=== PATIENT | male | born 1975 | race Two or more races ===

== ENCOUNTER 2019-07-09 22:32 | Inpatient (IN) | payer OTHER ==
[~2019-07-09] VITALS: Ht 167.6 cm; Wt 132.9 kg
[~2019-07-09 22:32] MED LIST: CIPROFLOXACIN500 M2 ORAL; FERROUS GLUCON324 M1 PO; FOLIC ACID1 MG ORAL; LANTUS SOL100 UNIT/1 SUBQ; LEVEMIR FL100 UNIT/1 SUBQ; MIDODRINE HCL10 MG ORAL; NOVOLOG100 UNITS1 SUBQ; PROTONIX40 MG ORAL; VANCOMYCIN250 MG/5 M ORAL
--- NOTE | 2019-07-09 22:40 | NUR ---
ED Nurse Note: Pt brought in by ambulance from [facility] c/o burning urination. Per facility, urine sample taken and was reported + MRSA. Pt stated he has a stoner cath and IV access on RT arm. patient ao4. nad. vss. changed into gown; attached to monitor; safety measures met. stoner noted; draining well to gravity. iv access established fire captain; flushed and patent.
--- NOTE | 2019-07-09 22:45 | NUR ---
ED Nurse Note: iv access established. blood and urine collected; sent down to lab.
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
[2019-07-09 22:50] VITALS: BP 125/78
[2019-07-09] MEDS ORDERED: Piperacillin/Tazobactam 3.375 GM in NS 110 ML IVPB ONE (23:00)
[2019-07-09] MEDS ORDERED: Vancomycin 500 MG in NS 110 ML IVPB ONE (23:00)
[2019-07-09 23:23] LABS: BASOPHILS % (AUTO) 0.8 % (0.0-2.0); EOSINOPHILS % (AUTO) 1.6 % (0.0-3.0); HEMATOCRIT 39.7 % (42.0-52.0); HEMOGLOBIN 13.4 G/DL (14.2-18.0); LYMPHOCYTES % (AUTO) 29.6 % (20.0-45.0); MEAN CORPUSCULAR VOLUME 79 FL (80-99); MONOCYTES % (AUTO) 5.9 % (1.0-10.0); NEUTROPHILS % (AUTO) 62.1 % (45.0-75.0); PLATELET COUNT 244 K/UL (150-450); RED BLOOD COUNT 5.04 M/UL (4.70-6.10); RED CELL DISTRIBUTION WIDTH 15.5 % (11.6-14.8); WHITE BLOOD COUNT 8.4 K/UL (4.8-10.8)
[2019-07-09 23:27] LABS: BILIRUBIN, URINE NEGATIVE (NEGATIVE); COLOR,URINE PALE YELLOW; GLUCOSE, URINE (UA) 1+ (NEGATIVE); KETONES,URINE NEGATIVE (NEGATIVE); LEUKOCYTE ESTERASE ,URINE 3+ (NEGATIVE); NITRITE,URINE NEGATIVE (NEGATIVE); PH,URINE 6.5 (4.5-8.0); PROTEIN,URINE 2+ (NEGATIVE); UROBILINOGEN,URINE NORMAL MG/DL (0.0-1.0)
[2019-07-09 23:36] LABS: ANION GAP 9 mmol/L (5-15); APPEARANCE,URINE SLIGHTLY CLOUDY; BLOOD UREA NITROGEN 28 mg/dL (7-18); CALCIUM 9.5 MG/DL (8.5-10.1); CARBON DIOXIDE 29 MMOL/L (21-32); CHLORIDE 97 MMOL/L (98-107); CREATININE 1.2 MG/DL (0.55-1.30); SODIUM 135 MMOL/L (136-145)
[2019-07-10] MEDS ORDERED: CALCIUM 500 +1 EAC6 PO (00:28)
[2019-07-10] MEDS ORDERED: ARTIFICIAL TEAR15 ML BOTH EYES (00:28)
[2019-07-10] MEDS ORDERED: VITAMIN B122500 MCG PO (00:28)
[2019-07-10] MEDS ORDERED: CRANBERRY500 M3 PO (00:30)
[2019-07-10] MEDS ORDERED: DOCUSATE SODIU100 MG ORAL (00:30)
--- NOTE | 2019-07-10 00:30 | NUR ---
ED Nurse Note: sacral and left foot wound noted; wound photo taken and uploaded. cre vre mrsa swab collected; sent down to lab.
[2019-07-10] MEDS ORDERED: FLORAJEN3 CAPS460 MG PO (00:32)
[2019-07-10] MEDS ORDERED: FOLIC ACID1 MG ORAL (00:32)
[2019-07-10] MEDS ORDERED: NEURONTIN100 MG ORAL (00:32)
[2019-07-10] MEDS ORDERED: Morphine Sulfate 4mg/ml Inj (IV USE ONLY) IVP ONE (00:45)
[2019-07-10] MEDS ORDERED: Morphine Sulfate 4mg/ml Inj (IV USE ONLY) IVP PRN (00:45)
[2019-07-10 01:00] VITALS: BP 122/71
--- NOTE | 2019-07-10 01:37 | NUR ---
TRANSFER TO FLOOR: Patient transferred to [facility] [id number] as ordered, per lana cabral. Report given to luis alberto taylor. patient stable for transfer. patient transferred via gurney to unit with [facility]. belongings and admission packet sent with patient.
[2019-07-10] MEDS ORDERED: LEVEMIR100 UNIT/1 SUBQ (01:45)
[2019-07-10] MEDS ORDERED: JUVEN PACKET1 EAC1 PO (01:45)
[2019-07-10] MEDS ORDERED: FUROSEMIDE40 MG ORAL (01:45)
[2019-07-10] MEDS ORDERED: MORPHINE SULFAT15 MG PO (02:05)
[2019-07-10] MEDS ORDERED: MULTIVITAMINS1 EA14 PO (02:05)
[2019-07-10] MEDS ORDERED: POTASSIUM CHLO20 ME3 PO (02:07)
[2019-07-10] MEDS ORDERED: NEXIUM40 MG ORAL (02:08)
[2019-07-10] MEDS ORDERED: RELISTOR12 MG/0.1 SUBQ (02:11)
[2019-07-10] MEDS ORDERED: ZINC SULFATE220 M1 ORAL (02:11)
[2019-07-10] MEDS ORDERED: VITAMIN C 250250 MG PO (02:11)
[2019-07-10] MEDS ORDERED: ZOFRAN4 M3 ORAL (02:12)
[2019-07-10] MEDS ORDERED: Miralax 17gm pkt ORAL PRN (03:00)
[2019-07-10 03:30] VITALS: BP 115/56
[2019-07-10] MEDS ORDERED: DiphenhydrAMINE 25mg Tab ORAL SCH (04:30)
--- NOTE | 2019-07-10 06:00 | NUR ---
NURSE NOTES: Called Dr. Deutsch at 02:30 for patient's request of Dilaudid IV. Followed up at 03:06. Spoke with him and he said that he didn't want to order IV pain med. He was also made aware of pharmacist comment about Morphine table of IR or ER, resolved. He was also called about wound care consult, waiting for call back.
[2019-07-10] MEDS ORDERED: Morphine IR 15mg tab ORAL PRN (06:02)
[2019-07-10] MEDS: Piperacillin/Tazobactam 3.375 GM in NS 110 ML IVPB SCH ×3 (06:21→21:23)
[2019-07-10] MEDS: Heparin 5000 units/ml inj SUBQ SCH ×3 (06:26→21:31)
--- NOTE | 2019-07-10 06:30 | NUR ---
NURSE NOTES: Went to the sewing supervisor for the Novolog but she wasn't able to release one without label. Sent message to pipe line but we didn't find any at the night locker. Vocational Technical Education Director said to endorse to AM shift.
[2019-07-10 06:40] LABS: BASOPHILS % (AUTO) 0.8 % (0.0-2.0); EOSINOPHILS % (AUTO) 2.2 % (0.0-3.0); HEMATOCRIT 41.3 % (42.0-52.0); HEMOGLOBIN 13.6 G/DL (14.2-18.0); LYMPHOCYTES % (AUTO) 34.6 % (20.0-45.0); MEAN CORPUSCULAR VOLUME 81 FL (80-99); NEUTROPHILS % (AUTO) 56.5 % (45.0-75.0); PLATELET COUNT 237 K/UL (150-450); RED BLOOD COUNT 5.12 M/UL (4.70-6.10); RED CELL DISTRIBUTION WIDTH 15.8 % (11.6-14.8); WHITE BLOOD COUNT 7.8 K/UL (4.8-10.8)
--- NOTE | 2019-07-10 07:36 | NUR ---
HAND-OFF: Report given to TOMAS King. Patient is a fall risk.
--- NOTE | 2019-07-10 07:37 | NUR ---
NURSE NOTES: Received patient in bed, awake, alert and oriented x4. Not in respiratory/cardiac distress. Alexandre is intact, no blood or sediment @ this time. RN followed up with insulin pen. Pharmacy will bring the insulin pen. Call light and personnel items within reach. Will continue to monitor.
[2019-07-10 07:55] LABS: ANION GAP 10 mmol/L (5-15); BLOOD UREA NITROGEN 26 mg/dL (7-18); CALCIUM 9.5 MG/DL (8.5-10.1); CARBON DIOXIDE 29 MMOL/L (21-32); CHLORIDE 97 MMOL/L (98-107); SODIUM 136 MMOL/L (136-145)
[2019-07-10 08:00] VITALS: BP 105/63
[2019-07-10] MEDS: Furosemide 40mg tab ORAL SCH ×2 (08:12→17:20)
[2019-07-10] MEDS: Zinc Sulfate 220mg cap ORAL SCH (08:12)
[2019-07-10] MEDS: NovoLOG Insulin Flexpen SUBQ SCH ×4 (08:13→20:06)
[2019-07-10] MEDS: Docusate 100mg cap ORAL SCH (08:15)
[2019-07-10] MEDS: Midodrine 10mg tab ORAL SCH ×3 (08:16→17:20)
[2019-07-10] MEDS ORDERED: Levemir Flexpen SUBQ SCH (09:00)
--- NOTE | 2019-07-10 09:30 | NUR ---
NURSE NOTES: Patient had concerns about his elevated blood sugar and requested for stronger pain medication stating " the pain medication that I took earlier does not work." Dr. Singh came in and explained about blood sugar and he will order stronger pain meds.
--- NOTE | 2019-07-10 10:47 | NUR ---
CASE MANAGEMENT:INITIAL REVIEW 44 YR OLD MALE BIBA FROM [facility] CC;MALE UROGENITAL PROBLEMS SI;COMPLICATED UTI 97.0 97 15 105/63 95% ON RA NA 135 CL 97 BUN 28 BG 345 UA+ PROTEIN, GLUCOSE, BLOOD, LEUKOCYTE, RBC, WBC, BACTERIA IS;VANCOMYCIN IV ZOSYN IV ADMITTED TO MED SURG MED SURG STATUS DCP;FROM [facility]
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
[2019-07-10] MEDS: Vancomycin 1 GM in NS 275 ML IVPB SCH ×2 (11:05→21:22)
[2019-07-10 12:00] VITALS: BP 109/89
[2019-07-10] MEDS: HYDROmorphone 2mg tab ORAL PRN ×2 (12:08→18:52)
--- NOTE | 2019-07-10 13:03 | NUR ---
*-* NO INSURANCE INFORMATION ON THE BAR UNABLE TO SEND CLINICALS OR REVIEWS *-*
--- NOTE | 2019-07-10 13:13 | Infectious Diseases Prog Note ---
Assessment/Plan Assessment/Plan Full consult dictated: A) 1) uti, + ua 2) pmh noted 3) wounds 4) allergies - nkda P) 1) vancomycin and zosyn 2) f/u on urine culture 3) check labs 4) wound care per surgery 5) thank you Subjective Allergies: Coded Allergies: No Known Allergies (Unverified , 02/09/19) Objective Vital Signs Last 24 Hour Vital Signs Date Time Temp Pulse Resp B/P (MAP) Pulse Ox O2 Delivery O2 Flow Rate FiO2 07/10/19 12:00 98.4 89 18 109/89 (96) 95 07/10/19 09:00 Room Air 07/10/19 08:00 97.0 90 18 105/63 (77) 95 07/10/19 03:30 97.8 97 18 115/56 (75) 95 07/10/19 02:44 Room Air 07/10/19 01:36 98.1 95 16 125/78 95 Room Air 07/10/19 01:29 98.1 07/10/19 01:00 98.1 95 16 122/71 96 Room Air 07/09/19 22:50 98.1 100 16 125/78 95 Room Air 07/09/19 22:38 98.1 92 16 125/78 (94) 95 Room Air Height (Feet): 5 Height (Inches): 6.00 Weight (Pounds): 271 Laboratory Tests Test 07/09/19 22:45 07/10/19 05:45 White Blood Count 8.4 K/UL (4.8-10.8) 7.8 K/UL (4.8-10.8) Red Blood Count 5.04 M/UL (4.70-6.10) 5.12 M/UL (4.70-6.10) Hemoglobin 13.4 G/DL (14.2-18.0) L 13.6 G/DL (14.2-18.0) L Hematocrit 39.7 % (42.0-52.0) L 41.3 % (42.0-52.0) L Mean Corpuscular Volume 79 FL (80-99) L 81 FL (80-99) Mean Corpuscular Hemoglobin 26.6 PG (27.0-31.0) L 26.5 PG (27.0-31.0) L Mean Corpuscular Hemoglobin Concent 33.8 G/DL (32.0-36.0) 32.8 G/DL (32.0-36.0) Red Cell Distribution Width 15.5 % (11.6-14.8) H 15.8 % (11.6-14.8) H Platelet Count 244 K/UL (150-450) 237 K/UL (150-450) Mean Platelet Volume 6.5 FL (6.5-10.1) 6.5 FL (6.5-10.1) Neutrophils (%) (Auto) 62.1 % (45.0-75.0) 56.5 % (45.0-75.0) Lymphocytes (%) (Auto) 29.6 % (20.0-45.0) 34.6 % (20.0-45.0) Monocytes (%) (Auto) 5.9 % (1.0-10.0) 6.0 % (1.0-10.0) Eosinophils (%) (Auto) 1.6 % (0.0-3.0) 2.2 % (0.0-3.0) Basophils (%) (Auto) 0.8 % (0.0-2.0) 0.8 % (0.0-2.0) Urine Color Pale yellow Urine Appearance Slightly cloudy Urine pH 6.5 (4.5-8.0) Urine Specific [place] 1.010 (1.005-1.035) Urine Protein 2+ (NEGATIVE) H Urine Glucose (UA) 1+ (NEGATIVE) H Urine Ketones Negative (NEGATIVE) Urine Blood 4+ (NEGATIVE) H Urine Nitrite Negative (NEGATIVE) Urine Bilirubin Negative (NEGATIVE) Urine Urobilinogen Normal MG/DL (0.0-1.0) Urine Leukocyte Esterase 3+ (NEGATIVE) H Urine RBC 10-15 /HPF (0 - 0) H Urine WBC Tntc /HPF (0 - 0) H Urine Squamous Epithelial Cells None /LPF (NONE/OCC) Urine Bacteria Many /HPF (NONE) H Sodium Level 135 MMOL/L (136-145) L 136 MMOL/L (136-145) Potassium Level 4.0 MMOL/L (3.5-5.1) 4.0 MMOL/L (3.5-5.1) Chloride Level 97 MMOL/L (98-107) L 97 MMOL/L (98-107) L Carbon Dioxide Level 29 MMOL/L (21-32) 29 MMOL/L (21-32) Anion Gap 9 mmol/L (5-15) 10 mmol/L (5-15) Blood Urea Nitrogen 28 mg/dL (7-18) H 26 mg/dL (7-18) H Creatinine 1.2 MG/DL (0.55-1.30) 1.0 MG/DL (0.55-1.30) Estimat Glomerular Filtration Rate > 60 mL/min (>60) > 60 mL/min (>60) Glucose Level 345 MG/DL (74-106) H 353 MG/DL (74-106) H Calcium Level 9.5 MG/DL (8.5-10.1) 9.5 MG/DL (8.5-10.1) Magnesium Level 1.9 MG/DL (1.8-2.4) Current Medications Medications (Trade) Dose Ordered Sig/Miguel Route PRN Reason Start Time Stop Time Status Last Admin Dose Admin Bisacodyl (Dulcolax) 10 mg HSPRN PRN RECTAL Constipation 07/10/19 03:00 08/09/19 02:59 Dextrose (Dextrose 50%) 25 ml Q30M PRN IV Hypoglycemia 07/10/19 03:00 08/09/19 02:59 Dextrose (Dextrose 50%) 50 ml Q30M PRN IV Hypoglycemia 07/10/19 03:00 08/09/19 02:59 Docusate Sodium (Colace) 100 mg DAILY ORAL 07/10/19 09:00 08/09/19 08:59 07/10/19 08:15 Folic Acid (Folate) 1 mg DAILY ORAL 07/10/19 09:00 08/09/19 08:59 07/10/19 08:12 Furosemide (Lasix) 40 mg TWICE A DAY ORAL 07/10/19 09:00 08/09/19 08:59 07/10/19 08:12 Gabapentin (Neurontin) 200 mg TWICE A DAY ORAL 07/10/19 09:00 08/09/19 08:59 07/10/19 08:12 Heparin Sodium (Porcine) (Heparin 5000 units/ml) 5,000 units EVERY 8 HOURS SUBQ 07/10/19 06:00 08/24/19 05:59 07/10/19 06:26 Hydromorphone HCl (Dilaudid) 2 mg Q4H PRN ORAL For Pain 07/10/19 11:04 07/17/19 11:03 07/10/19 12:08 Insulin Aspart (NovoLOG) BEFORE MEALS AND HS SUBQ 07/10/19 06:30 08/09/19 06:29 07/10/19 12:09 Insulin Detemir (Levemir) 7 units DAILY SUBQ 07/11/19 09:00 08/09/19 08:59 Midodrine (Pro-Amatine) 10 mg THREE TIMES A DAY ORAL 07/10/19 09:00 08/09/19 08:59 07/10/19 12:08 Ondansetron HCl (Zofran) 4 mg Q6H PRN IVP Nausea & Vomiting 07/10/19 03:00 08/09/19 02:59 Pantoprazole (Protonix) 40 mg EVERY 12 HOURS ORAL 07/10/19 09:00 08/09/19 08:59 07/10/19 08:12 Piperacillin Sod/ Tazobactam Sod 3.375 gm/Sodium Chloride 110 ml @ 27.5 mls/hr EVERY 8 HOURS IVPB 07/10/19 06:00 07/15/19 05:59 07/10/19 06:21 Polyethylene Glycol (Miralax) 17 gm HSPRN PRN ORAL Constipation 07/10/19 03:00 08/09/19 02:59 Potassium Chloride (K-Dur) 20 meq DAILY ORAL 07/10/19 09:00 08/09/19 08:59 07/10/19 08:12 Vancomycin HCl (Vanco rx to dose) 1 ea DAILY PRN MISC Per rx protocol 07/10/19 03:00 08/09/19 02:59 Vancomycin HCl 1 gm/Sodium Chloride 275 ml @ 183.708 mls/hr Q12H IVPB 07/10/19 09:00 07/15/19 08:59 07/10/19 11:05 Zinc Sulfate (Zinc Sulfate) 220 mg DAILY ORAL 07/10/19 09:00 08/09/19 08:59 07/10/19 08:12 Edinson Serna MD Jul 10, 2019 13:13
--- NOTE | 2019-07-10 14:25 | NUR ---
NURSE NOTES: Received order from Dr. Singh to change georgiana cath.
--- NOTE | 2019-07-10 14:42 | NUR ---
*-* INSURANCE *-* ALL CLINICALS AND REVIEWS HAVE LJ FAXED TO: DILCIA Pimentel # [phone]
[2019-07-10 16:00] VITALS: BP 110/69
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
--- NOTE | 2019-07-10 17:11 | NUR ---
NURSE NOTES:WOUND CARE NOTES:Pt presented on admission with multiple pressure injuries. Contractures bilat lower ext. DTPI noted sacrococcygeal area(L)2.5cm x (W)0.5cm. Base of wound is purple with maroon borders. Non-blanching erythema periwound. Scrotum is erythematous. Full thickness pressure injury upper L buttocks. (L)1.3cm x (W)1 cm x (D)1.1cm. Base of wound is obscured secondary wound within crevice of skin fold. DTPI outer lower L buttocks(L)10.5cm x (W)8.5cm. Base of wound is fluctuant, maroon with scattered areas that are purple. Pt complained site has been painful last few days. No elevation in skin temp noted. Full thickness pressure injury R ischium.(L)3.5cm x (W)2.5cmcm x (D)3.6cm. Surrounding perimeter of wound is maroon.Base of wound is not appreciated due wound is within crevice of skin. Small amt serosanguineous exudate noted. No odor noted. Unstageable pressure injury posterior lower R thigh(L)0.8cm x (W)0.9cm. Base of wound has 100% slough. Borders are erythematous . No odor or exudate noted. DTPI upper/lateral R thigh Base of wound is indurated and maroon in colour. Small partial thickness ulcer distal/lateral L lower extremity. Base of wound is moist and viable. borders are macerated. Small amt sanguineous exudate noted. Full thickness ulcer Dorsal R foot.(L)2.5cm x (W)3cm Base of wound scattered fibrinous slough ,otherwise moist and pink. Borders are macerated. No odor or exudate noted. No erythema,induration or fluctuance periwound. Historical scars noted to both heels. Scattered white plaques with hyperkeratosis noted to both lower ext. Tx Plan: Cleanse Wounds R and L buttocks with Saline. Loosely pack with Therahoney infused packing strip. Apply Moisture Barrier periwound. Cover each wound with Optifoam drsg Daily and prn. Cleanse wound R Thigh with Saline. Cover with Optifoam drsg Daily and prn. Apply Moisture Barrier Paste to Sacrum and lower L buttocks. Cover each site with Optifoam drsg. Daily and prn. Apply Cavilon to upper R thigh DTPI. Cover with Optifoam drsg. Change every 3 days and prn. Apply Betadine to wound distal/lateral L lower ext and dorsal R foot. Cover each wound with Optifoam drsg. Change every 3 days and prn. Reposition at least every 2hours or as tolerated. Off load heels with pillow. APM/DEVONTE Mattress.
--- NOTE | 2019-07-10 19:00 | NUR ---
NURSE NOTES: Rn changed stoner cath with 16fr without any difficulties, no bleeding or irritation.
--- NOTE | 2019-07-10 19:30 | NUR ---
HAND-OFF: Report given to Sumeet and endorsed plan of care.
--- NOTE | 2019-07-10 19:30 | NUR ---
NURSE NOTES: Patient awake in bed, no complaints at this time, not in acute respiratory distress. With IV access on both hands. Informed patient that we need to take wound pictures. Pt wanted to get some rest at this time and will let RN know when he is ready. Bed in lowest, locked and alarm on. Will continue to monitor. Call light in reach.
[2019-07-10 20:00] VITALS: BP 102/63
[2019-07-11] VITALS: BP 121/63
[2019-07-11 04:00] VITALS: BP 98/60
[2019-07-11] MEDS: Piperacillin/Tazobactam 3.375 GM in NS 110 ML IVPB SCH ×3 (05:06→21:07)
[2019-07-11] MEDS: Heparin 5000 units/ml inj SUBQ SCH ×3 (05:07→21:13)
[2019-07-11] MEDS: NovoLOG Insulin Flexpen SUBQ SCH ×4 (05:08→20:33)
[2019-07-11] MEDS: HYDROmorphone 2mg tab ORAL PRN ×3 (05:17→21:56)
--- NOTE | 2019-07-11 05:36 | NUR ---
NURSE NOTES: Patient refused taking of wound photos. He said he wanted to get some more rest because he didn't have enough yesterday.
--- NOTE | 2019-07-11 07:01 | NUR ---
HAND-OFF: Report given to TOMAS King and TOMAS Espinal.
[2019-07-11 07:05] LABS: BASOPHILS % (AUTO) 0.4 % (0.0-2.0); EOSINOPHILS % (AUTO) 1.6 % (0.0-3.0); HEMOGLOBIN 12.9 G/DL (14.2-18.0); MEAN CORPUSCULAR VOLUME 80 FL (80-99); MONOCYTES % (AUTO) 5.2 % (1.0-10.0); NEUTROPHILS % (AUTO) 61.8 % (45.0-75.0); PLATELET COUNT 221 K/UL (150-450); RED BLOOD COUNT 4.87 M/UL (4.70-6.10); RED CELL DISTRIBUTION WIDTH 15.7 % (11.6-14.8); WHITE BLOOD COUNT 6.8 K/UL (4.8-10.8)
--- NOTE | 2019-07-11 07:05 | NUR ---
NURSE NOTES: Received patient in bed, awake, not in respiratory/cardiac distress. Patient is in mild pain @ this time and bearable without pain medication per patient. Alexandre is intact draining well to gravity with yellowish urine, no blood or sediment. 2 IV's intact, no s/s of infiltration. Patient is on pressure releasing mattress. Call light and personnel items within reach. Will continue plan of care.
[2019-07-11 07:27] LABS: ANION GAP 12 mmol/L (5-15); BLOOD UREA NITROGEN 24 mg/dL (7-18); CALCIUM 9.4 MG/DL (8.5-10.1); CARBON DIOXIDE 27 MMOL/L (21-32); CHLORIDE 99 MMOL/L (98-107); CREATININE 1.1 MG/DL (0.55-1.30); POTASSIUM 3.9 MMOL/L (3.5-5.1); SODIUM 138 MMOL/L (136-145)
[2019-07-11 08:00] VITALS: BP 118/62
[2019-07-11] MEDS ORDERED: Levemir Flexpen SUBQ SCH ×2 (09:00→11:00)
[2019-07-11] MEDS: Docusate 100mg cap ORAL SCH (09:27)
[2019-07-11] MEDS: Midodrine 10mg tab ORAL SCH ×3 (09:27→18:52)
[2019-07-11] MEDS: Furosemide 40mg tab ORAL SCH ×2 (09:27→18:52)
[2019-07-11] MEDS: Zinc Sulfate 220mg cap ORAL SCH (09:27)
[2019-07-11] MEDS: Vancomycin 1 GM in NS 275 ML IVPB SCH ×2 (09:28→20:23)
--- NOTE | 2019-07-11 09:40 | NUR ---
NURSE NOTES: Patient was seen by Dr. Singh, Rn relayed doctor about elevated blood sugar. He will put some order and Md agreed to change his diet to CCHO medium. Will continue to monitor.
--- NOTE | 2019-07-11 10:51 | NUR ---
CASE MANAGEMENT:REVIEW SI;MALE UROGENITAL PROBLEMS. UTI W/MRSA. DM. 98.4 98 18 98/60 96% ON RA BUN 24 BG 381 IS;ZOSYN IV Q8 HRS VANCOMYCIN IV Q12 HRS HEPARIN SUBQ Q8 HRS K-DUR PO QD PROTONIX PO Q12 HRS MIDODRINE PO TID LASIX PO BID NOVOLOG QID LEVEMIR SUBQ QD MED SURG STATUS DCP;FROM [facility]
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
--- NOTE | 2019-07-11 11:33 | NUR ---
RD ASSESSMENT & RECOMMENDATIONS SEE CARE ACTIVITY FOR COMPLETE ASSESSMENT DAILY ESTIMATED NEEDS: Needs based on Wound, paraplegia, obesity 78.9kg abw 20-25 kcals/kg 2298-7430 total kcals 1.25-2 g protein/kg 99-158 g total protein 25-30 mL/kg 3205-4416 total fluid mLs NUTRITION DIAGNOSIS: Increased Protein and micronutrient needs r/t Wound healing as evidenced by pt w/ multiple wounds, including full thickness and unstageable, refer to wound care eval. CURRENT DIET: Now CCHO MED PO DIET RECOMMENDATIONS--->>> CCHO LOW (3 Carbs/ meal) w/ DOUBLE PROTEIN PORTIONS ADDITIONAL RECOMMENDATIONS: 1) RE-calibrate bed scale w/ added P200 mattress 2) Obtain HgA1C for eval 3) Wound care: JULY BID + MVI w/ Min qd + Vit C 500mg daily Continue w/ ZnSO4 4) Diet edu as able 5) Monitor lytes daily on lasix
[2019-07-11 12:00] VITALS: BP 101/69
--- NOTE | 2019-07-11 14:38 | NUR ---
*-* INSURANCE *-* ALL CLINICALS AND REVIEWS HAVE LJ FAXED TO: DILCIA Pimentel # [phone]
--- NOTE | 2019-07-11 15:21 | Surgery Progress Note ---
Surgery Progress Note Subjective Additional Comments incontinence and changed today during exam no n/v/f/c in good spirts labs noted orders placed Objective Last 24 Hour Vital Signs Date Time Temp Pulse Resp B/P (MAP) Pulse Ox O2 Delivery O2 Flow Rate FiO2 07/11/19 12:00 98.6 98 18 101/69 (80) 95 07/11/19 09:00 Room Air 07/11/19 08:00 98.4 98 18 118/62 (80) 98 07/11/19 04:00 98.0 93 18 98/60 (73) 98 07/11/19 00:00 97.3 83 18 121/63 (82) 97 07/10/19 21:00 Room Air 07/10/19 20:00 97.9 83 18 102/63 (76) 96 07/10/19 16:00 98.3 80 18 110/69 (83) 95 I&O Intake and Output 07/10/19 07/11/19 19:00 07:00 Intake Total 495.000 ml 500 ml Output Total 1800 ml 2650 ml Balance -1305.000 ml -2150 ml Intake Oral 500 ml IV Total 495.000 ml Output Urine Total 1800 ml 2650 ml # Voids 2 Dressing: saturated Wound: other Drains: other Cardiovascular: RSR Respiratory: decreased breath sounds Abdomen: soft, present bowel sounds Extremities: no cyanosis Laboratory Tests Test 07/11/19 05:08 White Blood Count 6.8 K/UL (4.8-10.8) Red Blood Count 4.87 M/UL (4.70-6.10) Hemoglobin 12.9 G/DL (14.2-18.0) L Hematocrit 39.0 % (42.0-52.0) L Mean Corpuscular Volume 80 FL (80-99) Mean Corpuscular Hemoglobin 26.5 PG (27.0-31.0) L Mean Corpuscular Hemoglobin Concent 33.0 G/DL (32.0-36.0) Red Cell Distribution Width 15.7 % (11.6-14.8) H Platelet Count 221 K/UL (150-450) Mean Platelet Volume 6.4 FL (6.5-10.1) L Neutrophils (%) (Auto) 61.8 % (45.0-75.0) Lymphocytes (%) (Auto) 31.0 % (20.0-45.0) Monocytes (%) (Auto) 5.2 % (1.0-10.0) Eosinophils (%) (Auto) 1.6 % (0.0-3.0) Basophils (%) (Auto) 0.4 % (0.0-2.0) Sodium Level 138 MMOL/L (136-145) Potassium Level 3.9 MMOL/L (3.5-5.1) Chloride Level 99 MMOL/L (98-107) Carbon Dioxide Level 27 MMOL/L (21-32) Anion Gap 12 mmol/L (5-15) Blood Urea Nitrogen 24 mg/dL (7-18) H Creatinine 1.1 MG/DL (0.55-1.30) Estimat Glomerular Filtration Rate > 60 mL/min (>60) Glucose Level 381 MG/DL (74-106) H Calcium Level 9.4 MG/DL (8.5-10.1) Plan Problems: (1) Sacral decubitus ulcer Assessment & Plan: Pt presented on admission with multiple pressure injuries. Contractures bilat lower ext. DTPI noted sacrococcygeal area(L)2.5cm x (W)0.5cm. Base of wound is purple with maroon borders. Non-blanching erythema periwound. Scrotum is erythematous. Full thickness stage 3/4 pressure injury upper L buttocks. (L)1.3cm x (W)1 cm x (D)1.1cm. Base of wound is obscured secondary wound within crevice of skin fold. DTPI outer lower L buttocks(L)10.5cm x (W)8.5cm. Base of wound is fluctuant, maroon with scattered areas that are purple. Pt complained site has been painful last few days. No elevation in skin temp noted. Full thickness stage 4 pressure injury R ischium.(L)3.5cm x (W)2.5cmcm x (D) 3.6cm. Surrounding perimeter of wound is maroon.Base of wound is not appreciated due wound is within crevice of skin. Small amt serosanguineous exudate noted. No odor noted. Unstageable pressure injury posterior lower R thigh(L)0.8cm x (W)0.9cm. Base of wound has 100% slough. Borders are erythematous . No odor or exudate noted. DTPI upper/lateral R thigh Base of wound is indurated and maroon in colour. Small partial thickness stage 2 ulcer distal/lateral L lower extremity. Base of wound is moist and viable. borders are macerated. Small amt sanguineous exudate noted. Full thickness stage 4 ulcer Dorsal R foot.(L)2.5cm x (W)3cm Base of wound scattered fibrinous slough ,otherwise moist and pink. Borders are macerated. No odor or exudate noted. No erythema,induration or fluctuance periwound. Historical scars noted to both heels. Scattered white plaques with hyperkeratosis noted to both lower ext. Tx Plan: Cleanse Wounds R and L buttocks with Saline. Loosely pack with Therahoney infused packing strip. Apply Moisture Barrier periwound. Cover each wound with Optifoam drsg Daily and prn. Cleanse wound R Thigh with Saline. Cover with Optifoam drsg Daily and prn. Apply Moisture Barrier Paste to Sacrum and lower L buttocks. Cover each site with Optifoam drsg. Daily and prn. Apply Cavilon to upper R thigh DTPI. Cover with Optifoam drsg. Change every 3 days and prn. Apply Betadine to wound distal/lateral L lower ext and dorsal R foot. Cover each wound with Optifoam drsg. Change every 3 days and prn. Reposition at least every 2hours or as tolerated. Off load heels with pillow. APM/DEVONTE Mattress. (2) Chronic indwelling Alexandre catheter Assessment & Plan: abx as per ID UTI noted micro pending (3) History of osteomyelitis Assessment & Plan: DAILY ESTIMATED NEEDS: Needs based on Wound, paraplegia, obesity 78.9kg abw 20-25 kcals/kg 2919-6979 total kcals 1.25-2 g protein/kg 99-158 g total protein 25-30 mL/kg 2983-1699 total fluid mLs NUTRITION DIAGNOSIS: Increased Protein and micronutrient needs r/t Wound healing as evidenced by pt w/ multiple wounds, including full thickness and unstageable, refer to wound care eval. CURRENT DIET: Now CCHO MED PO DIET RECOMMENDATIONS--->>> CCHO LOW (3 Carbs/ meal) w/ DOUBLE PROTEIN PORTIONS ADDITIONAL RECOMMENDATIONS: 1) RE-calibrate bed scale w/ added P200 mattress 2) Obtain HgA1C for eval 3) Wound care: JULY BID + MVI w/ Min qd + Vit C 500mg daily Continue w/ ZnSO4 4) Diet edu as able 5) Monitor lytes daily on Richard Chaidez Jul 11, 2019 15:21
[2019-07-11 16:00] VITALS: BP 124/67
--- NOTE | 2019-07-11 17:27 | NUR ---
NURSE NOTES: Patient's blood sugar was 456mg/dl before dinner. patient is asymptomatic.Given 10 units of Novolog as ordered. Rn checked patient's correction meds list, patient took levemir 35 units BID. RN spoke to Dr. Singh and relayed blood sugar with new order to increase levemir to 35 units starting tomorrow morning and Agreed to change slide scale to resistant. MD declined to HgA1c. Will continue to monitor.
--- NOTE | 2019-07-11 18:45 | NUR ---
NURSE NOTES: RN took the pictures of the wound and uploaded.
--- NOTE | 2019-07-11 19:17 | NUR ---
HAND-OFF: Report given to Sumeet and qiana about blood sugar.
--- NOTE | 2019-07-11 19:23 | NUR ---
NURSE NOTES: Patient awake in bed, no complaints of pain at this time, talkative. Will continue plan of care.
[2019-07-11 20:00] VITALS: BP 114/71
[2019-07-11] MEDS ORDERED: NovoLOG Insulin Flexpen SUBQ SCH (21:00)
--- NOTE | 2019-07-11 21:05 | Infectious Diseases Prog Note ---
Assessment/Plan Assessment/Plan A) 1) uti, + ua - urine culture with mixed organisms 2) pmh noted 3) wounds 4) allergies - nkda P) 1) zosyn, discontinue vancomycin 2) f/u urinalysis and culture 3) monitor labs 4) wound care per surgery - doubt wounds acutely infected 5) will f/u Subjective Constitutional: Denies: fever Respiratory: Denies: shortness of breath Cardiovascular: Denies: chest pain Gastrointestinal/Abdominal: Denies: nausea, vomiting, diarrhea Allergies: Coded Allergies: No Known Allergies (Unverified , 02/09/19) Objective Vital Signs Last 24 Hour Vital Signs Date Time Temp Pulse Resp B/P (MAP) Pulse Ox O2 Delivery O2 Flow Rate FiO2 07/11/19 16:00 98.1 94 18 124/67 (86) 95 07/11/19 12:00 98.6 98 18 101/69 (80) 95 07/11/19 09:00 Room Air 07/11/19 08:00 98.4 98 18 118/62 (80) 98 07/11/19 04:00 98.0 93 18 98/60 (73) 98 07/11/19 00:00 97.3 83 18 121/63 (82) 97 Height (Feet): 5 Height (Inches): 6.00 Weight (Pounds): 294 General Appearance: no acute distress HEENT: normocephalic, atraumatic, anicteric Respiratory/Chest: lungs clear, normal breath sounds, no respiratory distress Cardiovascular: normal rate, regular rhythm, regularly irregular Abdomen: normal bowel sounds, soft, non tender, no organomegaly Microbiology Date/Time Source Procedure Growth Status 07/09/19 22:45 Urine,Clean Catch Urine Culture - Preliminary Mixed Gram Positive Organism Resulted Laboratory Tests Test 07/11/19 05:08 White Blood Count 6.8 K/UL (4.8-10.8) Red Blood Count 4.87 M/UL (4.70-6.10) Hemoglobin 12.9 G/DL (14.2-18.0) L Hematocrit 39.0 % (42.0-52.0) L Mean Corpuscular Volume 80 FL (80-99) Mean Corpuscular Hemoglobin 26.5 PG (27.0-31.0) L Mean Corpuscular Hemoglobin Concent 33.0 G/DL (32.0-36.0) Red Cell Distribution Width 15.7 % (11.6-14.8) H Platelet Count 221 K/UL (150-450) Mean Platelet Volume 6.4 FL (6.5-10.1) L Neutrophils (%) (Auto) 61.8 % (45.0-75.0) Lymphocytes (%) (Auto) 31.0 % (20.0-45.0) Monocytes (%) (Auto) 5.2 % (1.0-10.0) Eosinophils (%) (Auto) 1.6 % (0.0-3.0) Basophils (%) (Auto) 0.4 % (0.0-2.0) Sodium Level 138 MMOL/L (136-145) Potassium Level 3.9 MMOL/L (3.5-5.1) Chloride Level 99 MMOL/L (98-107) Carbon Dioxide Level 27 MMOL/L (21-32) Anion Gap 12 mmol/L (5-15) Blood Urea Nitrogen 24 mg/dL (7-18) H Creatinine 1.1 MG/DL (0.55-1.30) Estimat Glomerular Filtration Rate > 60 mL/min (>60) Glucose Level 381 MG/DL (74-106) H Calcium Level 9.4 MG/DL (8.5-10.1) Current Medications Medications (Trade) Dose Ordered Sig/Miguel Route PRN Reason Start Time Stop Time Status Last Admin Dose Admin Ascorbic Acid (Vitamin C) 500 mg DAILY ORAL 07/12/19 09:00 08/11/19 08:59 Bisacodyl (Dulcolax) 10 mg HSPRN PRN RECTAL Constipation 07/10/19 03:00 08/09/19 02:59 Dextrose (Dextrose 50%) 25 ml Q30M PRN IV Hypoglycemia 07/10/19 03:00 08/09/19 02:59 Dextrose (Dextrose 50%) 50 ml Q30M PRN IV Hypoglycemia 07/10/19 03:00 08/09/19 02:59 Docusate Sodium (Colace) 100 mg DAILY ORAL 07/10/19 09:00 08/09/19 08:59 07/11/19 09:27 Folic Acid (Folate) 1 mg DAILY ORAL 07/10/19 09:00 4/9/20 08:59 07/11/19 09:27 Furosemide (Lasix) 40 mg TWICE A DAY ORAL 07/10/19 09:00 08/09/19 08:59 07/11/19 18:52 Gabapentin (Neurontin) 200 mg TWICE A DAY ORAL 07/10/19 09:00 08/09/19 08:59 07/11/19 18:52 Heparin Sodium (Porcine) (Heparin 5000 units/ml) 5,000 units EVERY 8 HOURS SUBQ 07/10/19 06:00 08/24/19 05:59 07/11/19 13:51 Hydromorphone HCl (Dilaudid) 2 mg Q4H PRN ORAL For Pain 07/10/19 11:04 07/17/19 11:03 07/11/19 16:29 Insulin Aspart (NovoLOG) BEFORE MEALS AND HS SUBQ 07/11/19 21:00 08/10/19 20:59 07/11/19 20:33 Insulin Detemir (Levemir) 35 units DAILY SUBQ 07/12/19 09:00 08/09/19 10:59 Midodrine (Pro-Amatine) 10 mg THREE TIMES A DAY ORAL 07/10/19 09:00 08/09/19 08:59 07/11/19 18:52 Multivitamins (Multivitamins) 1 tab DAILY ORAL 07/12/19 09:00 08/11/19 08:59 Ondansetron HCl (Zofran) 4 mg Q6H PRN IVP Nausea & Vomiting 07/10/19 03:00 08/09/19 02:59 Pantoprazole (Protonix) 40 mg EVERY 12 HOURS ORAL 07/10/19 09:00 08/09/19 08:59 07/11/19 20:18 Piperacillin Sod/ Tazobactam Sod 3.375 gm/Sodium Chloride 110 ml @ 27.5 mls/hr EVERY 8 HOURS IVPB 07/10/19 06:00 07/15/19 05:59 07/11/19 13:51 Polyethylene Glycol (Miralax) 17 gm HSPRN PRN ORAL Constipation 07/10/19 03:00 08/09/19 02:59 Potassium Chloride (K-Dur) 20 meq DAILY ORAL 07/10/19 09:00 08/09/19 08:59 07/11/19 09:27 Zinc Sulfate (Zinc Sulfate) 220 mg DAILY ORAL 07/10/19 09:00 08/09/19 08:59 07/11/19 09:27 Edinson Serna MD Jul 11, 2019 21:05
[2019-07-12] VITALS: BP 115/71
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
[2019-07-12 01:01] LABS: APPEARANCE,URINE CLEAR; BILIRUBIN, URINE NEGATIVE (NEGATIVE); COLOR,URINE PALE YELLOW; GLUCOSE, URINE (UA) NEGATIVE (NEGATIVE); KETONES,URINE NEGATIVE (NEGATIVE); LEUKOCYTE ESTERASE ,URINE 3+ (NEGATIVE); NITRITE,URINE NEGATIVE (NEGATIVE); PH,URINE 7 (4.5-8.0); PROTEIN,URINE 2+ (NEGATIVE); UROBILINOGEN,URINE NORMAL MG/DL (0.0-1.0)
--- NOTE | 2019-07-12 01:05 | NUR ---
NURSE NOTES: Urine sample collected and sent to the lab.
[2019-07-12 04:00] VITALS: BP 112/72
[2019-07-12] MEDS: NovoLOG Insulin Flexpen SUBQ SCH ×4 (05:08→21:00)
[2019-07-12] MEDS: Heparin 5000 units/ml inj SUBQ SCH ×3 (05:12→21:01)
[2019-07-12] MEDS: Piperacillin/Tazobactam 3.375 GM in NS 110 ML IVPB SCH (05:24)
--- NOTE | 2019-07-12 05:49 | NUR ---
HAND-OFF: Report given to TOMAS Pugh.
--- NOTE | 2019-07-12 05:50 | NUR ---
NURSE NOTES: received patient on bed, asleep but easily arousable. with stoner catheter draining a light yellow urine. no pain at the moment. no sob. with iv lines on the left hand 18 gauge, right hand 24 gauge. bed locked and in lowest position. call light and light button within easy reach. bed alarm on. will continue plan of care.
[2019-07-12 06:15] LABS: BASOPHILS % (AUTO) 0.5 % (0.0-2.0); EOSINOPHILS % (AUTO) 1.6 % (0.0-3.0); HEMOGLOBIN 13.6 G/DL (14.2-18.0); MEAN CORPUSCULAR VOLUME 80 FL (80-99); MONOCYTES % (AUTO) 6.1 % (1.0-10.0); NEUTROPHILS % (AUTO) 54.8 % (45.0-75.0); PLATELET COUNT 235 K/UL (150-450); RED BLOOD COUNT 5.22 M/UL (4.70-6.10); RED CELL DISTRIBUTION WIDTH 15.4 % (11.6-14.8); WHITE BLOOD COUNT 6.8 K/UL (4.8-10.8)
[2019-07-12 06:28] LABS: ANION GAP 13 mmol/L (5-15); BLOOD UREA NITROGEN 22 mg/dL (7-18); CALCIUM 9.7 MG/DL (8.5-10.1); CARBON DIOXIDE 27 MMOL/L (21-32); CHLORIDE 100 MMOL/L (98-107); CREATININE 1.2 MG/DL (0.55-1.30); POTASSIUM 3.3 MMOL/L (3.5-5.1); SODIUM 139 MMOL/L (136-145)
--- NOTE | 2019-07-12 07:15 | NUR ---
HAND-OFF: Report given to claudia colorado.
[2019-07-12 08:00] VITALS: BP 108/65
--- NOTE | 2019-07-12 08:04 | NUR ---
NURSE NOTES: received report from TOMAS Pugh. lilianane in bed. A&Ox4, verbally responsive. no respiratory distress noted on room air. no pain at this time. IV on LH18, RH 24. saline lock. intact. skin intact. contact isolation. PPE at all times. F/C draining. neurogenic bladder. bed in the lowest position and locked. call light within reach. will continue to provide plan of care.
[2019-07-12] MEDS: Zinc Sulfate 220mg cap ORAL SCH (08:33)
[2019-07-12] MEDS: Ascorbic Acid 500mg tab ORAL SCH (08:33)
[2019-07-12] MEDS: Docusate 100mg cap ORAL SCH (08:33)
[2019-07-12] MEDS: Midodrine 10mg tab ORAL SCH ×3 (08:34→17:30)
[2019-07-12] MEDS: Furosemide 40mg tab ORAL SCH ×2 (08:34→17:31)
[2019-07-12] MEDS: Levemir Flexpen SUBQ SCH (08:47)
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
--- NOTE | 2019-07-12 11:46 | NUR ---
CASE MANAGEMENT:REVIEW SI;CATHETER ASSOCIATED UTI W/MRS. DM. BLE WOUNDS. 98.2 91 20 108/65 93% ON RA K+ 3.3 BUN 22 BG 321 IS;K-DUR PO WD LASIX PO BID MIDODRINE PO TID PROTONIX PO Q12 HRS ZOSYN IV Q8 HRS HEPARIN SUBQ Q8 HRS ZINC SULFATE PO QD GABAPENTIN PO BID MED SURG STATUS PLAN OF CARE; CONTACT ISOLATION IV ABX WOUND CARE REPEAT UA DCP;FROM [facility]
[2019-07-12 12:00] VITALS: BP 115/70
[2019-07-12] MEDS: HYDROmorphone 2mg tab ORAL PRN ×2 (13:02→20:59)
--- NOTE | 2019-07-12 14:44 | NUR ---
*-* INSURANCE *-* ALL CLINICALS AND REVIEWS HAVE LJ FAXED TO: DILCIA Pimentel # [phone]
--- NOTE | 2019-07-12 15:46 | Surgery Progress Note ---
Surgery Progress Note Subjective Symptoms: improved, pain same, tolerating diet, voiding well, passing flatus, BM Objective Last 24 Hour Vital Signs Date Time Temp Pulse Resp B/P (MAP) Pulse Ox O2 Delivery O2 Flow Rate FiO2 07/12/19 12:00 97.3 87 19 115/70 (85) 97 07/12/19 09:00 Room Air 07/12/19 08:00 98.2 91 18 108/65 (79) 97 07/12/19 04:00 97.7 91 20 112/72 (85) 93 07/12/19 00:00 98.2 71 20 115/71 (86) 98 07/11/19 21:00 Room Air 07/11/19 20:00 97.0 88 18 114/71 (85) 93 07/11/19 16:00 98.1 94 18 124/67 (86) 95 I&O Intake and Output 07/11/19 07/12/19 19:00 07:00 Intake Total 1787.500 ml 470 ml Output Total 1600 ml 1600 ml Balance 187.500 ml -1130 ml Intake Oral 1320 ml IV Total 467.500 ml 110 ml Other 360 ml Output Urine Total 1600 ml 1600 ml # Bowel Movements 1 Dressing: saturated Wound: other Cardiovascular: RSR Respiratory: clear Abdomen: soft, non-tender, present bowel sounds Extremities: no tenderness, no cyanosis Laboratory Tests Test 07/11/19 23:10 07/12/19 05:20 Urine Color Pale yellow Urine Appearance Clear Urine pH 7 (4.5-8.0) Urine Specific [place] 1.005 (1.005-1.035) Urine Protein 2+ (NEGATIVE) H Urine Glucose (UA) Negative (NEGATIVE) Urine Ketones Negative (NEGATIVE) Urine Blood 4+ (NEGATIVE) H Urine Nitrite Negative (NEGATIVE) Urine Bilirubin Negative (NEGATIVE) Urine Urobilinogen Normal MG/DL (0.0-1.0) Urine Leukocyte Esterase 3+ (NEGATIVE) H Urine RBC 30-40 /HPF (0 - 0) H Urine WBC Tntc /HPF (0 - 0) H Urine Squamous Epithelial Cells None /LPF (NONE/OCC) Urine Bacteria Few /HPF (NONE) White Blood Count 6.8 K/UL (4.8-10.8) Red Blood Count 5.22 M/UL (4.70-6.10) Hemoglobin 13.6 G/DL (14.2-18.0) L Hematocrit 42.0 % (42.0-52.0) Mean Corpuscular Volume 80 FL (80-99) Mean Corpuscular Hemoglobin 26.1 PG (27.0-31.0) L Mean Corpuscular Hemoglobin Concent 32.4 G/DL (32.0-36.0) Red Cell Distribution Width 15.4 % (11.6-14.8) H Platelet Count 235 K/UL (150-450) Mean Platelet Volume 6.0 FL (6.5-10.1) L Neutrophils (%) (Auto) 54.8 % (45.0-75.0) Lymphocytes (%) (Auto) 37.0 % (20.0-45.0) Monocytes (%) (Auto) 6.1 % (1.0-10.0) Eosinophils (%) (Auto) 1.6 % (0.0-3.0) Basophils (%) (Auto) 0.5 % (0.0-2.0) Sodium Level 139 MMOL/L (136-145) Potassium Level 3.3 MMOL/L (3.5-5.1) L Chloride Level 100 MMOL/L (98-107) Carbon Dioxide Level 27 MMOL/L (21-32) Anion Gap 13 mmol/L (5-15) Blood Urea Nitrogen 22 mg/dL (7-18) H Creatinine 1.2 MG/DL (0.55-1.30) Estimat Glomerular Filtration Rate > 60 mL/min (>60) Glucose Level 321 MG/DL (74-106) H Calcium Level 9.7 MG/DL (8.5-10.1) Plan Problems: (1) Sacral decubitus ulcer Assessment & Plan: Pt presented on admission with multiple pressure injuries. Contractures bilat lower ext. DTPI noted sacrococcygeal area(L)2.5cm x (W)0.5cm. Base of wound is purple with maroon borders. Non-blanching erythema periwound. Scrotum is erythematous. Full thickness stage 3/4 pressure injury upper L buttocks. (L)1.3cm x (W)1 cm x (D)1.1cm. Base of wound is obscured secondary wound within crevice of skin fold. DTPI outer lower L buttocks(L)10.5cm x (W)8.5cm. Base of wound is fluctuant, maroon with scattered areas that are purple. Pt complained site has been painful last few days. No elevation in skin temp noted. Full thickness stage 4 pressure injury R ischium.(L)3.5cm x (W)2.5cmcm x (D) 3.6cm. Surrounding perimeter of wound is maroon.Base of wound is not appreciated due wound is within crevice of skin. Small amt serosanguineous exudate noted. No odor noted. Unstageable pressure injury posterior lower R thigh(L)0.8cm x (W)0.9cm. Base of wound has 100% slough. Borders are erythematous . No odor or exudate noted. DTPI upper/lateral R thigh Base of wound is indurated and maroon in colour. Small partial thickness stage 2 ulcer distal/lateral L lower extremity. Base of wound is moist and viable. borders are macerated. Small amt sanguineous exudate noted. Full thickness stage 4 ulcer Dorsal R foot.(L)2.5cm x (W)3cm Base of wound scattered fibrinous slough ,otherwise moist and pink. Borders are macerated. No odor or exudate noted. No erythema,induration or fluctuance periwound. Historical scars noted to both heels. Scattered white plaques with hyperkeratosis noted to both lower ext. Tx Plan: Cleanse Wounds R and L buttocks with Saline. Loosely pack with Therahoney infused packing strip. Apply Moisture Barrier periwound. Cover each wound with Optifoam drsg Daily and prn. Cleanse wound R Thigh with Saline. Cover with Optifoam drsg Daily and prn. Apply Moisture Barrier Paste to Sacrum and lower L buttocks. Cover each site with Optifoam drsg. Daily and prn. Apply Cavilon to upper R thigh DTPI. Cover with Optifoam drsg. Change every 3 days and prn. Apply Betadine to wound distal/lateral L lower ext and dorsal R foot. Cover each wound with Optifoam drsg. Change every 3 days and prn. Reposition at least every 2hours or as tolerated. Off load heels with pillow. APM/DEVONTE Mattress. (2) Chronic indwelling Alexandre catheter Assessment & Plan: abx as per ID UTI noted micro pending (3) History of osteomyelitis Assessment & Plan: DAILY ESTIMATED NEEDS: Needs based on Wound, paraplegia, obesity 78.9kg abw 20-25 kcals/kg 1898-5224 total kcals 1.25-2 g protein/kg 99-158 g total protein 25-30 mL/kg 4048-3825 total fluid mLs NUTRITION DIAGNOSIS: Increased Protein and micronutrient needs r/t Wound healing as evidenced by pt w/ multiple wounds, including full thickness and unstageable, refer to wound care eval. CURRENT DIET: Now CCHO MED PO DIET RECOMMENDATIONS--->>> CCHO LOW (3 Carbs/ meal) w/ DOUBLE PROTEIN PORTIONS ADDITIONAL RECOMMENDATIONS: 1) RE-calibrate bed scale w/ added P200 mattress 2) Obtain HgA1C for eval 3) Wound care: JULY BID + MVI w/ Min qd + Vit C 500mg daily Continue w/ ZnSO4 4) Diet edu as able 5) Monitor lytes daily on Richard Chaidez Jul 12, 2019 15:46
[2019-07-12 16:00] VITALS: BP 128/76
[2019-07-12] MEDS: Vancomycin 1 GM in NS 275 ML IVPB SCH (16:23)
--- NOTE | 2019-07-12 19:20 | NUR ---
HAND-OFF: Report given to TOMAS Fishman.
--- NOTE | 2019-07-12 19:25 | NUR ---
NURSE NOTES: Pt. received from TOMAS Scales. Pt. AAOx4, on room air, no complaints of pain and no indications of SOB. IV right hand 24g asymptomatic, intact, and patent; saline locked. Alexandre intact, draining yellow urine well. Bed is low and locked, side rails x2 up, bed alarm active, and call light is in reach. Will continue to monitor.
[2019-07-12 20:00] VITALS: BP 110/63
[2019-07-13] VITALS: BP 124/75
[2019-07-13 04:00] VITALS: BP 105/63
[2019-07-13] MEDS: Vancomycin 1 GM in NS 275 ML IVPB SCH ×2 (04:30→16:30)
[2019-07-13] MEDS: NovoLOG Insulin Flexpen SUBQ SCH ×4 (06:37→21:04)
[2019-07-13] MEDS: Heparin 5000 units/ml inj SUBQ SCH ×3 (06:38→21:05)
[2019-07-13 07:01] LABS: BASOPHILS % (AUTO) 0.5 % (0.0-2.0); EOSINOPHILS % (AUTO) 1.5 % (0.0-3.0); HEMATOCRIT 40.6 % (42.0-52.0); HEMOGLOBIN 13.3 G/DL (14.2-18.0); LYMPHOCYTES % (AUTO) 34.5 % (20.0-45.0); MEAN CORPUSCULAR VOLUME 80 FL (80-99); MONOCYTES % (AUTO) 6.3 % (1.0-10.0); NEUTROPHILS % (AUTO) 57.3 % (45.0-75.0); PLATELET COUNT 224 K/UL (150-450); RED BLOOD COUNT 5.07 M/UL (4.70-6.10); RED CELL DISTRIBUTION WIDTH 15.4 % (11.6-14.8); WHITE BLOOD COUNT 6.7 K/UL (4.8-10.8)
[2019-07-13 07:10] LABS: ANION GAP 9 mmol/L (5-15); BLOOD UREA NITROGEN 28 mg/dL (7-18); CALCIUM 9.3 MG/DL (8.5-10.1); CARBON DIOXIDE 29 MMOL/L (21-32); CHLORIDE 100 MMOL/L (98-107); CREATININE 1.1 MG/DL (0.55-1.30); POTASSIUM 3.5 MMOL/L (3.5-5.1); SODIUM 138 MMOL/L (136-145)
--- NOTE | 2019-07-13 07:40 | NUR ---
HAND-OFF: Report given to TOMAS Scales.
--- NOTE | 2019-07-13 07:47 | NUR ---
NURSE NOTES: received report from TOMAS Fishman. patient in bed. A&Ox4, verbally responsive. no respiratory distress noted. no pain at this time. IV on LFA intact. saline lock. F/C draining. yellow. P200 mattress fo wound management. 2d echo today.contact isolation. PPE at all times. bed in the lowest postion and locked. call light within reach. will continue to provide plan of care.
[2019-07-13 08:00] VITALS: BP 110/69
[2019-07-13] MEDS: Furosemide 40mg tab ORAL SCH ×2 (09:24→17:37)
[2019-07-13] MEDS: Docusate 100mg cap ORAL SCH (09:24)
[2019-07-13] MEDS: Ascorbic Acid 500mg tab ORAL SCH (09:24)
[2019-07-13] MEDS: Zinc Sulfate 220mg cap ORAL SCH (09:24)
[2019-07-13] MEDS: Midodrine 10mg tab ORAL SCH ×3 (09:24→17:37)
[2019-07-13] MEDS: Levemir Flexpen SUBQ SCH (09:26)
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
[2019-07-13 12:00] VITALS: BP 117/72
--- NOTE | 2019-07-13 12:36 | Surgery Progress Note ---
Surgery Progress Note Subjective Symptoms: improved, tolerating diet, voiding well, passing flatus, BM Objective Last 24 Hour Vital Signs Date Time Temp Pulse Resp B/P (MAP) Pulse Ox O2 Delivery O2 Flow Rate FiO2 07/13/19 12:00 97.4 89 18 117/72 (87) 100 07/13/19 09:00 Room Air 07/13/19 08:00 99.1 85 18 110/69 (83) 100 07/13/19 04:00 98.3 85 20 105/63 (77) 94 07/13/19 00:00 97.7 95 24 124/75 (91) 94 07/12/19 21:00 Room Air 07/12/19 20:00 97.3 92 20 110/63 (79) 92 07/12/19 16:00 98.3 91 20 128/76 (93) 98 I&O Intake and Output 07/12/19 07/13/19 19:00 07:00 Intake Total 2183.708 ml 275.000 ml Output Total 2500 ml 2000 ml Balance -316.292 ml -1725.000 ml Intake Oral 2000 ml IV Total 183.708 ml 275.000 ml Output Urine Total 2500 ml 2000 ml Dressing: saturated Cardiovascular: RSR Respiratory: clear Abdomen: soft, non-tender, present bowel sounds Extremities: no cyanosis, other Laboratory Tests Test 07/13/19 05:40 White Blood Count 6.7 K/UL (4.8-10.8) Red Blood Count 5.07 M/UL (4.70-6.10) Hemoglobin 13.3 G/DL (14.2-18.0) L Hematocrit 40.6 % (42.0-52.0) L Mean Corpuscular Volume 80 FL (80-99) Mean Corpuscular Hemoglobin 26.2 PG (27.0-31.0) L Mean Corpuscular Hemoglobin Concent 32.6 G/DL (32.0-36.0) Red Cell Distribution Width 15.4 % (11.6-14.8) H Platelet Count 224 K/UL (150-450) Mean Platelet Volume 6.4 FL (6.5-10.1) L Neutrophils (%) (Auto) 57.3 % (45.0-75.0) Lymphocytes (%) (Auto) 34.5 % (20.0-45.0) Monocytes (%) (Auto) 6.3 % (1.0-10.0) Eosinophils (%) (Auto) 1.5 % (0.0-3.0) Basophils (%) (Auto) 0.5 % (0.0-2.0) Sodium Level 138 MMOL/L (136-145) Potassium Level 3.5 MMOL/L (3.5-5.1) Chloride Level 100 MMOL/L (98-107) Carbon Dioxide Level 29 MMOL/L (21-32) Anion Gap 9 mmol/L (5-15) Blood Urea Nitrogen 28 mg/dL (7-18) H Creatinine 1.1 MG/DL (0.55-1.30) Estimat Glomerular Filtration Rate > 60 mL/min (>60) Glucose Level 360 MG/DL (74-106) H Calcium Level 9.3 MG/DL (8.5-10.1) Plan Problems: (1) Sacral decubitus ulcer Assessment & Plan: Pt presented on admission with multiple pressure injuries. Contractures bilat lower ext. DTPI noted sacrococcygeal area(L)2.5cm x (W)0.5cm. Base of wound is purple with maroon borders. Non-blanching erythema periwound. Scrotum is erythematous. Full thickness stage 3/4 pressure injury upper L buttocks. (L)1.3cm x (W)1 cm x (D)1.1cm. Base of wound is obscured secondary wound within crevice of skin fold. DTPI outer lower L buttocks(L)10.5cm x (W)8.5cm. Base of wound is fluctuant, maroon with scattered areas that are purple. Pt complained site has been painful last few days. No elevation in skin temp noted. Full thickness stage 4 pressure injury R ischium.(L)3.5cm x (W)2.5cmcm x (D) 3.6cm. Surrounding perimeter of wound is maroon.Base of wound is not appreciated due wound is within crevice of skin. Small amt serosanguineous exudate noted. No odor noted. Unstageable pressure injury posterior lower R thigh(L)0.8cm x (W)0.9cm. Base of wound has 100% slough. Borders are erythematous . No odor or exudate noted. DTPI upper/lateral R thigh Base of wound is indurated and maroon in colour. Small partial thickness stage 2 ulcer distal/lateral L lower extremity. Base of wound is moist and viable. borders are macerated. Small amt sanguineous exudate noted. Full thickness stage 4 ulcer Dorsal R foot.(L)2.5cm x (W)3cm Base of wound scattered fibrinous slough ,otherwise moist and pink. Borders are macerated. No odor or exudate noted. No erythema,induration or fluctuance periwound. Historical scars noted to both heels. Scattered white plaques with hyperkeratosis noted to both lower ext. Tx Plan: Cleanse Wounds R and L buttocks with Saline. Loosely pack with Therahoney infused packing strip. Apply Moisture Barrier periwound. Cover each wound with Optifoam drsg Daily and prn. Cleanse wound R Thigh with Saline. Cover with Optifoam drsg Daily and prn. Apply Moisture Barrier Paste to Sacrum and lower L buttocks. Cover each site with Optifoam drsg. Daily and prn. Apply Cavilon to upper R thigh DTPI. Cover with Optifoam drsg. Change every 3 days and prn. Apply Betadine to wound distal/lateral L lower ext and dorsal R foot. Cover each wound with Optifoam drsg. Change every 3 days and prn. Reposition at least every 2hours or as tolerated. Off load heels with pillow. APM/DEVONTE Mattress. (2) Chronic indwelling Alexandre catheter Assessment & Plan: abx as per ID UTI noted micro pending (3) History of osteomyelitis Assessment & Plan: DAILY ESTIMATED NEEDS: Needs based on Wound, paraplegia, obesity 78.9kg abw 20-25 kcals/kg 1762-0620 total kcals 1.25-2 g protein/kg 99-158 g total protein 25-30 mL/kg 9095-7075 total fluid mLs NUTRITION DIAGNOSIS: Increased Protein and micronutrient needs r/t Wound healing as evidenced by pt w/ multiple wounds, including full thickness and unstageable, refer to wound care eval. CURRENT DIET: Now CCHO MED PO DIET RECOMMENDATIONS--->>> CCHO LOW (3 Carbs/ meal) w/ DOUBLE PROTEIN PORTIONS ADDITIONAL RECOMMENDATIONS: 1) RE-calibrate bed scale w/ added P200 mattress 2) Obtain HgA1C for eval 3) Wound care: JULY BID + MVI w/ Min qd + Vit C 500mg daily Continue w/ ZnSO4 4) Diet edu as able 5) Monitor lytes daily on abdi [email or web address] Jul 13, 2019 12:36
[2019-07-13] MEDS: HYDROmorphone 2mg tab ORAL PRN ×2 (12:53→22:19)
--- NOTE | 2019-07-13 15:33 | NUR ---
RD ASSESSMENT & RECOMMENDATIONS SEE CARE ACTIVITY FOR COMPLETE ASSESSMENT DAILY ESTIMATED NEEDS: Needs based on Wound, paraplegia, obesity 78.9kg abw 20-25 kcals/kg 8077-5909 total kcals 1.25-2 g protein/kg 99-158 g total protein 25-30 mL/kg 6261-8895 total fluid mLs NUTRITION DIAGNOSIS: * Increased Protein and micronutrient needs r/t Wound healing as evidenced by pt w/ multiple wounds, including full thickness and unstageable, refer to wound care eval. * Altered nutrition related lab values R/T diabetes as evidenced by BGs in the 300's and 400's. CURRENT DIET:[facility] MED [facility] (3 Carbs/ meal) w/ DOUBLE PROTEIN PORTIONS ADDITIONAL RECOMMENDATIONS: 1) RE-calibrate bed scale w/ added P200 mattress 2) Obtain HgA1C for eval 3) Wound care: Continue MVI, Vit C, and ZnSO4 Skip BID 4) Diet edu as able 5) Monitor lytes daily on lasix
[2019-07-13 16:00] VITALS: BP 120/71
--- NOTE | 2019-07-13 19:12 | NUR ---
HAND-OFF: Report given to TOMAS Fishman.
--- NOTE | 2019-07-13 19:16 | NUR ---
NURSE NOTES: Pt. received from TOMAS Scales. Pt. sleeping at this time, on room air, no indications of pain and no indications of SOB. IV left hand 24g asymptomatic, intact, and patent; TKO running. Alexandre intact, draining yellow urine well. Bed is low and locked, side rails x2 up, bed alarm active, and call light is in reach. Will continue to monitor.
[2019-07-13 19:56] VITALS: BP 118/81
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
[2019-07-14] VITALS: BP 106/64
[2019-07-14 04:00] VITALS: BP 115/60
[2019-07-14] MEDS: NovoLOG Insulin Flexpen SUBQ SCH ×4 (06:06→21:22)
[2019-07-14] MEDS: Heparin 5000 units/ml inj SUBQ SCH ×3 (06:07→21:23)
[2019-07-14] MEDS: HYDROmorphone 2mg tab ORAL PRN ×3 (06:12→17:23)
--- NOTE | 2019-07-14 07:21 | NUR ---
HAND-OFF: Report given to TOMAS Bowling.
[2019-07-14 08:00] VITALS: BP 96/72
[2019-07-14 08:06] LABS: BASOPHILS % (AUTO) 0.6 % (0.0-2.0); EOSINOPHILS % (AUTO) 1.5 % (0.0-3.0); HEMATOCRIT 39.9 % (42.0-52.0); HEMOGLOBIN 13.1 G/DL (14.2-18.0); LYMPHOCYTES % (AUTO) 33.7 % (20.0-45.0); MEAN CORPUSCULAR VOLUME 81 FL (80-99); MONOCYTES % (AUTO) 5.5 % (1.0-10.0); NEUTROPHILS % (AUTO) 58.6 % (45.0-75.0); PLATELET COUNT 210 K/UL (150-450); RED BLOOD COUNT 4.95 M/UL (4.70-6.10); RED CELL DISTRIBUTION WIDTH 15.1 % (11.6-14.8)
[2019-07-14 08:48] LABS: ALANINE AMINOTRANSFERASE 37 U/L (12-78); ALBUMIN 3.7 G/DL (3.4-5.0); ALBUMIN/GLOBULIN RATIO 0.8 (1.0-2.7); ALKALINE PHOSPHATASE 143 U/L (46-116); ANION GAP 8 mmol/L (5-15); ASPARTATE AMINO TRANSFERASE 18 U/L (15-37); BILIRUBIN,TOTAL 0.3 MG/DL (0.2-1.0); BLOOD UREA NITROGEN 27 mg/dL (7-18); CALCIUM 9.4 MG/DL (8.5-10.1); CARBON DIOXIDE 30 MMOL/L (21-32); CHLORIDE 98 MMOL/L (98-107); POTASSIUM 3.9 MMOL/L (3.5-5.1); SODIUM 136 MMOL/L (136-145)
[2019-07-14] MEDS: Zinc Sulfate 220mg cap ORAL SCH (09:26)
[2019-07-14] MEDS: Docusate 100mg cap ORAL SCH (09:26)
[2019-07-14] MEDS: Ascorbic Acid 500mg tab ORAL SCH (09:26)
[2019-07-14] MEDS: Midodrine 10mg tab ORAL SCH ×3 (09:26→17:12)
[2019-07-14] MEDS: Furosemide 40mg tab ORAL SCH ×2 (09:29→17:12)
[2019-07-14] MEDS: Levemir Flexpen SUBQ SCH (09:30)
[2019-07-14 12:00] VITALS: BP 110/76
--- NOTE | 2019-07-14 14:07 | Surgery Progress Note ---
Surgery Progress Note Subjective Symptoms: improved, tolerating diet, voiding well, passing flatus, BM, pain decreased Objective Last 24 Hour Vital Signs Date Time Temp Pulse Resp B/P (MAP) Pulse Ox O2 Delivery O2 Flow Rate FiO2 07/14/19 08:00 97.2 74 16 96/72 (80) 98 07/14/19 04:00 97.4 90 18 115/60 (78) 98 07/14/19 00:00 98.0 96 19 106/64 (78) 96 07/13/19 21:00 Room Air 07/13/19 19:56 98.2 93 19 118/81 (93) 94 07/13/19 16:00 98.2 100 20 120/71 (87) 99 I&O Intake and Output 07/13/19 07/14/19 19:00 07:00 Intake Total 1687.416 ml 300 ml Output Total 1500 ml 3000 ml Balance 187.416 ml -2700 ml Intake Oral 1320 ml 300 ml IV Total 367.416 ml Output Urine Total 1500 ml 3000 ml # Voids 2 Dressing: saturated Wound: other Drains: other Cardiovascular: RSR Respiratory: decreased breath sounds Abdomen: soft, non-tender, present bowel sounds, non-distended Extremities: no tenderness, no cyanosis, other Laboratory Tests Test 07/14/19 05:45 White Blood Count 6.0 K/UL (4.8-10.8) Red Blood Count 4.95 M/UL (4.70-6.10) Hemoglobin 13.1 G/DL (14.2-18.0) L Hematocrit 39.9 % (42.0-52.0) L Mean Corpuscular Volume 81 FL (80-99) Mean Corpuscular Hemoglobin 26.5 PG (27.0-31.0) L Mean Corpuscular Hemoglobin Concent 32.9 G/DL (32.0-36.0) Red Cell Distribution Width 15.1 % (11.6-14.8) H Platelet Count 210 K/UL (150-450) Mean Platelet Volume 6.5 FL (6.5-10.1) Neutrophils (%) (Auto) 58.6 % (45.0-75.0) Lymphocytes (%) (Auto) 33.7 % (20.0-45.0) Monocytes (%) (Auto) 5.5 % (1.0-10.0) Eosinophils (%) (Auto) 1.5 % (0.0-3.0) Basophils (%) (Auto) 0.6 % (0.0-2.0) Sodium Level 136 MMOL/L (136-145) Potassium Level 3.9 MMOL/L (3.5-5.1) Chloride Level 98 MMOL/L (98-107) Carbon Dioxide Level 30 MMOL/L (21-32) Anion Gap 8 mmol/L (5-15) Blood Urea Nitrogen 27 mg/dL (7-18) H Creatinine 1.0 MG/DL (0.55-1.30) Estimat Glomerular Filtration Rate > 60 mL/min (>60) Glucose Level 482 MG/DL (74-106) #H Calcium Level 9.4 MG/DL (8.5-10.1) Total Bilirubin 0.3 MG/DL (0.2-1.0) Aspartate Amino Transf (AST/SGOT) 18 U/L (15-37) Alanine Aminotransferase (ALT/SGPT) 37 U/L (12-78) Alkaline Phosphatase 143 U/L (46-116) H Total Protein 8.5 G/DL (6.4-8.2) H Albumin 3.7 G/DL (3.4-5.0) Globulin 4.8 g/dL Albumin/Globulin Ratio 0.8 (1.0-2.7) L Plan Problems: (1) Sacral decubitus ulcer Assessment & Plan: Pt presented on admission with multiple pressure injuries. Contractures bilat lower ext. DTPI noted sacrococcygeal area(L)2.5cm x (W)0.5cm. Base of wound is purple with maroon borders. Non-blanching erythema periwound. Scrotum is erythematous. Full thickness stage 3/4 pressure injury upper L buttocks. (L)1.3cm x (W)1 cm x (D)1.1cm. Base of wound is obscured secondary wound within crevice of skin fold. DTPI outer lower L buttocks(L)10.5cm x (W)8.5cm. Base of wound is fluctuant, maroon with scattered areas that are purple. Pt complained site has been painful last few days. No elevation in skin temp noted. Full thickness stage 4 pressure injury R ischium.(L)3.5cm x (W)2.5cmcm x (D) 3.6cm. Surrounding perimeter of wound is maroon.Base of wound is not appreciated due wound is within crevice of skin. Small amt serosanguineous exudate noted. No odor noted. Unstageable pressure injury posterior lower R thigh(L)0.8cm x (W)0.9cm. Base of wound has 100% slough. Borders are erythematous . No odor or exudate noted. DTPI upper/lateral R thigh Base of wound is indurated and maroon in colour. Small partial thickness stage 2 ulcer distal/lateral L lower extremity. Base of wound is moist and viable. borders are macerated. Small amt sanguineous exudate noted. Full thickness stage 4 ulcer Dorsal R foot.(L)2.5cm x (W)3cm Base of wound scattered fibrinous slough ,otherwise moist and pink. Borders are macerated. No odor or exudate noted. No erythema,induration or fluctuance periwound. Historical scars noted to both heels. Scattered white plaques with hyperkeratosis noted to both lower ext. Tx Plan: Cleanse Wounds R and L buttocks with Saline. Loosely pack with Therahoney infused packing strip. Apply Moisture Barrier periwound. Cover each wound with Optifoam drsg Daily and prn. Cleanse wound R Thigh with Saline. Cover with Optifoam drsg Daily and prn. Apply Moisture Barrier Paste to Sacrum and lower L buttocks. Cover each site with Optifoam drsg. Daily and prn. Apply Cavilon to upper R thigh DTPI. Cover with Optifoam drsg. Change every 3 days and prn. Apply Betadine to wound distal/lateral L lower ext and dorsal R foot. Cover each wound with Optifoam drsg. Change every 3 days and prn. Reposition at least every 2hours or as tolerated. Off load heels with pillow. APM/DEVONTE Mattress. (2) Chronic indwelling Alexandre catheter Assessment & Plan: abx as per ID UTI noted micro pending (3) History of osteomyelitis Assessment & Plan: DAILY ESTIMATED NEEDS: Needs based on Wound, paraplegia, obesity 78.9kg abw 20-25 kcals/kg 0206-7021 total kcals 1.25-2 g protein/kg 99-158 g total protein 25-30 mL/kg 4839-2873 total fluid mLs NUTRITION DIAGNOSIS: Increased Protein and micronutrient needs r/t Wound healing as evidenced by pt w/ multiple wounds, including full thickness and unstageable, refer to wound care eval. CURRENT DIET: Now CCHO MED PO DIET RECOMMENDATIONS--->>> CCHO LOW (3 Carbs/ meal) w/ DOUBLE PROTEIN PORTIONS ADDITIONAL RECOMMENDATIONS: 1) RE-calibrate bed scale w/ added P200 mattress 2) Obtain HgA1C for eval 3) Wound care: JULY BID + MVI w/ Min qd + Vit C 500mg daily Continue w/ ZnSO4 4) Diet edu as able 5) Monitor lytes daily on Richard Chaidez Jul 14, 2019 14:07
[2019-07-14 16:00] VITALS: BP 105/66
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
--- NOTE | 2019-07-14 19:38 | NUR ---
NURSE NOTES: Pt. received from Tawnya MARIN. Pt. AAOx4, on room air, no complaints of pain at this time. Alexandre intact and patent, draining yellow urine well. IV right forearm 22g, asymptomatic, intact, and patent; saline locked. Bed is low and locked, side rails x2 up, bed alarm active, and call light is in reach. Will continue to monitor.
--- NOTE | 2019-07-14 19:40 | NUR ---
HAND-OFF: Report given to TOMAS Fishman.
[2019-07-14 20:00] VITALS: BP 118/71
[2019-07-15] VITALS: BP 110/68
[2019-07-15 04:00] VITALS: BP 115/71
--- NOTE | 2019-07-15 05:57 | NUR ---
NURSE NOTES: Pt. blood sugar 500. Message left for Dr. Baxter, awaiting orders. Charge nurse aware. Will continue to monitor.
--- NOTE | 2019-07-15 06:12 | NUR ---
NURSE NOTES: Orders received from Dr. Norton for CBP, CMP, and urinalysis, okay to continue to insulin sliding scale. Will continue plan of care and to monitor pt.
[2019-07-15] MEDS: Heparin 5000 units/ml inj SUBQ SCH ×3 (06:18→21:34)
[2019-07-15] MEDS: NovoLOG Insulin Flexpen SUBQ SCH ×4 (06:18→21:33)
--- NOTE | 2019-07-15 06:52 | NUR ---
NURSE NOTES: Insulin given as ordered, blood sugar upon reassessment now 467. Dr. Norton orders received for 7 units regular insulin and to reassess poc blood sugar 15-20 minutes after administration. Will continue to monitor.
[2019-07-15] MEDS ORDERED: Insulin Human Regular 100units/ml 3ml SUBQ SCH (07:00)
--- NOTE | 2019-07-15 07:18 | NUR ---
NURSE NOTES: Received report from TOMAS Fishman. Patient A&Ox4. On room air, no signs or labored breathing. IV intact, patent, and saline locked. Alexandre intact, patent, and saline locked. Bed in lowest position with call light in reach. Side rails up x3. Will continue with plan of care.
[2019-07-15 07:20] LABS: APPEARANCE,URINE SLIGHTLY CLOUDY; BILIRUBIN, URINE NEGATIVE (NEGATIVE); COLOR,URINE PALE YELLOW; GLUCOSE, URINE (UA) 4+ (NEGATIVE); KETONES,URINE NEGATIVE (NEGATIVE); LEUKOCYTE ESTERASE ,URINE 3+ (NEGATIVE); NITRITE,URINE NEGATIVE (NEGATIVE); PH,URINE 6.5 (4.5-8.0); PROTEIN,URINE 2+ (NEGATIVE); UROBILINOGEN,URINE NORMAL MG/DL (0.0-1.0)
--- NOTE | 2019-07-15 07:22 | NUR ---
HAND-OFF: Report given to TOMAS Bowling. Endorsed plan of care regarding blood sugar and insulin administration.
[2019-07-15 08:00] VITALS: BP 104/64
[2019-07-15] MEDS ORDERED: Insulin Human Regular 100units/ml 3ml SUBQ ONE ×2 (08:15→09:00)
[2019-07-15 08:27] LABS: ANION GAP 11 mmol/L (5-15); BLOOD UREA NITROGEN 31 mg/dL (7-18); CALCIUM 9.5 MG/DL (8.5-10.1); CARBON DIOXIDE 28 MMOL/L (21-32); CHLORIDE 96 MMOL/L (98-107); CREATININE 1.1 MG/DL (0.55-1.30); POTASSIUM 3.9 MMOL/L (3.5-5.1); SODIUM 135 MMOL/L (136-145)
[2019-07-15 08:29] LABS: BASOPHILS % (AUTO) 0.7 % (0.0-2.0); EOSINOPHILS % (AUTO) 1.7 % (0.0-3.0); HEMATOCRIT 43.6 % (42.0-52.0); LYMPHOCYTES % (AUTO) 31.5 % (20.0-45.0); MEAN CORPUSCULAR VOLUME 80 FL (80-99); MONOCYTES % (AUTO) 5.9 % (1.0-10.0); NEUTROPHILS % (AUTO) 60.2 % (45.0-75.0); PLATELET COUNT 220 K/UL (150-450); RED BLOOD COUNT 5.48 M/UL (4.70-6.10); RED CELL DISTRIBUTION WIDTH 15.1 % (11.6-14.8); WHITE BLOOD COUNT 6.3 K/UL (4.8-10.8)
[2019-07-15 08:31] LABS: ALANINE AMINOTRANSFERASE 42 U/L (12-78); ALBUMIN 3.9 G/DL (3.4-5.0); ALBUMIN/GLOBULIN RATIO 0.8 (1.0-2.7); ALKALINE PHOSPHATASE 153 U/L (46-116); ASPARTATE AMINO TRANSFERASE 22 U/L (15-37); BILIRUBIN,TOTAL 0.4 MG/DL (0.2-1.0)
[2019-07-15] MEDS: Docusate 100mg cap ORAL SCH (09:55)
[2019-07-15] MEDS: Furosemide 40mg tab ORAL SCH ×2 (09:55→17:41)
[2019-07-15] MEDS: Midodrine 10mg tab ORAL SCH ×3 (09:56→17:41)
[2019-07-15] MEDS: Ascorbic Acid 500mg tab ORAL SCH (09:56)
[2019-07-15] MEDS: Zinc Sulfate 220mg cap ORAL SCH (09:56)
[2019-07-15] MEDS: Levemir Flexpen SUBQ SCH (09:59)
--- NOTE | 2019-07-15 10:00 | NUR ---
NURSE NOTES: Blood sugar at 0950 was 347. Gave scheduled Levemir of 38 units in addition to 7 units Human Regular (HumuLIN R). Will continue to monitor.
[2019-07-15 12:00] VITALS: BP 96/65
[2019-07-15] MEDS: HYDROmorphone 2mg tab ORAL PRN (12:37)
--- NOTE | 2019-07-15 12:56 | Surgery Progress Note ---
Surgery Progress Note Subjective Additional Comments no acute events comfortable stable Objective Last 24 Hour Vital Signs Date Time Temp Pulse Resp B/P (MAP) Pulse Ox O2 Delivery O2 Flow Rate FiO2 07/15/19 09:00 Room Air 07/15/19 08:00 97.9 69 19 104/64 (77) 100 07/15/19 04:00 98.0 82 18 115/71 (86) 96 07/15/19 00:00 98.0 78 19 110/68 (82) 98 07/14/19 21:00 Room Air 07/14/19 20:00 98.5 88 20 118/71 (87) 95 07/14/19 16:00 99.0 76 17 105/66 (79) 95 I&O Intake and Output 07/14/19 07/15/19 18:59 06:59 Output Total 2986 ml Balance -2986 ml Output Urine Total 2986 ml # Voids 1 Dressing: saturated Wound: other Drains: other Cardiovascular: RSR Respiratory: decreased breath sounds Abdomen: soft, non-tender, present bowel sounds Extremities: no cyanosis, other Laboratory Tests Test 07/15/19 06:40 07/15/19 07:30 Urine Color Pale yellow Urine Appearance Slightly cloudy Urine pH 6.5 (4.5-8.0) Urine Specific [place] 1.010 (1.005-1.035) Urine Protein 2+ (NEGATIVE) H Urine Glucose (UA) 4+ (NEGATIVE) H Urine Ketones Negative (NEGATIVE) Urine Blood 3+ (NEGATIVE) H Urine Nitrite Negative (NEGATIVE) Urine Bilirubin Negative (NEGATIVE) Urine Urobilinogen Normal MG/DL (0.0-1.0) Urine Leukocyte Esterase 3+ (NEGATIVE) H Urine RBC 2-4 /HPF (0 - 0) H Urine WBC 30-40 /HPF (0 - 0) H Urine Squamous Epithelial Cells Occasional /LPF Urine Bacteria Few /HPF (NONE) Urine Yeast Few /HPF (NONE) H White Blood Count 6.3 K/UL (4.8-10.8) Red Blood Count 5.48 M/UL (4.70-6.10) Hemoglobin 14.0 G/DL (14.2-18.0) L Hematocrit 43.6 % (42.0-52.0) Mean Corpuscular Volume 80 FL (80-99) Mean Corpuscular Hemoglobin 25.6 PG (27.0-31.0) L Mean Corpuscular Hemoglobin Concent 32.2 G/DL (32.0-36.0) Red Cell Distribution Width 15.1 % (11.6-14.8) H Platelet Count 220 K/UL (150-450) Mean Platelet Volume 6.7 FL (6.5-10.1) Neutrophils (%) (Auto) 60.2 % (45.0-75.0) Lymphocytes (%) (Auto) 31.5 % (20.0-45.0) Monocytes (%) (Auto) 5.9 % (1.0-10.0) Eosinophils (%) (Auto) 1.7 % (0.0-3.0) Basophils (%) (Auto) 0.7 % (0.0-2.0) Sodium Level 135 MMOL/L (136-145) L Potassium Level 3.9 MMOL/L (3.5-5.1) Chloride Level 96 MMOL/L (98-107) L Carbon Dioxide Level 28 MMOL/L (21-32) Anion Gap 11 mmol/L (5-15) Blood Urea Nitrogen 31 mg/dL (7-18) H Creatinine 1.1 MG/DL (0.55-1.30) Estimat Glomerular Filtration Rate > 60 mL/min (>60) Glucose Level 448 MG/DL (74-106) H Calcium Level 9.5 MG/DL (8.5-10.1) Total Bilirubin 0.4 MG/DL (0.2-1.0) Aspartate Amino Transf (AST/SGOT) 22 U/L (15-37) Alanine Aminotransferase (ALT/SGPT) 42 U/L (12-78) Alkaline Phosphatase 153 U/L (46-116) H Total Protein 8.9 G/DL (6.4-8.2) H Albumin 3.9 G/DL (3.4-5.0) Globulin 5.0 g/dL Albumin/Globulin Ratio 0.8 (1.0-2.7) L Plan Problems: (1) Sacral decubitus ulcer Assessment & Plan: Pt presented on admission with multiple pressure injuries. Contractures bilat lower ext. DTPI noted sacrococcygeal area(L)2.5cm x (W)0.5cm. Base of wound is purple with maroon borders. Non-blanching erythema periwound. Scrotum is erythematous. Full thickness stage 3/4 pressure injury upper L buttocks. (L)1.3cm x (W)1 cm x (D)1.1cm. Base of wound is obscured secondary wound within crevice of skin fold. DTPI outer lower L buttocks(L)10.5cm x (W)8.5cm. Base of wound is fluctuant, maroon with scattered areas that are purple. Pt complained site has been painful last few days. No elevation in skin temp noted. Full thickness stage 4 pressure injury R ischium.(L)3.5cm x (W)2.5cmcm x (D) 3.6cm. Surrounding perimeter of wound is maroon.Base of wound is not appreciated due wound is within crevice of skin. Small amt serosanguineous exudate noted. No odor noted. Unstageable pressure injury posterior lower R thigh(L)0.8cm x (W)0.9cm. Base of wound has 100% slough. Borders are erythematous . No odor or exudate noted. DTPI upper/lateral R thigh Base of wound is indurated and maroon in colour. Small partial thickness stage 2 ulcer distal/lateral L lower extremity. Base of wound is moist and viable. borders are macerated. Small amt sanguineous exudate noted. Full thickness stage 4 ulcer Dorsal R foot.(L)2.5cm x (W)3cm Base of wound scattered fibrinous slough ,otherwise moist and pink. Borders are macerated. No odor or exudate noted. No erythema,induration or fluctuance periwound. Historical scars noted to both heels. Scattered white plaques with hyperkeratosis noted to both lower ext. Tx Plan: Cleanse Wounds R and L buttocks with Saline. Loosely pack with Therahoney infused packing strip. Apply Moisture Barrier periwound. Cover each wound with Optifoam drsg Daily and prn. Cleanse wound R Thigh with Saline. Cover with Optifoam drsg Daily and prn. Apply Moisture Barrier Paste to Sacrum and lower L buttocks. Cover each site with Optifoam drsg. Daily and prn. Apply Cavilon to upper R thigh DTPI. Cover with Optifoam drsg. Change every 3 days and prn. Apply Betadine to wound distal/lateral L lower ext and dorsal R foot. Cover each wound with Optifoam drsg. Change every 3 days and prn. Reposition at least every 2hours or as tolerated. Off load heels with pillow. APM/DEVONTE Mattress. (2) Chronic indwelling Alexandre catheter Assessment & Plan: abx as per ID UTI noted micro noted cont abx (3) History of osteomyelitis Assessment & Plan: DAILY ESTIMATED NEEDS: Needs based on Wound, paraplegia, obesity 78.9kg abw 20-25 kcals/kg 3059-8598 total kcals 1.25-2 g protein/kg 99-158 g total protein 25-30 mL/kg 9747-9660 total fluid mLs NUTRITION DIAGNOSIS: Increased Protein and micronutrient needs r/t Wound healing as evidenced by pt w/ multiple wounds, including full thickness and unstageable, refer to wound care eval. CURRENT DIET: Now CCHO MED PO DIET RECOMMENDATIONS--->>> CCHO LOW (3 Carbs/ meal) w/ DOUBLE PROTEIN PORTIONS ADDITIONAL RECOMMENDATIONS: 1) RE-calibrate bed scale w/ added P200 mattress 2) Obtain HgA1C for eval 3) Wound care: JULY BID + MVI w/ Min qd + Vit C 500mg daily Continue w/ ZnSO4 4) Diet edu as able 5) Monitor lytes daily on Richard Chaidez Jul 15, 2019 12:56
[2019-07-15 16:00] VITALS: BP 112/79
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
--- NOTE | 2019-07-15 19:38 | NUR ---
HAND-OFF: Report given to claudia Mustafa.
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
[2019-07-15 20:00] VITALS: BP 104/70
--- NOTE | 2019-07-15 20:38 | NUR ---
NURSE NOTES: Patient in bed, awake, alert x 4. Iv site noted. Skin is warm and dry touch, noted with dressing in buttock and sacral. No complaint of pain or discomfort at the moment. Respiration is even and unlabored. Kept clean and comfortable. Call light is at bedside. Will continue plan of care.
--- NOTE | 2019-07-15 22:00 | NUR ---
NURSE NOTES: Patient is awake, alert x 4. Blood sugar was 486. Called Dr. Norton regarding, give current medication and recheck. give 10 units one time if blood sugar check is above 400.
[2019-07-15] MEDS ORDERED: NovoLOG Insulin Flexpen SUBQ ONE (22:45)
[2019-07-15 23:43] LABS: BILIRUBIN, URINE NEGATIVE (NEGATIVE); COLOR,URINE PALE YELLOW; GLUCOSE, URINE (UA) 4+ (NEGATIVE); KETONES,URINE NEGATIVE (NEGATIVE); LEUKOCYTE ESTERASE ,URINE 3+ (NEGATIVE); NITRITE,URINE NEGATIVE (NEGATIVE); PH,URINE 6.5 (4.5-8.0); PROTEIN,URINE 1+ (NEGATIVE); UROBILINOGEN,URINE NORMAL MG/DL (0.0-1.0)
[2019-07-15 23:53] LABS: APPEARANCE,URINE SLIGHTLY CLOUDY
[2019-07-16] VITALS (7 sets, daily range): BP systolic 103–165; BP diastolic 54–68
[2019-07-16] MEDS: HYDROmorphone 2mg tab ORAL PRN ×3 (00:14→12:01)
[2019-07-16] MEDS: Heparin 5000 units/ml inj SUBQ SCH ×3 (06:08→21:14)
[2019-07-16] MEDS: NovoLOG Insulin Flexpen SUBQ SCH ×4 (06:11→20:39)
--- NOTE | 2019-07-16 06:20 | NUR ---
NURSE NOTES: Blood sugar checked 460, given 14 units as ordered, notified MD, awaiting call back.
--- NOTE | 2019-07-16 06:49 | NUR ---
NURSE NOTES: Blood sugar rechecked 480, called primary MD, awaiting call back.
[2019-07-16] MEDS: Docusate 100mg cap ORAL SCH (09:12)
[2019-07-16] MEDS: Zinc Sulfate 220mg cap ORAL SCH (09:12)
[2019-07-16] MEDS: Ascorbic Acid 500mg tab ORAL SCH (09:12)
[2019-07-16] MEDS: Midodrine 10mg tab ORAL SCH ×3 (09:13→16:58)
[2019-07-16] MEDS: Furosemide 40mg tab ORAL SCH ×2 (09:13→16:58)
[2019-07-16] MEDS: Levemir Flexpen SUBQ SCH (09:14)
--- NOTE | 2019-07-16 11:00 | NUR ---
NURSE NOTES: New IV started on left forearm, gauge 22, and is intact, patent and asymptomatic. Old IV removed and site covered.
--- NOTE | 2019-07-16 13:40 | NUR ---
NURSE NOTES: Received patient on bed, awake. IV site is dislodged, will attempt to start new IV. Alexandre catheter intact, patent and draining. Alexandre is anchored to left leg. Dressings are dry and intact, No signs of respiratory distress or pain. Room board updated, will continue to monitor.
--- NOTE | 2019-07-16 14:25 | NUR ---
*-* INSURANCE *-* ALL CLINICALS AND REVIEWS HAVE LJ FAXED TO: DILCIA Pimentel # [phone]
--- NOTE | 2019-07-16 15:50 | Surgery Progress Note ---
Surgery Progress Note Subjective Symptoms: improved, tolerating diet, voiding well, passing flatus Objective Last 24 Hour Vital Signs Date Time Temp Pulse Resp B/P (MAP) Pulse Ox O2 Delivery O2 Flow Rate FiO2 07/16/19 12:00 98.1 87 19 103/54 (70) 95 07/16/19 09:00 Room Air 07/16/19 08:27 98.3 96 20 105/60 (75) 94 07/16/19 08:25 98.3 96 20 165/60 (95) 94 07/16/19 04:00 98.0 89 19 109/64 (79) 98 07/16/19 00:00 97.3 90 19 118/68 (85) 95 07/15/19 21:00 Room Air 07/15/19 20:00 97.8 93 19 104/70 (81) 96 07/15/19 16:00 98.3 94 18 112/79 (90) 92 I&O Intake and Output 07/15/19 07/16/19 19:00 07:00 Intake Total 1200 ml Output Total 2150 ml Balance 1200 ml -2150 ml Other 1200 ml Output Urine Total 2150 ml # Voids 2 Dressing: other Wound: other Drains: other Cardiovascular: RSR Respiratory: clear Abdomen: soft, non-tender, present bowel sounds Extremities: no cyanosis, other Laboratory Tests Test 07/15/19 23:30 Urine Color Pale yellow Urine Appearance Slightly cloudy Urine pH 6.5 (4.5-8.0) Urine Specific [place] 1.005 (1.005-1.035) Urine Protein 1+ (NEGATIVE) H Urine Glucose (UA) 4+ (NEGATIVE) H Urine Ketones Negative (NEGATIVE) Urine Blood 3+ (NEGATIVE) H Urine Nitrite Negative (NEGATIVE) Urine Bilirubin Negative (NEGATIVE) Urine Urobilinogen Normal MG/DL (0.0-1.0) Urine Leukocyte Esterase 3+ (NEGATIVE) H Urine RBC 5-10 /HPF (0 - 0) H Urine WBC 40-60 /HPF (0 - 0) H Urine Squamous Epithelial Cells None /LPF (NONE/OCC) Urine Bacteria Few /HPF (NONE) Urine Yeast Moderate /HPF (NONE) H Plan Problems: (1) Sacral decubitus ulcer Assessment & Plan: Pt presented on admission with multiple pressure injuries. Contractures bilat lower ext. DTPI noted sacrococcygeal area(L)2.5cm x (W)0.5cm. Base of wound is purple with maroon borders. Non-blanching erythema periwound. Scrotum is erythematous. Full thickness stage 3/4 pressure injury upper L buttocks. (L)1.3cm x (W)1 cm x (D)1.1cm. Base of wound is obscured secondary wound within crevice of skin fold. DTPI outer lower L buttocks(L)10.5cm x (W)8.5cm. Base of wound is fluctuant, maroon with scattered areas that are purple. Pt complained site has been painful last few days. No elevation in skin temp noted. Full thickness stage 4 pressure injury R ischium.(L)3.5cm x (W)2.5cmcm x (D) 3.6cm. Surrounding perimeter of wound is maroon.Base of wound is not appreciated due wound is within crevice of skin. Small amt serosanguineous exudate noted. No odor noted. Unstageable pressure injury posterior lower R thigh(L)0.8cm x (W)0.9cm. Base of wound has 100% slough. Borders are erythematous . No odor or exudate noted. DTPI upper/lateral R thigh Base of wound is indurated and maroon in colour. Small partial thickness stage 2 ulcer distal/lateral L lower extremity. Base of wound is moist and viable. borders are macerated. Small amt sanguineous exudate noted. Full thickness stage 4 ulcer Dorsal R foot.(L)2.5cm x (W)3cm Base of wound scattered fibrinous slough ,otherwise moist and pink. Borders are macerated. No odor or exudate noted. No erythema,induration or fluctuance periwound. Historical scars noted to both heels. Scattered white plaques with hyperkeratosis noted to both lower ext. Tx Plan: Cleanse Wounds R and L buttocks with Saline. Loosely pack with Therahoney infused packing strip. Apply Moisture Barrier periwound. Cover each wound with Optifoam drsg Daily and prn. Cleanse wound R Thigh with Saline. Cover with Optifoam drsg Daily and prn. Apply Moisture Barrier Paste to Sacrum and lower L buttocks. Cover each site with Optifoam drsg. Daily and prn. Apply Cavilon to upper R thigh DTPI. Cover with Optifoam drsg. Change every 3 days and prn. Apply Betadine to wound distal/lateral L lower ext and dorsal R foot. Cover each wound with Optifoam drsg. Change every 3 days and prn. Reposition at least every 2hours or as tolerated. Off load heels with pillow. APM/DEVONTE Mattress. (2) Chronic indwelling Alexandre catheter Assessment & Plan: abx as per ID UTI noted micro noted cont abx (3) History of osteomyelitis Assessment & Plan: DAILY ESTIMATED NEEDS: Needs based on Wound, paraplegia, obesity 78.9kg abw 20-25 kcals/kg 2856-9194 total kcals 1.25-2 g protein/kg 99-158 g total protein 25-30 mL/kg 1372-2896 total fluid mLs NUTRITION DIAGNOSIS: Increased Protein and micronutrient needs r/t Wound healing as evidenced by pt w/ multiple wounds, including full thickness and unstageable, refer to wound care eval. CURRENT DIET: Now CCHO MED PO DIET RECOMMENDATIONS--->>> CCHO LOW (3 Carbs/ meal) w/ DOUBLE PROTEIN PORTIONS ADDITIONAL RECOMMENDATIONS: 1) RE-calibrate bed scale w/ added P200 mattress 2) Obtain HgA1C for eval 3) Wound care: JULY BID + MVI w/ Min qd + Vit C 500mg daily Continue w/ ZnSO4 4) Diet edu as able 5) Monitor lytes daily on Richard Chaidez Jul 16, 2019 15:50
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
--- NOTE | 2019-07-16 16:00 | NUR ---
NURSE NOTES: Changed dressings.
--- NOTE | 2019-07-16 19:12 | NUR ---
HAND-OFF: Report given to TOMAS Galan.
--- NOTE | 2019-07-16 19:32 | NUR ---
NURSE NOTES: Patient in bed, awake, alert and verbally responsive. Able to make needs known. Respiration is even and unlabored. Kept clean and comfortable. Iv site noted. Skin is warm and dry. Noted with multiple buttock dressing and sacral dressing, intact. Abdomen is soft, round. Noted with stoner catheter, draining. Call light is at bedside. Will continue plan of care.
--- NOTE | 2019-07-16 21:00 | NUR ---
NURSE NOTES: Patient in bed, awake, alert. Blood sugar checked, given insulin as ordered. Will call MD for high blood sugar.
[2019-07-16] MEDS ORDERED: NovoLOG Insulin Flexpen SUBQ ONE (21:30)
--- NOTE | 2019-07-16 22:00 | NUR ---
NURSE NOTES: Orders received, give extra 10 units, noted and carried out. No further orders. Monitor patient as per protocol.
[2019-07-17] VITALS: BP 129/79
[2019-07-17 04:00] VITALS: BP 133/82
[2019-07-17] MEDS: Heparin 5000 units/ml inj SUBQ SCH ×3 (05:53→21:30)
[2019-07-17] MEDS: NovoLOG Insulin Flexpen SUBQ SCH ×7 (05:54→20:58)
--- NOTE | 2019-07-17 07:08 | NUR ---
HAND-OFF: Report given to Rn. Ethan.
--- NOTE | 2019-07-17 07:22 | NUR ---
NURSE NOTES: Received pt in bed, AAO x 4. RA. No c/o of pain/distress at this moment. IV on L hand 24g noted. Side rails x 2. Bed in the lowest, locked, and alarm on. Call light within reach. Will continue to monitor
[2019-07-17 08:00] VITALS: BP 125/73
[2019-07-17 08:08] LABS: BASOPHILS % (AUTO) 0.6 % (0.0-2.0); EOSINOPHILS % (AUTO) 2.1 % (0.0-3.0); HEMATOCRIT 41.1 % (42.0-52.0); HEMOGLOBIN 13.8 G/DL (14.2-18.0); LYMPHOCYTES % (AUTO) 26.4 % (20.0-45.0); MEAN CORPUSCULAR VOLUME 80 FL (80-99); MONOCYTES % (AUTO) 5.8 % (1.0-10.0); PLATELET COUNT 192 K/UL (150-450); RED BLOOD COUNT 5.17 M/UL (4.70-6.10); RED CELL DISTRIBUTION WIDTH 15.3 % (11.6-14.8); WHITE BLOOD COUNT 7.3 K/UL (4.8-10.8)
[2019-07-17] MEDS: Midodrine 10mg tab ORAL SCH ×3 (08:26→17:17)
[2019-07-17] MEDS: Docusate 100mg cap ORAL SCH (08:27)
[2019-07-17] MEDS: Zinc Sulfate 220mg cap ORAL SCH (08:27)
[2019-07-17] MEDS: Furosemide 40mg tab ORAL SCH ×2 (08:27→17:17)
[2019-07-17] MEDS: Ascorbic Acid 500mg tab ORAL SCH (08:27)
[2019-07-17] MEDS: HYDROmorphone 2mg tab ORAL PRN (08:37)
[2019-07-17 08:47] LABS: ALANINE AMINOTRANSFERASE 48 U/L (12-78); ALBUMIN 3.8 G/DL (3.4-5.0); ALBUMIN/GLOBULIN RATIO 0.8 (1.0-2.7); ALKALINE PHOSPHATASE 142 U/L (46-116); ANION GAP 14 mmol/L (5-15); ASPARTATE AMINO TRANSFERASE 17 U/L (15-37); BILIRUBIN,TOTAL 0.4 MG/DL (0.2-1.0); BLOOD UREA NITROGEN 28 mg/dL (7-18); CALCIUM 9.9 MG/DL (8.5-10.1); CARBON DIOXIDE 24 MMOL/L (21-32); CHLORIDE 97 MMOL/L (98-107); CREATININE 1.3 MG/DL (0.55-1.30); POTASSIUM 3.9 MMOL/L (3.5-5.1); SODIUM 135 MMOL/L (136-145)
[2019-07-17] MEDS ORDERED: Levemir Flexpen SUBQ SCH ×2 (09:00)
--- NOTE | 2019-07-17 10:19 | NUR ---
CASE MANAGEMENT:REVIEW 07/13/2019 SI;UTI. NEUROGENIC BLADDER. DM. 99.31 100 20 105/63 94% ON RA BUN 28 BG 360 IS;K-DUR PO QD MIDODRINE PO TID LASIX PO QD VANCOMYCIN IV Q12 HRS ZYVOX PO QD MED SURG STATUS DCP;FROM [facility] CASE MANAGEMENT:REVIEW 07/14/2019 SI;UTI. NEUROGENIC BLADDER. DM. 99.0 88 20 104/64 96% ON RA BUN 27 BG 482 ALK PHOS 143 IS;K-DUR PO QD MIDODRINE PO TID LASIX PO QD VANCOMYCIN IV Q12 HRS ZYVOX PO QD MED SURG STATUS DCP;FROM [facility] CASE MANAGEMENT:REVIEW 07/15/2019 SI;UTI. NEUROGENIC BLADDER. DM. 98.3 94 19 96/65 92% ON RA NA 135 CL 96 BUN 31 BG 448 ALK PHOS 153 IS;K-DUR PO QD MIDODRINE PO TID LASIX PO QD VANCOMYCIN IV Q12 HRS ZYVOX PO QD INSULIN MED SURG STATUS DCP;FROM [facility] CASE MANAGEMENT:REVIEW 07/16/2019 SI;UTI. NEUROGENIC BLADDER. DM. 98.3 96 20 105/60 94% ON RA NO LABS AVAILABLE IS;K-DUR PO QD MIDODRINE PO TID LASIX PO QD VANCOMYCIN IV Q12 HRS ZYVOX PO QD INSULIN MED SURG STATUS DCP;FROM [facility] CASE MANAGEMENT:REVIEW 07/17/2019 SI;UTI. NEUROGENIC BLADDER. DM. 97.1 100 19 112/64 95% ON RA NA 135 CL 97 BUN 28 BG 631 ALK PHOS 142 IS;K-DUR PO QD MIDODRINE PO TID LASIX PO QD VANCOMYCIN IV Q12 HRS ZYVOX PO QD MED SURG STATUS DCP;FROM [facility]
[2019-07-17 12:00] VITALS: BP 113/74
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
--- NOTE | 2019-07-17 13:06 | Surgery Progress Note ---
Surgery Progress Note Subjective Symptoms: improved, tolerating diet, voiding well, passing flatus, BM Objective Last 24 Hour Vital Signs Date Time Temp Pulse Resp B/P (MAP) Pulse Ox O2 Delivery O2 Flow Rate FiO2 07/17/19 12:00 98.5 91 18 113/74 (87) 97 07/17/19 08:12 Room Air 07/17/19 08:00 98.3 90 17 125/73 (90) 96 07/17/19 04:00 97.1 99 18 133/82 (99) 98 07/17/19 00:00 97.2 98 19 129/79 (96) 96 07/16/19 21:00 Room Air 07/16/19 20:00 98.4 100 18 112/64 (80) 95 07/16/19 16:00 98.3 87 19 105/68 (80) 99 I&O Intake and Output 07/16/19 07/17/19 19:00 07:00 Intake Total 1080 ml Output Total 4200 ml 1800 ml Balance -3120 ml -1800 ml Intake Oral 1080 ml Output Urine Total 4200 ml 1800 ml # Bowel Movements 1 Dressing: saturated Wound: other Drains: other Cardiovascular: RSR Respiratory: decreased breath sounds Abdomen: soft, non-tender, present bowel sounds Extremities: no cyanosis, other Laboratory Tests Test 07/17/19 07:56 White Blood Count 7.3 K/UL (4.8-10.8) Red Blood Count 5.17 M/UL (4.70-6.10) Hemoglobin 13.8 G/DL (14.2-18.0) L Hematocrit 41.1 % (42.0-52.0) L Mean Corpuscular Volume 80 FL (80-99) Mean Corpuscular Hemoglobin 26.7 PG (27.0-31.0) L Mean Corpuscular Hemoglobin Concent 33.5 G/DL (32.0-36.0) Red Cell Distribution Width 15.3 % (11.6-14.8) H Platelet Count 192 K/UL (150-450) Mean Platelet Volume 6.2 FL (6.5-10.1) L Neutrophils (%) (Auto) 65.0 % (45.0-75.0) Lymphocytes (%) (Auto) 26.4 % (20.0-45.0) Monocytes (%) (Auto) 5.8 % (1.0-10.0) Eosinophils (%) (Auto) 2.1 % (0.0-3.0) Basophils (%) (Auto) 0.6 % (0.0-2.0) Sodium Level 135 MMOL/L (136-145) L Potassium Level 3.9 MMOL/L (3.5-5.1) Chloride Level 97 MMOL/L (98-107) L Carbon Dioxide Level 24 MMOL/L (21-32) Anion Gap 14 mmol/L (5-15) Blood Urea Nitrogen 28 mg/dL (7-18) H Creatinine 1.3 MG/DL (0.55-1.30) Estimat Glomerular Filtration Rate 59.4 mL/min (>60) Glucose Level 361 MG/DL (74-106) H Calcium Level 9.9 MG/DL (8.5-10.1) Total Bilirubin 0.4 MG/DL (0.2-1.0) Aspartate Amino Transf (AST/SGOT) 17 U/L (15-37) Alanine Aminotransferase (ALT/SGPT) 48 U/L (12-78) Alkaline Phosphatase 142 U/L (46-116) H Total Protein 8.7 G/DL (6.4-8.2) H Albumin 3.8 G/DL (3.4-5.0) Globulin 4.9 g/dL Albumin/Globulin Ratio 0.8 (1.0-2.7) L Plan Problems: (1) Sacral decubitus ulcer Assessment & Plan: Pt presented on admission with multiple pressure injuries. Contractures bilat lower ext. DTPI noted sacrococcygeal area(L)2.5cm x (W)0.5cm. Base of wound is purple with maroon borders. Non-blanching erythema periwound. Scrotum is erythematous. Full thickness stage 3/4 pressure injury upper L buttocks. (L)1.3cm x (W)1 cm x (D)1.1cm. Base of wound is obscured secondary wound within crevice of skin fold. DTPI outer lower L buttocks(L)10.5cm x (W)8.5cm. Base of wound is fluctuant, maroon with scattered areas that are purple. Pt complained site has been painful last few days. No elevation in skin temp noted. Full thickness stage 4 pressure injury R ischium.(L)3.5cm x (W)2.5cmcm x (D) 3.6cm. Surrounding perimeter of wound is maroon.Base of wound is not appreciated due wound is within crevice of skin. Small amt serosanguineous exudate noted. No odor noted. Unstageable pressure injury posterior lower R thigh(L)0.8cm x (W)0.9cm. Base of wound has 100% slough. Borders are erythematous . No odor or exudate noted. DTPI upper/lateral R thigh Base of wound is indurated and maroon in colour. Small partial thickness stage 2 ulcer distal/lateral L lower extremity. Base of wound is moist and viable. borders are macerated. Small amt sanguineous exudate noted. Full thickness stage 4 ulcer Dorsal R foot.(L)2.5cm x (W)3cm Base of wound scattered fibrinous slough ,otherwise moist and pink. Borders are macerated. No odor or exudate noted. No erythema,induration or fluctuance periwound. Historical scars noted to both heels. Scattered white plaques with hyperkeratosis noted to both lower ext. Tx Plan: Cleanse Wounds R and L buttocks with Saline. Loosely pack with Therahoney infused packing strip. Apply Moisture Barrier periwound. Cover each wound with Optifoam drsg Daily and prn. Cleanse wound R Thigh with Saline. Cover with Optifoam drsg Daily and prn. Apply Moisture Barrier Paste to Sacrum and lower L buttocks. Cover each site with Optifoam drsg. Daily and prn. Apply Cavilon to upper R thigh DTPI. Cover with Optifoam drsg. Change every 3 days and prn. Apply Betadine to wound distal/lateral L lower ext and dorsal R foot. Cover each wound with Optifoam drsg. Change every 3 days and prn. Reposition at least every 2hours or as tolerated. Off load heels with pillow. APM/DEVONTE Mattress. (2) Chronic indwelling Alexandre catheter Assessment & Plan: abx as per ID UTI noted micro noted cont abx (3) History of osteomyelitis Assessment & Plan: DAILY ESTIMATED NEEDS: Needs based on Wound, paraplegia, obesity 78.9kg abw 20-25 kcals/kg 3066-2173 total kcals 1.25-2 g protein/kg 99-158 g total protein 25-30 mL/kg 0049-3357 total fluid mLs NUTRITION DIAGNOSIS: Increased Protein and micronutrient needs r/t Wound healing as evidenced by pt w/ multiple wounds, including full thickness and unstageable, refer to wound care eval. CURRENT DIET: Now [facility] PO DIET RECOMMENDATIONS--->>> [facility] LOW (3 Carbs/ meal) w/ DOUBLE PROTEIN PORTIONS ADDITIONAL RECOMMENDATIONS: 1) RE-calibrate bed scale w/ added P200 mattress 2) Obtain HgA1C for eval 3) Wound care: JULY BID + MVI w/ Min qd + Vit C 500mg daily Continue w/ ZnSO4 4) Diet edu as able 5) Monitor lytes daily on Richard Chaidez Jul 17, 2019 13:06
--- NOTE | 2019-07-17 14:02 | NUR ---
*-* INSURANCE *-* ALL CLINICALS AND REVIEWS HAVE LJ FAXED TO: DILCIA Pimentel # [phone]
[2019-07-17 16:00] VITALS: BP 126/72
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
[2019-07-17] MEDS: Fluconazole 100mg tab ORAL SCH (17:20)
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
--- NOTE | 2019-07-17 19:24 | NUR ---
HAND-OFF: Report given to TOMAS Lee.
[2019-07-17 20:00] VITALS: BP 105/71
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
[2019-07-18] VITALS: BP 149/86
[2019-07-18 04:00] VITALS: BP 120/72
[2019-07-18] MEDS: NovoLOG Insulin Flexpen SUBQ SCH ×7 (06:17→21:39)
[2019-07-18] MEDS: Heparin 5000 units/ml inj SUBQ SCH ×3 (06:19→21:38)
--- NOTE | 2019-07-18 07:03 | NUR ---
NURSE NOTES: WOUND CARE CARRIED OUT, TOLERATED WELL. NAD.
--- NOTE | 2019-07-18 07:16 | NUR ---
NURSE NOTES: Received pt in bed, sleeping. RA. No s/s of pain/distress. IV on L hand 24g noted. Side rails x 2. Bed in the lowest, locked, and alarm on. Call light within reach. Will continue to monitor
--- NOTE | 2019-07-18 07:19 | NUR ---
NURSE NOTES: MD NOTIFIED OF ELEVATED BLOOD GLUCOSE LEVEL OF 488MG/DL, ASYMPTOMATIC, NO NEW ORDER.
--- NOTE | 2019-07-18 07:26 | General Progress Note ---
Assessment/Plan Problem List: (1) Type 2 diabetes mellitus ICD Codes: E11.9 - Type 2 diabetes mellitus without complications SNOMED: 23599578 (2) Paraplegia ICD Codes: G82.20 - Paraplegia, unspecified SNOMED: 70461825 Status: doing well, stable Assessment/Plan: increase Levemir to 55 units qam and 15 units qhs increase Novolog to 20 units ac tid + SSI Subjective Allergies: Coded Allergies: No Known Allergies (Unverified , 02/09/19) All Systems: reviewed and negative except above Subjective events noted glucose values are very high this morning very non compliant with diet - he had Big Mac and Chicken Nuggets with fries last night Item Value Date Time Bedside Blood Glucose 488 mg/dl H 07/18/19 0630 Bedside Blood Glucose 372 mg/dl H 07/17/19 2154 Bedside Blood Glucose 430 mg/dl H 07/17/19 1716 Bedside Blood Glucose 375 mg/dl H 07/17/19 1231 Bedside Blood Glucose 343 mg/dl H 07/17/19 0900 Bedside Blood Glucose 343 mg/dl H 07/17/19 0600 Objective Last 24 Hour Vital Signs Date Time Temp Pulse Resp B/P (MAP) Pulse Ox O2 Delivery O2 Flow Rate FiO2 07/18/19 04:00 97.6 95 20 120/72 (88) 96 07/18/19 00:00 98.0 110 20 149/86 (107) 100 07/17/19 20:00 97.8 95 16 105/71 (82) 98 07/17/19 16:00 98.5 97 17 126/72 (90) 100 07/17/19 12:00 98.5 91 18 113/74 (87) 97 07/17/19 08:12 Room Air 07/17/19 08:00 98.3 90 17 125/73 (90) 96 Intake and Output 07/17/19 07/18/19 19:00 07:00 Intake Total 600 ml 600 ml Output Total 1200 ml 2801 ml Balance -600 ml -2201 ml Intake Oral 600 ml 600 ml Output Urine Total 1200 ml 2800 ml Stool Total 1 ml Laboratory Tests 07/17/19 07:56: White Blood Count 7.3, Red Blood Count 5.17, Hemoglobin 13.8L, Hematocrit 41.1L , Mean Corpuscular Volume 80, Mean Corpuscular Hemoglobin 26.7L, Mean Corpuscular Hemoglobin Concent 33.5, Red Cell Distribution Width 15.3H, Platelet Count 192, Mean Platelet Volume 6.2L, Neutrophils (%) (Auto) 65.0, Lymphocytes (%) (Auto) 26.4, Monocytes (%) (Auto) 5.8, Eosinophils (%) (Auto) 2.1, Basophils (%) (Auto) 0.6, Sodium Level 135L, Potassium Level 3.9, Chloride Level 97L, Carbon Dioxide Level 24, Anion Gap 14, Blood Urea Nitrogen 28H, Creatinine 1.3, Estimat Glomerular Filtration Rate 59.4, Glucose Level 361H, Calcium Level 9.9, Total Bilirubin 0.4, Aspartate Amino Transf (AST/SGOT) 17, Alanine Aminotransferase (ALT/SGPT) 48, Alkaline Phosphatase 142H, Total Protein 8.7H, Albumin 3.8, Globulin 4.9, Albumin/Globulin Ratio 0.8L Height (Feet): 5 Height (Inches): 6.00 Weight (Pounds): 303 General Appearance: no apparent distress Neck: normal alignment Cardiovascular: normal rate Respiratory/Chest: lungs clear Abdomen: normal bowel sounds Objective Current Medications Medications (Trade) Dose Ordered Sig/Miguel Route PRN Reason Start Time Stop Time Status Last Admin Dose Admin Ascorbic Acid (Vitamin C) 500 mg DAILY ORAL 07/12/19 09:00 08/11/19 08:59 07/17/19 08:27 Bisacodyl (Dulcolax) 10 mg HSPRN PRN RECTAL Constipation 07/10/19 03:00 08/09/19 02:59 Dextrose (Dextrose 50%) 25 ml Q30M PRN IV Hypoglycemia 07/17/19 06:30 08/16/19 06:29 Dextrose (Dextrose 50%) 50 ml Q30M PRN IV Hypoglycemia 07/17/19 06:30 08/16/19 06:29 Docusate Sodium (Colace) 100 mg DAILY ORAL 07/10/19 09:00 08/09/19 08:59 07/17/19 08:27 Fluconazole (Diflucan) 100 mg DAILY ORAL 07/17/19 18:00 07/24/19 17:59 07/17/19 17:20 Folic Acid (Folate) 1 mg DAILY ORAL 07/10/19 09:00 08/09/19 08:59 07/17/19 08:27 Furosemide (Lasix) 40 mg TWICE A DAY ORAL 07/10/19 09:00 08/09/19 08:59 07/17/19 17:17 Gabapentin (Neurontin) 200 mg TWICE A DAY ORAL 07/10/19 09:00 08/09/19 08:59 07/17/19 17:20 Heparin Sodium (Porcine) (Heparin 5000 units/ml) 5,000 units EVERY 8 HOURS SUBQ 07/10/19 06:00 08/24/19 05:59 07/18/19 06:19 Insulin Aspart (NovoLOG) BEFORE MEALS AND HS SUBQ 07/11/19 21:00 08/10/19 20:59 07/18/19 06:17 Insulin Aspart (NovoLOG) 12 units NOVOTIAC SUBQ 07/17/19 06:30 08/16/19 06:29 07/18/19 06:18 Insulin Detemir (Levemir) 55 units DAILY SUBQ 07/18/19 09:00 08/16/19 08:59 Midodrine (Pro-Amatine) 10 mg THREE TIMES A DAY ORAL 07/10/19 09:00 08/09/19 08:59 07/17/19 17:17 Multivitamins (Multivitamins) 1 tab DAILY ORAL 07/12/19 09:00 08/11/19 08:59 07/17/19 08:26 Ondansetron HCl (Zofran) 4 mg Q6H PRN IVP Nausea & Vomiting 07/10/19 03:00 08/09/19 02:59 Pantoprazole (Protonix) 40 mg EVERY 12 HOURS ORAL 07/10/19 09:00 08/09/19 08:59 07/17/19 20:54 Polyethylene Glycol (Miralax) 17 gm HSPRN PRN ORAL Constipation 07/10/19 03:00 08/09/19 02:59 Potassium Chloride (K-Dur) 20 meq DAILY ORAL 07/10/19 09:00 08/09/19 08:59 07/17/19 08:26 Zinc Sulfate (Zinc Sulfate) 220 mg DAILY ORAL 07/10/19 09:00 08/09/19 08:59 07/17/19 08:27 Gilson Solorio MD Jul 18, 2019 07:26
[2019-07-18 08:00] VITALS: BP 115/77
[2019-07-18] MEDS: Midodrine 10mg tab ORAL SCH ×3 (08:51→17:06)
[2019-07-18] MEDS: Furosemide 40mg tab ORAL SCH ×2 (08:51→17:06)
[2019-07-18] MEDS: Fluconazole 100mg tab ORAL SCH (08:51)
[2019-07-18] MEDS: Zinc Sulfate 220mg cap ORAL SCH (08:51)
[2019-07-18] MEDS: Ascorbic Acid 500mg tab ORAL SCH (08:51)
[2019-07-18] MEDS: Docusate 100mg cap ORAL SCH (08:51)
[2019-07-18] MEDS: Levemir Flexpen SUBQ SCH ×2 (09:48→21:40)
--- NOTE | 2019-07-18 10:22 | NUR ---
RD ASSESSMENT & RECOMMENDATIONS SEE CARE ACTIVITY FOR COMPLETE ASSESSMENT DAILY ESTIMATED NEEDS: Needs based on Wound, paraplegia, obesity 78.9kg abw 20-25 kcals/kg 4081-3859 total kcals 1.25-2 g protein/kg 99-158 g total protein 25-30 mL/kg 3473-0472 total fluid mLs NUTRITION DIAGNOSIS: * Increased Protein and micronutrient needs r/t Wound healing as evidenced by pt w/ multiple wounds, including full thickness and unstageable, refer to wound care eval. * Altered nutrition related lab values R/T diabetes as evidenced by BGs in the 300's and 400's. [facility] DI[facility] RECOMMENDATIONS: [facility] LOW (3 Carbs/ meal) w/ DOUBLE PROTEIN PORTIONS ADDITIONAL RECOMMENDATIONS: 1) RE-calibrate bed scale w/ added P200 mattress 2) Obtain HgA1C for eval 3) Wound care: Continue MVI, Vit C, and ZnSO4 Add Skip BID 4) Monitor diet compliance and educate as able 5) Monitor lytes w/ Lasix, replete as needed 6) Monitor BGs closely, now on Levemir BID, TIAC NovoLog + SSI
[2019-07-18 12:00] VITALS: BP 119/79
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
--- NOTE | 2019-07-18 13:22 | Surgery Progress Note ---
Surgery Progress Note Subjective Additional Comments no acute events comfortable states he is well no n/v/f/c resting comfortable pain improved dressings going well Objective Last 24 Hour Vital Signs Date Time Temp Pulse Resp B/P (MAP) Pulse Ox O2 Delivery O2 Flow Rate FiO2 07/18/19 12:00 98.0 89 18 119/79 (92) 97 07/18/19 08:18 Room Air 07/18/19 08:00 97.9 94 19 115/77 (90) 96 07/18/19 04:00 97.6 95 20 120/72 (88) 96 07/18/19 00:00 98.0 110 20 149/86 (107) 100 07/17/19 21:00 Room Air 07/17/19 20:00 97.8 95 16 105/71 (82) 98 07/17/19 16:00 98.5 97 17 126/72 (90) 100 I&O Intake and Output 07/17/19 07/18/19 19:00 07:00 Intake Total 600 ml 600 ml Output Total 1200 ml 2801 ml Balance -600 ml -2201 ml Intake Oral 600 ml 600 ml Output Urine Total 1200 ml 2800 ml Stool Total 1 ml Dressing: saturated Wound: clean Cardiovascular: RSR Respiratory: clear Abdomen: soft, non-tender, present bowel sounds Extremities: no cyanosis, other Plan Problems: (1) Sacral decubitus ulcer Assessment & Plan: Pt presented on admission with multiple pressure injuries. Contractures bilat lower ext. DTPI noted sacrococcygeal area(L)2.5cm x (W)0.5cm. Base of wound is purple with maroon borders. Non-blanching erythema periwound. Scrotum is erythematous. Full thickness stage 3/4 pressure injury upper L buttocks. (L)1.3cm x (W)1 cm x (D)1.1cm. Base of wound is obscured secondary wound within crevice of skin fold. DTPI outer lower L buttocks(L)10.5cm x (W)8.5cm. Base of wound is fluctuant, maroon with scattered areas that are purple. Pt complained site has been painful last few days. No elevation in skin temp noted. Full thickness stage 4 pressure injury R ischium.(L)3.5cm x (W)2.5cmcm x (D) 3.6cm. Surrounding perimeter of wound is maroon.Base of wound is not appreciated due wound is within crevice of skin. Small amt serosanguineous exudate noted. No odor noted. Unstageable pressure injury posterior lower R thigh(L)0.8cm x (W)0.9cm. Base of wound has 100% slough. Borders are erythematous . No odor or exudate noted. DTPI upper/lateral R thigh Base of wound is indurated and maroon in colour. Small partial thickness stage 2 ulcer distal/lateral L lower extremity. Base of wound is moist and viable. borders are macerated. Small amt sanguineous exudate noted. Full thickness stage 4 ulcer Dorsal R foot.(L)2.5cm x (W)3cm Base of wound scattered fibrinous slough ,otherwise moist and pink. Borders are macerated. No odor or exudate noted. No erythema,induration or fluctuance periwound. Historical scars noted to both heels. Scattered white plaques with hyperkeratosis noted to both lower ext. Tx Plan: Cleanse Wounds R and L buttocks with Saline. Loosely pack with Therahoney infused packing strip. Apply Moisture Barrier periwound. Cover each wound with Optifoam drsg Daily and prn. Cleanse wound R Thigh with Saline. Cover with Optifoam drsg Daily and prn. Apply Moisture Barrier Paste to Sacrum and lower L buttocks. Cover each site with Optifoam drsg. Daily and prn. Apply Cavilon to upper R thigh DTPI. Cover with Optifoam drsg. Change every 3 days and prn. Apply Betadine to wound distal/lateral L lower ext and dorsal R foot. Cover each wound with Optifoam drsg. Change every 3 days and prn. Reposition at least every 2hours or as tolerated. Off load heels with pillow. APM/DEVONTE Mattress. (2) Chronic indwelling Alexandre catheter Assessment & Plan: abx as per ID UTI noted micro noted cont abx (3) History of osteomyelitis Assessment & Plan: DAILY ESTIMATED NEEDS: Needs based on Wound, paraplegia, obesity 78.9kg abw 20-25 kcals/kg 5546-9470 total kcals 1.25-2 g protein/kg 99-158 g total protein 25-30 mL/kg total fluid mLs NUTRITION DIAGNOSIS: Increased Protein and micronutrient needs r/t Wound healing as evidenced by pt w/ multiple wounds, including full thickness and unstageable, refer to wound care eval. CURRENT DIET: Now [facility] MED PO DIET RECOMMENDATIONS--->>> [facility] LOW (3 Carbs/ meal) w/ DOUBLE PROTEIN PORTIONS ADDITIONAL RECOMMENDATIONS: 1) RE-calibrate bed scale w/ added P200 mattress 2) Obtain HgA1C for eval 3) Wound care: JULY BID + MVI w/ Min qd + Vit C 500mg daily Continue w/ ZnSO4 4) Diet edu as able 5) Monitor lytes daily on lasix Additional Comments improved d/c planning cont current care upon d/c Richard Minaya Jul 18, 2019 13:22
[2019-07-18] MEDS: HYDROmorphone 2mg tab ORAL PRN ×2 (14:44→21:37)
--- NOTE | 2019-07-18 15:58 | NUR ---
CASE MANAGEMENT:REVIEW SI;UTI. NEUROGENIC BLADDER. DM. PARAPLEGIA. 98.0 110 20 149/86 96% ON RA BG 488 SI;INSULIN LEVEMIR HS INSULIN NOVOLOG DILAUDID PO A4 HRS PRN LASIX PO BID MIDODRINE PO TID PROTONIX PO BID MED SURG STATUS DCP;FROM [facility]
[2019-07-18 16:00] VITALS: BP 108/72
--- NOTE | 2019-07-18 19:19 | NUR ---
HAND-OFF: Report given to TOMAS Dorantes.
--- NOTE | 2019-07-18 19:50 | NUR ---
NURSE NOTES: Pt is in bed, awake and alert. No acute distress noted. Wound dressing dry and intact. Blood sugar will be checked. Bed locked low in position,side rails up and call light within reach.
[2019-07-18 20:00] VITALS: BP 122/75
[2019-07-19] VITALS: BP 128/72
[2019-07-19 04:00] VITALS: BP 135/90
[2019-07-19] MEDS: NovoLOG Insulin Flexpen SUBQ SCH ×8 (06:30→21:46)
--- NOTE | 2019-07-19 06:30 | NUR ---
NURSE NOTES: Pt is in bed, awake and alert. No acute events overnight, pt slept well. Pt is noncompliant with his diabetic diet, keeps asking for apple juice. Blood sugar has been high, last one was 350, insulin coverage given.
--- NOTE | 2019-07-19 06:39 | General Progress Note ---
Assessment/Plan Problem List: (1) Type 2 diabetes mellitus ICD Codes: E11.9 - Type 2 diabetes mellitus without complications SNOMED: 92927811 (2) Paraplegia ICD Codes: G82.20 - Paraplegia, unspecified SNOMED: 94441935 Status: doing well, stable Assessment/Plan: continue Levemir 55 units qam and 15 units qhs increase Novolog to 25 units ac tid + SSI Subjective Allergies: Coded Allergies: No Known Allergies (Unverified , 02/09/19) All Systems: reviewed and negative except above Subjective events noted glucose values improved but still elevated Item Value Date Time Bedside Blood Glucose 251 mg/dl H 07/18/19 2140 Bedside Blood Glucose 338 mg/dl H 07/18/19 1708 Bedside Blood Glucose 316 mg/dl H 07/18/19 1142 Bedside Blood Glucose 488 mg/dl H 07/18/19 0948 Objective Last 24 Hour Vital Signs Date Time Temp Pulse Resp B/P (MAP) Pulse Ox O2 Delivery O2 Flow Rate FiO2 07/19/19 04:00 98.2 97 18 135/90 (105) 98 07/19/19 00:00 97.8 98 20 128/72 (90) 96 07/18/19 21:00 Room Air 07/18/19 20:00 98.5 88 20 122/75 (91) 96 07/18/19 16:00 98.8 76 17 108/72 (84) 98 07/18/19 12:00 98.0 89 18 119/79 (92) 97 07/18/19 08:18 Room Air 07/18/19 08:00 97.9 94 19 115/77 (90) 96 Intake and Output 07/18/19 07/19/19 19:00 07:00 Intake Total 1600 ml 400 ml Output Total 2000 ml 1600 ml Balance -400 ml -1200 ml Other 1600 ml 400 ml Output Urine Total 2000 ml 1600 ml Height (Feet): 5 Height (Inches): 6.00 Weight (Pounds): 303 General Appearance: no apparent distress Neck: normal alignment Respiratory/Chest: lungs clear Abdomen: normal bowel sounds Objective Current Medications Medications (Trade) Dose Ordered Sig/Miguel Route PRN Reason Start Time Stop Time Status Last Admin Dose Admin Ascorbic Acid (Vitamin C) 500 mg DAILY ORAL 07/12/19 09:00 08/11/19 08:59 07/18/19 08:51 Bisacodyl (Dulcolax) 10 mg HSPRN PRN RECTAL Constipation 07/10/19 03:00 08/09/19 02:59 Dextrose (Dextrose 50%) 25 ml Q30M PRN IV Hypoglycemia 07/18/19 07:30 10/16/19 07:29 Dextrose (Dextrose 50%) 50 ml Q30M PRN IV Hypoglycemia 07/18/19 07:30 10/16/19 07:29 Docusate Sodium (Colace) 100 mg DAILY ORAL 07/10/19 09:00 08/09/19 08:59 07/18/19 08:51 Fluconazole (Diflucan) 100 mg DAILY ORAL 07/17/19 18:00 07/24/19 17:59 07/18/19 08:51 Folic Acid (Folate) 1 mg DAILY ORAL 07/10/19 09:00 08/09/19 08:59 07/18/19 08:51 Furosemide (Lasix) 40 mg TWICE A DAY ORAL 07/10/19 09:00 08/09/19 08:59 07/18/19 17:06 Gabapentin (Neurontin) 200 mg TWICE A DAY ORAL 07/10/19 09:00 08/09/19 08:59 07/18/19 17:06 Heparin Sodium (Porcine) (Heparin 5000 units/ml) 5,000 units EVERY 8 HOURS SUBQ 07/10/19 06:00 08/24/19 05:59 07/18/19 21:38 Hydromorphone HCl (Dilaudid) 2 mg Q4H PRN ORAL For Pain 07/18/19 14:41 07/25/19 14:40 07/18/19 21:37 Insulin Aspart (NovoLOG) BEFORE MEALS AND HS SUBQ 07/11/19 21:00 08/10/19 20:59 07/18/19 21:39 Insulin Aspart (NovoLOG) 20 units NOVOTIAC SUBQ 07/18/19 11:50 08/16/19 06:29 07/18/19 17:08 Insulin Detemir (Levemir) 15 units BEDTIME SUBQ 07/18/19 21:00 10/16/19 20:59 07/18/19 21:40 Insulin Detemir (Levemir) 55 units DAILY SUBQ 07/18/19 09:00 08/16/19 08:59 07/18/19 09:48 Midodrine (Pro-Amatine) 10 mg THREE TIMES A DAY ORAL 07/10/19 09:00 08/09/19 08:59 07/18/19 17:06 Multivitamins (Multivitamins) 1 tab DAILY ORAL 07/12/19 09:00 08/11/19 08:59 07/18/19 08:51 Ondansetron HCl (Zofran) 4 mg Q6H PRN IVP Nausea & Vomiting 07/10/19 03:00 08/09/19 02:59 Pantoprazole (Protonix) 40 mg EVERY 12 HOURS ORAL 07/10/19 09:00 08/09/19 08:59 07/18/19 21:37 Polyethylene Glycol (Miralax) 17 gm HSPRN PRN ORAL Constipation 07/10/19 03:00 08/09/19 02:59 Potassium Chloride (K-Dur) 20 meq DAILY ORAL 07/10/19 09:00 08/09/19 08:59 07/18/19 08:51 Zinc Sulfate (Zinc Sulfate) 220 mg DAILY ORAL 07/10/19 09:00 08/09/19 08:59 07/18/19 08:51 Gilson Solorio MD Jul 19, 2019 06:39
[2019-07-19] MEDS: Heparin 5000 units/ml inj SUBQ SCH ×3 (06:52→21:43)
--- NOTE | 2019-07-19 07:10 | NUR ---
HAND-OFF: Report given to Cristo Saunders RN.
--- NOTE | 2019-07-19 07:30 | NUR ---
NURSE NOTES: Report received from Jose E RN. Patient is awake and alert x 4. Patient is paraplegic, but is current in semi fowlers position in bed, no complaints at this time. Patient on room air and does not appear to be in respiratory distress at this time. Patient noted to have an indwelling Alexandre draining clear yellow urine. Was endorsed by previous nurse that this is a chronic Alexandre and patient arrived to [facility] with Alexandre. Was endorsed by previous shift that patient is a diabetic and does not follow recommended diabetic diet. Will re educate patient. Call light in reach. Bed lowest position and locked. Call light in reach. Will continue to follow plan of care.
[2019-07-19 08:00] VITALS: BP 115/85
[2019-07-19] MEDS: Fluconazole 100mg tab ORAL SCH (09:23)
[2019-07-19] MEDS: Midodrine 10mg tab ORAL SCH ×3 (09:23→17:14)
[2019-07-19] MEDS: Furosemide 40mg tab ORAL SCH ×2 (09:23→17:14)
[2019-07-19] MEDS: Docusate 100mg cap ORAL SCH (09:24)
[2019-07-19] MEDS: Ascorbic Acid 500mg tab ORAL SCH (09:24)
[2019-07-19] MEDS: Zinc Sulfate 220mg cap ORAL SCH (09:24)
[2019-07-19] MEDS: Levemir Flexpen SUBQ SCH ×2 (09:27→21:45)
[2019-07-19] MEDS: HYDROmorphone 2mg tab ORAL PRN ×2 (09:34→21:40)
--- NOTE | 2019-07-19 10:30 | NUR ---
NURSE NOTES: received report from TOMAS Lemons. patient in bed, a&ox4, verbally responsive. no respiratory distress noted. no pain at this time. IV on LH24g. saline lock. intact. F/C draining. yellow. contact isolation. PPE at all times. paraplegic. turn and reposition as needed. p200 mattress for skin management. low bed and locked. call light within reach. will continue to provide plan of care.
--- NOTE | 2019-07-19 10:56 | Surgery Progress Note ---
Surgery Progress Note Subjective Symptoms: improved, tolerating diet, voiding well, passing flatus, BM, pain decreased Additional Comments glucose still difficult to control otherwise feels well is working to move in bed dressings going well Objective Last 24 Hour Vital Signs Date Time Temp Pulse Resp B/P (MAP) Pulse Ox O2 Delivery O2 Flow Rate FiO2 07/19/19 09:00 Room Air 07/19/19 08:00 97.9 98 19 115/85 (95) 95 07/19/19 04:00 98.2 97 18 135/90 (105) 98 07/19/19 00:00 97.8 98 20 128/72 (90) 96 07/18/19 21:00 Room Air 07/18/19 20:00 98.5 88 20 122/75 (91) 96 07/18/19 16:00 98.8 76 17 108/72 (84) 98 07/18/19 12:00 98.0 89 18 119/79 (92) 97 I&O Intake and Output 07/18/19 07/19/19 19:00 07:00 Intake Total 1600 ml 400 ml Output Total 2000 ml 1600 ml Balance -400 ml -1200 ml Other 1600 ml 400 ml Output Urine Total 2000 ml 1600 ml Dressing: saturated Wound: other Drains: other Cardiovascular: RSR Respiratory: decreased breath sounds Abdomen: soft, non-tender, present bowel sounds, non-distended Extremities: other Plan Problems: (1) Sacral decubitus ulcer Assessment & Plan: Pt presented on admission with multiple pressure injuries. Contractures bilat lower ext. DTPI noted sacrococcygeal area(L)2.5cm x (W)0.5cm. Base of wound is purple with maroon borders. Non-blanching erythema periwound. Scrotum is erythematous. Full thickness stage 3/4 pressure injury upper L buttocks. (L)1.3cm x (W)1 cm x (D)1.1cm. Base of wound is obscured secondary wound within crevice of skin fold. DTPI outer lower L buttocks(L)10.5cm x (W)8.5cm. Base of wound is fluctuant, maroon with scattered areas that are purple. Pt complained site has been painful last few days. No elevation in skin temp noted. Full thickness stage 4 pressure injury R ischium.(L)3.5cm x (W)2.5cmcm x (D) 3.6cm. Surrounding perimeter of wound is maroon.Base of wound is not appreciated due wound is within crevice of skin. Small amt serosanguineous exudate noted. No odor noted. Unstageable pressure injury posterior lower R thigh(L)0.8cm x (W)0.9cm. Base of wound has 100% slough. Borders are erythematous . No odor or exudate noted. DTPI upper/lateral R thigh Base of wound is indurated and maroon in colour. Small partial thickness stage 2 ulcer distal/lateral L lower extremity. Base of wound is moist and viable. borders are macerated. Small amt sanguineous exudate noted. Full thickness stage 4 ulcer Dorsal R foot.(L)2.5cm x (W)3cm Base of wound scattered fibrinous slough ,otherwise moist and pink. Borders are macerated. No odor or exudate noted. No erythema,induration or fluctuance periwound. Historical scars noted to both heels. Scattered white plaques with hyperkeratosis noted to both lower ext. Tx Plan: Cleanse Wounds R and L buttocks with Saline. Loosely pack with Therahoney infused packing strip. Apply Moisture Barrier periwound. Cover each wound with Optifoam drsg Daily and prn. Cleanse wound R Thigh with Saline. Cover with Optifoam drsg Daily and prn. Apply Moisture Barrier Paste to Sacrum and lower L buttocks. Cover each site with Optifoam drsg. Daily and prn. Apply Cavilon to upper R thigh DTPI. Cover with Optifoam drsg. Change every 3 days and prn. Apply Betadine to wound distal/lateral L lower ext and dorsal R foot. Cover each wound with Optifoam drsg. Change every 3 days and prn. Reposition at least every 2hours or as tolerated. Off load heels with pillow. APM/DEVONTE Mattress. (2) Chronic indwelling Alexandre catheter Assessment & Plan: abx as per ID UTI noted micro noted cont abx (3) History of osteomyelitis Assessment & Plan: DAILY ESTIMATED NEEDS: Needs based on Wound, paraplegia, obesity 78.9kg abw 20-25 kcals/kg 8246-6237 total kcals 1.25-2 g protein/kg 99-158 g total protein 25-30 mL/kg total fluid mLs NUTRITION DIAGNOSIS: * Increased Protein and micronutrient needs r/t Wound healing as evidenced by pt w/ multiple wounds, including full thickness and unstageable, refer to wound care eval. * Altered nutrition related lab values R/T diabetes as evidenced by BGs in the 300's and 400's. [facility]ET:[facility] DI[facility] RECOMMENDATIONS: [facility] (3 Carbs/ meal) w/ DOUBLE PROTEIN PORTIONS ADDITIONAL RECOMMENDATIONS: 1) RE-calibrate bed scale w/ added P200 mattress 2) Obtain HgA1C for eval 3) Wound care: Continue MVI, Vit C, and ZnSO4 Add Skip BID 4) Monitor diet compliance and educate as able 5) Monitor lytes w/ Lasix, replete as needed 6) Monitor BGs closely, now on Levemir BID, TIAC NovoLog + SSI Richard Minaya Jul 19, 2019 10:56
[2019-07-19 12:00] VITALS: BP 125/85
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
--- NOTE | 2019-07-19 13:18 | NUR ---
*-* INSURANCE *-* ALL CLINICALS AND REVIEWS HAVE LJ FAXED TO: DILCIA Pimentel # [phone]
[2019-07-19 16:00] VITALS: BP 109/79
--- NOTE | 2019-07-19 16:01 | NUR ---
CASE MANAGEMENT:REVIEW SI;CATH ASSOCIATED UTI. UNCONTROLLED IDDM. PARAPLEGIA. NEUROGENIC BLADDER. 98.2 98 20 135/90 92% ON RA NO LABS AVAILABLE IS;INSULIN NOVOLOG INSULIN LEVEMIR DIFLUCAN PO QD LASIX PO BID MIDODRINE PO TID PROTONIX PO BID K-DUR PO QD MED SURG STATUS DCP;FROM [facility] PLAN OF CARE; INSULIN STRICT DIABETIC DIET CHANGE [facility] CATH
--- NOTE | 2019-07-19 19:32 | NUR ---
HAND-OFF: Report given to TOMAS Maxwell. Addendum: 07/19/19 at 1934 by TODD BERRIOS RN HAND-OFF: Report given to TOMAS Fay.
[2019-07-19 20:00] VITALS: BP 130/87
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
[2019-07-20] VITALS (7 sets, daily range): BP systolic 114–134; BP diastolic 67–83
[2019-07-20] MEDS: Heparin 5000 units/ml inj SUBQ SCH ×3 (06:05→22:35)
[2019-07-20] MEDS: NovoLOG Insulin Flexpen SUBQ SCH ×7 (06:06→22:35)
[2019-07-20] MEDS: HYDROmorphone 2mg tab ORAL PRN ×2 (06:11→18:51)
--- NOTE | 2019-07-20 06:25 | NUR ---
NURSE NOTES: Dr. Solorio made aware of this morning's blood sugar of 421. Coverage given. No new orders at this time.
--- NOTE | 2019-07-20 06:40 | General Progress Note ---
Assessment/Plan Problem List: (1) Type 2 diabetes mellitus ICD Codes: E11.9 - Type 2 diabetes mellitus without complications SNOMED: 98866617 (2) Paraplegia ICD Codes: G82.20 - Paraplegia, unspecified SNOMED: 71927562 Status: doing well, stable Assessment/Plan: change Levemir 55 u qam + 15 u hs to 50 u bid increase Novolog to 33 units ac tid + SSI Subjective Allergies: Coded Allergies: No Known Allergies (Unverified , 02/09/19) Subjective events noted non compliant with diet glucose still very high - fasting > mealtime Item Value Date Time Bedside Blood Glucose 421 mg/dl H 07/20/19 0626 Bedside Blood Glucose 307 mg/dl H 07/19/19 2146 Bedside Blood Glucose 234 mg/dl H 07/19/19 1645 Bedside Blood Glucose 216 mg/dl H 07/19/19 1220 Bedside Blood Glucose 350 mg/dl H 07/19/19 0651 Objective Last 24 Hour Vital Signs Date Time Temp Pulse Resp B/P (MAP) Pulse Ox O2 Delivery O2 Flow Rate FiO2 07/20/19 04:00 98.3 100 22 134/81 (98) 93 07/20/19 00:00 98.1 104 20 114/79 (91) 96 07/19/19 21:00 Room Air 07/19/19 20:00 98.1 101 22 130/87 (101) 93 07/19/19 16:00 98.0 97 20 109/79 (89) 95 07/19/19 12:00 97.5 94 19 125/85 (98) 92 07/19/19 09:00 Room Air 07/19/19 08:00 97.9 98 19 115/85 (95) 95 Intake and Output 07/19/19 07/20/19 19:00 07:00 Output Total 1600 ml Balance -1600 ml Output Urine Total 1600 ml # Bowel Movements 1 Laboratory Tests 07/20/19 05:45: Sodium Level [Pending], Potassium Level [Pending], Chloride Level [Pending], Carbon Dioxide Level [Pending], Blood Urea Nitrogen [Pending], Creatinine [ Pending], Estimat Glomerular Filtration Rate [Pending], Glucose Level [Pending] , Calcium Level [Pending] Height (Feet): 5 Height (Inches): 6.00 Weight (Pounds): 303 General Appearance: no apparent distress Neck: normal alignment Cardiovascular: normal rate Respiratory/Chest: lungs clear Abdomen: normal bowel sounds Edema: no edema noted Arm (L), no edema noted Arm (R), no edema noted Leg (L), no edema noted Leg (R), no edema noted Pedal (L), no edema noted Pedal (R), no edema noted Generalized Objective Current Medications Medications (Trade) Dose Ordered Sig/Miguel Route PRN Reason Start Time Stop Time Status Last Admin Dose Admin Ascorbic Acid (Vitamin C) 500 mg DAILY ORAL 07/12/19 09:00 08/11/19 08:59 07/19/19 09:24 Bisacodyl (Dulcolax) 10 mg HSPRN PRN RECTAL Constipation 07/10/19 03:00 08/09/19 02:59 Dextrose (Dextrose 50%) 25 ml Q30M PRN IV Hypoglycemia 07/18/19 07:30 10/16/19 07:29 Dextrose (Dextrose 50%) 50 ml Q30M PRN IV Hypoglycemia 07/18/19 07:30 10/16/19 07:29 Docusate Sodium (Colace) 100 mg DAILY ORAL 07/10/19 09:00 08/09/19 08:59 07/19/19 09:24 Fluconazole (Diflucan) 100 mg DAILY ORAL 07/17/19 18:00 07/24/19 17:59 07/19/19 09:23 Folic Acid (Folate) 1 mg DAILY ORAL 07/10/19 09:00 08/09/19 08:59 07/19/19 09:24 Furosemide (Lasix) 40 mg TWICE A DAY ORAL 07/10/19 09:00 08/09/19 08:59 07/19/19 17:14 Gabapentin (Neurontin) 200 mg TWICE A DAY ORAL 07/10/19 09:00 08/09/19 08:59 07/19/19 17:14 Heparin Sodium (Porcine) (Heparin 5000 units/ml) 5,000 units EVERY 8 HOURS SUBQ 07/10/19 06:00 08/24/19 05:59 07/20/19 06:05 Hydromorphone HCl (Dilaudid) 2 mg Q4H PRN ORAL For Pain 07/18/19 14:41 07/25/19 14:40 07/20/19 06:11 Insulin Aspart (NovoLOG) BEFORE MEALS AND HS SUBQ 07/11/19 21:00 08/10/19 20:59 07/20/19 06:06 Insulin Aspart (NovoLOG) 25 units NOVOTIAC SUBQ 07/19/19 06:45 08/16/19 06:29 07/20/19 06:07 Insulin Detemir (Levemir) 15 units BEDTIME SUBQ 07/18/19 21:00 10/16/19 20:59 07/19/19 21:45 Insulin Detemir (Levemir) 55 units DAILY SUBQ 07/18/19 09:00 08/16/19 08:59 07/19/19 09:27 Midodrine (Pro-Amatine) 10 mg THREE TIMES A DAY ORAL 07/10/19 09:00 08/09/19 08:59 07/19/19 17:14 Multivitamins (Multivitamins) 1 tab DAILY ORAL 07/12/19 09:00 08/11/19 08:59 07/19/19 09:23 Ondansetron HCl (Zofran) 4 mg Q6H PRN IVP Nausea & Vomiting 07/10/19 03:00 08/09/19 02:59 Pantoprazole (Protonix) 40 mg EVERY 12 HOURS ORAL 07/10/19 09:00 08/09/19 08:59 07/19/19 21:28 Polyethylene Glycol (Miralax) 17 gm HSPRN PRN ORAL Constipation 07/10/19 03:00 08/09/19 02:59 Potassium Chloride (K-Dur) 20 meq DAILY ORAL 07/10/19 09:00 08/09/19 08:59 07/19/19 09:24 Zinc Sulfate (Zinc Sulfate) 220 mg DAILY ORAL 07/10/19 09:00 08/09/19 08:59 07/19/19 09:24 Gilson Solorio MD Jul 20, 2019 06:40
[2019-07-20 07:11] LABS: ANION GAP 12 mmol/L (5-15); BLOOD UREA NITROGEN 35 mg/dL (7-18); CALCIUM 9.8 MG/DL (8.5-10.1); CARBON DIOXIDE 28 MMOL/L (21-32); CHLORIDE 99 MMOL/L (98-107); CREATININE 1.2 MG/DL (0.55-1.30); SODIUM 139 MMOL/L (136-145)
--- NOTE | 2019-07-20 07:20 | NUR ---
NURSE NOTES: Received report from TOMAS Fay. Patient A&Ox4. On room air, no signs of distress or labored breathing. IV intact, patent, and saline locked. Alexandre intact, patent, and draining urine. Bed in lowest position with call light in reach. Will continue with plan of care.
--- NOTE | 2019-07-20 07:29 | NUR ---
HAND-OFF: Report given to TOMAS Bowling.
[2019-07-20] MEDS: Fluconazole 100mg tab ORAL SCH (08:46)
[2019-07-20] MEDS: Ascorbic Acid 500mg tab ORAL SCH (08:46)
[2019-07-20] MEDS: Midodrine 10mg tab ORAL SCH ×3 (08:46→17:17)
[2019-07-20] MEDS: Furosemide 40mg tab ORAL SCH ×2 (08:47→17:17)
[2019-07-20] MEDS: Docusate 100mg cap ORAL SCH (08:47)
[2019-07-20] MEDS: Zinc Sulfate 220mg cap ORAL SCH (08:48)
[2019-07-20] MEDS: Levemir Flexpen SUBQ SCH ×2 (09:59→22:36)
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
--- NOTE | 2019-07-20 15:34 | Surgery Progress Note ---
Surgery Progress Note Subjective Additional Comments improved comfortable;e no complains no n/v//f/c Objective Last 24 Hour Vital Signs Date Time Temp Pulse Resp B/P (MAP) Pulse Ox O2 Delivery O2 Flow Rate FiO2 07/20/19 12:00 97.8 93 20 120/74 (89) 98 07/20/19 09:00 Room Air 07/20/19 08:06 97.8 100 20 115/83 (94) 94 07/20/19 04:00 98.3 100 22 134/81 (98) 93 07/20/19 00:00 98.1 104 20 114/79 (91) 96 07/19/19 21:00 Room Air 07/19/19 20:00 98.1 101 22 130/87 (101) 93 07/19/19 16:00 98.0 97 20 109/79 (89) 95 I&O Intake and Output 07/19/19 07/20/19 19:00 07:00 Intake Total 400 ml Output Total 1600 ml 1600 ml Balance -1600 ml -1200 ml Other 400 ml Output Urine Total 1600 ml 1600 ml # Bowel Movements 1 Dressing: dry, other Wound: clean, other Cardiovascular: RSR Respiratory: clear Abdomen: soft, non-tender, present bowel sounds Extremities: no cyanosis, other Laboratory Tests Test 07/20/19 05:45 Sodium Level 139 MMOL/L (136-145) Potassium Level 4.0 MMOL/L (3.5-5.1) Chloride Level 99 MMOL/L (98-107) Carbon Dioxide Level 28 MMOL/L (21-32) Anion Gap 12 mmol/L (5-15) Blood Urea Nitrogen 35 mg/dL (7-18) H Creatinine 1.2 MG/DL (0.55-1.30) Estimat Glomerular Filtration Rate > 60 mL/min (>60) Glucose Level 468 MG/DL (74-106) H Calcium Level 9.8 MG/DL (8.5-10.1) Plan Problems: (1) Sacral decubitus ulcer Assessment & Plan: Pt presented on admission with multiple pressure injuries. Contractures bilat lower ext. DTPI noted sacrococcygeal area(L)2.5cm x (W)0.5cm. Base of wound is purple with maroon borders. Non-blanching erythema periwound. Scrotum is erythematous. Full thickness stage 3/4 pressure injury upper L buttocks. (L)1.3cm x (W)1 cm x (D)1.1cm. Base of wound is obscured secondary wound within crevice of skin fold. DTPI outer lower L buttocks(L)10.5cm x (W)8.5cm. Base of wound is fluctuant, maroon with scattered areas that are purple. Pt complained site has been painful last few days. No elevation in skin temp noted. Full thickness stage 4 pressure injury R ischium.(L)3.5cm x (W)2.5cmcm x (D) 3.6cm. Surrounding perimeter of wound is maroon.Base of wound is not appreciated due wound is within crevice of skin. Small amt serosanguineous exudate noted. No odor noted. Unstageable pressure injury posterior lower R thigh(L)0.8cm x (W)0.9cm. Base of wound has 100% slough. Borders are erythematous . No odor or exudate noted. DTPI upper/lateral R thigh Base of wound is indurated and maroon in colour. Small partial thickness stage 2 ulcer distal/lateral L lower extremity. Base of wound is moist and viable. borders are macerated. Small amt sanguineous exudate noted. Full thickness stage 4 ulcer Dorsal R foot.(L)2.5cm x (W)3cm Base of wound scattered fibrinous slough ,otherwise moist and pink. Borders are macerated. No odor or exudate noted. No erythema,induration or fluctuance periwound. Historical scars noted to both heels. Scattered white plaques with hyperkeratosis noted to both lower ext. Tx Plan: Cleanse Wounds R and L buttocks with Saline. Loosely pack with Therahoney infused packing strip. Apply Moisture Barrier periwound. Cover each wound with Optifoam drsg Daily and prn. Cleanse wound R Thigh with Saline. Cover with Optifoam drsg Daily and prn. Apply Moisture Barrier Paste to Sacrum and lower L buttocks. Cover each site with Optifoam drsg. Daily and prn. Apply Cavilon to upper R thigh DTPI. Cover with Optifoam drsg. Change every 3 days and prn. Apply Betadine to wound distal/lateral L lower ext and dorsal R foot. Cover each wound with Optifoam drsg. Change every 3 days and prn. Reposition at least every 2hours or as tolerated. Off load heels with pillow. APM/DEVONTE Mattress. (2) Chronic indwelling Alexandre catheter Assessment & Plan: abx as per ID UTI noted micro noted cont abx (3) History of osteomyelitis Assessment & Plan: DAILY ESTIMATED NEEDS: Needs based on Wound, paraplegia, obesity 78.9kg abw 20-25 kcals/kg 5791-5357 total kcals 1.25-2 g protein/kg 99-158 g total protein 25-30 mL/kg 4790-0027 total fluid mLs NUTRITION DIAGNOSIS: * Increased Protein and micronutrient needs r/t Wound healing as evidenced by pt w/ multiple wounds, including full thickness and unstageable, refer to wound care eval. * Altered nutrition related lab values R/T diabetes as evidenced by BGs in the 300's and 400's. CURRENT DIET:[facility] PO DI[facility]3 Carbs/ meal) w/ DOUBLE PROTEIN PORTIONS ADDITIONAL RECOMMENDATIONS: 1) RE-calibrate bed scale w/ added P200 mattress 2) Obtain HgA1C for eval 3) Wound care: Continue MVI, Vit C, and ZnSO4 Add Skip BID 4) Monitor diet compliance and educate as able 5) Monitor lytes w/ Lasix, replete as needed 6) Monitor BGs closely, now on Levemir BID, TIAC NovoLog + SSI Richard Minaya Jul 20, 2019 15:34
--- NOTE | 2019-07-20 15:57 | NUR ---
CASE MANAGEMENT:REVIEW SI;CATH ASSOCIATED UTI. PYURIA. UNCONTROLLED IDDM. 98.3 104 22 134/81 93% ON RA BUN 35 FASTING BG 468 IS;INSULIN LEVEMIR INSULIN NOVOLOG DIFLUCAN PO QD NEURONTIN PO BID LASIX PO BID MIDODRINE PO TID [id number] PO QD PROTONIX PO BID MED SURG STATUS DCP;TO [facility] WHEN BLOOD GLUCOSE STABILIZES
--- NOTE | 2019-07-20 16:58 | NUR ---
*-* INSURANCE *-* ALL CLINICALS AND REVIEWS HAVE LJ FAXED TO: DILCIA FIGUEROA REF# [id number] PH: [phone] FAX: [phone]
--- NOTE | 2019-07-20 19:15 | NUR ---
HAND-OFF: Report given to Krystina Pugh RN.
--- NOTE | 2019-07-20 19:25 | NUR ---
NURSE NOTES: Received patient on bed, awake and verbally responsive. no sob. with iv line on the left hand, saline lock. denies any pain or discomfort.with stoner catheter draining well. bed alarm on. bed locked and in lowest position. call light and light button within easy reach. will continue plan of care.
[2019-07-21] VITALS: BP 105/66
--- NOTE | 2019-07-21 02:14 | NUR ---
NURSE NOTES: patient is sleeping comfortably on bed, no facial grimacing noted. no sob. bed locked and in lowest position. bed alarm on. call light and light button within easy reach. will continue plan of care.
[2019-07-21 04:00] VITALS: BP 100/70
[2019-07-21] MEDS: Heparin 5000 units/ml inj SUBQ SCH ×3 (06:04→21:51)
[2019-07-21] MEDS: NovoLOG Insulin Flexpen SUBQ SCH ×7 (06:05→21:52)
--- NOTE | 2019-07-21 07:16 | NUR ---
HAND-OFF: Report given to claudia davis.
--- NOTE | 2019-07-21 07:17 | NUR ---
NURSE NOTES: Received report from Krystina Pugh RN. Patient A&Ox4. On room air, no signs of distress or labored breathing. IV intact, patent, and saline locked. Bed in lowest position with call light in reach. Will continue with plan of care.
[2019-07-21 08:00] VITALS: BP 107/71
[2019-07-21] MEDS: Fluconazole 100mg tab ORAL SCH (09:05)
[2019-07-21] MEDS: Docusate 100mg cap ORAL SCH (09:05)
[2019-07-21] MEDS: Zinc Sulfate 220mg cap ORAL SCH (09:05)
[2019-07-21] MEDS: Midodrine 10mg tab ORAL SCH ×3 (09:05→17:03)
[2019-07-21] MEDS: Ascorbic Acid 500mg tab ORAL SCH (09:06)
[2019-07-21] MEDS: Furosemide 40mg tab ORAL SCH ×2 (09:06→17:03)
[2019-07-21] MEDS: Levemir Flexpen SUBQ SCH ×2 (09:07→21:53)
[2019-07-21 11:06] LABS: BASOPHILS % (AUTO) 0.4 % (0.0-2.0); EOSINOPHILS % (AUTO) 1.8 % (0.0-3.0); HEMATOCRIT 41.7 % (42.0-52.0); HEMOGLOBIN 13.8 G/DL (14.2-18.0); MEAN CORPUSCULAR VOLUME 81 FL (80-99); MONOCYTES % (AUTO) 5.4 % (1.0-10.0); NEUTROPHILS % (AUTO) 61.3 % (45.0-75.0); PLATELET COUNT 184 K/UL (150-450); RED BLOOD COUNT 5.17 M/UL (4.70-6.10); RED CELL DISTRIBUTION WIDTH 15.7 % (11.6-14.8); WHITE BLOOD COUNT 6.3 K/UL (4.8-10.8)
[2019-07-21 11:10] LABS: ANION GAP 13 mmol/L (5-15); BLOOD UREA NITROGEN 29 mg/dL (7-18); CALCIUM 9.9 MG/DL (8.5-10.1); CARBON DIOXIDE 27 MMOL/L (21-32); CHLORIDE 98 MMOL/L (98-107); CREATININE 1.2 MG/DL (0.55-1.30); POTASSIUM 4.3 MMOL/L (3.5-5.1); SODIUM 138 MMOL/L (136-145)
[2019-07-21 12:00] VITALS: BP_SYST 107; BP_SYST 116; BP_DIAS 70; BP_DIAS 71
[2019-07-21] MEDS: HYDROmorphone 2mg tab ORAL PRN ×3 (12:20→21:50)
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
[2019-07-21 16:00] VITALS: BP 134/80
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
[2019-07-21 20:00] VITALS: BP 98/63
--- NOTE | 2019-07-21 20:01 | Surgery Progress Note ---
Surgery Progress Note Subjective Symptoms: improved, tolerating diet, voiding well, passing flatus, BM, pain decreased Objective Last 24 Hour Vital Signs Date Time Temp Pulse Resp B/P (MAP) Pulse Ox O2 Delivery O2 Flow Rate FiO2 07/21/19 16:00 98.2 97 20 134/80 (98) 94 07/21/19 12:00 98.4 99 20 116/70 (85) 92 07/21/19 09:00 Room Air 07/21/19 08:00 97.4 101 20 107/71 (83) 94 07/21/19 04:00 98.1 80 18 100/70 (80) 98 07/21/19 00:00 98.0 99 20 105/66 (79) 98 07/20/19 21:00 Room Air I&O Intake and Output 07/20/19 07/21/19 19:00 07:00 Intake Total 960 ml 1000 ml Output Total 1300 ml 1200 ml Balance -340 ml -200 ml Intake Oral 960 ml 1000 ml Output Urine Total 1300 ml 1200 ml # Bowel Movements 1 1 Dressing: saturated Wound: other Drains: other Cardiovascular: RSR Respiratory: decreased breath sounds Abdomen: soft, non-tender, present bowel sounds, non-distended Extremities: no cyanosis, other Laboratory Tests Test 07/21/19 10:27 White Blood Count 6.3 K/UL (4.8-10.8) Red Blood Count 5.17 M/UL (4.70-6.10) Hemoglobin 13.8 G/DL (14.2-18.0) L Hematocrit 41.7 % (42.0-52.0) L Mean Corpuscular Volume 81 FL (80-99) Mean Corpuscular Hemoglobin 26.7 PG (27.0-31.0) L Mean Corpuscular Hemoglobin Concent 33.0 G/DL (32.0-36.0) Red Cell Distribution Width 15.7 % (11.6-14.8) H Platelet Count 184 K/UL (150-450) Mean Platelet Volume 6.4 FL (6.5-10.1) L Neutrophils (%) (Auto) 61.3 % (45.0-75.0) Lymphocytes (%) (Auto) 31.0 % (20.0-45.0) Monocytes (%) (Auto) 5.4 % (1.0-10.0) Eosinophils (%) (Auto) 1.8 % (0.0-3.0) Basophils (%) (Auto) 0.4 % (0.0-2.0) Sodium Level 138 MMOL/L (136-145) Potassium Level 4.3 MMOL/L (3.5-5.1) Chloride Level 98 MMOL/L (98-107) Carbon Dioxide Level 27 MMOL/L (21-32) Anion Gap 13 mmol/L (5-15) Blood Urea Nitrogen 29 mg/dL (7-18) H Creatinine 1.2 MG/DL (0.55-1.30) Estimat Glomerular Filtration Rate > 60 mL/min (>60) Glucose Level 400 MG/DL (74-106) H Calcium Level 9.9 MG/DL (8.5-10.1) Plan Problems: (1) Sacral decubitus ulcer Assessment & Plan: Pt presented on admission with multiple pressure injuries. Contractures bilat lower ext. DTPI noted sacrococcygeal area(L)2.5cm x (W)0.5cm. Base of wound is purple with maroon borders. Non-blanching erythema periwound. Scrotum is erythematous. Full thickness stage 3/4 pressure injury upper L buttocks. (L)1.3cm x (W)1 cm x (D)1.1cm. Base of wound is obscured secondary wound within crevice of skin fold. DTPI outer lower L buttocks(L)10.5cm x (W)8.5cm. Base of wound is fluctuant, maroon with scattered areas that are purple. Pt complained site has been painful last few days. No elevation in skin temp noted. Full thickness stage 4 pressure injury R ischium.(L)3.5cm x (W)2.5cmcm x (D) 3.6cm. Surrounding perimeter of wound is maroon.Base of wound is not appreciated due wound is within crevice of skin. Small amt serosanguineous exudate noted. No odor noted. Unstageable pressure injury posterior lower R thigh(L)0.8cm x (W)0.9cm. Base of wound has 100% slough. Borders are erythematous . No odor or exudate noted. DTPI upper/lateral R thigh Base of wound is indurated and maroon in colour. Small partial thickness stage 2 ulcer distal/lateral L lower extremity. Base of wound is moist and viable. borders are macerated. Small amt sanguineous exudate noted. Full thickness stage 4 ulcer Dorsal R foot.(L)2.5cm x (W)3cm Base of wound scattered fibrinous slough ,otherwise moist and pink. Borders are macerated. No odor or exudate noted. No erythema,induration or fluctuance periwound. Historical scars noted to both heels. Scattered white plaques with hyperkeratosis noted to both lower ext. Tx Plan: Cleanse Wounds R and L buttocks with Saline. Loosely pack with Therahoney infused packing strip. Apply Moisture Barrier periwound. Cover each wound with Optifoam drsg Daily and prn. Cleanse wound R Thigh with Saline. Cover with Optifoam drsg Daily and prn. Apply Moisture Barrier Paste to Sacrum and lower L buttocks. Cover each site with Optifoam drsg. Daily and prn. Apply Cavilon to upper R thigh DTPI. Cover with Optifoam drsg. Change every 3 days and prn. Apply Betadine to wound distal/lateral L lower ext and dorsal R foot. Cover each wound with Optifoam drsg. Change every 3 days and prn. Reposition at least every 2hours or as tolerated. Off load heels with pillow. APM/DEVONTE Mattress. (2) Chronic indwelling Alexandre catheter Assessment & Plan: abx as per ID UTI noted micro noted cont abx (3) History of osteomyelitis Assessment & Plan: DAILY ESTIMATED NEEDS: Needs based on Wound, paraplegia, obesity 78.9kg abw 20-25 kcals/kg 9782-8916 total kcals 1.25-2 g protein/kg 99-158 g total protein 25-30 mL/kg 7672-4655 total fluid mLs NUTRITION DIAGNOSIS: * Increased Protein and micronutrient needs r/t Wound healing as evidenced by pt w/ multiple wounds, including full thickness and unstageable, refer to wound care eval. * Altered nutrition related lab values R/T diabetes as evidenced by BGs in the 300's and 400's. CURRENT DIET:[facility] PO DIET RECOMMEND[facility]: [facility] (3 Carbs/ meal) w/ DOUBLE PROTEIN PORTIONS ADDITIONAL RECOMMENDATIONS: 1) RE-calibrate bed scale w/ added P200 mattress 2) Obtain HgA1C for eval 3) Wound care: Continue MVI, Vit C, and ZnSO4 Add Skip BID 4) Monitor diet compliance and educate as able 5) Monitor lytes w/ Lasix, replete as needed 6) Monitor BGs closely, now on Levemir BID, TIAC NovoLog + SSI Richard Minaya Jul 21, 2019 20:01
--- NOTE | 2019-07-21 20:39 | NUR ---
NURSE NOTES: Pt is in bed, awake and alert. Vitals stable. No acute distress noted. NO SOB. Pt has chronic Alexandre cath, draining yellow urine. Pt keeps asking for food and juice. Pt educated on diabetic diet, pt is non-compliant. Pt's intake will be monitored. Blood sugar will be checked. Pt was cleaned, and bed linen changed. Wound dressing dry and intact. Pt will be repositioned frequently. Fall precaution in place, bed alarm on. Bed locked low in position, side rails up and call light within reach.
--- NOTE | 2019-07-21 21:45 | NUR ---
NURSE NOTES: Dr. huitron came to see patient and adjusted the insulin dose.
[2019-07-22] VITALS: BP 121/46
[2019-07-22] MEDS: HYDROmorphone 2mg tab ORAL PRN ×2 (03:55→17:55)
[2019-07-22 04:00] VITALS: BP 106/67
--- NOTE | 2019-07-22 04:00 | NUR ---
NURSE NOTES: Pt is in bed, awake. Pt keeps requesting for food. Vitas stable. Wound dressing dry and intact. Pt repositioned frequently. Alexandre draining yellow urine.
[2019-07-22] MEDS: Heparin 5000 units/ml inj SUBQ SCH ×3 (06:00→21:03)
[2019-07-22] MEDS: NovoLOG Insulin Flexpen SUBQ SCH ×7 (06:31→20:58)
--- NOTE | 2019-07-22 07:25 | NUR ---
HAND-OFF: Report given to TOMAS Bowling.
--- NOTE | 2019-07-22 07:30 | NUR ---
NURSE NOTES: Received report from TOMAS Dorantes. Patient A&Ox4. On room air, no signs of distress or labored breathing. IV intact, patent, and saline locked. Alexandre intact, patent, and draining urine. Bed in lowest position with call light in reach. Side rails up x3. Will continue with plan of care.
[2019-07-22 08:00] VITALS: BP 116/68
[2019-07-22] MEDS: Docusate 100mg cap ORAL SCH (08:37)
[2019-07-22] MEDS: Furosemide 40mg tab ORAL SCH ×2 (08:37→17:50)
[2019-07-22] MEDS: Fluconazole 100mg tab ORAL SCH (08:37)
[2019-07-22] MEDS: Ascorbic Acid 500mg tab ORAL SCH (08:38)
[2019-07-22] MEDS: Midodrine 10mg tab ORAL SCH ×3 (08:38→17:50)
[2019-07-22] MEDS: Zinc Sulfate 220mg cap ORAL SCH (08:38)
[2019-07-22 08:39] LABS: BASOPHILS % (AUTO) 0.8 % (0.0-2.0); EOSINOPHILS % (AUTO) 2.3 % (0.0-3.0); HEMATOCRIT 41.4 % (42.0-52.0); HEMOGLOBIN 13.9 G/DL (14.2-18.0); LYMPHOCYTES % (AUTO) 35.9 % (20.0-45.0); MEAN CORPUSCULAR VOLUME 80 FL (80-99); NEUTROPHILS % (AUTO) 55.1 % (45.0-75.0); PLATELET COUNT 178 K/UL (150-450); RED BLOOD COUNT 5.18 M/UL (4.70-6.10); RED CELL DISTRIBUTION WIDTH 15.5 % (11.6-14.8); WHITE BLOOD COUNT 6.6 K/UL (4.8-10.8)
[2019-07-22 08:48] LABS: ANION GAP 13 mmol/L (5-15); BLOOD UREA NITROGEN 36 mg/dL (7-18); CALCIUM 9.7 MG/DL (8.5-10.1); CARBON DIOXIDE 28 MMOL/L (21-32); CHLORIDE 97 MMOL/L (98-107); CREATININE 1.2 MG/DL (0.55-1.30); POTASSIUM 3.7 MMOL/L (3.5-5.1); SODIUM 138 MMOL/L (136-145)
[2019-07-22] MEDS: Levemir Flexpen SUBQ SCH ×2 (09:53→17:54)
[2019-07-22 12:00] VITALS: BP 105/58
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
[2019-07-22] MEDS ORDERED: Meclizine 25mg tab ORAL PRN (14:12)
--- NOTE | 2019-07-22 15:04 | Surgery Progress Note ---
Surgery Progress Note Subjective Additional Comments No acute events. Resting comfortably. No nausea vomiting fever chills. States he feels better. Objective Last 24 Hour Vital Signs Date Time Temp Pulse Resp B/P (MAP) Pulse Ox O2 Delivery O2 Flow Rate FiO2 07/22/19 12:00 98.4 80 17 105/58 (74) 96 07/22/19 08:00 98.7 100 18 116/68 (84) 95 07/22/19 04:00 97.8 98 18 106/67 (80) 94 07/22/19 00:00 98.0 101 18 121/46 (71) 94 07/21/19 21:00 Room Air 07/21/19 20:00 98.8 100 18 98/63 (75) 94 07/21/19 16:00 98.2 97 20 134/80 (98) 94 I&O Intake and Output 07/21/19 07/22/19 19:00 07:00 Intake Total 1080 ml 600 ml Output Total 1600 ml 2600 ml Balance -520 ml -2000 ml Intake Oral 1080 ml 600 ml Output Urine Total 1600 ml 2600 ml # Voids 2 Dressing: saturated Wound: other Drains: other Cardiovascular: RSR Respiratory: decreased breath sounds Abdomen: soft, non-tender, present bowel sounds Extremities: no tenderness, no cyanosis Laboratory Tests Test 07/22/19 07:45 White Blood Count 6.6 K/UL (4.8-10.8) Red Blood Count 5.18 M/UL (4.70-6.10) Hemoglobin 13.9 G/DL (14.2-18.0) L Hematocrit 41.4 % (42.0-52.0) L Mean Corpuscular Volume 80 FL (80-99) Mean Corpuscular Hemoglobin 26.7 PG (27.0-31.0) L Mean Corpuscular Hemoglobin Concent 33.5 G/DL (32.0-36.0) Red Cell Distribution Width 15.5 % (11.6-14.8) H Platelet Count 178 K/UL (150-450) Mean Platelet Volume 6.3 FL (6.5-10.1) L Neutrophils (%) (Auto) 55.1 % (45.0-75.0) Lymphocytes (%) (Auto) 35.9 % (20.0-45.0) Monocytes (%) (Auto) 6.0 % (1.0-10.0) Eosinophils (%) (Auto) 2.3 % (0.0-3.0) Basophils (%) (Auto) 0.8 % (0.0-2.0) Sodium Level 138 MMOL/L (136-145) Potassium Level 3.7 MMOL/L (3.5-5.1) Chloride Level 97 MMOL/L (98-107) L Carbon Dioxide Level 28 MMOL/L (21-32) Anion Gap 13 mmol/L (5-15) Blood Urea Nitrogen 36 mg/dL (7-18) H Creatinine 1.2 MG/DL (0.55-1.30) Estimat Glomerular Filtration Rate > 60 mL/min (>60) Glucose Level 318 MG/DL (74-106) H Hemoglobin A1c 10.8 % (4.3-6.0) H Calcium Level 9.7 MG/DL (8.5-10.1) Plan Problems: (1) Sacral decubitus ulcer Assessment & Plan: Pt presented on admission with multiple pressure injuries. Contractures bilat lower ext. DTPI noted sacrococcygeal area(L)2.5cm x (W)0.5cm. Base of wound is purple with maroon borders. Non-blanching erythema periwound. Scrotum is erythematous. Full thickness stage 3/4 pressure injury upper L buttocks. (L)1.3cm x (W)1 cm x (D)1.1cm. Base of wound is obscured secondary wound within crevice of skin fold. DTPI outer lower L buttocks(L)10.5cm x (W)8.5cm. Base of wound is fluctuant, maroon with scattered areas that are purple. Pt complained site has been painful last few days. No elevation in skin temp noted. Full thickness stage 4 pressure injury R ischium.(L)3.5cm x (W)2.5cmcm x (D) 3.6cm. Surrounding perimeter of wound is maroon.Base of wound is not appreciated due wound is within crevice of skin. Small amt serosanguineous exudate noted. No odor noted. Unstageable pressure injury posterior lower R thigh(L)0.8cm x (W)0.9cm. Base of wound has 100% slough. Borders are erythematous . No odor or exudate noted. DTPI upper/lateral R thigh Base of wound is indurated and maroon in colour. Small partial thickness stage 2 ulcer distal/lateral L lower extremity. Base of wound is moist and viable. borders are macerated. Small amt sanguineous exudate noted. Full thickness stage 4 ulcer Dorsal R foot.(L)2.5cm x (W)3cm Base of wound scattered fibrinous slough ,otherwise moist and pink. Borders are macerated. No odor or exudate noted. No erythema,induration or fluctuance periwound. Historical scars noted to both heels. Scattered white plaques with hyperkeratosis noted to both lower ext. Tx Plan: Cleanse Wounds R and L buttocks with Saline. Loosely pack with Therahoney infused packing strip. Apply Moisture Barrier periwound. Cover each wound with Optifoam drsg Daily and prn. Cleanse wound R Thigh with Saline. Cover with Optifoam drsg Daily and prn. Apply Moisture Barrier Paste to Sacrum and lower L buttocks. Cover each site with Optifoam drsg. Daily and prn. Apply Cavilon to upper R thigh DTPI. Cover with Optifoam drsg. Change every 3 days and prn. Apply Betadine to wound distal/lateral L lower ext and dorsal R foot. Cover each wound with Optifoam drsg. Change every 3 days and prn. Reposition at least every 2hours or as tolerated. Off load heels with pillow. APM/DEVONTE Mattress. (2) Chronic indwelling Alexandre catheter Assessment & Plan: abx as per ID UTI noted micro noted cont abx (3) History of osteomyelitis Assessment & Plan: DAILY ESTIMATED NEEDS: Needs based on Wound, paraplegia, obesity 78.9kg abw 20-25 kcals/kg 1426-2038 total kcals 1.25-2 g protein/kg 99-158 g total protein 25-30 mL/kg 3685-1074 total fluid mLs NUTRITION DIAGNOSIS: * Increased Protein and micronutrient needs r/t Wound healing as evidenced by pt w/ multiple wounds, including full thickness and unstageable, refer to wound care eval. * Altered nutrition related lab values R/T diabetes as evidenced by BGs in the 300's and 400's. CURRENT DIET:[facility] PO [facility] (3 Carbs/ meal) w/ DOUBLE PROTEIN PORTIONS ADDITIONAL RECOMMENDATIONS: 1) RE-calibrate bed scale w/ added P200 mattress 2) Obtain HgA1C for eval 3) Wound care: Continue MVI, Vit C, and ZnSO4 Add Skip BID 4) Monitor diet compliance and educate as able 5) Monitor lytes w/ Lasix, replete as needed 6) Monitor BGs closely, now on Levemir BID, TIAC NovoLog + SSI Richard Minaya Jul 22, 2019 15:03
[2019-07-22 16:00] VITALS: BP 116/60
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
--- NOTE | 2019-07-22 19:23 | NUR ---
NURSE NOTES: Received report from Tawnya RN. Rounding is done with outgoing nurse. Patient is in bed, a/o x4, and able to known his need. Denied any distress or pain at this time. Breathing is even and unlabored on room air. IV site is intact and patient. Alexandre cath is in place and drain to gravity with yellow urine. Bed is on alarm, locked, and lowest position. Side rails up x3. Call light within reach. Will continue to monitor.
[2019-07-22 20:00] VITALS: BP 101/57
[2019-07-23] VITALS: BP 110/58
[2019-07-23 04:00] VITALS: BP 118/60
[2019-07-23] MEDS: Heparin 5000 units/ml inj SUBQ SCH ×3 (05:34→20:27)
[2019-07-23] MEDS: NovoLOG Insulin Flexpen SUBQ SCH ×8 (05:35→20:28)
--- NOTE | 2019-07-23 07:14 | General Progress Note ---
Assessment/Plan Problem List: (1) Type 2 diabetes mellitus ICD Codes: E11.9 - Type 2 diabetes mellitus without complications SNOMED: 16224579 (2) Paraplegia ICD Codes: G82.20 - Paraplegia, unspecified SNOMED: 91736189 Status: doing well, stable Assessment/Plan: increase Levemir to 60 units bid increase Novolog to 20 units ac tid + SSI Subjective Allergies: Coded Allergies: No Known Allergies (Unverified , 02/09/19) Subjective events noted glucose values very high - both fasting and mealtime Item Value Date Time Bedside Blood Glucose 356 mg/dl H 07/23/19 0630 Bedside Blood Glucose 447 mg/dl H 07/22/19 2100 Bedside Blood Glucose 326 mg/dl H 07/22/19 1754 Bedside Blood Glucose 291 mg/dl H 07/22/19 1239 Bedside Blood Glucose 321 mg/dl H 07/22/19 0953 Bedside Blood Glucose 321 mg/dl H 07/22/19 0633 Objective Last 24 Hour Vital Signs Date Time Temp Pulse Resp B/P (MAP) Pulse Ox O2 Delivery O2 Flow Rate FiO2 07/23/19 04:00 97.8 72 19 118/60 (79) 97 07/23/19 00:00 98.9 76 19 110/58 (75) 97 07/22/19 21:00 Room Air 07/22/19 20:00 99.1 75 19 101/57 (72) 96 07/22/19 16:00 98.3 90 18 116/60 (78) 98 07/22/19 12:00 98.4 80 17 105/58 (74) 96 07/22/19 09:00 Room Air 07/22/19 08:00 98.7 100 18 116/68 (84) 95 Intake and Output 07/22/19 07/23/19 19:00 07:00 Intake Total 500 ml 480 ml Output Total 800 ml 3400 ml Balance -300 ml -2920 ml Intake Oral 500 ml 480 ml Output Urine Total 800 ml 3400 ml # Voids 2 Laboratory Tests 07/22/19 07:45: White Blood Count 6.6, Red Blood Count 5.18, Hemoglobin 13.9L, Hematocrit 41.4L , Mean Corpuscular Volume 80, Mean Corpuscular Hemoglobin 26.7L, Mean Corpuscular Hemoglobin Concent 33.5, Red Cell Distribution Width 15.5H, Platelet Count 178, Mean Platelet Volume 6.3L, Neutrophils (%) (Auto) 55.1, Lymphocytes (%) (Auto) 35.9, Monocytes (%) (Auto) 6.0, Eosinophils (%) (Auto) 2.3, Basophils (%) (Auto) 0.8, Sodium Level 138, Potassium Level 3.7, Chloride Level 97L, Carbon Dioxide Level 28, Anion Gap 13, Blood Urea Nitrogen 36H, Creatinine 1.2, Estimat Glomerular Filtration Rate > 60, Glucose Level 318H, Hemoglobin A1c 10.8H, Calcium Level 9.7 Height (Feet): 5 Height (Inches): 6.00 Weight (Pounds): 303 General Appearance: no apparent distress Neck: normal alignment Cardiovascular: normal rate Respiratory/Chest: lungs clear Abdomen: normal bowel sounds Pelvis: normal external exam Objective Current Medications Medications (Trade) Dose Ordered Sig/Miguel Route PRN Reason Start Time Stop Time Status Last Admin Dose Admin Ascorbic Acid (Vitamin C) 500 mg DAILY ORAL 07/12/19 09:00 08/11/19 08:59 07/22/19 08:38 Bisacodyl (Dulcolax) 10 mg HSPRN PRN RECTAL Constipation 07/10/19 03:00 08/09/19 02:59 Dextrose (Dextrose 50%) 25 ml Q30M PRN IV Hypoglycemia 07/21/19 22:00 10/19/19 21:59 Dextrose (Dextrose 50%) 50 ml Q30M PRN IV Hypoglycemia 07/21/19 22:00 10/19/19 21:59 Docusate Sodium (Colace) 100 mg DAILY ORAL 07/10/19 09:00 08/09/19 08:59 07/22/19 08:37 Fluconazole (Diflucan) 100 mg DAILY ORAL 07/17/19 18:00 07/24/19 17:59 07/22/19 08:37 Folic Acid (Folate) 1 mg DAILY ORAL 07/10/19 09:00 08/09/19 08:59 07/22/19 08:37 Furosemide (Lasix) 40 mg TWICE A DAY ORAL 07/10/19 09:00 08/09/19 08:59 07/22/19 17:50 Gabapentin (Neurontin) 200 mg TWICE A DAY ORAL 07/10/19 09:00 08/09/19 08:59 07/22/19 17:50 Heparin Sodium (Porcine) (Heparin 5000 units/ml) 5,000 units EVERY 8 HOURS SUBQ 07/10/19 06:00 08/24/19 05:59 07/23/19 05:34 Hydrocortisone (Hydrocortisone) 1 applic Q6H PRN TOPIC Itching 07/22/19 14:15 10/20/19 14:14 Hydromorphone HCl (Dilaudid) 2 mg Q4H PRN ORAL For Pain 07/18/19 14:41 07/25/19 14:40 07/22/19 17:55 Insulin Aspart (NovoLOG) BEFORE MEALS AND HS SUBQ 07/22/19 06:30 10/20/19 06:29 07/23/19 05:35 Insulin Aspart (NovoLOG) 10 units NOVOTIAC SUBQ 07/22/19 06:30 08/16/19 06:29 07/23/19 05:37 Insulin Detemir (Levemir) 50 units BID SUBQ 07/22/19 09:00 08/16/19 08:59 07/22/19 17:54 Meclizine HCl (Antivert) 25 mg Q6H PRN ORAL for dizziness 07/22/19 14:12 08/21/19 14:11 Midodrine (Pro-Amatine) 10 mg THREE TIMES A DAY ORAL 07/10/19 09:00 08/09/19 08:59 07/22/19 17:50 Multivitamins (Multivitamins) 1 tab DAILY ORAL 07/12/19 09:00 08/11/19 08:59 07/22/19 08:38 Ondansetron HCl (Zofran) 4 mg Q6H PRN IVP Nausea & Vomiting 07/10/19 03:00 08/09/19 02:59 Pantoprazole (Protonix) 40 mg EVERY 12 HOURS ORAL 07/10/19 09:00 08/09/19 08:59 07/22/19 20:59 Polyethylene Glycol (Miralax) 17 gm HSPRN PRN ORAL Constipation 07/10/19 03:00 08/09/19 02:59 Potassium Chloride (K-Dur) 20 meq DAILY ORAL 07/10/19 09:00 08/09/19 08:59 07/22/19 08:37 Zinc Sulfate (Zinc Sulfate) 220 mg DAILY ORAL 07/10/19 09:00 08/09/19 08:59 07/22/19 08:38 Gilson Solorio MD Jul 23, 2019 07:14
--- NOTE | 2019-07-23 07:46 | NUR ---
HAND-OFF: Report given to Jamey taylor. patient in stable condition.
[2019-07-23 08:00] VITALS: BP 134/87
--- NOTE | 2019-07-23 08:02 | NUR ---
NURSE NOTES: Patient alert x4; on room air, no sing of distress and shortness of breath; no sing of chest pain; IV Left For-Arm 22G flushes well; Alexandre in place, drains yellow urine; dressing dry and intact; side rails up x2, breaks engaged, bed at lowest position, call light within reach; will check blood sugar as schedule;
[2019-07-23] MEDS: Docusate 100mg cap ORAL SCH (08:43)
[2019-07-23] MEDS: Ascorbic Acid 500mg tab ORAL SCH (08:43)
[2019-07-23] MEDS: Midodrine 10mg tab ORAL SCH ×3 (08:43→17:18)
[2019-07-23] MEDS: Fluconazole 100mg tab ORAL SCH (08:43)
[2019-07-23] MEDS: Zinc Sulfate 220mg cap ORAL SCH (08:43)
[2019-07-23] MEDS: Furosemide 40mg tab ORAL SCH ×2 (08:43→17:19)
[2019-07-23] MEDS: HYDROmorphone 2mg tab ORAL PRN ×2 (08:44→18:21)
[2019-07-23] MEDS: Levemir Flexpen SUBQ SCH ×2 (09:16→18:21)
[2019-07-23 12:00] VITALS: BP 130/86
--- NOTE | 2019-07-23 13:16 | NUR ---
RD ASSESSMENT & RECOMMENDATIONS SEE CARE ACTIVITY FOR COMPLETE ASSESSMENT DAILY ESTIMATED NEEDS: Needs based on Wound, paraplegia, obesity 78.9kg abw 20-25 kcals/kg 1343-4588 total kcals 1.25-2 g protein/kg 99-158 g total protein 25-30 mL/kg 1974-1424 total fluid mLs NUTRITION DIAGNOSIS: * Increased Protein and micronutrient needs r/t Wound healing as evidenced by pt w/ multiple wounds, including full thickness and unstageable, refer to wound care eval. * Altered nutrition related lab values R/T diabetes as evidenced by BGs in the 300's and 400's. [facility] RECOMMENDATIONS: [facility] LOW (3 Carbs/ meal) w/ DOUBLE PROTEIN PORTIONS ADDITIONAL RECOMMENDATIONS: 1) RE-calibrate bed scale w/ added P200 mattress 2) Obtain HgA1C for eval -> 10.8 3) Wound care: Continue MVI, Vit C, and ZnSO4 Add Skip BID 4) Monitor diet compliance and re-attempt to educate 5) Monitor lytes w/ Lasix, replete as needed 6) Monitor BGs closely: on increased Levemir + TIAC and SSI novolog
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
--- NOTE | 2019-07-23 14:34 | NUR ---
*-* INSURANCE *-* ALL CLINICALS AND REVIEWS HAVE LJ FAXED TO: DILCIA FIGUEROA REF# [id number] PH: [phone] FAX: [phone]
--- NOTE | 2019-07-23 15:39 | NUR ---
CASE MANAGEMENT:REVIEW SI;DM~UNCONTROLLED. NEUROGENIC BLADDER. HEPATITIS C. 98.9 76 19 110/58 97% ON RA BUN 36 BG 318 A1C 10.8 IS;INSULIN LEVEMIR INSULIN NOVOLOG DIFLUCAN PO QD FOLATE PO QD LASIX PO BID GABAPENTIN PO BID MIDODRINE PO TID K-DUR PO QD HEPARIN SUBQ Q8 HRS MED SURG STATUS DCP;TO [facility] WHEN STABLE, BLOOD GLUCOSE STABLE PLAN OF CARE; CONTINUE ABX GABAPENTIN PRN FOR PAITN DELIRIUM PRECAUTIONS PT/OT
--- NOTE | 2019-07-23 15:45 | Surgery Progress Note ---
Surgery Progress Note Subjective Symptoms: improved, tolerating diet, voiding well, passing flatus, BM, other, pain decreased Objective Last 24 Hour Vital Signs Date Time Temp Pulse Resp B/P (MAP) Pulse Ox O2 Delivery O2 Flow Rate FiO2 07/23/19 12:00 98.3 76 18 130/86 (101) 99 07/23/19 09:14 98.2 07/23/19 09:00 Room Air 07/23/19 08:00 98.2 74 17 134/87 (103) 99 07/23/19 04:00 97.8 72 19 118/60 (79) 97 07/23/19 00:00 98.9 76 19 110/58 (75) 97 07/22/19 21:00 Room Air 07/22/19 20:00 99.1 75 19 101/57 (72) 96 07/22/19 16:00 98.3 90 18 116/60 (78) 98 I&O Intake and Output 07/22/19 07/23/19 19:00 07:00 Intake Total 500 ml 480 ml Output Total 800 ml 3400 ml Balance -300 ml -2920 ml Intake Oral 500 ml 480 ml Output Urine Total 800 ml 3400 ml # Voids 2 Dressing: dry Wound: clean Cardiovascular: RSR Respiratory: clear Abdomen: soft, non-tender, present bowel sounds Extremities: no tenderness, no cyanosis Plan Problems: (1) Sacral decubitus ulcer Assessment & Plan: Pt presented on admission with multiple pressure injuries. Contractures bilat lower ext. DTPI noted sacrococcygeal area(L)2.5cm x (W)0.5cm. Base of wound is purple with maroon borders. Non-blanching erythema periwound. Scrotum is erythematous. Full thickness stage 3/4 pressure injury upper L buttocks. (L)1.3cm x (W)1 cm x (D)1.1cm. Base of wound is obscured secondary wound within crevice of skin fold. DTPI outer lower L buttocks(L)10.5cm x (W)8.5cm. Base of wound is fluctuant, maroon with scattered areas that are purple. Pt complained site has been painful last few days. No elevation in skin temp noted. Full thickness stage 4 pressure injury R ischium.(L)3.5cm x (W)2.5cmcm x (D) 3.6cm. Surrounding perimeter of wound is maroon.Base of wound is not appreciated due wound is within crevice of skin. Small amt serosanguineous exudate noted. No odor noted. Unstageable pressure injury posterior lower R thigh(L)0.8cm x (W)0.9cm. Base of wound has 100% slough. Borders are erythematous . No odor or exudate noted. DTPI upper/lateral R thigh Base of wound is indurated and maroon in colour. Small partial thickness stage 2 ulcer distal/lateral L lower extremity. Base of wound is moist and viable. borders are macerated. Small amt sanguineous exudate noted. Full thickness stage 4 ulcer Dorsal R foot.(L)2.5cm x (W)3cm Base of wound scattered fibrinous slough ,otherwise moist and pink. Borders are macerated. No odor or exudate noted. No erythema,induration or fluctuance periwound. Historical scars noted to both heels. Scattered white plaques with hyperkeratosis noted to both lower ext. Tx Plan: Cleanse Wounds R and L buttocks with Saline. Loosely pack with Therahoney infused packing strip. Apply Moisture Barrier periwound. Cover each wound with Optifoam drsg Daily and prn. Cleanse wound R Thigh with Saline. Cover with Optifoam drsg Daily and prn. Apply Moisture Barrier Paste to Sacrum and lower L buttocks. Cover each site with Optifoam drsg. Daily and prn. Apply Cavilon to upper R thigh DTPI. Cover with Optifoam drsg. Change every 3 days and prn. Apply Betadine to wound distal/lateral L lower ext and dorsal R foot. Cover each wound with Optifoam drsg. Change every 3 days and prn. Reposition at least every 2hours or as tolerated. Off load heels with pillow. APM/DEVONTE Mattress. (2) Chronic indwelling Alexandre catheter Assessment & Plan: abx as per ID UTI noted micro noted cont abx (3) History of osteomyelitis Assessment & Plan: DAILY ESTIMATED NEEDS: Needs based on Wound, paraplegia, obesity 78.9kg abw 20-25 kcals/kg 5680-4345 total kcals 1.25-2 g protein/kg 99-158 g total protein 25-30 mL/kg 7569-9678 total fluid mLs NUTRITION DIAGNOSIS: * Increased Protein and micronutrient needs r/t Wound healing as evidenced by pt w/ multiple wounds, including full thickness and unstageable, refer to wound care eval. * Altered nutrition related lab values R/T diabetes as evidenced by BGs in the 300's and 400's. CUR[facility] DIET RECOMMENDATIONS[facility] (3 Carbs/ meal) w/ DOUBLE PROTEIN PORTIONS ADDITIONAL RECOMMENDATIONS: 1) RE-calibrate bed scale w/ added P200 mattress 2) Obtain HgA1C for eval 3) Wound care: Continue MVI, Vit C, and ZnSO4 Add Skip BID 4) Monitor diet compliance and educate as able 5) Monitor lytes w/ Lasix, replete as needed 6) Monitor BGs closely, now on Levemir BID, TIAC NovoLog + SSI Richard Minaya Jul 23, 2019 15:45
[2019-07-23 16:00] VITALS: BP 108/73
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
--- NOTE | 2019-07-23 19:17 | NUR ---
HAND-OFF: Report given to TOMAS Monahan.
--- NOTE | 2019-07-23 19:20 | NUR ---
NURSE NOTES: Received patient in bed. Awake, A/O x4. On room air. Patient denies pain at this time. Sitting in semi-fowlers. Side rails up x3, bed at the lowest position, bed locked, call light within reach. IV in the Left forearm saline lock, site is intact.
[2019-07-23 20:00] VITALS: BP 111/63
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
[2019-07-24] VITALS: BP 118/69
[2019-07-24] MEDS: HYDROmorphone 2mg tab ORAL PRN ×4 (00:48→23:31)
[2019-07-24 04:00] VITALS: BP 110/78
[2019-07-24] MEDS: Heparin 5000 units/ml inj SUBQ SCH ×3 (06:24→22:00)
[2019-07-24] MEDS: NovoLOG Insulin Flexpen SUBQ SCH ×6 (06:25→21:12)
--- NOTE | 2019-07-24 06:39 | General Progress Note ---
Assessment/Plan Problem List: (1) Type 2 diabetes mellitus ICD Codes: E11.9 - Type 2 diabetes mellitus without complications SNOMED: 26183604 (2) Paraplegia ICD Codes: G82.20 - Paraplegia, unspecified SNOMED: 50974404 Status: doing well, stable Assessment/Plan: increase Levemir to 66 units bid increase Novolog to 28 units ac tid + SSI Subjective Allergies: Coded Allergies: No Known Allergies (Unverified , 02/09/19) All Systems: reviewed and negative except above Subjective events noted glucose values improved but still elevated Item Value Date Time Bedside Blood Glucose 299 mg/dl H 07/24/19 0625 Bedside Blood Glucose 264 mg/dl H 07/23/19 2100 Bedside Blood Glucose 285 mg/dl H 07/23/19 1821 Bedside Blood Glucose 305 mg/dl H 07/23/19 1236 Bedside Blood Glucose 315 mg/dl H 07/23/19 0916 Bedside Blood Glucose 356 mg/dl H 07/23/19 0630 Objective Last 24 Hour Vital Signs Date Time Temp Pulse Resp B/P (MAP) Pulse Ox O2 Delivery O2 Flow Rate FiO2 07/24/19 04:00 97.7 98 20 110/78 (89) 97 07/24/19 00:00 97.7 104 20 118/69 (85) 94 07/23/19 21:00 Room Air 07/23/19 20:00 98.4 96 20 111/63 (79) 93 07/23/19 18:51 98.0 07/23/19 16:00 98.0 93 17 108/73 (85) 97 07/23/19 12:00 98.3 76 18 130/86 (101) 99 07/23/19 09:00 Room Air 07/23/19 08:00 98.2 74 17 134/87 (103) 99 Intake and Output 07/23/19 07/24/19 19:00 07:00 Output Total 1600 ml 1600 ml Balance -1600 ml -1600 ml Output Urine Total 1600 ml 1600 ml Laboratory Tests 07/24/19 05:40: Sodium Level [Pending], Potassium Level [Pending], Chloride Level [Pending], Carbon Dioxide Level [Pending], Blood Urea Nitrogen [Pending], Creatinine [ Pending], Estimat Glomerular Filtration Rate [Pending], Glucose Level [Pending] , Calcium Level [Pending] Height (Feet): 5 Height (Inches): 6.00 Weight (Pounds): 303 General Appearance: no apparent distress Neck: normal alignment Cardiovascular: normal rate Respiratory/Chest: normal breath sounds Abdomen: normal bowel sounds Pelvis: normal external exam Objective Current Medications Medications (Trade) Dose Ordered Sig/Miguel Route PRN Reason Start Time Stop Time Status Last Admin Dose Admin Ascorbic Acid (Vitamin C) 500 mg DAILY ORAL 07/12/19 09:00 08/11/19 08:59 07/23/19 08:43 Bisacodyl (Dulcolax) 10 mg HSPRN PRN RECTAL Constipation 07/10/19 03:00 08/09/19 02:59 Dextrose (Dextrose 50%) 25 ml Q30M PRN IV Hypoglycemia 07/21/19 22:00 10/19/19 21:59 Dextrose (Dextrose 50%) 50 ml Q30M PRN IV Hypoglycemia 07/21/19 22:00 10/19/19 21:59 Docusate Sodium (Colace) 100 mg DAILY ORAL 07/10/19 09:00 08/09/19 08:59 07/23/19 08:43 Folic Acid (Folate) 1 mg DAILY ORAL 07/10/19 09:00 08/09/19 08:59 07/23/19 08:43 Furosemide (Lasix) 40 mg TWICE A DAY ORAL 07/10/19 09:00 08/09/19 08:59 07/23/19 17:19 Gabapentin (Neurontin) 200 mg TWICE A DAY ORAL 07/10/19 09:00 08/09/19 08:59 07/23/19 17:19 Heparin Sodium (Porcine) (Heparin 5000 units/ml) 5,000 units EVERY 8 HOURS SUBQ 07/10/19 06:00 08/24/19 05:59 07/24/19 06:24 Hydrocortisone (Hydrocortisone) 1 applic Q6H PRN TOPIC Itching 07/22/19 14:15 10/20/19 14:14 Hydromorphone HCl (Dilaudid) 2 mg Q4H PRN ORAL For Pain 07/18/19 14:41 07/25/19 14:40 07/24/19 06:24 Insulin Aspart (NovoLOG) BEFORE MEALS AND HS SUBQ 07/22/19 06:30 10/20/19 06:29 07/24/19 06:25 Insulin Aspart (NovoLOG) 20 units NOVOTIAC SUBQ 07/23/19 11:50 08/16/19 06:29 07/23/19 20:27 Insulin Detemir (Levemir) 60 units BID SUBQ 07/23/19 09:00 08/16/19 08:59 07/23/19 18:21 Meclizine HCl (Antivert) 25 mg Q6H PRN ORAL for dizziness 07/22/19 14:12 08/21/19 14:11 07/24/19 04:04 Midodrine (Pro-Amatine) 10 mg THREE TIMES A DAY ORAL 07/10/19 09:00 08/09/19 08:59 07/23/19 17:18 Multivitamins (Multivitamins) 1 tab DAILY ORAL 07/12/19 09:00 08/11/19 08:59 07/23/19 08:43 Ondansetron HCl (Zofran) 4 mg Q6H PRN IVP Nausea & Vomiting 07/10/19 03:00 08/09/19 02:59 Pantoprazole (Protonix) 40 mg EVERY 12 HOURS ORAL 07/10/19 09:00 08/09/19 08:59 07/23/19 20:25 Polyethylene Glycol (Miralax) 17 gm HSPRN PRN ORAL Constipation 07/10/19 03:00 08/09/19 02:59 Potassium Chloride (K-Dur) 20 meq DAILY ORAL 07/10/19 09:00 08/09/19 08:59 07/23/19 08:43 Zinc Sulfate (Zinc Sulfate) 220 mg DAILY ORAL 07/10/19 09:00 08/09/19 08:59 07/23/19 08:43 Gilson Solorio MD Jul 24, 2019 06:39
[2019-07-24 06:46] LABS: ANION GAP 11 mmol/L (5-15); BLOOD UREA NITROGEN 38 mg/dL (7-18); CALCIUM 9.7 MG/DL (8.5-10.1); CARBON DIOXIDE 29 MMOL/L (21-32); CHLORIDE 99 MMOL/L (98-107); CREATININE 1.1 MG/DL (0.55-1.30); POTASSIUM 3.8 MMOL/L (3.5-5.1); SODIUM 138 MMOL/L (136-145)
--- NOTE | 2019-07-24 07:20 | NUR ---
HAND-OFF: Report given to Deb MARIN.
--- NOTE | 2019-07-24 07:42 | NUR ---
NURSE NOTES: Patient awake, alert x4; on room air, no sing of distress and shortness of breath; no sign of chest pain; Alexandre in place, drains yellow urine; IV Left For-Arm 22G flushes well; dressings dry and intact; according to the report, TOMAS Chou, patient felt dizzy and Antivery 25mg given, will keep monitoring; side rails up x2, breaks engaged, bed at lowest position, will check blood sugar as scheduled;
[2019-07-24 08:00] VITALS: BP 128/78
[2019-07-24] MEDS: Zinc Sulfate 220mg cap ORAL SCH (08:38)
[2019-07-24] MEDS: Furosemide 40mg tab ORAL SCH ×2 (08:38→17:27)
[2019-07-24] MEDS: Midodrine 10mg tab ORAL SCH ×3 (08:39→17:28)
[2019-07-24] MEDS: Docusate 100mg cap ORAL SCH (08:39)
[2019-07-24] MEDS: Ascorbic Acid 500mg tab ORAL SCH (08:39)
[2019-07-24] MEDS: Levemir Flexpen SUBQ SCH ×2 (08:45→18:00)
[2019-07-24 12:00] VITALS: BP 112/79
--- NOTE | 2019-07-24 13:42 | Surgery Progress Note ---
Surgery Progress Note Subjective Additional Comments no acute events comfortable stable labs noted no complaints Objective Last 24 Hour Vital Signs Date Time Temp Pulse Resp B/P (MAP) Pulse Ox O2 Delivery O2 Flow Rate FiO2 07/24/19 09:00 Room Air 07/24/19 08:00 97.7 103 19 128/78 (95) 94 07/24/19 04:00 97.7 98 20 110/78 (89) 97 07/24/19 00:00 97.7 104 20 118/69 (85) 94 07/23/19 21:00 Room Air 07/23/19 20:00 98.4 96 20 111/63 (79) 93 07/23/19 18:51 98.0 07/23/19 16:00 98.0 93 17 108/73 (85) 97 I&O Intake and Output 07/23/19 07/24/19 19:00 07:00 Output Total 1600 ml 1600 ml Balance -1600 ml -1600 ml Output Urine Total 1600 ml 1600 ml Laboratory Tests Test 07/24/19 05:40 Sodium Level 138 MMOL/L (136-145) Potassium Level 3.8 MMOL/L (3.5-5.1) Chloride Level 99 MMOL/L (98-107) Carbon Dioxide Level 29 MMOL/L (21-32) Anion Gap 11 mmol/L (5-15) Blood Urea Nitrogen 38 mg/dL (7-18) H Creatinine 1.1 MG/DL (0.55-1.30) Estimat Glomerular Filtration Rate > 60 mL/min (>60) Glucose Level 301 MG/DL (74-106) H Calcium Level 9.7 MG/DL (8.5-10.1) Plan Problems: (1) Sacral decubitus ulcer Assessment & Plan: Pt presented on admission with multiple pressure injuries. Contractures bilat lower ext. DTPI noted sacrococcygeal area(L)2.5cm x (W)0.5cm. Base of wound is purple with maroon borders. Non-blanching erythema periwound. Scrotum is erythematous. Full thickness stage 3/4 pressure injury upper L buttocks. (L)1.3cm x (W)1 cm x (D)1.1cm. Base of wound is obscured secondary wound within crevice of skin fold. DTPI outer lower L buttocks(L)10.5cm x (W)8.5cm. Base of wound is fluctuant, maroon with scattered areas that are purple. Pt complained site has been painful last few days. No elevation in skin temp noted. Full thickness stage 4 pressure injury R ischium.(L)3.5cm x (W)2.5cmcm x (D) 3.6cm. Surrounding perimeter of wound is maroon.Base of wound is not appreciated due wound is within crevice of skin. Small amt serosanguineous exudate noted. No odor noted. Unstageable pressure injury posterior lower R thigh(L)0.8cm x (W)0.9cm. Base of wound has 100% slough. Borders are erythematous . No odor or exudate noted. DTPI upper/lateral R thigh Base of wound is indurated and maroon in colour. Small partial thickness stage 2 ulcer distal/lateral L lower extremity. Base of wound is moist and viable. borders are macerated. Small amt sanguineous exudate noted. Full thickness stage 4 ulcer Dorsal R foot.(L)2.5cm x (W)3cm Base of wound scattered fibrinous slough ,otherwise moist and pink. Borders are macerated. No odor or exudate noted. No erythema,induration or fluctuance periwound. Historical scars noted to both heels. Scattered white plaques with hyperkeratosis noted to both lower ext. Tx Plan: Cleanse Wounds R and L buttocks with Saline. Loosely pack with Therahoney infused packing strip. Apply Moisture Barrier periwound. Cover each wound with Optifoam drsg Daily and prn. Cleanse wound R Thigh with Saline. Cover with Optifoam drsg Daily and prn. Apply Moisture Barrier Paste to Sacrum and lower L buttocks. Cover each site with Optifoam drsg. Daily and prn. Apply Cavilon to upper R thigh DTPI. Cover with Optifoam drsg. Change every 3 days and prn. Apply Betadine to wound distal/lateral L lower ext and dorsal R foot. Cover each wound with Optifoam drsg. Change every 3 days and prn. Reposition at least every 2hours or as tolerated. Off load heels with pillow. APM/DEVONTE Mattress. (2) Chronic indwelling Alexandre catheter Assessment & Plan: abx as per ID UTI noted micro noted cont abx (3) History of osteomyelitis Assessment & Plan: DAILY ESTIMATED NEEDS: Needs based on Wound, paraplegia, obesity 78.9kg abw 20-25 kcals/kg 6355-3326 total kcals 1.25-2 g protein/kg 99-158 g total protein 25-30 mL/kg 9060-3334 total fluid mLs NUTRITION DIAGNOSIS: * Increased Protein and micronutrient needs r/t Wound healing as evidenced by pt w/ multiple wounds, including full thickness and unstageable, refer to wound care eval. * Altered nutrition related lab values R/T diabetes as evidenced by BGs in the 300's and 400's. CURRENT DIET:CCHO MED PO DIET RECOMMENDATIONS: CCHO LOW (3 Carbs/ meal) w/ DOUBLE PROTEIN PORTIONS ADDITIONAL RECOMMENDATIONS: 1) RE-calibrate bed scale w/ added P200 mattress 2) Obtain HgA1C for eval 3) Wound care: Continue MVI, Vit C, and ZnSO4 Add Skip BID 4) Monitor diet compliance and educate as able 5) Monitor lytes w/ Lasix, replete as needed 6) Monitor BGs closely, now on Levemir BID, TIAC NovoLog + SSI Richard Minaya Jul 24, 2019 13:42
--- NOTE | 2019-07-24 13:47 | NUR ---
CASE MANAGEMENT:REVIEW SI;UNCONTROLLED IDDM. UTI. HEPATITIS C. HYPOTENSION. 97.7 104 20 112/79 94% ON RA BUN 38 BG 350 IS;INSULIN NOVOLOG INSULIN LEVEMIR ANTIVERT PO Q6 HRS PRN DILAUDID PO Q4 HRS LASIX PO BID MIDODRINE PO TID K-DUR PO QD PROTONIX PO Q12 HRS MED SURG STATUS DCP;TO [facility] WHEN BG STABILIZE PLAN; INCREASE LEVEMIR INCREASE NOVOLOG
[2019-07-24 16:00] VITALS: BP 104/67
--- NOTE | 2019-07-24 16:00 | Geriatric Medicine Prog Note ---
DATE: 07/22/2019 NOTE: POOR AUDIO. SUBJECTIVE: The patient is feeling comfortable today. OBJECTIVE: VITAL SIGNS: Stable. Levemir 15 units q.12 hours and NovoLog 10 units t.i.d. a.c. Alex Yepez M.D. DR: RASHEL JOB#: [id number] CC:
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
--- NOTE | 2019-07-24 19:30 | NUR ---
HAND-OFF: Report given to TOMAS Gusman.
--- NOTE | 2019-07-24 19:54 | NUR ---
NURSE NOTES: Received patient in bed, bedbound, awake, alert, oriented x4, able to make his needs known, IV site is clean dry and intact, no acute distress noted or reported, call light is within reach, bed is lowered, locked, alarm is on, will continue to monitor for comfort and safety.
[2019-07-24 20:00] VITALS: BP 100/61
[2019-07-25] VITALS (7 sets, daily range): BP systolic 104–123; BP diastolic 65–82
[2019-07-25] MEDS: Heparin 5000 units/ml inj SUBQ SCH ×3 (05:42→21:56)
[2019-07-25] MEDS: NovoLOG Insulin Flexpen SUBQ SCH ×7 (05:44→20:38)
--- NOTE | 2019-07-25 07:03 | NUR ---
HAND-OFF: Report given to Yanet Naik RN.
--- NOTE | 2019-07-25 07:32 | NUR ---
NURSE NOTES: Patient alert x4; on room air, no sing of distress and shortness of breath; no sing of chest pain; Alexandre in place, collects yellow urine; wound dressings dry and intact; IV Left For-Arm 22G flushes well; side rails up x2, breaks engaged, bed at lowest position; will check blood sugar as scheduled; call light within reach; will keep monitoring.
[2019-07-25] MEDS: Zinc Sulfate 220mg cap ORAL SCH (08:45)
[2019-07-25] MEDS: Furosemide 40mg tab ORAL SCH ×2 (08:46→17:17)
[2019-07-25] MEDS: Docusate 100mg cap ORAL SCH (08:46)
[2019-07-25] MEDS: HYDROmorphone 2mg tab ORAL PRN ×2 (08:46→13:18)
[2019-07-25] MEDS: Midodrine 10mg tab ORAL SCH ×3 (08:46→17:17)
[2019-07-25] MEDS: Ascorbic Acid 500mg tab ORAL SCH (08:46)
--- NOTE | 2019-07-25 08:47 | General Progress Note ---
Assessment/Plan Problem List: (1) Type 2 diabetes mellitus ICD Codes: E11.9 - Type 2 diabetes mellitus without complications SNOMED: 35982385 (2) Paraplegia ICD Codes: G82.20 - Paraplegia, unspecified SNOMED: 40508207 Status: doing well, stable Assessment/Plan: continue Levemir 66 units bid continue Novolog 28 units ac tid + SSI Subjective Allergies: Coded Allergies: No Known Allergies (Unverified , 02/09/19) All Systems: reviewed and negative except above Subjective events noted glucose values trending down Item Value Date Time Bedside Blood Glucose 233 mg/dl H 07/24/19 2112 Bedside Blood Glucose 270 mg/dl H 07/24/19 1800 Bedside Blood Glucose 315 mg/dl H 07/24/19 1208 Bedside Blood Glucose 350 mg/dl H 07/24/19 0845 Bedside Blood Glucose 299 mg/dl H 07/24/19 0625 Objective Last 24 Hour Vital Signs Date Time Temp Pulse Resp B/P (MAP) Pulse Ox O2 Delivery O2 Flow Rate FiO2 07/25/19 08:00 96.8 99 20 116/65 (82) 94 07/25/19 04:00 98.8 100 18 104/70 (81) 94 07/25/19 00:08 98.7 07/25/19 00:00 99.0 100 17 107/74 (85) 98 07/24/19 21:15 Room Air 07/24/19 20:00 98.7 100 18 100/61 (74) 95 07/24/19 16:00 97.8 93 19 104/67 (79) 95 07/24/19 12:00 97.7 92 20 112/79 (90) 94 07/24/19 09:00 Room Air Intake and Output 07/24/19 07/25/19 19:00 07:00 Intake Total 1200 ml 1500 ml Output Total 1300 ml 2600 ml Balance -100 ml -1100 ml Intake Oral 1200 ml 1500 ml Output Urine Total 1300 ml 2600 ml # Voids 4 # Bowel Movements 1 Height (Feet): 5 Height (Inches): 6.00 Weight (Pounds): 293 General Appearance: no apparent distress Neck: normal alignment Cardiovascular: normal rate Respiratory/Chest: lungs clear Abdomen: normal bowel sounds Objective Current Medications Medications (Trade) Dose Ordered Sig/Miguel Route PRN Reason Start Time Stop Time Status Last Admin Dose Admin Ascorbic Acid (Vitamin C) 500 mg DAILY ORAL 07/12/19 09:00 08/11/19 08:59 07/24/19 08:39 Bisacodyl (Dulcolax) 10 mg HSPRN PRN RECTAL Constipation 07/10/19 03:00 08/09/19 02:59 Dextrose (Dextrose 50%) 25 ml Q30M PRN IV Hypoglycemia 07/21/19 22:00 10/19/19 21:59 Dextrose (Dextrose 50%) 50 ml Q30M PRN IV Hypoglycemia 07/21/19 22:00 10/19/19 21:59 Docusate Sodium (Colace) 100 mg DAILY ORAL 07/10/19 09:00 08/09/19 08:59 07/24/19 08:39 Folic Acid (Folate) 1 mg DAILY ORAL 07/10/19 09:00 08/09/19 08:59 07/24/19 08:38 Furosemide (Lasix) 40 mg TWICE A DAY ORAL 07/10/19 09:00 08/09/19 08:59 07/24/19 17:27 Gabapentin (Neurontin) 200 mg TWICE A DAY ORAL 07/10/19 09:00 08/09/19 08:59 07/24/19 17:28 Heparin Sodium (Porcine) (Heparin 5000 units/ml) 5,000 units EVERY 8 HOURS SUBQ 07/10/19 06:00 08/24/19 05:59 07/24/19 15:29 Hydrocortisone (Hydrocortisone) 1 applic Q6H PRN TOPIC Itching 07/22/19 14:15 10/20/19 14:14 Hydromorphone HCl (Dilaudid) 2 mg Q4H PRN ORAL For Pain 07/18/19 14:41 07/25/19 14:40 07/24/19 23:31 Insulin Aspart (NovoLOG) BEFORE MEALS AND HS SUBQ 07/22/19 06:30 10/20/19 06:29 07/25/19 05:44 Insulin Aspart (NovoLOG) 28 units NOVOTIAC SUBQ 07/24/19 11:50 08/16/19 06:29 07/25/19 05:45 Insulin Detemir (Levemir) 66 units BID SUBQ 07/24/19 09:00 08/16/19 08:59 07/24/19 18:00 Meclizine HCl (Antivert) 25 mg Q6H PRN ORAL for dizziness 07/22/19 14:12 08/21/19 14:11 07/24/19 04:04 Midodrine (Pro-Amatine) 10 mg THREE TIMES A DAY ORAL 07/10/19 09:00 08/09/19 08:59 07/24/19 17:28 Multivitamins (Multivitamins) 1 tab DAILY ORAL 07/12/19 09:00 08/11/19 08:59 07/24/19 08:45 Ondansetron HCl (Zofran) 4 mg Q6H PRN IVP Nausea & Vomiting 07/10/19 03:00 08/09/19 02:59 Pantoprazole (Protonix) 40 mg EVERY 12 HOURS ORAL 07/10/19 09:00 08/09/19 08:59 07/24/19 20:43 Polyethylene Glycol (Miralax) 17 gm HSPRN PRN ORAL Constipation 07/10/19 03:00 08/09/19 02:59 Potassium Chloride (K-Dur) 20 meq DAILY ORAL 07/10/19 09:00 08/09/19 08:59 07/24/19 08:38 Zinc Sulfate (Zinc Sulfate) 220 mg DAILY ORAL 07/10/19 09:00 08/09/19 08:59 07/24/19 08:38 Gilson Solorio MD Jul 25, 2019 08:47
[2019-07-25] MEDS: Levemir Flexpen SUBQ SCH ×2 (08:48→17:56)
[2019-07-25 10:57] LABS: BASOPHILS % (AUTO) 0.4 % (0.0-2.0); EOSINOPHILS % (AUTO) 1.4 % (0.0-3.0); HEMOGLOBIN 13.3 G/DL (14.2-18.0); LYMPHOCYTES % (AUTO) 25.1 % (20.0-45.0); MEAN CORPUSCULAR VOLUME 79 FL (80-99); MONOCYTES % (AUTO) 6.3 % (1.0-10.0); NEUTROPHILS % (AUTO) 66.8 % (45.0-75.0); PLATELET COUNT 170 K/UL (150-450); RED BLOOD COUNT 5.05 M/UL (4.70-6.10)
--- NOTE | 2019-07-25 11:01 | NUR ---
*-*DISCHARGE PLANNING*-* CLINICALS FAXED TO: [facility] P:[phone] F:[phone] WAITING FOR ACCEPTANCE AND ROOM ASSIGNMENT
[2019-07-25 11:07] LABS: ANION GAP 10 mmol/L (5-15); BLOOD UREA NITROGEN 32 mg/dL (7-18); CALCIUM 9.9 MG/DL (8.5-10.1); CARBON DIOXIDE 27 MMOL/L (21-32); CHLORIDE 99 MMOL/L (98-107); CREATININE 1.1 MG/DL (0.55-1.30); POTASSIUM 3.9 MMOL/L (3.5-5.1); SODIUM 136 MMOL/L (136-145)
--- NOTE | 2019-07-25 12:10 | Surgery Progress Note ---
Surgery Progress Note Subjective Symptoms: improved, tolerating diet, voiding well, passing flatus, BM, pain decreased Objective Last 24 Hour Vital Signs Date Time Temp Pulse Resp B/P (MAP) Pulse Ox O2 Delivery O2 Flow Rate FiO2 07/25/19 09:16 96.8 07/25/19 09:00 Room Air 07/25/19 08:00 96.8 99 20 116/65 (82) 94 07/25/19 04:00 98.8 100 18 104/70 (81) 94 07/25/19 00:00 99.0 100 17 107/74 (85) 98 07/24/19 21:15 Room Air 07/24/19 20:00 98.7 100 18 100/61 (74) 95 07/24/19 16:00 97.8 93 19 104/67 (79) 95 I&O Intake and Output 07/24/19 07/25/19 19:00 07:00 Intake Total 1200 ml 1500 ml Output Total 1300 ml 2600 ml Balance -100 ml -1100 ml Intake Oral 1200 ml 1500 ml Output Urine Total 1300 ml 2600 ml # Voids 4 # Bowel Movements 1 Dressing: saturated Wound: other Drains: other Cardiovascular: RSR Respiratory: decreased breath sounds Abdomen: soft, non-tender, present bowel sounds, non-distended Extremities: no cyanosis, other Laboratory Tests Test 07/25/19 10:50 White Blood Count 8.0 K/UL (4.8-10.8) Red Blood Count 5.05 M/UL (4.70-6.10) Hemoglobin 13.3 G/DL (14.2-18.0) L Hematocrit 40.0 % (42.0-52.0) L Mean Corpuscular Volume 79 FL (80-99) L Mean Corpuscular Hemoglobin 26.4 PG (27.0-31.0) L Mean Corpuscular Hemoglobin Concent 33.3 G/DL (32.0-36.0) Red Cell Distribution Width 15.0 % (11.6-14.8) H Platelet Count 170 K/UL (150-450) Mean Platelet Volume 6.4 FL (6.5-10.1) L Neutrophils (%) (Auto) 66.8 % (45.0-75.0) Lymphocytes (%) (Auto) 25.1 % (20.0-45.0) Monocytes (%) (Auto) 6.3 % (1.0-10.0) Eosinophils (%) (Auto) 1.4 % (0.0-3.0) Basophils (%) (Auto) 0.4 % (0.0-2.0) Sodium Level 136 MMOL/L (136-145) Potassium Level 3.9 MMOL/L (3.5-5.1) Chloride Level 99 MMOL/L (98-107) Carbon Dioxide Level 27 MMOL/L (21-32) Anion Gap 10 mmol/L (5-15) Blood Urea Nitrogen 32 mg/dL (7-18) H Creatinine 1.1 MG/DL (0.55-1.30) Estimat Glomerular Filtration Rate > 60 mL/min (>60) Glucose Level 311 MG/DL (74-106) H Calcium Level 9.9 MG/DL (8.5-10.1) Plan Problems: (1) Sacral decubitus ulcer Assessment & Plan: Pt presented on admission with multiple pressure injuries. Contractures bilat lower ext. DTPI noted sacrococcygeal area(L)2.5cm x (W)0.5cm. Base of wound is purple with maroon borders. Non-blanching erythema periwound. Scrotum is erythematous. Full thickness stage 3/4 pressure injury upper L buttocks. (L)1.3cm x (W)1 cm x (D)1.1cm. Base of wound is obscured secondary wound within crevice of skin fold. DTPI outer lower L buttocks(L)10.5cm x (W)8.5cm. Base of wound is fluctuant, maroon with scattered areas that are purple. Pt complained site has been painful last few days. No elevation in skin temp noted. Full thickness stage 4 pressure injury R ischium.(L)3.5cm x (W)2.5cmcm x (D) 3.6cm. Surrounding perimeter of wound is maroon.Base of wound is not appreciated due wound is within crevice of skin. Small amt serosanguineous exudate noted. No odor noted. Unstageable pressure injury posterior lower R thigh(L)0.8cm x (W)0.9cm. Base of wound has 100% slough. Borders are erythematous . No odor or exudate noted. DTPI upper/lateral R thigh Base of wound is indurated and maroon in colour. Small partial thickness stage 2 ulcer distal/lateral L lower extremity. Base of wound is moist and viable. borders are macerated. Small amt sanguineous exudate noted. Full thickness stage 4 ulcer Dorsal R foot.(L)2.5cm x (W)3cm Base of wound scattered fibrinous slough ,otherwise moist and pink. Borders are macerated. No odor or exudate noted. No erythema,induration or fluctuance periwound. Historical scars noted to both heels. Scattered white plaques with hyperkeratosis noted to both lower ext. Tx Plan: Cleanse Wounds R and L buttocks with Saline. Loosely pack with Therahoney infused packing strip. Apply Moisture Barrier periwound. Cover each wound with Optifoam drsg Daily and prn. Cleanse wound R Thigh with Saline. Cover with Optifoam drsg Daily and prn. Apply Moisture Barrier Paste to Sacrum and lower L buttocks. Cover each site with Optifoam drsg. Daily and prn. Apply Cavilon to upper R thigh DTPI. Cover with Optifoam drsg. Change every 3 days and prn. Apply Betadine to wound distal/lateral L lower ext and dorsal R foot. Cover each wound with Optifoam drsg. Change every 3 days and prn. Reposition at least every 2hours or as tolerated. Off load heels with pillow. APM/DEVONTE Mattress. (2) Chronic indwelling Alexandre catheter Assessment & Plan: abx as per ID UTI noted micro noted cont abx (3) History of osteomyelitis Assessment & Plan: DAILY ESTIMATED NEEDS: Needs based on Wound, paraplegia, obesity 78.9kg abw 20-25 kcals/kg 8822-1036 total kcals 1.25-2 g protein/kg 99-158 g total protein 25-30 mL/kg 3298-7579 total fluid mLs NUTRITION DIAGNOSIS: * Increased Protein and micronutrient needs r/t Wound healing as evidenced by pt w/ multiple wounds, including full thickness and unstageable, refer to wound care eval. * Altered nutrition related lab values R/T diabetes as evidenced by BGs in the 300's and 400's. CURRENT DIET:[facility] MED PO DIET RECOMMENDATIONS: CCHO LOW (3 Carbs/ meal) w/ DOUBLE PROTEIN PORTIONS ADDITIONAL RECOMMENDATIONS: 1) RE-calibrate bed scale w/ added P200 mattress 2) Obtain HgA1C for eval 3) Wound care: Continue MVI, Vit C, and ZnSO4 Add Skip BID 4) Monitor diet compliance and educate as able 5) Monitor lytes w/ Lasix, replete as needed 6) Monitor BGs closely, now on Levemir BID, TIAC NovoLog + SSI Richard Minaya Jul 25, 2019 12:10
--- NOTE | 2019-07-25 13:39 | NUR ---
*-* INSURANCE *-* ALL CLINICALS AND REVIEWS HAVE LJ FAXED TO: DILCIA FIGUEROA REF# [id number] PH: [phone] FAX: [phone]
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
--- NOTE | 2019-07-25 14:01 | NUR ---
*-*DISCHARGE PLANNING*-* CLINICALS FAXED TO [facility] P:[phone]. SPOKE TO SAIGE WHO STATED THAT THEY HAVE NO BEDS AVAILABLE AT THIS TIME. NARROW GAUGE BRAKEMAN, FORREST NOTIFIED.
--- NOTE | 2019-07-25 14:05 | NUR ---
NURSE NOTES: Patient went down for Xray;
--- NOTE | 2019-07-25 15:12 | NUR ---
RADIOLOGY DEPT., LEFT SHOULDER, AND ABDOMEN X-RAYS COMPLETED.-P.DYE
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
--- NOTE | 2019-07-25 15:41 | Diagnostic Imaging Report ---
Indication: left shoulder pain Findings: 3 views of the left shoulder were obtained. Alignment of the left shoulder is normal. No acute fracture is identified. Bones are osteopenic. Soft tissues are unremarkable. Impression: No acute injury
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
--- NOTE | 2019-07-25 16:39 | NUR ---
CASE MANAGEMENT:REVIEW SI;UNCONTROLLED DM. HYPOTENSION. 99.0 100 20 107/74 94% ON RA BUN 32 BG 311 IS;INSULIN NOVOLOG INSULIN LEVEMIR LASIX PO BID MIDODRINE PO TID PROTONIX PO BID K-DUR PO QD MED SURG STATUS DCP;TO [facility] WHEN BED AVAILABLE
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
--- NOTE | 2019-07-25 19:30 | NUR ---
HAND-OFF: Report given to TOMAS Galvan.
--- NOTE | 2019-07-25 19:45 | NUR ---
NURSE NOTES: Received patient awake, alert, verbal, paraplegic, resting in bed, watching television.
[2019-07-26 04:26] VITALS: BP 110/65
[2019-07-26] MEDS: Heparin 5000 units/ml inj SUBQ SCH ×3 (05:48→21:07)
[2019-07-26] MEDS: NovoLOG Insulin Flexpen SUBQ SCH ×7 (05:49→20:11)
[2019-07-26 06:26] LABS: BASOPHILS % (AUTO) 0.4 % (0.0-2.0); HEMATOCRIT 40.5 % (42.0-52.0); HEMOGLOBIN 13.3 G/DL (14.2-18.0); LYMPHOCYTES % (AUTO) 28.1 % (20.0-45.0); MEAN CORPUSCULAR VOLUME 81 FL (80-99); MONOCYTES % (AUTO) 6.7 % (1.0-10.0); NEUTROPHILS % (AUTO) 62.8 % (45.0-75.0); PLATELET COUNT 152 K/UL (150-450); RED BLOOD COUNT 5.02 M/UL (4.70-6.10); RED CELL DISTRIBUTION WIDTH 15.5 % (11.6-14.8); WHITE BLOOD COUNT 6.4 K/UL (4.8-10.8)
[2019-07-26 06:46] LABS: ANION GAP 10 mmol/L (5-15); BLOOD UREA NITROGEN 36 mg/dL (7-18); CALCIUM 9.5 MG/DL (8.5-10.1); CARBON DIOXIDE 27 MMOL/L (21-32); CHLORIDE 98 MMOL/L (98-107); POTASSIUM 3.5 MMOL/L (3.5-5.1); SODIUM 135 MMOL/L (136-145)
--- NOTE | 2019-07-26 07:03 | General Progress Note ---
Assessment/Plan Problem List: (1) Type 2 diabetes mellitus ICD Codes: E11.9 - Type 2 diabetes mellitus without complications SNOMED: 59342156 (2) Paraplegia ICD Codes: G82.20 - Paraplegia, unspecified SNOMED: 01329897 Status: doing well, stable Assessment/Plan: increase Levemir to 75 units bid increase Novolog to 35 units ac tid + SSI Subjective Allergies: Coded Allergies: No Known Allergies (Unverified , 02/09/19) All Systems: reviewed and negative except above Subjective events noted glucose values elevated despite high insulin dosage very non compliant with diet Item Value Date Time Glucose Level 370 MG/DL H 07/26/19 0530 Bedside Blood Glucose 273 mg/dl H 07/25/19 1756 Bedside Blood Glucose 323 mg/dl H 07/25/19 1203 Bedside Blood Glucose 381 mg/dl H 07/25/19 0848 Objective Last 24 Hour Vital Signs Date Time Temp Pulse Resp B/P (MAP) Pulse Ox O2 Delivery O2 Flow Rate FiO2 07/26/19 04:26 98.5 92 18 110/65 (80) 94 07/25/19 23:48 98.6 99 18 122/82 (95) 94 07/25/19 21:07 Room Air 07/25/19 20:00 97.8 100 18 123/70 (87) 94 07/25/19 16:00 97.7 95 19 115/75 (88) 95 07/25/19 13:48 96.8 07/25/19 12:00 96.8 94 18 116/77 (90) 100 07/25/19 09:00 Room Air 07/25/19 08:00 96.8 99 20 116/65 (82) 94 Intake and Output 07/25/19 07/26/19 19:00 07:00 Intake Total 960 ml 480 ml Output Total 400 ml 2400 ml Balance 560 ml -1920 ml Intake Oral 960 ml 480 ml Output Urine Total 400 ml 2400 ml # Voids 1 Laboratory Tests 07/25/19 10:50: White Blood Count 8.0, Red Blood Count 5.05, Hemoglobin 13.3L, Hematocrit 40.0L , Mean Corpuscular Volume 79L, Mean Corpuscular Hemoglobin 26.4L, Mean Corpuscular Hemoglobin Concent 33.3, Red Cell Distribution Width 15.0H, Platelet Count 170, Mean Platelet Volume 6.4L, Neutrophils (%) (Auto) 66.8, Lymphocytes (%) (Auto) 25.1, Monocytes (%) (Auto) 6.3, Eosinophils (%) (Auto) 1.4, Basophils (%) (Auto) 0.4, Sodium Level 136, Potassium Level 3.9, Chloride Level 99, Carbon Dioxide Level 27, Anion Gap 10, Blood Urea Nitrogen 32H, Creatinine 1.1, Estimat Glomerular Filtration Rate > 60, Glucose Level 311H, Calcium Level 9.9 07/26/19 05:30: White Blood Count 6.4, Red Blood Count 5.02, Hemoglobin 13.3L, Hematocrit 40.5L , Mean Corpuscular Volume 81, Mean Corpuscular Hemoglobin 26.5L, Mean Corpuscular Hemoglobin Concent 32.8, Red Cell Distribution Width 15.5H, Platelet Count 152, Mean Platelet Volume 6.3L, Neutrophils (%) (Auto) 62.8, Lymphocytes (%) (Auto) 28.1, Monocytes (%) (Auto) 6.7, Eosinophils (%) (Auto) 2.0, Basophils (%) (Auto) 0.4, Sodium Level 135L, Potassium Level 3.5, Chloride Level 98, Carbon Dioxide Level 27, Anion Gap 10, Blood Urea Nitrogen 36H, Creatinine 1.0, Estimat Glomerular Filtration Rate > 60, Glucose Level 370H, Calcium Level 9.5 Height (Feet): 5 Height (Inches): 6.00 Weight (Pounds): 293 General Appearance: no apparent distress Neck: normal alignment Cardiovascular: normal rate Respiratory/Chest: lungs clear Abdomen: normal bowel sounds Pelvis: normal external exam Objective Current Medications Medications (Trade) Dose Ordered Sig/Miguel Route PRN Reason Start Time Stop Time Status Last Admin Dose Admin Ascorbic Acid (Vitamin C) 500 mg DAILY ORAL 07/12/19 09:00 08/11/19 08:59 07/25/19 08:46 Bisacodyl (Dulcolax) 10 mg HSPRN PRN RECTAL Constipation 07/10/19 03:00 08/09/19 02:59 Dextrose (Dextrose 50%) 25 ml Q30M PRN IV Hypoglycemia 07/21/19 22:00 10/19/19 21:59 Dextrose (Dextrose 50%) 50 ml Q30M PRN IV Hypoglycemia 07/21/19 22:00 10/19/19 21:59 Docusate Sodium (Colace) 100 mg DAILY ORAL 07/10/19 09:00 08/09/19 08:59 07/25/19 08:46 Folic Acid (Folate) 1 mg DAILY ORAL 07/10/19 09:00 08/09/19 08:59 07/25/19 08:46 Furosemide (Lasix) 40 mg TWICE A DAY ORAL 07/10/19 09:00 08/09/19 08:59 07/25/19 17:17 Gabapentin (Neurontin) 200 mg TWICE A DAY ORAL 07/10/19 09:00 08/09/19 08:59 07/25/19 17:17 Heparin Sodium (Porcine) (Heparin 5000 units/ml) 5,000 units EVERY 8 HOURS SUBQ 07/10/19 06:00 08/24/19 05:59 07/25/19 13:15 Hydrocortisone (Hydrocortisone) 1 applic Q6H PRN TOPIC Itching 07/22/19 14:15 10/20/19 14:14 Insulin Aspart (NovoLOG) BEFORE MEALS AND HS SUBQ 07/22/19 06:30 10/20/19 06:29 07/26/19 05:50 Insulin Aspart (NovoLOG) 28 units NOVOTIAC SUBQ 07/24/19 11:50 08/16/19 06:29 07/26/19 05:49 Insulin Detemir (Levemir) 66 units BID SUBQ 07/24/19 09:00 08/16/19 08:59 07/25/19 17:56 Meclizine HCl (Antivert) 25 mg Q6H PRN ORAL for dizziness 07/22/19 14:12 08/21/19 14:11 07/24/19 04:04 Midodrine (Pro-Amatine) 10 mg THREE TIMES A DAY ORAL 07/10/19 09:00 08/09/19 08:59 07/25/19 17:17 Multivitamins (Multivitamins) 1 tab DAILY ORAL 07/12/19 09:00 08/11/19 08:59 07/25/19 08:46 Ondansetron HCl (Zofran) 4 mg Q6H PRN IVP Nausea & Vomiting 07/10/19 03:00 08/09/19 02:59 Pantoprazole (Protonix) 40 mg EVERY 12 HOURS ORAL 07/10/19 09:00 08/09/19 08:59 07/25/19 20:37 Polyethylene Glycol (Miralax) 17 gm HSPRN PRN ORAL Constipation 07/10/19 03:00 08/09/19 02:59 Potassium Chloride (K-Dur) 20 meq DAILY ORAL 07/10/19 09:00 08/09/19 08:59 07/25/19 08:45 Zinc Sulfate (Zinc Sulfate) 220 mg DAILY ORAL 07/10/19 09:00 08/09/19 08:59 07/25/19 08:45 Gilson Solorio MD Jul 26, 2019 07:03
--- NOTE | 2019-07-26 07:29 | NUR ---
HAND-OFF: Report given to Callie Davis RN.
[2019-07-26 08:00] VITALS: BP 112/69
--- NOTE | 2019-07-26 08:00 | NUR ---
NURSE NOTES: Patient is awake and alert and oriented ,respirations unlabored.Alexandre catheter is in place and draining yellow urine.patient sitting up in bed and watching Television ,patient ate breakfast.Bed alarm on,call light within reach.
[2019-07-26] MEDS: Docusate 100mg cap ORAL SCH (08:33)
[2019-07-26] MEDS: Furosemide 40mg tab ORAL SCH ×2 (08:34→19:03)
[2019-07-26] MEDS: Ascorbic Acid 500mg tab ORAL SCH (08:34)
[2019-07-26] MEDS: Midodrine 10mg tab ORAL SCH ×3 (08:34→19:03)
[2019-07-26] MEDS: Zinc Sulfate 220mg cap ORAL SCH (08:35)
[2019-07-26] MEDS: Levemir Flexpen SUBQ SCH ×2 (08:46→20:13)
[2019-07-26] MEDS ORDERED: Miralax 17gm pkt ORAL PRN (09:30)
--- NOTE | 2019-07-26 11:00 | NUR ---
PT NOTES M.D. order received, PT evaluation completed, pls refer to marcelle for details. Patient will benefit from skilled PT for UE strengthening, LE stretching and education of nursing/patient on impt of bed positioning to reduce pressure ulcers. Thank you for this referral.
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
[2019-07-26 12:00] VITALS: BP 98/69
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
--- NOTE | 2019-07-26 12:27 | Surgery Progress Note ---
Surgery Progress Note Subjective Additional Comments doing well plain films noted exam stable comfortable Objective Last 24 Hour Vital Signs Date Time Temp Pulse Resp B/P (MAP) Pulse Ox O2 Delivery O2 Flow Rate FiO2 07/26/19 09:00 Room Air 07/26/19 08:00 98.1 109 21 112/69 (83) 94 07/26/19 04:26 98.5 92 18 110/65 (80) 94 07/25/19 23:48 98.6 99 18 122/82 (95) 94 07/25/19 21:07 Room Air 07/25/19 20:00 97.8 100 18 123/70 (87) 94 07/25/19 16:00 97.7 95 19 115/75 (88) 95 07/25/19 13:48 96.8 I&O Intake and Output 07/25/19 07/26/19 19:00 07:00 Intake Total 960 ml 480 ml Output Total 400 ml 2400 ml Balance 560 ml -1920 ml Intake Oral 960 ml 480 ml Output Urine Total 400 ml 2400 ml # Voids 1 Dressing: saturated Wound: other Drains: other Cardiovascular: RSR Respiratory: decreased breath sounds Abdomen: soft, non-tender, present bowel sounds Extremities: no tenderness, no cyanosis Laboratory Tests Test 07/26/19 05:30 White Blood Count 6.4 K/UL (4.8-10.8) Red Blood Count 5.02 M/UL (4.70-6.10) Hemoglobin 13.3 G/DL (14.2-18.0) L Hematocrit 40.5 % (42.0-52.0) L Mean Corpuscular Volume 81 FL (80-99) Mean Corpuscular Hemoglobin 26.5 PG (27.0-31.0) L Mean Corpuscular Hemoglobin Concent 32.8 G/DL (32.0-36.0) Red Cell Distribution Width 15.5 % (11.6-14.8) H Platelet Count 152 K/UL (150-450) Mean Platelet Volume 6.3 FL (6.5-10.1) L Neutrophils (%) (Auto) 62.8 % (45.0-75.0) Lymphocytes (%) (Auto) 28.1 % (20.0-45.0) Monocytes (%) (Auto) 6.7 % (1.0-10.0) Eosinophils (%) (Auto) 2.0 % (0.0-3.0) Basophils (%) (Auto) 0.4 % (0.0-2.0) Sodium Level 135 MMOL/L (136-145) L Potassium Level 3.5 MMOL/L (3.5-5.1) Chloride Level 98 MMOL/L (98-107) Carbon Dioxide Level 27 MMOL/L (21-32) Anion Gap 10 mmol/L (5-15) Blood Urea Nitrogen 36 mg/dL (7-18) H Creatinine 1.0 MG/DL (0.55-1.30) Estimat Glomerular Filtration Rate > 60 mL/min (>60) Glucose Level 370 MG/DL (74-106) H Calcium Level 9.5 MG/DL (8.5-10.1) Plan Problems: (1) Sacral decubitus ulcer Assessment & Plan: Pt presented on admission with multiple pressure injuries. Contractures bilat lower ext. DTPI noted sacrococcygeal area(L)2.5cm x (W)0.5cm. Base of wound is purple with maroon borders. Non-blanching erythema periwound. Scrotum is erythematous. Full thickness stage 3/4 pressure injury upper L buttocks. (L)1.3cm x (W)1 cm x (D)1.1cm. Base of wound is obscured secondary wound within crevice of skin fold. DTPI outer lower L buttocks(L)10.5cm x (W)8.5cm. Base of wound is fluctuant, maroon with scattered areas that are purple. Pt complained site has been painful last few days. No elevation in skin temp noted. Full thickness stage 4 pressure injury R ischium.(L)3.5cm x (W)2.5cmcm x (D) 3.6cm. Surrounding perimeter of wound is maroon.Base of wound is not appreciated due wound is within crevice of skin. Small amt serosanguineous exudate noted. No odor noted. Unstageable pressure injury posterior lower R thigh(L)0.8cm x (W)0.9cm. Base of wound has 100% slough. Borders are erythematous . No odor or exudate noted. DTPI upper/lateral R thigh Base of wound is indurated and maroon in colour. Small partial thickness stage 2 ulcer distal/lateral L lower extremity. Base of wound is moist and viable. borders are macerated. Small amt sanguineous exudate noted. Full thickness stage 4 ulcer Dorsal R foot.(L)2.5cm x (W)3cm Base of wound scattered fibrinous slough ,otherwise moist and pink. Borders are macerated. No odor or exudate noted. No erythema,induration or fluctuance periwound. Historical scars noted to both heels. Scattered white plaques with hyperkeratosis noted to both lower ext. Tx Plan: Cleanse Wounds R and L buttocks with Saline. Loosely pack with Therahoney infused packing strip. Apply Moisture Barrier periwound. Cover each wound with Optifoam drsg Daily and prn. Cleanse wound R Thigh with Saline. Cover with Optifoam drsg Daily and prn. Apply Moisture Barrier Paste to Sacrum and lower L buttocks. Cover each site with Optifoam drsg. Daily and prn. Apply Cavilon to upper R thigh DTPI. Cover with Optifoam drsg. Change every 3 days and prn. Apply Betadine to wound distal/lateral L lower ext and dorsal R foot. Cover each wound with Optifoam drsg. Change every 3 days and prn. Reposition at least every 2hours or as tolerated. Off load heels with pillow. APM/DEVONTE Mattress. (2) Chronic indwelling Alexandre catheter Assessment & Plan: abx as per ID UTI noted micro noted cont abx doing better improving plain films okay unfortunately given overall condition possible inevitable decline as he is overweight, not adherent to healthy diet and does not move much will monitor and follow with recs (3) History of osteomyelitis Assessment & Plan: DAILY ESTIMATED NEEDS: Needs based on Wound, paraplegia, obesity 78.9kg abw 20-25 kcals/kg 6212-6272 total kcals 1.25-2 g protein/kg 99-158 g total protein 25-30 mL/kg 8129-2981 total fluid mLs NUTRITION DIAGNOSIS: * Increased Protein and micronutrient needs r/t Wound healing as evidenced by pt w/ multiple wounds, including full thickness and unstageable, refer to wound care eval. * Altered nutrition related lab values R/T diabetes as evidenced by BGs in the 300's and 400's. CURRENT DIET:CCHO MED PO DIET RECOMMENDATIONS: CCHO LOW (3 Carbs/ meal) w/ DOUBLE PROTEIN PORTIONS ADDITIONAL RECOMMENDATIONS: 1) RE-calibrate bed scale w/ added P200 mattress 2) Obtain HgA1C for eval 3) Wound care: Continue MVI, Vit C, and ZnSO4 Add Skip BID 4) Monitor diet compliance and educate as able 5) Monitor lytes w/ Lasix, replete as needed 6) Monitor BGs closely, now on Levemir BID, TIAC NovoLog + SSI Richard Minaya Jul 26, 2019 12:27
--- NOTE | 2019-07-26 14:11 | NUR ---
*-* INSURANCE *-* ALL CLINICALS AND REVIEWS HAVE LJ FAXED TO: DILCIA FIGUEROA REF# [id number] PH: [phone] FAX: [phone]
--- NOTE | 2019-07-26 14:41 | NUR ---
CASE MANAGEMENT:REVIEW SI; UNCONTROLLED DM. HYPOTENSION. 98.6 109 21 98/69 94% ON RA NA+ 135 BUN 36 BG 370 IS; INSULIN NOVOLOG INSULIN LEVEMIR LASIX PO BID MIDODRINE PO TID PROTONIX PO BID K-DUR PO QD MED SURG STATUS DCP;FROM [facility]
[2019-07-26 16:00] VITALS: BP 117/73
--- NOTE | 2019-07-26 17:19 | NUR ---
DISCHARGE PLANNING CALL RECEIVED FROM SHERLY AT [facility]. INFORMED THIS THAT LEONA T[facility]OR IS NO LONGER CONTRACTED WITH [facility]. ADVISED TO REFER PATIENT TO AN [facility] CONTRACTED SNF. PATIENT HAS BEEN REFERRED TO; [facility] P: [phone] F: [phone] [facility] P: [phone] F: [phone] [facility] P: [phone] F: [phone] [facility] P: [phone] F: [phone] [facility] P: [phone] F: [phone] Addendum: 07/27/19 at 1003 by FORREST ZARATE LVN LVN FOLLOW UP; [facility] - PER JULISSA, NO MALE BEDS AVAILABLE AT THIS TIME [facility] - PER IRENE, REFERRAL IS CURRENTLY BEING REVIEWED AT THIS TIME [facility] - ADMISSIONS NOT AVAILABLE. VOICEMAIL LEFT REQUESTING CALL BACK [facility] - NO RESPONSE. WILL FOLLOW UP [facility] - PER RAMSEY, ADMISSIONS NOT AVAILABLE. WILL LEAVE MESSAGE TO CALL BACK.
[2019-07-26] MEDS: HYDROmorphone 2mg tab ORAL PRN (19:18)
--- NOTE | 2019-07-26 19:18 | NUR ---
NURSE NOTES: Patient sitting up in bed ,complaint of leg pain,Dilaudid 2mg po given Waiting for Levemir pen from pharmacy for schedule dose of Levemir.
--- NOTE | 2019-07-26 19:20 | NUR ---
NURSE NOTES: On coming Nurse will give Levemir as ordered.
--- NOTE | 2019-07-26 19:20 | NUR ---
HAND-OFF: Report given to [employer] of fall risk.
--- NOTE | 2019-07-26 19:30 | NUR ---
NURSE NOTES: Patient awake in bed, talkative, no complaints of pain upon rounds. No SOB noted. Folet cath intact and draining well. Instructed to use call light for assistance. Call light in reach. Safety measures applied. Will continue plan of care.
[2019-07-26 20:00] VITALS: BP 106/66
[2019-07-27] VITALS: BP 103/65
[2019-07-27 04:00] VITALS: BP 103/73
[2019-07-27] MEDS: Heparin 5000 units/ml inj SUBQ SCH ×3 (06:00→22:22)
[2019-07-27 06:53] LABS: BASOPHILS % (AUTO) 0.4 % (0.0-2.0); HEMATOCRIT 38.5 % (42.0-52.0); LYMPHOCYTES % (AUTO) 30.5 % (20.0-45.0); MEAN CORPUSCULAR VOLUME 80 FL (80-99); MONOCYTES % (AUTO) 6.3 % (1.0-10.0); NEUTROPHILS % (AUTO) 60.7 % (45.0-75.0); PLATELET COUNT 162 K/UL (150-450); RED CELL DISTRIBUTION WIDTH 15.3 % (11.6-14.8); WHITE BLOOD COUNT 7.2 K/UL (4.8-10.8)
[2019-07-27] MEDS: NovoLOG Insulin Flexpen SUBQ SCH ×7 (06:59→20:34)
[2019-07-27 07:14] LABS: ANION GAP 14 mmol/L (5-15); BLOOD UREA NITROGEN 28 mg/dL (7-18); CALCIUM 9.4 MG/DL (8.5-10.1); CARBON DIOXIDE 24 MMOL/L (21-32); CHLORIDE 100 MMOL/L (98-107); POTASSIUM 3.3 MMOL/L (3.5-5.1); SODIUM 138 MMOL/L (136-145)
--- NOTE | 2019-07-27 07:28 | General Progress Note ---
Assessment/Plan Problem List: (1) Type 2 diabetes mellitus ICD Codes: E11.9 - Type 2 diabetes mellitus without complications SNOMED: 80276280 (2) Paraplegia ICD Codes: G82.20 - Paraplegia, unspecified SNOMED: 20813208 Status: doing well, stable Assessment/Plan: increase Levemir to 80 units bid increase Novolog to 40 units ac tid + SSI Subjective Allergies: Coded Allergies: No Known Allergies (Unverified , 02/09/19) All Systems: reviewed and negative except above Subjective events noted glucose values elevated but trending down Item Value Date Time Glucose Level 266 MG/DL H # 07/27/19 0559 Bedside Blood Glucose 303 mg/dl H 07/26/19 2054 Bedside Blood Glucose 219 mg/dl H 07/26/19 1727 Bedside Blood Glucose 278 mg/dl H 07/26/19 1205 Objective Last 24 Hour Vital Signs Date Time Temp Pulse Resp B/P (MAP) Pulse Ox O2 Delivery O2 Flow Rate FiO2 07/27/19 04:00 98.4 98 18 103/73 (83) 94 07/27/19 00:00 97.8 100 18 103/65 (78) 94 07/26/19 20:54 Room Air 07/26/19 20:00 97.9 103 18 106/66 (79) 94 07/26/19 16:00 97.9 93 18 117/73 (88) 95 07/26/19 12:00 97.9 98 20 98/69 (79) 94 07/26/19 09:00 Room Air 07/26/19 08:00 98.1 109 21 112/69 (83) 94 Intake and Output 07/26/19 07/27/19 19:00 07:00 Intake Total 800 ml 1200 ml Output Total 1000 ml 2900 ml Balance -200 ml -1700 ml Intake Oral 800 ml 1200 ml Output Urine Total 1000 ml 2900 ml # Voids 2 # Bowel Movements 3 Laboratory Tests 07/27/19 05:59: White Blood Count 7.2, Red Blood Count 4.80, Hemoglobin 13.0L, Hematocrit 38.5L , Mean Corpuscular Volume 80, Mean Corpuscular Hemoglobin 27.1, Mean Corpuscular Hemoglobin Concent 33.7, Red Cell Distribution Width 15.3H, Platelet Count 162, Mean Platelet Volume 6.5, Neutrophils (%) (Auto) 60.7, Lymphocytes (%) (Auto) 30.5, Monocytes (%) (Auto) 6.3, Eosinophils (%) (Auto) 2.0, Basophils (%) (Auto) 0.4, Sodium Level 138, Potassium Level 3.3L, Chloride Level 100, Carbon Dioxide Level 24, Anion Gap 14, Blood Urea Nitrogen 28H, Creatinine 1.0, Estimat Glomerular Filtration Rate > 60, Glucose Level 266#H, Calcium Level 9.4 Height (Feet): 5 Height (Inches): 6.00 Weight (Pounds): 293 General Appearance: no apparent distress Neck: normal alignment Cardiovascular: normal rate Respiratory/Chest: lungs clear Abdomen: normal bowel sounds Objective Current Medications Medications (Trade) Dose Ordered Sig/Miguel Route PRN Reason Start Time Stop Time Status Last Admin Dose Admin Ascorbic Acid (Vitamin C) 500 mg DAILY ORAL 07/12/19 09:00 08/11/19 08:59 07/26/19 08:34 Bisacodyl (Dulcolax) 10 mg HSPRN PRN RECTAL Constipation 07/10/19 03:00 08/09/19 02:59 Dextrose (Dextrose 50%) 25 ml Q30M PRN IV Hypoglycemia 07/21/19 22:00 10/19/19 21:59 Dextrose (Dextrose 50%) 50 ml Q30M PRN IV Hypoglycemia 07/21/19 22:00 10/19/19 21:59 Docusate Sodium (Colace) 100 mg DAILY ORAL 07/10/19 09:00 08/09/19 08:59 07/26/19 08:33 Folic Acid (Folate) 1 mg DAILY ORAL 07/10/19 09:00 08/09/19 08:59 07/26/19 08:33 Furosemide (Lasix) 40 mg TWICE A DAY ORAL 07/10/19 09:00 08/09/19 08:59 07/26/19 19:03 Gabapentin (Neurontin) 100 mg Q12HR ORAL 07/26/19 21:00 08/25/19 20:59 Heparin Sodium (Porcine) (Heparin 5000 units/ml) 5,000 units EVERY 8 HOURS SUBQ 07/10/19 06:00 08/24/19 05:59 07/26/19 13:45 Hydrocortisone (Hydrocortisone) 1 applic Q6H PRN TOPIC Itching 07/22/19 14:15 10/20/19 14:14 Hydromorphone HCl (Dilaudid) 2 mg Q4H PRN ORAL Severe Pain (Pain Scale 7-10) 07/26/19 09:00 08/02/19 08:59 07/26/19 19:18 Insulin Aspart (NovoLOG) BEFORE MEALS AND HS SUBQ 07/22/19 06:30 10/20/19 06:29 07/27/19 06:59 Insulin Aspart (NovoLOG) 35 units NOVOTIAC SUBQ 07/26/19 11:50 08/16/19 06:29 07/27/19 07:00 Insulin Detemir (Levemir) 75 units BID SUBQ 07/26/19 09:00 08/16/19 08:59 07/26/19 20:13 Meclizine HCl (Antivert) 25 mg Q6H PRN ORAL for dizziness 07/22/19 14:12 08/21/19 14:11 07/24/19 04:04 Midodrine (Pro-Amatine) 10 mg THREE TIMES A DAY ORAL 07/10/19 09:00 08/09/19 08:59 07/26/19 19:03 Multivitamins (Multivitamins) 1 tab DAILY ORAL 07/12/19 09:00 08/11/19 08:59 07/26/19 08:34 Ondansetron HCl (Zofran) 4 mg Q6H PRN IVP Nausea & Vomiting 07/10/19 03:00 08/09/19 02:59 Pantoprazole (Protonix) 40 mg EVERY 12 HOURS ORAL 07/10/19 09:00 08/09/19 08:59 07/26/19 20:05 Polyethylene Glycol (Miralax) 17 gm DAILY PRN ORAL Constipation 07/26/19 09:30 08/25/19 09:29 Potassium Chloride (K-Dur) 20 meq DAILY ORAL 07/10/19 09:00 08/09/19 08:59 07/26/19 08:34 Zinc Sulfate (Zinc Sulfate) 220 mg DAILY ORAL 07/10/19 09:00 08/09/19 08:59 07/26/19 08:35 Gilson Solorio MD Jul 27, 2019 07:28
--- NOTE | 2019-07-27 07:30 | NUR ---
NURSE NOTES: Patient awake, alert and orientedx4 in bed, talkative, on P200 mattress for skin integrity. no complaints of pain/discomfort noted. No SOB noted. IV access patent and intact. excellent appetite. Alexandre cath intact and draining well. bed is in the lowest position. siderails are upx3. Instructed to use call light for assistance. Call light in reach. brakes and lock engaged for safety measures. Will continue plan of care.
--- NOTE | 2019-07-27 07:41 | NUR ---
HAND-OFF: Report given to [place].
[2019-07-27 08:00] VITALS: BP 124/75
[2019-07-27] MEDS: Zinc Sulfate 220mg cap ORAL SCH (08:33)
[2019-07-27] MEDS: Docusate 100mg cap ORAL SCH (08:33)
[2019-07-27] MEDS: Midodrine 10mg tab ORAL SCH ×3 (08:33→17:19)
[2019-07-27] MEDS: Furosemide 40mg tab ORAL SCH ×2 (08:33→17:17)
[2019-07-27] MEDS: Ascorbic Acid 500mg tab ORAL SCH (08:33)
[2019-07-27] MEDS: HYDROmorphone 2mg tab ORAL PRN ×2 (08:40→20:34)
[2019-07-27] MEDS: Levemir Flexpen SUBQ SCH ×2 (08:44→17:20)
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
--- NOTE | 2019-07-27 10:46 | NUR ---
NURSE NOTES: Dr Johnson made aware of K+3.[address] and carried out. will cont to monitor.
--- NOTE | 2019-07-27 11:45 | NUR ---
CASE MANAGEMENT:REVIEW SI;UNCONTROLLED DM. HYPOTENSION. 98.4 100 18 103/65 94% ON RA K+ 3.3 BUN 28 BG 266 IS;INSULIN NOVOLOG INSULIN LEVEMIR GABAPENTIN PO Q12 HRS ANTIVERT PO Q6 HRS PRN K-CL PO QD HEPARIN SUBQ Q8 HRS PROTONIX PO Q12 HRS MIDODRINE PO TID LASIX PO BID MED SURG STATUS DCP;SNF WHEN ACCEPTED TO A FACILITY
[2019-07-27 12:00] VITALS: BP 109/75
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
--- NOTE | 2019-07-27 13:07 | Surgery Progress Note ---
Surgery Progress Note Subjective Symptoms: improved, tolerating diet, passing flatus, BM Objective Last 24 Hour Vital Signs Date Time Temp Pulse Resp B/P (MAP) Pulse Ox O2 Delivery O2 Flow Rate FiO2 07/27/19 12:00 98.3 95 18 109/75 (86) 94 07/27/19 09:33 Room Air 07/27/19 09:10 98.4 07/27/19 08:00 97.7 100 18 124/75 (91) 94 07/27/19 04:00 98.4 98 18 103/73 (83) 94 07/27/19 00:00 97.8 100 18 103/65 (78) 94 07/26/19 20:54 Room Air 07/26/19 20:00 97.9 103 18 106/66 (79) 94 07/26/19 16:00 97.9 93 18 117/73 (88) 95 I&O Intake and Output 07/26/19 07/27/19 19:00 07:00 Intake Total 800 ml 1200 ml Output Total 1000 ml 2900 ml Balance -200 ml -1700 ml Intake Oral 800 ml 1200 ml Output Urine Total 1000 ml 2900 ml # Voids 2 # Bowel Movements 3 Dressing: saturated Wound: other Drains: other Cardiovascular: RSR Respiratory: decreased breath sounds Abdomen: soft, non-tender, present bowel sounds Extremities: other Laboratory Tests Test 07/27/19 05:59 White Blood Count 7.2 K/UL (4.8-10.8) Red Blood Count 4.80 M/UL (4.70-6.10) Hemoglobin 13.0 G/DL (14.2-18.0) L Hematocrit 38.5 % (42.0-52.0) L Mean Corpuscular Volume 80 FL (80-99) Mean Corpuscular Hemoglobin 27.1 PG (27.0-31.0) Mean Corpuscular Hemoglobin Concent 33.7 G/DL (32.0-36.0) Red Cell Distribution Width 15.3 % (11.6-14.8) H Platelet Count 162 K/UL (150-450) Mean Platelet Volume 6.5 FL (6.5-10.1) Neutrophils (%) (Auto) 60.7 % (45.0-75.0) Lymphocytes (%) (Auto) 30.5 % (20.0-45.0) Monocytes (%) (Auto) 6.3 % (1.0-10.0) Eosinophils (%) (Auto) 2.0 % (0.0-3.0) Basophils (%) (Auto) 0.4 % (0.0-2.0) Sodium Level 138 MMOL/L (136-145) Potassium Level 3.3 MMOL/L (3.5-5.1) L Chloride Level 100 MMOL/L (98-107) Carbon Dioxide Level 24 MMOL/L (21-32) Anion Gap 14 mmol/L (5-15) Blood Urea Nitrogen 28 mg/dL (7-18) H Creatinine 1.0 MG/DL (0.55-1.30) Estimat Glomerular Filtration Rate > 60 mL/min (>60) Glucose Level 266 MG/DL (74-106) #H Calcium Level 9.4 MG/DL (8.5-10.1) Plan Problems: (1) Sacral decubitus ulcer Assessment & Plan: Pt presented on admission with multiple pressure injuries. Contractures bilat lower ext. DTPI noted sacrococcygeal area(L)2.5cm x (W)0.5cm. Base of wound is purple with maroon borders. Non-blanching erythema periwound. Scrotum is erythematous. Full thickness stage 3/4 pressure injury upper L buttocks. (L)1.3cm x (W)1 cm x (D)1.1cm. Base of wound is obscured secondary wound within crevice of skin fold. DTPI outer lower L buttocks(L)10.5cm x (W)8.5cm. Base of wound is fluctuant, maroon with scattered areas that are purple. Pt complained site has been painful last few days. No elevation in skin temp noted. Full thickness stage 4 pressure injury R ischium.(L)3.5cm x (W)2.5cmcm x (D) 3.6cm. Surrounding perimeter of wound is maroon.Base of wound is not appreciated due wound is within crevice of skin. Small amt serosanguineous exudate noted. No odor noted. Unstageable pressure injury posterior lower R thigh(L)0.8cm x (W)0.9cm. Base of wound has 100% slough. Borders are erythematous . No odor or exudate noted. DTPI upper/lateral R thigh Base of wound is indurated and maroon in colour. Small partial thickness stage 2 ulcer distal/lateral L lower extremity. Base of wound is moist and viable. borders are macerated. Small amt sanguineous exudate noted. Full thickness stage 4 ulcer Dorsal R foot.(L)2.5cm x (W)3cm Base of wound scattered fibrinous slough ,otherwise moist and pink. Borders are macerated. No odor or exudate noted. No erythema,induration or fluctuance periwound. Historical scars noted to both heels. Scattered white plaques with hyperkeratosis noted to both lower ext. Tx Plan: Cleanse Wounds R and L buttocks with Saline. Loosely pack with Therahoney infused packing strip. Apply Moisture Barrier periwound. Cover each wound with Optifoam drsg Daily and prn. Cleanse wound R Thigh with Saline. Cover with Optifoam drsg Daily and prn. Apply Moisture Barrier Paste to Sacrum and lower L buttocks. Cover each site with Optifoam drsg. Daily and prn. Apply Cavilon to upper R thigh DTPI. Cover with Optifoam drsg. Change every 3 days and prn. Apply Betadine to wound distal/lateral L lower ext and dorsal R foot. Cover each wound with Optifoam drsg. Change every 3 days and prn. Reposition at least every 2hours or as tolerated. Off load heels with pillow. APM/DEVONTE Mattress. (2) Chronic indwelling Alexandre catheter Assessment & Plan: abx as per ID UTI noted micro noted cont abx doing better improving plain films okay unfortunately given overall condition possible inevitable decline as he is overweight, not adherent to healthy diet and does not move much will monitor and follow with recs (3) History of osteomyelitis Assessment & Plan: DAILY ESTIMATED NEEDS: Needs based on Wound, paraplegia, obesity 78.9kg abw 20-25 kcals/kg 3571-8494 total kcals 1.25-2 g protein/kg 99-158 g total protein 25-30 mL/kg 9061-7354 total fluid mLs NUTRITION DIAGNOSIS: * Increased Protein and micronutrient needs r/t Wound healing as evidenced by pt w/ multiple wounds, including full thickness and unstageable, refer to wound care eval. * Altered nutrition related lab values R/T diabetes as evidenced by BGs in the 300's and 400's. CURRENT DIET:CCHO MED PO DIET RECOMMENDATIONS: CCHO LOW (3 Carbs/ meal) w/ DOUBLE PROTEIN PORTIONS ADDITIONAL RECOMMENDATIONS: 1) RE-calibrate bed scale w/ added P200 mattress 2) Obtain HgA1C for eval 3) Wound care: Continue MVI, Vit C, and ZnSO4 Add Skip BID 4) Monitor diet compliance and educate as able 5) Monitor lytes w/ Lasix, replete as needed 6) Monitor BGs closely, now on Levemir BID, TIAC NovoLog + SSI Richard Minaya Jul 27, 2019 13:06
--- NOTE | 2019-07-27 13:15 | NUR ---
RD ASSESSMENT & RECOMMENDATIONS SEE CARE ACTIVITY FOR COMPLETE ASSESSMENT DAILY ESTIMATED NEEDS: Needs based on Wound, paraplegia, obesity 78.9kg abw 20-25 kcals/kg 1126-2236 total kcals 1.25-2 g protein/kg 99-158 g total protein 25-30 mL/kg 3398-5918 total fluid mLs NUTRITION DIAGNOSIS: * Increased Protein and micronutrient needs r/t Wound healing as evidenced by pt w/ multiple wounds, including full thickness and unstageable, refer to wound care eval. * Altered nutrition related lab values R/T diabetes as evidenced by BGs in the 300's and 400's-> now 200's and 300's. CURRENT DIET:CCHO MED PO DIET RECOMMENDATIONS: CCHO LOW (3 Carbs/ meal) w/ DOUBLE PROTEIN PORTIONS ADDITIONAL RECOMMENDATIONS: 1) RE-calibrate bed scale w/ added P200 mattress 2) Obtain HgA1C for eval -> 10.8 3) Wound care: Continue MVI, Vit C, and ZnSO4 Add Skip BID 4) Monitor diet compliance and re-attempt to educate 5) Monitor lytes w/ Lasix, replete as needed (K low) 6) Monitor BGs closely: on increased Levemir + TIAC and SSI novolog
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
[2019-07-27 16:00] VITALS: BP 108/72
--- NOTE | 2019-07-27 16:51 | NUR ---
DISCHARGE PLANNING PATIENT HAS BEEN REFERRED TO [facility] TINEO P: [phone] F: [phone]
--- NOTE | 2019-07-27 19:09 | NUR ---
HAND-OFF: Report given to Ashley.
[2019-07-27 20:00] VITALS: BP 119/74
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
[2019-07-28] VITALS: BP 115/65
[2019-07-28 04:00] VITALS: BP 115/72
--- NOTE | 2019-07-28 05:55 | NUR ---
NURSE NOTES: SAFETY MAINTAINED, NO SIGNIFICANT CHANGE OF CONDITION NOTED. RESTED WELL. NAD.
[2019-07-28] MEDS: Heparin 5000 units/ml inj SUBQ SCH ×3 (06:08→21:03)
[2019-07-28] MEDS: NovoLOG Insulin Flexpen SUBQ SCH ×7 (06:09→21:02)
--- NOTE | 2019-07-28 07:18 | NUR ---
HAND-OFF: Report given to KATHIE RANDALL.
--- NOTE | 2019-07-28 07:30 | NUR ---
NURSE NOTES: Patient awake, alert and orientedx4 in bed, asleep. on P200 mattress for wound management. No SOB noted. unlabored breathing. IV access patent and intact. excellent appetite. Alexandre cath intact and draining well. bed is in the lowest position. siderails are upx3. Instructed to use call light for assistance. Call light in reach. brakes and lock engaged for safety measures. Will continue plan of care.
[2019-07-28 07:39] LABS: BASOPHILS % (AUTO) 0.7 % (0.0-2.0); EOSINOPHILS % (AUTO) 1.4 % (0.0-3.0); HEMOGLOBIN 12.8 G/DL (14.2-18.0); LYMPHOCYTES % (AUTO) 25.8 % (20.0-45.0); MEAN CORPUSCULAR VOLUME 80 FL (80-99); MONOCYTES % (AUTO) 6.2 % (1.0-10.0); NEUTROPHILS % (AUTO) 65.8 % (45.0-75.0); PLATELET COUNT 172 K/UL (150-450); RED BLOOD COUNT 4.86 M/UL (4.70-6.10); RED CELL DISTRIBUTION WIDTH 15.3 % (11.6-14.8); WHITE BLOOD COUNT 5.6 K/UL (4.8-10.8)
[2019-07-28 07:42] LABS: ANION GAP 12 mmol/L (5-15); BLOOD UREA NITROGEN 21 mg/dL (7-18); CALCIUM 9.2 MG/DL (8.5-10.1); CARBON DIOXIDE 24 MMOL/L (21-32); CHLORIDE 101 MMOL/L (98-107); POTASSIUM 3.8 MMOL/L (3.5-5.1); SODIUM 137 MMOL/L (136-145)
[2019-07-28 08:00] VITALS: BP 107/72
--- NOTE | 2019-07-28 08:17 | General Progress Note ---
Assessment/Plan Problem List: (1) Type 2 diabetes mellitus ICD Codes: E11.9 - Type 2 diabetes mellitus without complications SNOMED: 71344878 (2) Paraplegia ICD Codes: G82.20 - Paraplegia, unspecified SNOMED: 28120753 Status: doing well, stable Assessment/Plan: continue Levemir 80 units bid continue Novolog 40 units ac tid + SSI Subjective Allergies: Coded Allergies: No Known Allergies (Unverified , 02/09/19) All Systems: reviewed and negative except above Subjective events noted he had two glucose values in the 100 range Item Value Date Time Bedside Blood Glucose 318 mg/dl H 07/28/19 0611 Bedside Blood Glucose 119 mg/dl 07/27/19 2035 Bedside Blood Glucose 164 mg/dl H 07/27/19 1720 Bedside Blood Glucose 201 mg/dl H 07/27/19 1141 Bedside Blood Glucose 247 mg/dl H 07/27/19 0844 Objective Last 24 Hour Vital Signs Date Time Temp Pulse Resp B/P (MAP) Pulse Ox O2 Delivery O2 Flow Rate FiO2 07/28/19 04:00 97.5 78 19 115/72 (86) 96 07/28/19 00:00 97.9 95 18 115/65 (82) 96 07/27/19 21:04 98.6 07/27/19 21:00 Room Air 07/27/19 20:00 98.0 98 19 119/74 (89) 95 07/27/19 16:00 98.2 94 18 108/72 (84) 95 07/27/19 12:00 98.3 95 18 109/75 (86) 94 07/27/19 09:33 Room Air Intake and Output 07/27/19 07/28/19 19:00 07:00 Intake Total 960 ml 120 ml Output Total 1100 ml 1200 ml Balance -140 ml -1080 ml Intake Oral 960 ml 120 ml Output Urine Total 1100 ml 1200 ml # Voids 2 Laboratory Tests 07/28/19 06:50: White Blood Count 5.6, Red Blood Count 4.86, Hemoglobin 12.8L, Hematocrit 39.0L , Mean Corpuscular Volume 80, Mean Corpuscular Hemoglobin 26.4L, Mean Corpuscular Hemoglobin Concent 32.9, Red Cell Distribution Width 15.3H, Platelet Count 172, Mean Platelet Volume 6.1L, Neutrophils (%) (Auto) 65.8, Lymphocytes (%) (Auto) 25.8, Monocytes (%) (Auto) 6.2, Eosinophils (%) (Auto) 1.4, Basophils (%) (Auto) 0.7, Sodium Level 137, Potassium Level 3.8, Chloride Level 101, Carbon Dioxide Level 24, Anion Gap 12, Blood Urea Nitrogen 21H, Creatinine 1.0, Estimat Glomerular Filtration Rate > 60, Glucose Level 313H, Calcium Level 9.2 Height (Feet): 5 Height (Inches): 6.00 Weight (Pounds): 293 General Appearance: no apparent distress Neck: normal alignment Cardiovascular: normal rate Respiratory/Chest: lungs clear Abdomen: normal bowel sounds Objective Current Medications Medications (Trade) Dose Ordered Sig/Miguel Route PRN Reason Start Time Stop Time Status Last Admin Dose Admin Ascorbic Acid (Vitamin C) 500 mg DAILY ORAL 07/12/19 09:00 08/11/19 08:59 07/27/19 08:33 Bisacodyl (Dulcolax) 10 mg HSPRN PRN RECTAL Constipation 07/10/19 03:00 08/09/19 02:59 Dextrose (Dextrose 50%) 25 ml Q30M PRN IV Hypoglycemia 07/21/19 22:00 10/19/19 21:59 Dextrose (Dextrose 50%) 50 ml Q30M PRN IV Hypoglycemia 07/21/19 22:00 10/19/19 21:59 Docusate Sodium (Colace) 100 mg DAILY ORAL 07/10/19 09:00 08/09/19 08:59 07/27/19 08:33 Folic Acid (Folate) 1 mg DAILY ORAL 07/10/19 09:00 08/09/19 08:59 07/27/19 08:33 Furosemide (Lasix) 40 mg TWICE A DAY ORAL 07/10/19 09:00 08/09/19 08:59 07/27/19 08:33 Gabapentin (Neurontin) 100 mg Q12HR ORAL 07/26/19 21:00 08/25/19 20:59 07/27/19 08:33 Heparin Sodium (Porcine) (Heparin 5000 units/ml) 5,000 units EVERY 8 HOURS SUBQ 07/10/19 06:00 08/24/19 05:59 07/28/19 06:08 Hydrocortisone (Hydrocortisone) 1 applic Q6H PRN TOPIC Itching 07/22/19 14:15 10/20/19 14:14 Hydromorphone HCl (Dilaudid) 2 mg Q4H PRN ORAL Severe Pain (Pain Scale 7-10) 07/26/19 09:00 08/02/19 08:59 07/27/19 20:34 Insulin Aspart (NovoLOG) BEFORE MEALS AND HS SUBQ 07/22/19 06:30 10/20/19 06:29 07/28/19 06:10 Insulin Aspart (NovoLOG) 40 units NOVOTIAC SUBQ 07/27/19 11:50 08/16/19 06:29 07/28/19 06:09 Insulin Detemir (Levemir) 80 units BID SUBQ 07/27/19 09:00 08/16/19 08:59 07/27/19 17:20 Meclizine HCl (Antivert) 25 mg Q6H PRN ORAL for dizziness 07/22/19 14:12 08/21/19 14:11 07/24/19 04:04 Midodrine (Pro-Amatine) 10 mg THREE TIMES A DAY ORAL 07/10/19 09:00 08/09/19 08:59 07/27/19 17:19 Multivitamins (Multivitamins) 1 tab DAILY ORAL 07/12/19 09:00 08/11/19 08:59 07/27/19 08:33 Ondansetron HCl (Zofran) 4 mg Q6H PRN IVP Nausea & Vomiting 07/10/19 03:00 08/09/19 02:59 Pantoprazole (Protonix) 40 mg EVERY 12 HOURS ORAL 07/10/19 09:00 08/09/19 08:59 07/27/19 20:30 Polyethylene Glycol (Miralax) 17 gm DAILY PRN ORAL Constipation 07/26/19 09:30 08/25/19 09:29 Potassium Chloride (K-Dur) 20 meq DAILY ORAL 07/10/19 09:00 08/09/19 08:59 07/27/19 08:33 Zinc Sulfate (Zinc Sulfate) 220 mg DAILY ORAL 07/10/19 09:00 08/09/19 08:59 07/27/19 08:33 Gilson Solorio MD Jul 28, 2019 08:17
[2019-07-28] MEDS: Midodrine 10mg tab ORAL SCH ×3 (08:34→17:25)
[2019-07-28] MEDS: Docusate 100mg cap ORAL SCH (08:34)
[2019-07-28] MEDS: Zinc Sulfate 220mg cap ORAL SCH (08:34)
[2019-07-28] MEDS: Ascorbic Acid 500mg tab ORAL SCH (08:34)
[2019-07-28] MEDS: Levemir Flexpen SUBQ SCH ×2 (08:38→17:28)
[2019-07-28] MEDS: Furosemide 40mg tab ORAL SCH ×2 (08:38→17:25)
--- NOTE | 2019-07-28 11:00 | NUR ---
PT Note Attempted to see patient for PT treatment but patient adamantly refused.
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
[2019-07-28 12:00] VITALS: BP 115/87
--- NOTE | 2019-07-28 14:18 | Surgery Progress Note ---
Surgery Progress Note Subjective Symptoms: improved Objective Last 24 Hour Vital Signs Date Time Temp Pulse Resp B/P (MAP) Pulse Ox O2 Delivery O2 Flow Rate FiO2 07/28/19 12:00 97.9 62 18 115/87 (96) 96 07/28/19 08:30 Room Air 07/28/19 08:00 98.9 91 19 107/72 (84) 99 07/28/19 04:00 97.5 78 19 115/72 (86) 96 07/28/19 00:00 97.9 95 18 115/65 (82) 96 07/27/19 21:04 98.6 07/27/19 21:00 Room Air 07/27/19 20:00 98.0 98 19 119/74 (89) 95 07/27/19 16:00 98.2 94 18 108/72 (84) 95 I&O Intake and Output 07/27/19 07/28/19 19:00 07:00 Intake Total 960 ml 120 ml Output Total 1100 ml 1200 ml Balance -140 ml -1080 ml Intake Oral 960 ml 120 ml Output Urine Total 1100 ml 1200 ml # Voids 2 Dressing: dry Wound: clean Cardiovascular: RSR Respiratory: clear Abdomen: soft, non-tender, present bowel sounds Extremities: no cyanosis Laboratory Tests Test 07/28/19 06:50 White Blood Count 5.6 K/UL (4.8-10.8) Red Blood Count 4.86 M/UL (4.70-6.10) Hemoglobin 12.8 G/DL (14.2-18.0) L Hematocrit 39.0 % (42.0-52.0) L Mean Corpuscular Volume 80 FL (80-99) Mean Corpuscular Hemoglobin 26.4 PG (27.0-31.0) L Mean Corpuscular Hemoglobin Concent 32.9 G/DL (32.0-36.0) Red Cell Distribution Width 15.3 % (11.6-14.8) H Platelet Count 172 K/UL (150-450) Mean Platelet Volume 6.1 FL (6.5-10.1) L Neutrophils (%) (Auto) 65.8 % (45.0-75.0) Lymphocytes (%) (Auto) 25.8 % (20.0-45.0) Monocytes (%) (Auto) 6.2 % (1.0-10.0) Eosinophils (%) (Auto) 1.4 % (0.0-3.0) Basophils (%) (Auto) 0.7 % (0.0-2.0) Sodium Level 137 MMOL/L (136-145) Potassium Level 3.8 MMOL/L (3.5-5.1) Chloride Level 101 MMOL/L (98-107) Carbon Dioxide Level 24 MMOL/L (21-32) Anion Gap 12 mmol/L (5-15) Blood Urea Nitrogen 21 mg/dL (7-18) H Creatinine 1.0 MG/DL (0.55-1.30) Estimat Glomerular Filtration Rate > 60 mL/min (>60) Glucose Level 313 MG/DL (74-106) H Calcium Level 9.2 MG/DL (8.5-10.1) Plan Problems: (1) Sacral decubitus ulcer Assessment & Plan: Pt presented on admission with multiple pressure injuries. Contractures bilat lower ext. DTPI noted sacrococcygeal area(L)2.5cm x (W)0.5cm. Base of wound is purple with maroon borders. Non-blanching erythema periwound. Scrotum is erythematous. Full thickness stage 3/4 pressure injury upper L buttocks. (L)1.3cm x (W)1 cm x (D)1.1cm. Base of wound is obscured secondary wound within crevice of skin fold. DTPI outer lower L buttocks(L)10.5cm x (W)8.5cm. Base of wound is fluctuant, maroon with scattered areas that are purple. Pt complained site has been painful last few days. No elevation in skin temp noted. Full thickness stage 4 pressure injury R ischium.(L)3.5cm x (W)2.5cmcm x (D) 3.6cm. Surrounding perimeter of wound is maroon.Base of wound is not appreciated due wound is within crevice of skin. Small amt serosanguineous exudate noted. No odor noted. Unstageable pressure injury posterior lower R thigh(L)0.8cm x (W)0.9cm. Base of wound has 100% slough. Borders are erythematous . No odor or exudate noted. DTPI upper/lateral R thigh Base of wound is indurated and maroon in colour. Small partial thickness stage 2 ulcer distal/lateral L lower extremity. Base of wound is moist and viable. borders are macerated. Small amt sanguineous exudate noted. Full thickness stage 4 ulcer Dorsal R foot.(L)2.5cm x (W)3cm Base of wound scattered fibrinous slough ,otherwise moist and pink. Borders are macerated. No odor or exudate noted. No erythema,induration or fluctuance periwound. Historical scars noted to both heels. Scattered white plaques with hyperkeratosis noted to both lower ext. Tx Plan: Cleanse Wounds R and L buttocks with Saline. Loosely pack with Therahoney infused packing strip. Apply Moisture Barrier periwound. Cover each wound with Optifoam drsg Daily and prn. Cleanse wound R Thigh with Saline. Cover with Optifoam drsg Daily and prn. Apply Moisture Barrier Paste to Sacrum and lower L buttocks. Cover each site with Optifoam drsg. Daily and prn. Apply Cavilon to upper R thigh DTPI. Cover with Optifoam drsg. Change every 3 days and prn. Apply Betadine to wound distal/lateral L lower ext and dorsal R foot. Cover each wound with Optifoam drsg. Change every 3 days and prn. Reposition at least every 2hours or as tolerated. Off load heels with pillow. APM/DEVONTE Mattress. (2) Chronic indwelling Alexandre catheter Assessment & Plan: abx as per ID UTI noted micro noted cont abx doing better improving plain films okay unfortunately given overall condition possible inevitable decline as he is overweight, not adherent to healthy diet and does not move much will monitor and follow with recs (3) History of osteomyelitis Assessment & Plan: DAILY ESTIMATED NEEDS: Needs based on Wound, paraplegia, obesity 78.9kg abw 20-25 kcals/kg 5854-7793 total kcals 1.25-2 g protein/kg 99-158 g total protein 25-30 mL/kg 1533-3218 total fluid mLs NUTRITION DIAGNOSIS: * Increased Protein and micronutrient needs r/t Wound healing as evidenced by pt w/ multiple wounds, including full thickness and unstageable, refer to wound care eval. * Altered nutrition related lab values R/T diabetes as evidenced by BGs in the 300's and 400's. CURRENT DIET:[facility] MED PO DIET RECOMMENDATIONS: CCHO LOW (3 Carbs/ meal) w/ DOUBLE PROTEIN PORTIONS ADDITIONAL RECOMMENDATIONS: 1) RE-calibrate bed scale w/ added P200 mattress 2) Obtain HgA1C for eval 3) Wound care: Continue MVI, Vit C, and ZnSO4 Add Sikp BID 4) Monitor diet compliance and educate as able 5) Monitor lytes w/ Lasix, replete as needed 6) Monitor BGs closely, now on Levemir BID, TIAC NovoLog + SSI Richard Minaya Jul 28, 2019 14:18
--- NOTE | 2019-07-28 14:55 | NUR ---
NURSE NOTES: wound photo taken and uploaded. wound care treatment rendered. will cont to monitor.
[2019-07-28 16:00] VITALS: BP 118/76
--- NOTE | 2019-07-28 17:50 | NUR ---
NURSE NOTES: informed Dr Solorio of the current bs. awaiting for a call back. will cont to monitor.
--- NOTE | 2019-07-28 19:22 | NUR ---
NURSE NOTES: Pt. received from KATHIE Barahona. Pt. AAOx4, on room air, no indications of shortness of breath, no complaints of pain. Discussed Dr. Singh's orders to restrict pt. from ordering outside food, pt. acknowledged and verbalized understanding. Alexandre intact, draining yellow urine well. IV L forearm 22g noted, intact, saline locked at this time. Bed is low and locked, side rails x3 up, bed alarm active, and call light is in reach. Will continue to monitor.
--- NOTE | 2019-07-28 19:29 | NUR ---
HAND-OFF: Report given to Kye.
[2019-07-28 20:00] VITALS: BP 114/70
[2019-07-28] MEDS: HYDROmorphone 2mg tab ORAL PRN (20:18)
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
[2019-07-29] VITALS (7 sets, daily range): BP systolic 110–125; BP diastolic 60–85
--- NOTE | 2019-07-29 03:51 | NUR ---
NURSE NOTES: Pt. did not order food out tonight, complaint with MD orders and RN discussion. Pt. PO intake overnight minimal, x3 snacks 100%. Sleeping at this time, will continue to monitor.
[2019-07-29] MEDS: HYDROmorphone 2mg tab ORAL PRN ×2 (04:43→21:53)
[2019-07-29] MEDS: NovoLOG Insulin Flexpen SUBQ SCH ×7 (06:00→21:57)
[2019-07-29] MEDS: Heparin 5000 units/ml inj SUBQ SCH ×3 (06:01→22:08)
--- NOTE | 2019-07-29 07:25 | NUR ---
NURSE NOTES: Patient awake, alert and orientedx4 in bed, having breakfast. excellent appetite. on P200 mattress for wound management. No SOB noted. unlabored breathing. IV access patent and intact. Alexandre cath intact and draining well. bed is in the lowest position. siderails are upx3. Instructed to use call light for assistance. Call light in reach. brakes and lock engaged for safety measures. Will continue plan of care.
--- NOTE | 2019-07-29 07:38 | NUR ---
HAND-OFF: Report given to KATHIE Barahona.
[2019-07-29] MEDS: Ascorbic Acid 500mg tab ORAL SCH (08:24)
[2019-07-29] MEDS: Docusate 100mg cap ORAL SCH (08:24)
[2019-07-29] MEDS: Midodrine 10mg tab ORAL SCH ×3 (08:24→17:03)
[2019-07-29] MEDS: Zinc Sulfate 220mg cap ORAL SCH (08:25)
[2019-07-29] MEDS: Furosemide 40mg tab ORAL SCH ×2 (08:25→17:03)
[2019-07-29] MEDS: Levemir Flexpen SUBQ SCH ×2 (08:29→17:07)
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
--- NOTE | 2019-07-29 10:03 | General Progress Note ---
Assessment/Plan Problem List: (1) Type 2 diabetes mellitus ICD Codes: E11.9 - Type 2 diabetes mellitus without complications SNOMED: 45035252 (2) Paraplegia ICD Codes: G82.20 - Paraplegia, unspecified SNOMED: 51222415 Status: doing well, stable Assessment/Plan: continue Levemir 80 units bid continue Novolog 40 units ac tid + SSI Subjective Allergies: Coded Allergies: No Known Allergies (Unverified , 02/09/19) All Systems: reviewed and negative except above Subjective events noted glucose values are improving Item Value Date Time Bedside Blood Glucose 298 mg/dl H 07/29/19 0829 Bedside Blood Glucose 298 mg/dl H 07/29/19 0623 Bedside Blood Glucose 176 mg/dl H 07/28/19 2102 Bedside Blood Glucose 123 mg/dl H 07/28/19 1729 Bedside Blood Glucose 146 mg/dl H 07/28/19 1215 Bedside Blood Glucose 318 mg/dl H 07/28/19 0838 Objective Last 24 Hour Vital Signs Date Time Temp Pulse Resp B/P (MAP) Pulse Ox O2 Delivery O2 Flow Rate FiO2 07/29/19 08:00 97.4 94 19 125/71 (89) 95 07/29/19 04:00 98.3 99 18 110/79 (89) 99 07/29/19 00:00 97.8 100 18 116/85 (95) 99 07/28/19 21:00 Room Air 07/28/19 20:00 97.9 100 18 114/70 (85) 100 07/28/19 16:00 98.8 83 18 118/76 (90) 99 07/28/19 12:00 97.9 62 18 115/87 (96) 96 Intake and Output 07/28/19 07/29/19 19:00 07:00 Intake Total 1600 ml 1600 ml Output Total 1300 ml 1900 ml Balance 300 ml -300 ml Intake Oral 1600 ml Other 1600 ml Output Urine Total 1300 ml 1900 ml # Voids 1 # Bowel Movements 1 Height (Feet): 5 Height (Inches): 6.00 Weight (Pounds): 293 General Appearance: no apparent distress Neck: normal alignment Cardiovascular: normal rate Respiratory/Chest: lungs clear Objective Current Medications Medications (Trade) Dose Ordered Sig/Miguel Route PRN Reason Start Time Stop Time Status Last Admin Dose Admin Ascorbic Acid (Vitamin C) 500 mg DAILY ORAL 07/12/19 09:00 08/11/19 08:59 07/27/19 08:33 Bisacodyl (Dulcolax) 10 mg HSPRN PRN RECTAL Constipation 07/10/19 03:00 08/09/19 02:59 Dextrose (Dextrose 50%) 25 ml Q30M PRN IV Hypoglycemia 07/21/19 22:00 10/19/19 21:59 Dextrose (Dextrose 50%) 50 ml Q30M PRN IV Hypoglycemia 07/21/19 22:00 10/19/19 21:59 Docusate Sodium (Colace) 100 mg DAILY ORAL 07/10/19 09:00 08/09/19 08:59 07/27/19 08:33 Folic Acid (Folate) 1 mg DAILY ORAL 07/10/19 09:00 08/09/19 08:59 07/27/19 08:33 Furosemide (Lasix) 40 mg TWICE A DAY ORAL 07/10/19 09:00 08/09/19 08:59 07/27/19 08:33 Gabapentin (Neurontin) 100 mg Q12HR ORAL 07/26/19 21:00 08/25/19 20:59 07/27/19 08:33 Heparin Sodium (Porcine) (Heparin 5000 units/ml) 5,000 units EVERY 8 HOURS SUBQ 07/10/19 06:00 08/24/19 05:59 07/28/19 06:08 Hydrocortisone (Hydrocortisone) 1 applic Q6H PRN TOPIC Itching 07/22/19 14:15 10/20/19 14:14 Hydromorphone HCl (Dilaudid) 2 mg Q4H PRN ORAL Severe Pain (Pain Scale 7-10) 07/26/19 09:00 08/02/19 08:59 07/27/19 20:34 Insulin Aspart (NovoLOG) BEFORE MEALS AND HS SUBQ 07/22/19 06:30 10/20/19 06:29 07/28/19 06:10 Insulin Aspart (NovoLOG) 40 units NOVOTIAC SUBQ 07/27/19 11:50 08/16/19 06:29 07/28/19 06:09 Insulin Detemir (Levemir) 80 units BID SUBQ 07/27/19 09:00 08/16/19 08:59 07/27/19 17:20 Meclizine HCl (Antivert) 25 mg Q6H PRN ORAL for dizziness 07/22/19 14:12 08/21/19 14:11 07/24/19 04:04 Midodrine (Pro-Amatine) 10 mg THREE TIMES A DAY ORAL 07/10/19 09:00 08/09/19 08:59 07/27/19 17:19 Multivitamins (Multivitamins) 1 tab DAILY ORAL 07/12/19 09:00 08/11/19 08:59 07/27/19 08:33 Ondansetron HCl (Zofran) 4 mg Q6H PRN IVP Nausea & Vomiting 07/10/19 03:00 08/09/19 02:59 Pantoprazole (Protonix) 40 mg EVERY 12 HOURS ORAL 07/10/19 09:00 08/09/19 08:59 07/27/19 20:30 Polyethylene Glycol (Miralax) 17 gm DAILY PRN ORAL Constipation 07/26/19 09:30 08/25/19 09:29 Potassium Chloride (K-Dur) 20 meq DAILY ORAL 07/10/19 09:00 08/09/19 08:59 07/27/19 08:33 Zinc Sulfate (Zinc Sulfate) 220 mg DAILY ORAL 07/10/19 09:00 08/09/19 08:59 07/27/19 08:33 Gilson Solorio MD Jul 29, 2019 10:03
--- NOTE | 2019-07-29 15:03 | NUR ---
NURSE NOTES: wound care treatment rendered.
--- NOTE | 2019-07-29 17:16 | Surgery Progress Note ---
Surgery Progress Note Subjective Additional Comments no acute events comfortable Objective Last 24 Hour Vital Signs Date Time Temp Pulse Resp B/P (MAP) Pulse Ox O2 Delivery O2 Flow Rate FiO2 07/29/19 16:00 97.7 85 18 119/70 (86) 93 07/29/19 12:00 98.0 89 17 118/78 (91) 96 07/29/19 09:00 Room Air 07/29/19 08:00 97.4 94 19 125/71 (89) 95 07/29/19 04:00 98.3 99 18 110/79 (89) 99 07/29/19 00:00 97.8 100 18 116/85 (95) 99 07/28/19 21:00 Room Air 07/28/19 20:00 97.9 100 18 114/70 (85) 100 I&O Intake and Output 07/28/19 07/29/19 19:00 07:00 Intake Total 1600 ml 1600 ml Output Total 1300 ml 1900 ml Balance 300 ml -300 ml Intake Oral 1600 ml Other 1600 ml Output Urine Total 1300 ml 1900 ml # Voids 1 # Bowel Movements 1 Dressing: saturated Wound: clean Cardiovascular: RSR Respiratory: clear Abdomen: soft, flat, non-tender, present bowel sounds Extremities: no edema, no tenderness Plan Problems: (1) Sacral decubitus ulcer Assessment & Plan: Pt presented on admission with multiple pressure injuries. Contractures bilat lower ext. DTPI noted sacrococcygeal area(L)2.5cm x (W)0.5cm. Base of wound is purple with maroon borders. Non-blanching erythema periwound. Scrotum is erythematous. Full thickness stage 3/4 pressure injury upper L buttocks. (L)1.3cm x (W)1 cm x (D)1.1cm. Base of wound is obscured secondary wound within crevice of skin fold. DTPI outer lower L buttocks(L)10.5cm x (W)8.5cm. Base of wound is fluctuant, maroon with scattered areas that are purple. Pt complained site has been painful last few days. No elevation in skin temp noted. Full thickness stage 4 pressure injury R ischium.(L)3.5cm x (W)2.5cmcm x (D) 3.6cm. Surrounding perimeter of wound is maroon.Base of wound is not appreciated due wound is within crevice of skin. Small amt serosanguineous exudate noted. No odor noted. Unstageable pressure injury posterior lower R thigh(L)0.8cm x (W)0.9cm. Base of wound has 100% slough. Borders are erythematous . No odor or exudate noted. DTPI upper/lateral R thigh Base of wound is indurated and maroon in colour. Small partial thickness stage 2 ulcer distal/lateral L lower extremity. Base of wound is moist and viable. borders are macerated. Small amt sanguineous exudate noted. Full thickness stage 4 ulcer Dorsal R foot.(L)2.5cm x (W)3cm Base of wound scattered fibrinous slough ,otherwise moist and pink. Borders are macerated. No odor or exudate noted. No erythema,induration or fluctuance periwound. Historical scars noted to both heels. Scattered white plaques with hyperkeratosis noted to both lower ext. Tx Plan: Cleanse Wounds R and L buttocks with Saline. Loosely pack with Therahoney infused packing strip. Apply Moisture Barrier periwound. Cover each wound with Optifoam drsg Daily and prn. Cleanse wound R Thigh with Saline. Cover with Optifoam drsg Daily and prn. Apply Moisture Barrier Paste to Sacrum and lower L buttocks. Cover each site with Optifoam drsg. Daily and prn. Apply Cavilon to upper R thigh DTPI. Cover with Optifoam drsg. Change every 3 days and prn. Apply Betadine to wound distal/lateral L lower ext and dorsal R foot. Cover each wound with Optifoam drsg. Change every 3 days and prn. Reposition at least every 2hours or as tolerated. Off load heels with pillow. APM/DEVONTE Mattress. (2) Chronic indwelling Alexandre catheter Assessment & Plan: abx as per ID UTI noted micro noted cont abx doing better improving plain films okay unfortunately given overall condition possible inevitable decline as he is overweight, not adherent to healthy diet and does not move much will monitor and follow with recs (3) History of osteomyelitis Assessment & Plan: DAILY ESTIMATED NEEDS: Needs based on Wound, paraplegia, obesity 78.9kg abw 20-25 kcals/kg 5737-5723 total kcals 1.25-2 g protein/kg 99-158 g total protein 25-30 mL/kg 7288-3186 total fluid mLs NUTRITION DIAGNOSIS: * Increased Protein and micronutrient needs r/t Wound healing as evidenced by pt w/ multiple wounds, including full thickness and unstageable, refer to wound care eval. * Altered nutrition related lab values R/T diabetes as evidenced by BGs in the 300's and 400's. [facility] DIET RECOMMENDATIONS: [facility] LOW (3 Carbs/ meal) w/ DOUBLE PROTEIN PORTIONS ADDITIONAL RECOMMENDATIONS: 1) RE-calibrate bed scale w/ added P200 mattress 2) Obtain HgA1C for eval 3) Wound care: Continue MVI, Vit C, and ZnSO4 Add Skip BID 4) Monitor diet compliance and educate as able 5) Monitor lytes w/ Lasix, replete as needed 6) Monitor BGs closely, now on Levemir BID, TIAC NovoLog + SSI Richard Minaya Jul 29, 2019 17:16
--- NOTE | 2019-07-29 18:59 | NUR ---
HAND-OFF: Report given to kevin.
--- NOTE | 2019-07-29 19:22 | NUR ---
NURSE NOTES: Patient in bed, awake and alert x4. On room air with no signs of SOB or distress. IV intact and patent. Alexandre in place and draining well. Bed locked and in lowest position. Instructed to use call light for assistance. Bed alarm on. Call light in reach. Will continue plan of care.
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
[2019-07-30 04:38] VITALS: BP 139/70
[2019-07-30] MEDS: NovoLOG Insulin Flexpen SUBQ SCH ×7 (05:23→20:59)
[2019-07-30] MEDS: Heparin 5000 units/ml inj SUBQ SCH ×3 (05:23→22:11)
--- NOTE | 2019-07-30 07:25 | NUR ---
HAND-OFF: Report given to Prabhjot Mariano RN.
--- NOTE | 2019-07-30 07:30 | NUR ---
NURSE NOTES:handoff received from TOMAS Ireland. Patient received sleeping in bed, no acute signs of distress noted, on room air. Patient has Alexandre cath patent and draining and hanging freely from side of the bed. Patient has IV site right hand clean, dry and intact. Bed in the low and locked position with call light within reach, will continue to monitor patient.
[2019-07-30 08:00] VITALS: BP 139/70
--- NOTE | 2019-07-30 08:04 | General Progress Note ---
Assessment/Plan Problem List: (1) Type 2 diabetes mellitus ICD Codes: E11.9 - Type 2 diabetes mellitus without complications SNOMED: 77657717 (2) Paraplegia ICD Codes: G82.20 - Paraplegia, unspecified SNOMED: 40104665 Status: doing well, stable Assessment/Plan: continue Levemir 80 units bid continue Novolog 40 units ac tid + SSI Subjective Allergies: Coded Allergies: No Known Allergies (Unverified , 02/09/19) All Systems: reviewed and negative except above Subjective events noted glucose values improved Item Value Date Time Bedside Blood Glucose 181 mg/dl H 07/29/19 2157 Bedside Blood Glucose 194 mg/dl H 07/29/19 1707 Bedside Blood Glucose 130 mg/dl H 07/29/19 1207 Bedside Blood Glucose 298 mg/dl H 07/29/19 0829 Bedside Blood Glucose 298 mg/dl H 07/29/19 0623 Objective Last 24 Hour Vital Signs Date Time Temp Pulse Resp B/P (MAP) Pulse Ox O2 Delivery O2 Flow Rate FiO2 07/30/19 04:38 97.8 72 20 139/70 (93) 98 07/29/19 23:23 97.2 85 19 114/60 (78) 96 07/29/19 21:00 Room Air 07/29/19 20:00 97.8 96 18 111/77 (88) 95 07/29/19 16:00 97.7 85 18 119/70 (86) 93 07/29/19 12:00 98.0 89 17 118/78 (91) 96 07/29/19 09:00 Room Air Intake and Output 07/29/19 07/30/19 19:00 07:00 Intake Total 1200 ml Output Total 900 ml 2200 ml Balance 300 ml -2200 ml Other 1200 ml Output Urine Total 900 ml 2200 ml # Voids 2 # Bowel Movements 1 Height (Feet): 5 Height (Inches): 6.00 Weight (Pounds): 293 General Appearance: no apparent distress Neck: normal alignment Cardiovascular: normal rate Abdomen: normal bowel sounds Pelvis: normal external exam Objective Current Medications Medications (Trade) Dose Ordered Sig/Miguel Route PRN Reason Start Time Stop Time Status Last Admin Dose Admin Ascorbic Acid (Vitamin C) 500 mg DAILY ORAL 07/12/19 09:00 08/11/19 08:59 07/29/19 08:24 Bisacodyl (Dulcolax) 10 mg HSPRN PRN RECTAL Constipation 07/10/19 03:00 08/09/19 02:59 Dextrose (Dextrose 50%) 25 ml Q30M PRN IV Hypoglycemia 07/21/19 22:00 10/19/19 21:59 Dextrose (Dextrose 50%) 50 ml Q30M PRN IV Hypoglycemia 07/21/19 22:00 10/19/19 21:59 Docusate Sodium (Colace) 100 mg DAILY ORAL 07/10/19 09:00 08/09/19 08:59 07/29/19 08:24 Folic Acid (Folate) 1 mg DAILY ORAL 07/10/19 09:00 08/09/19 08:59 07/29/19 08:24 Furosemide (Lasix) 40 mg TWICE A DAY ORAL 07/10/19 09:00 08/09/19 08:59 07/29/19 17:03 Gabapentin (Neurontin) 100 mg Q12HR ORAL 07/26/19 21:00 08/25/19 20:59 07/29/19 08:25 Heparin Sodium (Porcine) (Heparin 5000 units/ml) 5,000 units EVERY 8 HOURS SUBQ 07/10/19 06:00 08/24/19 05:59 07/29/19 22:08 Hydrocortisone (Hydrocortisone) 1 applic Q6H PRN TOPIC Itching 07/22/19 14:15 10/20/19 14:14 Hydromorphone HCl (Dilaudid) 2 mg Q4H PRN ORAL Severe Pain (Pain Scale 7-10) 07/26/19 09:00 08/02/19 08:59 07/29/19 21:53 Insulin Aspart (NovoLOG) BEFORE MEALS AND HS SUBQ 07/22/19 06:30 10/20/19 06:29 07/30/19 05:23 Insulin Aspart (NovoLOG) 40 units NOVOTIAC SUBQ 07/27/19 11:50 08/16/19 06:29 07/30/19 05:24 Insulin Detemir (Levemir) 80 units BID SUBQ 07/27/19 09:00 08/16/19 08:59 07/29/19 17:07 Meclizine HCl (Antivert) 25 mg Q6H PRN ORAL for dizziness 07/22/19 14:12 08/21/19 14:11 07/24/19 04:04 Midodrine (Pro-Amatine) 10 mg THREE TIMES A DAY ORAL 07/10/19 09:00 08/09/19 08:59 07/29/19 17:03 Multivitamins (Multivitamins) 1 tab DAILY ORAL 07/12/19 09:00 08/11/19 08:59 07/29/19 08:25 Ondansetron HCl (Zofran) 4 mg Q6H PRN IVP Nausea & Vomiting 07/10/19 03:00 08/09/19 02:59 Pantoprazole (Protonix) 40 mg EVERY 12 HOURS ORAL 07/10/19 09:00 08/09/19 08:59 07/29/19 21:52 Polyethylene Glycol (Miralax) 17 gm DAILY PRN ORAL Constipation 07/26/19 09:30 08/25/19 09:29 Potassium Chloride (K-Dur) 20 meq DAILY ORAL 07/10/19 09:00 08/09/19 08:59 07/29/19 08:24 Zinc Sulfate (Zinc Sulfate) 220 mg DAILY ORAL 07/10/19 09:00 08/09/19 08:59 07/29/19 08:25 Gilson Solorio MD Jul 30, 2019 08:04
[2019-07-30 09:44] LABS: BASOPHILS % (AUTO) 0.5 % (0.0-2.0); EOSINOPHILS % (AUTO) 1.6 % (0.0-3.0); HEMATOCRIT 40.4 % (42.0-52.0); HEMOGLOBIN 13.5 G/DL (14.2-18.0); LYMPHOCYTES % (AUTO) 28.1 % (20.0-45.0); MEAN CORPUSCULAR VOLUME 79 FL (80-99); MONOCYTES % (AUTO) 6.2 % (1.0-10.0); NEUTROPHILS % (AUTO) 63.6 % (45.0-75.0); PLATELET COUNT 228 K/UL (150-450); RED CELL DISTRIBUTION WIDTH 14.8 % (11.6-14.8); WHITE BLOOD COUNT 6.5 K/UL (4.8-10.8)
[2019-07-30 09:57] LABS: ANION GAP 10 mmol/L (5-15); BLOOD UREA NITROGEN 27 mg/dL (7-18); CALCIUM 9.5 MG/DL (8.5-10.1); CARBON DIOXIDE 27 MMOL/L (21-32); CHLORIDE 102 MMOL/L (98-107); CREATININE 0.8 MG/DL (0.55-1.30); SODIUM 139 MMOL/L (136-145)
[2019-07-30] MEDS: HYDROmorphone 2mg tab ORAL PRN ×2 (10:37→22:10)
[2019-07-30] MEDS: Furosemide 40mg tab ORAL SCH ×2 (10:37→18:48)
[2019-07-30] MEDS: Midodrine 10mg tab ORAL SCH ×3 (10:37→18:48)
[2019-07-30] MEDS: Ascorbic Acid 500mg tab ORAL SCH (10:38)
[2019-07-30] MEDS: Zinc Sulfate 220mg cap ORAL SCH (10:38)
[2019-07-30] MEDS: Docusate 100mg cap ORAL SCH (10:38)
[2019-07-30] MEDS: Levemir Flexpen SUBQ SCH ×2 (11:16→18:48)
[2019-07-30] MEDS ORDERED: HYDROCORTISONE 0.5% TOPIC (11:29)
[2019-07-30] MEDS ORDERED: NOVOLOG100 UNITS1 SUBQ (11:29)
[2019-07-30] MEDS ORDERED: HYDROmorphone ORAL (11:29)
[2019-07-30] MEDS ORDERED: HEPARIN SO5000 UNIT2 SUBQ (11:29)
--- NOTE | 2019-07-30 11:33 | NUR ---
DISCHARGE PLANNING CALL RECEIVED FROM SHERLY AT [facility]. PER SHERLY, PATIENT IS APPROVED BY [facility] TO RETURN TO [facility]. STATES HE WILL HAVE WILLIAM TODAY AND WILL PROVIDE THAT TO THE FACILITY DIRECTLY. SHERLY - [facility] [phone] CALL MADE TO [facility]. SENIOR BUSINESS PROCESS ANALYST UNAVAILABLE CALL MADE TO [facility] MANA[facility] FOR [facility] AT [phone]. INFORMED THAT [facility] HAS APPROVED FOR PATIENT TO RETURN TO [facility]. STATES THEY WILL PROVIDE ROOM ASSIGNMENT UPON RECEIPT OF WILLIAM FROM [facility]. WILL FOLLOW UP. Addendum: 07/30/19 at 1540 by FORREST ZARATE LVN LVN FOLLOW UP CALL IN RE TO WILLIAM FOR [facility] MADE TO SHERLY @ [facility]. NO ANSWER. VOICEMAIL LEFT REQUESTING CALL BACK. CALL [facility] TO [facility] STATES HE HAS NOT RECEIVED RESPONSE FROM [facility] AT THIS TIME. WILL CONTINUE TO FOLLOW UP.
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
[2019-07-30 12:00] VITALS: BP 115/78
--- NOTE | 2019-07-30 12:14 | NUR ---
*-* INSURANCE *-* ALL CLINICALS AND REVIEWS HAVE LJ FAXED TO: DILCIA FIGUEROA REF# [id number] PH: [phone] FAX: [phone]
--- NOTE | 2019-07-30 14:29 | Surgery Progress Note ---
Surgery Progress Note Subjective Symptoms: improved, tolerating diet, voiding well, passing flatus, BM Objective Last 24 Hour Vital Signs Date Time Temp Pulse Resp B/P (MAP) Pulse Ox O2 Delivery O2 Flow Rate FiO2 07/30/19 12:00 97.6 93 20 115/78 (90) 95 07/30/19 09:00 Room Air 07/30/19 08:00 97.8 100 19 139/70 (93) 94 07/30/19 04:38 97.8 72 20 139/70 (93) 98 07/29/19 23:23 97.2 85 19 114/60 (78) 96 07/29/19 21:00 Room Air 07/29/19 20:00 97.8 96 18 111/77 (88) 95 07/29/19 16:00 97.7 85 18 119/70 (86) 93 I&O Intake and Output 07/29/19 07/30/19 19:00 07:00 Intake Total 1200 ml Output Total 900 ml 2200 ml Balance 300 ml -2200 ml Other 1200 ml Output Urine Total 900 ml 2200 ml # Voids 2 # Bowel Movements 1 Dressing: other Wound: other Drains: other Cardiovascular: RSR Respiratory: decreased breath sounds Abdomen: soft, non-tender, present bowel sounds Extremities: no cyanosis Laboratory Tests Test 07/30/19 09:30 White Blood Count 6.5 K/UL (4.8-10.8) Red Blood Count 5.10 M/UL (4.70-6.10) Hemoglobin 13.5 G/DL (14.2-18.0) L Hematocrit 40.4 % (42.0-52.0) L Mean Corpuscular Volume 79 FL (80-99) L Mean Corpuscular Hemoglobin 26.5 PG (27.0-31.0) L Mean Corpuscular Hemoglobin Concent 33.5 G/DL (32.0-36.0) Red Cell Distribution Width 14.8 % (11.6-14.8) Platelet Count 228 K/UL (150-450) Mean Platelet Volume 5.8 FL (6.5-10.1) L Neutrophils (%) (Auto) 63.6 % (45.0-75.0) Lymphocytes (%) (Auto) 28.1 % (20.0-45.0) Monocytes (%) (Auto) 6.2 % (1.0-10.0) Eosinophils (%) (Auto) 1.6 % (0.0-3.0) Basophils (%) (Auto) 0.5 % (0.0-2.0) Sodium Level 139 MMOL/L (136-145) Potassium Level 4.0 MMOL/L (3.5-5.1) Chloride Level 102 MMOL/L (98-107) Carbon Dioxide Level 27 MMOL/L (21-32) Anion Gap 10 mmol/L (5-15) Blood Urea Nitrogen 27 mg/dL (7-18) H Creatinine 0.8 MG/DL (0.55-1.30) Estimat Glomerular Filtration Rate > 60 mL/min (>60) Glucose Level 159 MG/DL (74-106) H Calcium Level 9.5 MG/DL (8.5-10.1) Plan Problems: (1) Sacral decubitus ulcer Assessment & Plan: Pt presented on admission with multiple pressure injuries. Contractures bilat lower ext. DTPI noted sacrococcygeal area(L)2.5cm x (W)0.5cm. Base of wound is purple with maroon borders. Non-blanching erythema periwound. Scrotum is erythematous. Full thickness stage 3/4 pressure injury upper L buttocks. (L)1.3cm x (W)1 cm x (D)1.1cm. Base of wound is obscured secondary wound within crevice of skin fold. DTPI outer lower L buttocks(L)10.5cm x (W)8.5cm. Base of wound is fluctuant, maroon with scattered areas that are purple. Pt complained site has been painful last few days. No elevation in skin temp noted. Full thickness stage 4 pressure injury R ischium.(L)3.5cm x (W)2.5cmcm x (D) 3.6cm. Surrounding perimeter of wound is maroon.Base of wound is not appreciated due wound is within crevice of skin. Small amt serosanguineous exudate noted. No odor noted. Unstageable pressure injury posterior lower R thigh(L)0.8cm x (W)0.9cm. Base of wound has 100% slough. Borders are erythematous . No odor or exudate noted. DTPI upper/lateral R thigh Base of wound is indurated and maroon in colour. Small partial thickness stage 2 ulcer distal/lateral L lower extremity. Base of wound is moist and viable. borders are macerated. Small amt sanguineous exudate noted. Full thickness stage 4 ulcer Dorsal R foot.(L)2.5cm x (W)3cm Base of wound scattered fibrinous slough ,otherwise moist and pink. Borders are macerated. No odor or exudate noted. No erythema,induration or fluctuance periwound. Historical scars noted to both heels. Scattered white plaques with hyperkeratosis noted to both lower ext. Tx Plan: Cleanse Wounds R and L buttocks with Saline. Loosely pack with Therahoney infused packing strip. Apply Moisture Barrier periwound. Cover each wound with Optifoam drsg Daily and prn. Cleanse wound R Thigh with Saline. Cover with Optifoam drsg Daily and prn. Apply Moisture Barrier Paste to Sacrum and lower L buttocks. Cover each site with Optifoam drsg. Daily and prn. Apply Cavilon to upper R thigh DTPI. Cover with Optifoam drsg. Change every 3 days and prn. Apply Betadine to wound distal/lateral L lower ext and dorsal R foot. Cover each wound with Optifoam drsg. Change every 3 days and prn. Reposition at least every 2hours or as tolerated. Off load heels with pillow. APM/DEVONTE Mattress. (2) Chronic indwelling Alexandre catheter Assessment & Plan: abx as per ID UTI noted micro noted cont abx doing better improving plain films okay unfortunately given overall condition possible inevitable decline as he is overweight, not adherent to healthy diet and does not move much will monitor and follow with recs (3) History of osteomyelitis Assessment & Plan: DAILY ESTIMATED NEEDS: Needs based on Wound, paraplegia, obesity 78.9kg abw 20-25 kcals/kg 0021-1990 total kcals 1.25-2 g protein/kg 99-158 g total protein 25-30 mL/kg 7448-9692 total fluid mLs NUTRITION DIAGNOSIS: * Increased Protein and micronutrient needs r/t Wound healing as evidenced by pt w/ multiple wounds, including full thickness and unstageable, refer to wound care eval. * Altered nutrition related lab values R/T diabetes as evidenced by BGs in the 300's and 400's. CURRENT DIET:CCHO MED PO DIET RECOMMENDATIONS: CCHO LOW (3 Carbs/ meal) w/ DOUBLE PROTEIN PORTIONS ADDITIONAL RECOMMENDATIONS: 1) RE-calibrate bed scale w/ added P200 mattress 2) Obtain HgA1C for eval 3) Wound care: Continue MVI, Vit C, and ZnSO4 Add Skip BID 4) Monitor diet compliance and educate as able 5) Monitor lytes w/ Lasix, replete as needed 6) Monitor BGs closely, now on Levemir BID, TIAC NovoLog + SSI Richard Minaya Jul 30, 2019 14:29
[2019-07-30 16:00] VITALS: BP 119/84
--- NOTE | 2019-07-30 17:31 | NUR ---
ESTATE PLANNING ATTORNEY NOTE CALL RECEIVED FROM DIDIER DUBOIS @ [facility]. STATES WILLIAM IS PENDING FINAL AUTHORIZATION BY THE WILLIAM TEAM. ALTHOUGH HE STATES APPROVAL TO RETURN TO [facility] HAS BEEN APPROVED. ONCE FINAL WILLIAM IS COMPLETED IT WILL BE SENT TO SNF.
--- NOTE | 2019-07-30 19:34 | NUR ---
HAND-OFF: Report given to TOMAS Maxwell.
--- NOTE | 2019-07-30 19:56 | NUR ---
NURSE NOTES: Received patient in bed, asleep, no acute distress noted, IV site is clean dry and intact, patient is alert and oriented x4, able to make his needs known, call light is within reach, bed is lowered, locked, alarm is on, will continue to monitor for comfort and safety.
[2019-07-30 20:00] VITALS: BP 107/60
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
[2019-07-31] VITALS: BP 98/76
[2019-07-31 04:00] VITALS: BP 119/56
[2019-07-31] MEDS: Heparin 5000 units/ml inj SUBQ SCH ×3 (05:27→20:40)
[2019-07-31] MEDS: NovoLOG Insulin Flexpen SUBQ SCH ×7 (05:30→20:39)
--- NOTE | 2019-07-31 07:17 | NUR ---
HAND-OFF: Report given to Mikaela MARIN.
--- NOTE | 2019-07-31 07:30 | NUR ---
NURSE NOTES:Handoff received from TOMAS Maxwell. Patient received awake and alert and resting in bed, no acute signs of distress noted. Patient has stoner cath patent and draining, connected to side of bed. Patient is on room air, IV site is clean dry and intact, saline locked. Bed in the low and locked position with call light at reach, no complaints at this time. will continue to monitor patient.
[2019-07-31 07:32] LABS: BASOPHILS % (AUTO) 0.3 % (0.0-2.0); EOSINOPHILS % (AUTO) 1.3 % (0.0-3.0); HEMATOCRIT 42.5 % (42.0-52.0); LYMPHOCYTES % (AUTO) 27.9 % (20.0-45.0); MEAN CORPUSCULAR VOLUME 79 FL (80-99); MONOCYTES % (AUTO) 5.1 % (1.0-10.0); NEUTROPHILS % (AUTO) 65.4 % (45.0-75.0); PLATELET COUNT 256 K/UL (150-450); RED BLOOD COUNT 5.38 M/UL (4.70-6.10); RED CELL DISTRIBUTION WIDTH 14.9 % (11.6-14.8); WHITE BLOOD COUNT 6.9 K/UL (4.8-10.8)
--- NOTE | 2019-07-31 07:37 | General Progress Note ---
Assessment/Plan Problem List: (1) Type 2 diabetes mellitus ICD Codes: E11.9 - Type 2 diabetes mellitus without complications SNOMED: 09037452 (2) Paraplegia ICD Codes: G82.20 - Paraplegia, unspecified SNOMED: 86416672 Status: doing well, stable Assessment/Plan: continue Levemir 80 units bid continue Novolog 40 units ac tid + SSI Subjective Allergies: Coded Allergies: No Known Allergies (Unverified , 02/09/19) All Systems: reviewed and negative except above Subjective events noted glucose values seems controlled on current dose Item Value Date Time Bedside Blood Glucose 181 mg/dl H 07/31/19 0541 Bedside Blood Glucose 194 mg/dl H 07/30/19 1231 Bedside Blood Glucose 148 mg/dl H 07/30/19 1848 Objective Last 24 Hour Vital Signs Date Time Temp Pulse Resp B/P (MAP) Pulse Ox O2 Delivery O2 Flow Rate FiO2 07/31/19 04:00 97.9 94 20 119/56 (77) 96 07/31/19 00:00 96.8 100 18 98/76 (83) 98 07/30/19 22:50 97.8 07/30/19 21:19 Room Air 07/30/19 20:00 97.8 95 20 107/60 (76) 95 07/30/19 16:00 98.0 95 19 119/84 (96) 94 07/30/19 12:00 97.6 93 20 115/78 (90) 95 07/30/19 09:00 Room Air 07/30/19 08:00 97.8 100 19 139/70 (93) 94 Intake and Output 07/30/19 07/31/19 19:00 07:00 Intake Total 1420 ml Output Total 1300 ml 1100 ml Balance 120 ml -1100 ml Intake Oral 1420 ml Output Urine Total 1300 ml 1100 ml # Bowel Movements 1 Laboratory Tests 07/30/19 09:30: White Blood Count 6.5, Red Blood Count 5.10, Hemoglobin 13.5L, Hematocrit 40.4L , Mean Corpuscular Volume 79L, Mean Corpuscular Hemoglobin 26.5L, Mean Corpuscular Hemoglobin Concent 33.5, Red Cell Distribution Width 14.8, Platelet Count 228, Mean Platelet Volume 5.8L, Neutrophils (%) (Auto) 63.6, Lymphocytes ( %) (Auto) 28.1, Monocytes (%) (Auto) 6.2, Eosinophils (%) (Auto) 1.6, Basophils (%) (Auto) 0.5, Sodium Level 139, Potassium Level 4.0, Chloride Level 102, Carbon Dioxide Level 27, Anion Gap 10, Blood Urea Nitrogen 27H, Creatinine 0.8, Estimat Glomerular Filtration Rate > 60, Glucose Level 159H, Calcium Level 9.5 07/31/19 07:22: White Blood Count 6.9, Red Blood Count 5.38, Hemoglobin 14.0L, Hematocrit 42.5, Mean Corpuscular Volume 79L, Mean Corpuscular Hemoglobin 26.1L, Mean Corpuscular Hemoglobin Concent 33.0, Red Cell Distribution Width 14.9H, Platelet Count 256, Mean Platelet Volume 5.6L, Neutrophils (%) (Auto) 65.4, Lymphocytes (%) (Auto) 27.9, Monocytes (%) (Auto) 5.1, Eosinophils (%) (Auto) 1.3, Basophils (%) (Auto) 0.3, Sodium Level [Pending], Potassium Level [Pending] , Chloride Level [Pending], Carbon Dioxide Level [Pending], Blood Urea Nitrogen [Pending], Creatinine [Pending], Estimat Glomerular Filtration Rate [Pending], Glucose Level [Pending], Calcium Level [Pending] Height (Feet): 5 Height (Inches): 6.00 Weight (Pounds): 293 General Appearance: no apparent distress Neck: normal alignment Cardiovascular: normal rate Respiratory/Chest: lungs clear Abdomen: normal bowel sounds Pelvis: normal external exam Objective Current Medications Medications (Trade) Dose Ordered Sig/Miguel Route PRN Reason Start Time Stop Time Status Last Admin Dose Admin Ascorbic Acid (Vitamin C) 500 mg DAILY ORAL 07/12/19 09:00 08/11/19 08:59 07/30/19 10:38 Bisacodyl (Dulcolax) 10 mg HSPRN PRN RECTAL Constipation 07/10/19 03:00 08/09/19 02:59 Dextrose (Dextrose 50%) 25 ml Q30M PRN IV Hypoglycemia 07/21/19 22:00 10/19/19 21:59 Dextrose (Dextrose 50%) 50 ml Q30M PRN IV Hypoglycemia 07/21/19 22:00 10/19/19 21:59 Docusate Sodium (Colace) 100 mg DAILY ORAL 07/10/19 09:00 08/09/19 08:59 07/30/19 10:38 Folic Acid (Folate) 1 mg DAILY ORAL 07/10/19 09:00 08/09/19 08:59 07/30/19 10:37 Furosemide (Lasix) 40 mg TWICE A DAY ORAL 07/10/19 09:00 08/09/19 08:59 07/30/19 18:48 Gabapentin (Neurontin) 100 mg Q12HR ORAL 07/26/19 21:00 08/25/19 20:59 07/29/19 08:25 Heparin Sodium (Porcine) (Heparin 5000 units/ml) 5,000 units EVERY 8 HOURS SUBQ 07/10/19 06:00 08/24/19 05:59 07/30/19 22:11 Hydrocortisone (Hydrocortisone) 1 applic Q6H PRN TOPIC Itching 07/22/19 14:15 10/20/19 14:14 Hydromorphone HCl (Dilaudid) 2 mg Q4H PRN ORAL Severe Pain (Pain Scale 7-10) 07/26/19 09:00 08/02/19 08:59 07/30/19 22:10 Insulin Aspart (NovoLOG) BEFORE MEALS AND HS SUBQ 07/22/19 06:30 10/20/19 06:29 07/31/19 05:32 Insulin Aspart (NovoLOG) 40 units NOVOTIAC SUBQ 07/27/19 11:50 08/16/19 06:29 07/31/19 05:30 Insulin Detemir (Levemir) 80 units BID SUBQ 07/27/19 09:00 08/16/19 08:59 07/30/19 18:48 Meclizine HCl (Antivert) 25 mg Q6H PRN ORAL for dizziness 07/22/19 14:12 08/21/19 14:11 07/24/19 04:04 Midodrine (Pro-Amatine) 10 mg THREE TIMES A DAY ORAL 07/10/19 09:00 08/09/19 08:59 07/30/19 18:48 Multivitamins (Multivitamins) 1 tab DAILY ORAL 07/12/19 09:00 08/11/19 08:59 07/30/19 10:40 Ondansetron HCl (Zofran) 4 mg Q6H PRN IVP Nausea & Vomiting 07/10/19 03:00 08/09/19 02:59 Pantoprazole (Protonix) 40 mg EVERY 12 HOURS ORAL 07/10/19 09:00 08/09/19 08:59 07/30/19 20:51 Polyethylene Glycol (Miralax) 17 gm DAILY PRN ORAL Constipation 07/26/19 09:30 08/25/19 09:29 Potassium Chloride (K-Dur) 20 meq DAILY ORAL 07/10/19 09:00 08/09/19 08:59 07/30/19 10:37 Zinc Sulfate (Zinc Sulfate) 220 mg DAILY ORAL 07/10/19 09:00 08/09/19 08:59 07/30/19 10:38 Gilson Solorio MD Jul 31, 2019 07:37
[2019-07-31 07:52] LABS: ANION GAP 12 mmol/L (5-15); BLOOD UREA NITROGEN 31 mg/dL (7-18); CALCIUM 9.7 MG/DL (8.5-10.1); CARBON DIOXIDE 26 MMOL/L (21-32); CHLORIDE 100 MMOL/L (98-107); CREATININE 0.9 MG/DL (0.55-1.30); POTASSIUM 3.5 MMOL/L (3.5-5.1); SODIUM 138 MMOL/L (136-145)
[2019-07-31 07:58] VITALS: BP 103/70
[2019-07-31] MEDS: Ascorbic Acid 500mg tab ORAL SCH (08:14)
[2019-07-31] MEDS: Midodrine 10mg tab ORAL SCH ×3 (08:14→17:02)
[2019-07-31] MEDS: Docusate 100mg cap ORAL SCH (08:14)
[2019-07-31] MEDS: Furosemide 40mg tab ORAL SCH ×2 (08:14→17:02)
[2019-07-31] MEDS: Zinc Sulfate 220mg cap ORAL SCH (08:14)
[2019-07-31] MEDS: Levemir Flexpen SUBQ SCH ×2 (08:16→17:02)
[2019-07-31] MEDS: HYDROmorphone 2mg tab ORAL PRN ×2 (08:18→22:57)
--- NOTE | 2019-07-31 09:25 | NUR ---
DISCHARGE PLANNING CALL MADE TO [facility] IN ATTEMPT TO OBTAIN BED ASSIGNMENT. PER SAIGE LOJA IN ADMISSIONS NOT AVAILABLE. CALL MADE TO SWATHI @ [phone], WITH NO ANSWER. VOICEMAIL LEFT REQUESTING CALL BACK.
--- NOTE | 2019-07-31 11:21 | NUR ---
NEWSPAPER EDITOR NOTE CALL MADE TO DIDIER DUBOIS @ [facility] ([phone]) TO INQUIRE ON STATUS OF AUTHORIZATION TO [facility]. SHERLY DIRECTED ME TO CONTACT HIS FINISHER MAP AND CHART TEREZA ZARATE @ [phone] EXT [phone]. CALL PLACED WITH NO ANSWER. VM LEFT REQUESTING CALL BACK. WILL FOLLOW UP. Addendum: 07/31/19 at 1441 by FORREST ZARATE LVN LVN 2ND ATTEMPT TO CONTACT TEERZA AT [facility] @ [phone] EXT [phone]. NO ANSWER. VOICEMAIL LEFT REQUESTING CALL BACK. CALL MADE TO DIDIER TIMMONS FINISHER MAP AND CHART @ [phone] EXT [phone]. NO ANSWER. VOICEMAIL LEFT REQUESTING CALL BACK. CONTINUING TO MAKE ATTEMPT TO OBTAIN BED PLACEMENT FOR PATIENT. CALL MADE TO [facility] PER IRENE, NO BEDS AT THIS TIME.
--- NOTE | 2019-07-31 11:44 | NUR ---
*-* INSURANCE *-* ALL CLINICALS AND REVIEWS HAVE LJ FAXED TO: DILCIA FIGUEROA REF# [id number] PH: [phone] FAX: [phone]
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
[2019-07-31 12:00] VITALS: BP 119/87
--- NOTE | 2019-07-31 13:55 | Surgery Progress Note ---
Surgery Progress Note Subjective Symptoms: improved Objective Last 24 Hour Vital Signs Date Time Temp Pulse Resp B/P (MAP) Pulse Ox O2 Delivery O2 Flow Rate FiO2 07/31/19 12:00 98.3 102 20 119/87 (98) 95 07/31/19 08:24 Room Air 07/31/19 07:58 97.5 105 19 103/70 (81) 94 07/31/19 04:00 97.9 94 20 119/56 (77) 96 07/31/19 00:00 96.8 100 18 98/76 (83) 98 07/30/19 22:50 97.8 07/30/19 21:19 Room Air 07/30/19 20:00 97.8 95 20 107/60 (76) 95 07/30/19 16:00 98.0 95 19 119/84 (96) 94 I&O Intake and Output 07/30/19 07/31/19 19:00 07:00 Intake Total 1420 ml Output Total 1300 ml 1100 ml Balance 120 ml -1100 ml Intake Oral 1420 ml Output Urine Total 1300 ml 1100 ml # Bowel Movements 1 Dressing: saturated Wound: clean, other Cardiovascular: RSR Respiratory: clear Abdomen: soft, non-tender, present bowel sounds Extremities: edema, no tenderness, no cyanosis, other Laboratory Tests Test 07/31/19 07:22 White Blood Count 6.9 K/UL (4.8-10.8) Red Blood Count 5.38 M/UL (4.70-6.10) Hemoglobin 14.0 G/DL (14.2-18.0) L Hematocrit 42.5 % (42.0-52.0) Mean Corpuscular Volume 79 FL (80-99) L Mean Corpuscular Hemoglobin 26.1 PG (27.0-31.0) L Mean Corpuscular Hemoglobin Concent 33.0 G/DL (32.0-36.0) Red Cell Distribution Width 14.9 % (11.6-14.8) H Platelet Count 256 K/UL (150-450) Mean Platelet Volume 5.6 FL (6.5-10.1) L Neutrophils (%) (Auto) 65.4 % (45.0-75.0) Lymphocytes (%) (Auto) 27.9 % (20.0-45.0) Monocytes (%) (Auto) 5.1 % (1.0-10.0) Eosinophils (%) (Auto) 1.3 % (0.0-3.0) Basophils (%) (Auto) 0.3 % (0.0-2.0) Sodium Level 138 MMOL/L (136-145) Potassium Level 3.5 MMOL/L (3.5-5.1) Chloride Level 100 MMOL/L (98-107) Carbon Dioxide Level 26 MMOL/L (21-32) Anion Gap 12 mmol/L (5-15) Blood Urea Nitrogen 31 mg/dL (7-18) H Creatinine 0.9 MG/DL (0.55-1.30) Estimat Glomerular Filtration Rate > 60 mL/min (>60) Glucose Level 140 MG/DL (74-106) H Calcium Level 9.7 MG/DL (8.5-10.1) Plan Problems: (1) Sacral decubitus ulcer Assessment & Plan: Pt presented on admission with multiple pressure injuries. Contractures bilat lower ext. DTPI noted sacrococcygeal area(L)2.5cm x (W)0.5cm. Base of wound is purple with maroon borders. Non-blanching erythema periwound. Scrotum is erythematous. Full thickness stage 3/4 pressure injury upper L buttocks. (L)1.3cm x (W)1 cm x (D)1.1cm. Base of wound is obscured secondary wound within crevice of skin fold. DTPI outer lower L buttocks(L)10.5cm x (W)8.5cm. Base of wound is fluctuant, maroon with scattered areas that are purple. Pt complained site has been painful last few days. No elevation in skin temp noted. Full thickness stage 4 pressure injury R ischium.(L)3.5cm x (W)2.5cmcm x (D) 3.6cm. Surrounding perimeter of wound is maroon.Base of wound is not appreciated due wound is within crevice of skin. Small amt serosanguineous exudate noted. No odor noted. Unstageable pressure injury posterior lower R thigh(L)0.8cm x (W)0.9cm. Base of wound has 100% slough. Borders are erythematous . No odor or exudate noted. DTPI upper/lateral R thigh Base of wound is indurated and maroon in colour. Small partial thickness stage 2 ulcer distal/lateral L lower extremity. Base of wound is moist and viable. borders are macerated. Small amt sanguineous exudate noted. Full thickness stage 4 ulcer Dorsal R foot.(L)2.5cm x (W)3cm Base of wound scattered fibrinous slough ,otherwise moist and pink. Borders are macerated. No odor or exudate noted. No erythema,induration or fluctuance periwound. Historical scars noted to both heels. Scattered white plaques with hyperkeratosis noted to both lower ext. Tx Plan: Cleanse Wounds R and L buttocks with Saline. Loosely pack with Therahoney infused packing strip. Apply Moisture Barrier periwound. Cover each wound with Optifoam drsg Daily and prn. Cleanse wound R Thigh with Saline. Cover with Optifoam drsg Daily and prn. Apply Moisture Barrier Paste to Sacrum and lower L buttocks. Cover each site with Optifoam drsg. Daily and prn. Apply Cavilon to upper R thigh DTPI. Cover with Optifoam drsg. Change every 3 days and prn. Apply Betadine to wound distal/lateral L lower ext and dorsal R foot. Cover each wound with Optifoam drsg. Change every 3 days and prn. Reposition at least every 2hours or as tolerated. Off load heels with pillow. APM/DEVONTE Mattress. (2) Chronic indwelling Alexandre catheter Assessment & Plan: abx as per ID UTI noted micro noted cont abx doing better improving plain films okay unfortunately given overall condition possible inevitable decline as he is overweight, not adherent to healthy diet and does not move much will monitor and follow with recs (3) History of osteomyelitis Assessment & Plan: DAILY ESTIMATED NEEDS: Needs based on Wound, paraplegia, obesity 78.9kg abw 20-25 kcals/kg 9500-1190 total kcals 1.25-2 g protein/kg 99-158 g total protein 25-30 mL/kg 7073-2174 total fluid mLs NUTRITION DIAGNOSIS: * Increased Protein and micronutrient needs r/t Wound healing as evidenced by pt w/ multiple wounds, including full thickness and unstageable, refer to wound care eval. * Altered nutrition related lab values R/T diabetes as evidenced by BGs in the 300's and 400's. CURRENT DIET:[facility] MED PO DIET RECOMMENDATIONS: [facility] LOW (3 Carbs/ meal) w/ DOUBLE PROTEIN PORTIONS ADDITIONAL RECOMMENDATIONS: 1) RE-calibrate bed scale w/ added P200 mattress 2) Obtain HgA1C for eval 3) Wound care: Continue MVI, Vit C, and ZnSO4 Add Skip BID 4) Monitor diet compliance and educate as able 5) Monitor lytes w/ Lasix, replete as needed 6) Monitor BGs closely, now on Levemir BID, TIAC NovoLog + SSI Richard Minaya Jul 31, 2019 13:55
--- NOTE | 2019-07-31 15:08 | NUR ---
DISCHARGE PLANNING CALL BACK RECEIVED FROM DIDIER MOULTON AT [facility]. STATES THEIR TEAM IS CURRENTLY WORKING ON PROVIDING AN [facility] TO [facility]. ALTHOUGH IT APPEARS THE FACILITY IS NOT IN AGREEMENT WITH TERMS OF WILLIAM AT THIS TIME. CASE HAS BEEN RETURNED TO TEAM FOR FURTHER REVIEW AT THIS TIME. SAIGE ADVISED THIS CM TO ATTEMPT TO SECURE PLACEMENT WITH A CONTRACTED FACILITY IN THE EVENT [facility] DOES NOT ACCEPT [facility]. PATIENT HAS BEEN REFERRED TO THE FOLLOWING: [facility] P: [phone] F: [phone] [facility] P: [phone] F; [phone] [facility] P: [phone] F: [phone] [facility] P: [phone] F: [phone] [facility] P: [phone] F: [phone] [facility] P: [phone] F: [phone] [facility] P: [phone] F: [phone] [facility] P: [phone] F: [phone] [facility] P: [phone] F: [phone]
[2019-07-31 16:00] VITALS: BP 116/74
--- NOTE | 2019-07-31 16:06 | NUR ---
CASE MANAGEMENT:REVIEW 07/30/2019 SI; UNCONTROLLED DM. HYPOTENSION. 98.0 100 20 107/60 94% ON RA BUN 27 BG 159 IS;INSULIN NOVOLOG INSULIN LEVEMIR DILAUDID PO Q4 HRS PRN ANTIVERT PO Q6 HRS PRN LASIX PO BID MIDODRINE PO TID PROTONIX PO Q2 HRS K-DUR PO QD MED SURG STATUS DCP;FROM [facility] CASE MANAGEMENT:REVIEW 07/31/2019 SI; UNCONTROLLED DM. HYPOTENSION. 96.8 105 20 98/76 94% ON RA BUN 31 BG 140 IS;INSULIN NOVOLOG INSULIN LEVEMIR DILAUDID PO Q4 HRS PRN ANTIVERT PO Q6 HRS PRN LASIX PO BID MIDODRINE PO TID PROTONIX PO Q2 HRS K-DUR PO QD MED SURG STATUS DCP;FROM [facility] SNF PLACEMENT
--- NOTE | 2019-07-31 19:20 | NUR ---
NURSE NOTES: Received patient in bed, awake, alert, oriented x4, able to make his needs known, IV site is clean dry and intact, no acute distress noted. Call light is within reach, bed is lowered, locked, alarm is on, will continue to monitor for comfort and safety.
--- NOTE | 2019-07-31 19:27 | NUR ---
HAND-OFF: Report given to TOMAS Maxwell.
[2019-07-31 20:00] VITALS: BP 120/69
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
[2019-08-01] VITALS: BP 129/79
[2019-08-01 04:00] VITALS: BP 138/75
[2019-08-01] MEDS: NovoLOG Insulin Flexpen SUBQ SCH ×7 (06:04→20:57)
[2019-08-01] MEDS: Heparin 5000 units/ml inj SUBQ SCH ×3 (06:05→22:10)
[2019-08-01 06:41] LABS: BASOPHILS % (AUTO) 0.8 % (0.0-2.0); EOSINOPHILS % (AUTO) 1.6 % (0.0-3.0); HEMATOCRIT 40.6 % (42.0-52.0); HEMOGLOBIN 13.5 G/DL (14.2-18.0); LYMPHOCYTES % (AUTO) 30.5 % (20.0-45.0); MEAN CORPUSCULAR VOLUME 80 FL (80-99); MONOCYTES % (AUTO) 5.4 % (1.0-10.0); NEUTROPHILS % (AUTO) 61.8 % (45.0-75.0); PLATELET COUNT 242 K/UL (150-450); RED BLOOD COUNT 5.07 M/UL (4.70-6.10); WHITE BLOOD COUNT 6.9 K/UL (4.8-10.8)
--- NOTE | 2019-08-01 07:00 | General Progress Note ---
Assessment/Plan Problem List: (1) Type 2 diabetes mellitus ICD Codes: E11.9 - Type 2 diabetes mellitus without complications SNOMED: 95362133 (2) Paraplegia ICD Codes: G82.20 - Paraplegia, unspecified SNOMED: 86864040 Status: doing well, stable Assessment/Plan: continue Levemir 80 units bid continue Novolog 40 units ac tid + SSI Subjective Allergies: Coded Allergies: No Known Allergies (Unverified , 02/09/19) All Systems: reviewed and negative except above Subjective events noted glucose values more stable Item Value Date Time Bedside Blood Glucose 232 mg/dl H 08/01/19 0614 Bedside Blood Glucose 111 mg/dl 07/31/19 2039 Bedside Blood Glucose 205 mg/dl H 07/31/19 1702 Bedside Blood Glucose 192 mg/dl H 07/31/19 1207 Objective Last 24 Hour Vital Signs Date Time Temp Pulse Resp B/P (MAP) Pulse Ox O2 Delivery O2 Flow Rate FiO2 08/01/19 04:00 98.4 97 24 138/75 (96) 94 08/01/19 00:00 97.6 96 20 129/79 (96) 95 07/31/19 23:30 98.0 07/31/19 21:09 Room Air 07/31/19 20:00 98.0 95 18 120/69 (86) 96 07/31/19 16:00 97.3 100 19 116/74 (88) 94 07/31/19 12:00 98.3 102 20 119/87 (98) 95 07/31/19 08:24 Room Air 07/31/19 07:58 97.5 105 19 103/70 (81) 94 Intake and Output 07/31/19 08/01/19 19:00 07:00 Intake Total 1400 ml Output Total 2300 ml Balance -900 ml Intake Oral 1400 ml Output Urine Total 2300 ml # Bowel Movements 1 Laboratory Tests 07/31/19 07:22: White Blood Count 6.9, Red Blood Count 5.38, Hemoglobin 14.0L, Hematocrit 42.5, Mean Corpuscular Volume 79L, Mean Corpuscular Hemoglobin 26.1L, Mean Corpuscular Hemoglobin Concent 33.0, Red Cell Distribution Width 14.9H, Platelet Count 256, Mean Platelet Volume 5.6L, Neutrophils (%) (Auto) 65.4, Lymphocytes (%) (Auto) 27.9, Monocytes (%) (Auto) 5.1, Eosinophils (%) (Auto) 1.3, Basophils (%) (Auto) 0.3, Sodium Level 138, Potassium Level 3.5, Chloride Level 100, Carbon Dioxide Level 26, Anion Gap 12, Blood Urea Nitrogen 31H, Creatinine 0.9, Estimat Glomerular Filtration Rate > 60, Glucose Level 140H, Calcium Level 9.7 08/01/19 05:59: White Blood Count 6.9, Red Blood Count 5.07, Hemoglobin 13.5L, Hematocrit 40.6L , Mean Corpuscular Volume 80, Mean Corpuscular Hemoglobin 26.6L, Mean Corpuscular Hemoglobin Concent 33.2, Red Cell Distribution Width 15.0H, Platelet Count 242, Mean Platelet Volume 6.0L, Neutrophils (%) (Auto) 61.8, Lymphocytes (%) (Auto) 30.5, Monocytes (%) (Auto) 5.4, Eosinophils (%) (Auto) 1.6, Basophils (%) (Auto) 0.8, Sodium Level [Pending], Potassium Level [Pending] , Chloride Level [Pending], Carbon Dioxide Level [Pending], Blood Urea Nitrogen [Pending], Creatinine [Pending], Estimat Glomerular Filtration Rate [Pending], Glucose Level [Pending], Calcium Level [Pending] Height (Feet): 5 Height (Inches): 6.00 Weight (Pounds): 293 General Appearance: no apparent distress Neck: normal alignment Cardiovascular: normal rate Respiratory/Chest: lungs clear Abdomen: normal bowel sounds Objective Current Medications Medications (Trade) Dose Ordered Sig/Miguel Route PRN Reason Start Time Stop Time Status Last Admin Dose Admin Ascorbic Acid (Vitamin C) 500 mg DAILY ORAL 07/12/19 09:00 08/11/19 08:59 07/31/19 08:14 Bisacodyl (Dulcolax) 10 mg HSPRN PRN RECTAL Constipation 07/10/19 03:00 08/09/19 02:59 Dextrose (Dextrose 50%) 25 ml Q30M PRN IV Hypoglycemia 07/21/19 22:00 10/19/19 21:59 Dextrose (Dextrose 50%) 50 ml Q30M PRN IV Hypoglycemia 07/21/19 22:00 10/19/19 21:59 Docusate Sodium (Colace) 100 mg DAILY ORAL 07/10/19 09:00 08/09/19 08:59 07/31/19 08:14 Folic Acid (Folate) 1 mg DAILY ORAL 07/10/19 09:00 08/09/19 08:59 07/31/19 08:14 Furosemide (Lasix) 40 mg TWICE A DAY ORAL 07/10/19 09:00 08/09/19 08:59 07/31/19 17:02 Gabapentin (Neurontin) 100 mg Q12HR ORAL 07/26/19 21:00 08/25/19 20:59 07/29/19 08:25 Heparin Sodium (Porcine) (Heparin 5000 units/ml) 5,000 units EVERY 8 HOURS SUBQ 07/10/19 06:00 08/24/19 05:59 08/01/19 06:05 Hydrocortisone (Hydrocortisone) 1 applic Q6H PRN TOPIC Itching 07/22/19 14:15 10/20/19 14:14 Hydromorphone HCl (Dilaudid) 2 mg Q4H PRN ORAL Severe Pain (Pain Scale 7-10) 07/26/19 09:00 08/02/19 08:59 07/31/19 22:57 Insulin Aspart (NovoLOG) BEFORE MEALS AND HS SUBQ 07/22/19 06:30 10/20/19 06:29 08/01/19 06:04 Insulin Aspart (NovoLOG) 40 units NOVOTIAC SUBQ 07/27/19 11:50 08/16/19 06:29 08/01/19 06:04 Insulin Detemir (Levemir) 80 units BID SUBQ 07/27/19 09:00 08/16/19 08:59 07/31/19 17:02 Meclizine HCl (Antivert) 25 mg Q6H PRN ORAL for dizziness 07/22/19 14:12 08/21/19 14:11 07/24/19 04:04 Midodrine (Pro-Amatine) 10 mg THREE TIMES A DAY ORAL 07/10/19 09:00 08/09/19 08:59 07/31/19 17:02 Multivitamins (Multivitamins) 1 tab DAILY ORAL 07/12/19 09:00 08/11/19 08:59 07/31/19 08:14 Ondansetron HCl (Zofran) 4 mg Q6H PRN IVP Nausea & Vomiting 07/10/19 03:00 08/09/19 02:59 Pantoprazole (Protonix) 40 mg EVERY 12 HOURS ORAL 07/10/19 09:00 08/09/19 08:59 07/31/19 20:39 Polyethylene Glycol (Miralax) 17 gm DAILY PRN ORAL Constipation 07/26/19 09:30 08/25/19 09:29 Potassium Chloride (K-Dur) 20 meq DAILY ORAL 07/10/19 09:00 08/09/19 08:59 07/31/19 08:14 Zinc Sulfate (Zinc Sulfate) 220 mg DAILY ORAL 07/10/19 09:00 08/09/19 08:59 07/31/19 08:14 Gilson Solorio MD Aug 01, 2019 07:00
[2019-08-01 07:18] LABS: ANION GAP 13 mmol/L (5-15); BLOOD UREA NITROGEN 34 mg/dL (7-18); CALCIUM 9.6 MG/DL (8.5-10.1); CARBON DIOXIDE 25 MMOL/L (21-32); CHLORIDE 102 MMOL/L (98-107); CREATININE 0.9 MG/DL (0.55-1.30); POTASSIUM 3.7 MMOL/L (3.5-5.1); SODIUM 140 MMOL/L (136-145)
--- NOTE | 2019-08-01 07:44 | NUR ---
NURSE NOTES: received report from TOMAS Maxwell. patient in bed. A&Ox4, verbally responsive. no respiratory distress noted. no pain at this time. f/c draining. yellow. g intact. sediment noted/. IV RH saline lock. intact. contact isolation. ppe at all times. bed in the lowest position and locked. call light within reach. will continue to provide plan of care.
[2019-08-01 08:00] VITALS: BP 115/72
[2019-08-01] MEDS: Midodrine 10mg tab ORAL SCH ×3 (08:37→17:45)
[2019-08-01] MEDS: Docusate 100mg cap ORAL SCH (08:37)
[2019-08-01] MEDS: Ascorbic Acid 500mg tab ORAL SCH (08:37)
[2019-08-01] MEDS: HYDROmorphone 2mg tab ORAL PRN ×2 (08:38→18:18)
[2019-08-01] MEDS: Zinc Sulfate 220mg cap ORAL SCH (08:38)
[2019-08-01] MEDS: Furosemide 40mg tab ORAL SCH ×2 (08:38→17:45)
[2019-08-01] MEDS: Levemir Flexpen SUBQ SCH ×2 (08:40→18:14)
--- NOTE | 2019-08-01 10:59 | NUR ---
RD ASSESSMENT & RECOMMENDATIONS SEE CARE ACTIVITY FOR COMPLETE ASSESSMENT DAILY ESTIMATED NEEDS: Needs based on Wound, paraplegia, obesity 78.9kg abw 20-25 kcals/kg 5104-9114 total kcals 1.25-2 g protein/kg 99-158 g total protein 25-30 mL/kg 8143-6983 total fluid mLs NUTRITION DIAGNOSIS: * Increased Protein and micronutrient needs r/t Wound healing as evidenced by pt w/ multiple wounds, including full thickness and unstageable, refer to wound care eval. * Altered nutrition related lab values R/T diabetes as evidenced by BGs in the 300's and 400's-> now improved. CURRENT DIET:[facility]HO MED PO DIET RECOMMENDATIONS: CCHO LOW (3 Carbs/ meal) w/ DOUBLE PROTEIN PORTIONS ADDITIONAL RECOMMENDATIONS: 1) RE-calibrate bed scale w/ added P200 mattress 2) Obtain HgA1C for eval -> 10.8 3) Wound care: Continue MVI, Vit C, and ZnSO4 Add Skip BID 4) Monitor diet compliance and re-attempt to educate 5) Monitor lytes w/ Lasix, replete as needed 6) Monitor BGs closely: on increased Levemir + TIAC and SSI carolynn
--- NOTE | 2019-08-01 11:23 | Surgery Progress Note ---
Surgery Progress Note Subjective Symptoms: improved, tolerating diet, voiding well, passing flatus, BM, pain decreased Objective Last 24 Hour Vital Signs Date Time Temp Pulse Resp B/P (MAP) Pulse Ox O2 Delivery O2 Flow Rate FiO2 08/01/19 10:58 Room Air 08/01/19 09:00 Room Air 08/01/19 08:00 97.8 94 21 115/72 (86) 95 08/01/19 04:00 98.4 97 24 138/75 (96) 94 08/01/19 00:00 97.6 96 20 129/79 (96) 95 07/31/19 23:30 98.0 07/31/19 21:09 Room Air 07/31/19 20:00 98.0 95 18 120/69 (86) 96 07/31/19 16:00 97.3 100 19 116/74 (88) 94 07/31/19 12:00 98.3 102 20 119/87 (98) 95 I&O Intake and Output 07/31/19 08/01/19 19:00 07:00 Intake Total 1400 ml Output Total 2300 ml Balance -900 ml Intake Oral 1400 ml Output Urine Total 2300 ml # Bowel Movements 1 Dressing: saturated Wound: clean Cardiovascular: RSR Respiratory: clear Abdomen: soft, non-tender, present bowel sounds Extremities: no tenderness, no cyanosis, other Laboratory Tests Test 08/01/19 05:59 White Blood Count 6.9 K/UL (4.8-10.8) Red Blood Count 5.07 M/UL (4.70-6.10) Hemoglobin 13.5 G/DL (14.2-18.0) L Hematocrit 40.6 % (42.0-52.0) L Mean Corpuscular Volume 80 FL (80-99) Mean Corpuscular Hemoglobin 26.6 PG (27.0-31.0) L Mean Corpuscular Hemoglobin Concent 33.2 G/DL (32.0-36.0) Red Cell Distribution Width 15.0 % (11.6-14.8) H Platelet Count 242 K/UL (150-450) Mean Platelet Volume 6.0 FL (6.5-10.1) L Neutrophils (%) (Auto) 61.8 % (45.0-75.0) Lymphocytes (%) (Auto) 30.5 % (20.0-45.0) Monocytes (%) (Auto) 5.4 % (1.0-10.0) Eosinophils (%) (Auto) 1.6 % (0.0-3.0) Basophils (%) (Auto) 0.8 % (0.0-2.0) Sodium Level 140 MMOL/L (136-145) Potassium Level 3.7 MMOL/L (3.5-5.1) Chloride Level 102 MMOL/L (98-107) Carbon Dioxide Level 25 MMOL/L (21-32) Anion Gap 13 mmol/L (5-15) Blood Urea Nitrogen 34 mg/dL (7-18) H Creatinine 0.9 MG/DL (0.55-1.30) Estimat Glomerular Filtration Rate > 60 mL/min (>60) Glucose Level 241 MG/DL (74-106) #H Calcium Level 9.6 MG/DL (8.5-10.1) Plan Problems: (1) Sacral decubitus ulcer Assessment & Plan: Pt presented on admission with multiple pressure injuries. Contractures bilat lower ext. DTPI noted sacrococcygeal area(L)2.5cm x (W)0.5cm. Base of wound is purple with maroon borders. Non-blanching erythema periwound. Scrotum is erythematous. Full thickness stage 3/4 pressure injury upper L buttocks. (L)1.3cm x (W)1 cm x (D)1.1cm. Base of wound is obscured secondary wound within crevice of skin fold. DTPI outer lower L buttocks(L)10.5cm x (W)8.5cm. Base of wound is fluctuant, maroon with scattered areas that are purple. Pt complained site has been painful last few days. No elevation in skin temp noted. Full thickness stage 4 pressure injury R ischium.(L)3.5cm x (W)2.5cmcm x (D) 3.6cm. Surrounding perimeter of wound is maroon.Base of wound is not appreciated due wound is within crevice of skin. Small amt serosanguineous exudate noted. No odor noted. Unstageable pressure injury posterior lower R thigh(L)0.8cm x (W)0.9cm. Base of wound has 100% slough. Borders are erythematous . No odor or exudate noted. DTPI upper/lateral R thigh Base of wound is indurated and maroon in colour. Small partial thickness stage 2 ulcer distal/lateral L lower extremity. Base of wound is moist and viable. borders are macerated. Small amt sanguineous exudate noted. Full thickness stage 4 ulcer Dorsal R foot.(L)2.5cm x (W)3cm Base of wound scattered fibrinous slough ,otherwise moist and pink. Borders are macerated. No odor or exudate noted. No erythema,induration or fluctuance periwound. Historical scars noted to both heels. Scattered white plaques with hyperkeratosis noted to both lower ext. Tx Plan: Cleanse Wounds R and L buttocks with Saline. Loosely pack with Therahoney infused packing strip. Apply Moisture Barrier periwound. Cover each wound with Optifoam drsg Daily and prn. Cleanse wound R Thigh with Saline. Cover with Optifoam drsg Daily and prn. Apply Moisture Barrier Paste to Sacrum and lower L buttocks. Cover each site with Optifoam drsg. Daily and prn. Apply Cavilon to upper R thigh DTPI. Cover with Optifoam drsg. Change every 3 days and prn. Apply Betadine to wound distal/lateral L lower ext and dorsal R foot. Cover each wound with Optifoam drsg. Change every 3 days and prn. Reposition at least every 2hours or as tolerated. Off load heels with pillow. APM/DEVONTE Mattress. (2) Chronic indwelling Alexandre catheter Assessment & Plan: abx as per ID UTI noted micro noted cont abx doing better improving plain films okay unfortunately given overall condition possible inevitable decline as he is overweight, not adherent to healthy diet and does not move much will monitor and follow with recs (3) History of osteomyelitis Assessment & Plan: DAILY ESTIMATED NEEDS: Needs based on Wound, paraplegia, obesity 78.9kg abw 20-25 kcals/kg 1867-1560 total kcals 1.25-2 g protein/kg 99-158 g total protein 25-30 mL/kg 1557-8654 total fluid mLs NUTRITION DIAGNOSIS: * Increased Protein and micronutrient needs r/t Wound healing as evidenced by pt w/ multiple wounds, including full thickness and unstageable, refer to wound care eval. * Altered nutrition related lab values R/T diabetes as evidenced by BGs in the 300's and 400's. CURRENT DIET:[facility]HO MED PO DIET RECOMMENDATIONS: CCHO LOW (3 Carbs/ meal) w/ DOUBLE PROTEIN PORTIONS ADDITIONAL RECOMMENDATIONS: 1) RE-calibrate bed scale w/ added P200 mattress 2) Obtain HgA1C for eval 3) Wound care: Continue MVI, Vit C, and ZnSO4 Add Skip BID 4) Monitor diet compliance and educate as able 5) Monitor lytes w/ Lasix, replete as needed 6) Monitor BGs closely, now on Levemir BID, TIAC NovoLog + SSI Additional Comments d/c planning plan for above care upon d/c discussed diet and highly recommend he eats healthier but does not seem to be agreeable Richard Minaya Aug 01, 2019 11:23
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
[2019-08-01 12:00] VITALS: BP 119/73
--- NOTE | 2019-08-01 13:48 | NUR ---
CASE MANAGEMENT:REVIEW SI; UNCONTROLLED DM. HYPOTENSION. 98.4 97 24 115/72 94% ON RA BUN 34 BG 241 IS;INSULIN NOVOLOG INSULIN LEVEMIR DILAUDID PO Q4 HRS PRN ANTIVERT PO Q6 HRS PRN LASIX PO BID MIDODRINE PO TID PROTONIX PO Q2 HRS K-DUR PO QD MED SURG STATUS DCP;FROM [facility] SEEKING ALTERNATE SNF PLACEMENT AT THIS TIME DUE TO INSURANCE
--- NOTE | 2019-08-01 15:20 | NUR ---
*-* INSURANCE *-* ALL CLINICALS AND REVIEWS HAVE LJ FAXED TO: DILCIA FIGUEROA REF# [id number] PH: [phone] FAX: [phone]
[2019-08-01 16:00] VITALS: BP 105/72
--- NOTE | 2019-08-01 16:19 | NUR ---
DISCHARGE PLANNING NOTE FOLLOW UP CALL MADE; MAGDALENO TAYLOR. PER SHIRA, UNABLE TO ACCEPT PATIENT [facility]. NOT ACCEPTING NEW ADMISSIONS AT THIS TIME KARTIK SWARTZ. PER ROMAN, UNABLE TO ACCEPT [facility]. PER MAGDY, UNABLE TO ACCEPT [facility]. PER HOA, NO MALE BEDS
--- NOTE | 2019-08-01 19:20 | NUR ---
HAND-OFF: Report given to Alissa Gusman RN.
--- NOTE | 2019-08-01 19:44 | NUR ---
NURSE NOTES: Received patient in bed, awake, alert, oriented x4, able to make his needs known, no IV MD is aware. Call light is within reach, bed is lowered, locked, alarm is on, will continue to monitor for comfort and safety.
[2019-08-01 20:00] VITALS: BP 124/80
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
[2019-08-02] VITALS: BP 126/66
[2019-08-02 04:00] VITALS: BP 118/80
[2019-08-02] MEDS: NovoLOG Insulin Flexpen SUBQ SCH ×7 (05:44→20:51)
[2019-08-02] MEDS: Heparin 5000 units/ml inj SUBQ SCH ×3 (05:46→21:38)
--- NOTE | 2019-08-02 07:33 | General Progress Note ---
Assessment/Plan Problem List: (1) Type 2 diabetes mellitus ICD Codes: E11.9 - Type 2 diabetes mellitus without complications SNOMED: 56614291 (2) Paraplegia ICD Codes: G82.20 - Paraplegia, unspecified SNOMED: 08976038 Status: doing well, stable Assessment/Plan: increase Levemir to 84 units bid continue Novolog 40 units ac tid + SSI Subjective Allergies: Coded Allergies: No Known Allergies (Unverified , 02/09/19) All Systems: reviewed and negative except above Subjective events noted glucose values are much better - fasting glucose still on higher side Item Value Date Time Bedside Blood Glucose 231 mg/dl H 08/02/19 0549 Bedside Blood Glucose 199 mg/dl H 08/01/19 1814 Bedside Blood Glucose 163 mg/dl H 08/01/19 1207 Bedside Blood Glucose 176 mg/dl H 08/01/19 0840 Bedside Blood Glucose 232 mg/dl H 08/01/19 0614 Objective Last 24 Hour Vital Signs Date Time Temp Pulse Resp B/P (MAP) Pulse Ox O2 Delivery O2 Flow Rate FiO2 08/02/19 04:00 97.3 96 20 118/80 (93) 94 08/02/19 00:00 98.4 98 20 126/66 (86) 94 08/01/19 21:35 Room Air 08/01/19 20:00 97.9 100 22 124/80 (95) 98 08/01/19 16:00 98.0 97 20 105/72 (83) 94 08/01/19 12:00 98.2 97 21 119/73 (88) 94 08/01/19 10:58 Room Air 08/01/19 09:00 Room Air 08/01/19 08:00 97.8 94 21 115/72 (86) 95 Intake and Output 08/01/19 08/02/19 19:00 07:00 Intake Total 840 ml Output Total 2800 ml Balance -1960 ml Intake Oral 840 ml Output Urine Total 2800 ml Height (Feet): 5 Height (Inches): 6.00 Weight (Pounds): 293 General Appearance: no apparent distress Neck: normal alignment Cardiovascular: normal rate Respiratory/Chest: lungs clear Objective Current Medications Medications (Trade) Dose Ordered Sig/Miguel Route PRN Reason Start Time Stop Time Status Last Admin Dose Admin Ascorbic Acid (Vitamin C) 500 mg DAILY ORAL 07/12/19 09:00 08/11/19 08:59 08/01/19 08:37 Bisacodyl (Dulcolax) 10 mg HSPRN PRN RECTAL Constipation 07/10/19 03:00 08/09/19 02:59 Dextrose (Dextrose 50%) 25 ml Q30M PRN IV Hypoglycemia 07/21/19 22:00 10/19/19 21:59 Dextrose (Dextrose 50%) 50 ml Q30M PRN IV Hypoglycemia 07/21/19 22:00 10/19/19 21:59 Docusate Sodium (Colace) 100 mg DAILY ORAL 07/10/19 09:00 08/09/19 08:59 08/01/19 08:37 Folic Acid (Folate) 1 mg DAILY ORAL 07/10/19 09:00 08/09/19 08:59 08/01/19 08:37 Furosemide (Lasix) 40 mg TWICE A DAY ORAL 07/10/19 09:00 08/09/19 08:59 08/01/19 17:45 Gabapentin (Neurontin) 100 mg Q12HR ORAL 07/26/19 21:00 08/25/19 20:59 07/29/19 08:25 Heparin Sodium (Porcine) (Heparin 5000 units/ml) 5,000 units EVERY 8 HOURS SUBQ 07/10/19 06:00 08/24/19 05:59 08/02/19 05:46 Hydrocortisone (Hydrocortisone) 1 applic Q6H PRN TOPIC Itching 07/22/19 14:15 10/20/19 14:14 Hydromorphone HCl (Dilaudid) 2 mg Q4H PRN ORAL Severe Pain (Pain Scale 7-10) 07/26/19 09:00 08/02/19 08:59 08/01/19 18:18 Insulin Aspart (NovoLOG) BEFORE MEALS AND HS SUBQ 07/22/19 06:30 10/20/19 06:29 08/02/19 05:45 Insulin Aspart (NovoLOG) 40 units NOVOTIAC SUBQ 07/27/19 11:50 08/16/19 06:29 08/02/19 05:44 Insulin Detemir (Levemir) 80 units BID SUBQ 07/27/19 09:00 08/16/19 08:59 08/01/19 18:14 Meclizine HCl (Antivert) 25 mg Q6H PRN ORAL for dizziness 07/22/19 14:12 08/21/19 14:11 07/24/19 04:04 Midodrine (Pro-Amatine) 10 mg THREE TIMES A DAY ORAL 07/10/19 09:00 08/09/19 08:59 08/01/19 17:45 Multivitamins (Multivitamins) 1 tab DAILY ORAL 07/12/19 09:00 08/11/19 08:59 08/01/19 08:38 Ondansetron HCl (Zofran) 4 mg Q6H PRN IVP Nausea & Vomiting 07/10/19 03:00 08/09/19 02:59 Pantoprazole (Protonix) 40 mg EVERY 12 HOURS ORAL 07/10/19 09:00 08/09/19 08:59 08/01/19 20:59 Polyethylene Glycol (Miralax) 17 gm DAILY PRN ORAL Constipation 07/26/19 09:30 08/25/19 09:29 Potassium Chloride (K-Dur) 20 meq DAILY ORAL 07/10/19 09:00 08/09/19 08:59 08/01/19 08:38 Zinc Sulfate (Zinc Sulfate) 220 mg DAILY ORAL 07/10/19 09:00 08/09/19 08:59 08/01/19 08:38 Gilson Solorio MD Aug 02, 2019 07:33
--- NOTE | 2019-08-02 07:52 | NUR ---
NURSE NOTES: Received patient in bed asleep. No SOB or acute distress. HOB elevated. Bed locked in lowest position. Call light within reach. Will continue plan of care.
[2019-08-02 08:00] VITALS: BP 118/75
[2019-08-02] MEDS: Ascorbic Acid 500mg tab ORAL SCH (08:46)
[2019-08-02] MEDS: Furosemide 40mg tab ORAL SCH ×2 (08:46→17:28)
[2019-08-02] MEDS: Zinc Sulfate 220mg cap ORAL SCH (08:46)
[2019-08-02] MEDS: Midodrine 10mg tab ORAL SCH ×3 (08:47→17:28)
[2019-08-02] MEDS: Docusate 100mg cap ORAL SCH (08:48)
[2019-08-02] MEDS: Levemir Flexpen SUBQ SCH ×2 (08:54→17:35)
[2019-08-02] MEDS: HYDROmorphone 2mg tab ORAL PRN (09:05)
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
[2019-08-02 10:55] LABS: ANION GAP 14 mmol/L (5-15); BLOOD UREA NITROGEN 30 mg/dL (7-18); CALCIUM 9.4 MG/DL (8.5-10.1); CARBON DIOXIDE 25 MMOL/L (21-32); CHLORIDE 105 MMOL/L (98-107); CREATININE 1.1 MG/DL (0.55-1.30); POTASSIUM 3.9 MMOL/L (3.5-5.1); SODIUM 144 MMOL/L (136-145)
[2019-08-02 12:00] VITALS: BP 112/93
--- NOTE | 2019-08-02 13:43 | NUR ---
*-* INSURANCE *-* ALL CLINICALS AND REVIEWS HAVE LJ FAXED TO: DILCIA FIGUEROA REF# [id number] PH: [phone] FAX: [phone]
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
[2019-08-02 16:00] VITALS: BP 119/88
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
--- NOTE | 2019-08-02 16:49 | NUR ---
CASE MANAGEMENT:REVIEW SI; UNCONTROLLED DM. HYPOTENSION. 98.4 98 20 112/93 93% ON RA IS; INSULIN NOVOLOG INSULIN LEVEMIR DILAUDID PO Q4 HRS PRN ANTIVERT PO Q6 HRS PRN LASIX PO BID MIDODRINE PO TID PROTONIX PO Q2 HRS K-DUR PO QD MED SURG STATUS DCP; FROM [facility] PATIENT ACCEPTED TO RETURN UPON BED AVAILABILITY POSSIBLY ON 08/03/2019
--- NOTE | 2019-08-02 19:30 | NUR ---
NURSE NOTES: Received report from RN Raymond , pt is A/Ox4 , breaths is even regular and unlabored on RA, c/o of minor pain, that is bearable pain . no I.V md anastasiia aware , bed in low locked position and call light with in reach, will continue with plan of care
--- NOTE | 2019-08-02 19:57 | NUR ---
HAND-OFF: Report given to baylee.
[2019-08-02 21:00] VITALS: BP 121/78
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
[2019-08-03] VITALS: BP 121/66
[2019-08-03 04:00] VITALS: BP 122/73
[2019-08-03] MEDS: Heparin 5000 units/ml inj SUBQ SCH ×3 (06:19→21:48)
[2019-08-03] MEDS: NovoLOG Insulin Flexpen SUBQ SCH ×7 (06:21→21:00)
--- NOTE | 2019-08-03 06:56 | General Progress Note ---
Assessment/Plan Problem List: (1) Type 2 diabetes mellitus ICD Codes: E11.9 - Type 2 diabetes mellitus without complications SNOMED: 93750026 (2) Paraplegia ICD Codes: G82.20 - Paraplegia, unspecified SNOMED: 20720035 Status: doing well, stable Assessment/Plan: continue Levemir 84 units bid continue Novolog 40 units ac tid + SSI Subjective Allergies: Coded Allergies: No Known Allergies (Unverified , 02/09/19) All Systems: reviewed and negative except above Subjective events noted glucose values improved - better fasting glucose this morning after Levemir dose was increased Item Value Date Time Bedside Blood Glucose 217 mg/dl H 08/03/19 0630 Bedside Blood Glucose 104 mg/dl 08/02/19 2100 Bedside Blood Glucose 154 mg/dl H 08/02/19 1735 Bedside Blood Glucose 139 mg/dl H 08/02/19 1239 Bedside Blood Glucose 231 mg/dl H 08/02/19 0549 Objective Last 24 Hour Vital Signs Date Time Temp Pulse Resp B/P (MAP) Pulse Ox O2 Delivery O2 Flow Rate FiO2 08/03/19 04:00 97.9 98 20 122/73 (89) 96 08/03/19 00:00 98.4 98 20 121/66 (84) 96 08/02/19 21:00 98.2 69 20 121/78 (92) 93 08/02/19 21:00 Room Air 08/02/19 16:00 98.2 99 19 119/88 (98) 93 08/02/19 12:00 97.7 94 20 112/93 (99) 93 08/02/19 09:00 Room Air 08/02/19 08:00 97.6 94 20 118/75 (89) 94 Intake and Output 08/02/19 08/03/19 19:00 07:00 Intake Total 1600 ml 4000 ml Output Total 1800 ml 3900 ml Balance -200 ml 100 ml Intake Oral 1600 ml 4000 ml Output Urine Total 1800 ml 3900 ml Laboratory Tests 08/02/19 10:20: Sodium Level 144, Potassium Level 3.9, Chloride Level 105, Carbon Dioxide Level 25, Anion Gap 14, Blood Urea Nitrogen 30H, Creatinine 1.1, Estimat Glomerular Filtration Rate > 60, Glucose Level 161H, Calcium Level 9.4 Height (Feet): 5 Height (Inches): 6.00 Weight (Pounds): 293 General Appearance: no apparent distress Neck: normal alignment Cardiovascular: normal rate Respiratory/Chest: lungs clear Abdomen: normal bowel sounds Pelvis: normal external exam Objective Current Medications Medications (Trade) Dose Ordered Sig/Miguel Route PRN Reason Start Time Stop Time Status Last Admin Dose Admin Ascorbic Acid (Vitamin C) 500 mg DAILY ORAL 07/12/19 09:00 08/11/19 08:59 08/02/19 08:46 Bisacodyl (Dulcolax) 10 mg HSPRN PRN RECTAL Constipation 07/10/19 03:00 08/09/19 02:59 Dextrose (Dextrose 50%) 25 ml Q30M PRN IV Hypoglycemia 07/21/19 22:00 10/19/19 21:59 Dextrose (Dextrose 50%) 50 ml Q30M PRN IV Hypoglycemia 07/21/19 22:00 10/19/19 21:59 Docusate Sodium (Colace) 100 mg DAILY ORAL 07/10/19 09:00 08/09/19 08:59 08/02/19 08:48 Folic Acid (Folate) 1 mg DAILY ORAL 07/10/19 09:00 08/09/19 08:59 08/02/19 08:47 Furosemide (Lasix) 40 mg TWICE A DAY ORAL 07/10/19 09:00 08/09/19 08:59 08/02/19 17:28 Gabapentin (Neurontin) 100 mg Q12HR ORAL 07/26/19 21:00 08/25/19 20:59 07/29/19 08:25 Heparin Sodium (Porcine) (Heparin 5000 units/ml) 5,000 units EVERY 8 HOURS SUBQ 07/10/19 06:00 08/24/19 05:59 08/03/19 06:19 Hydrocortisone (Hydrocortisone) 1 applic Q6H PRN TOPIC Itching 07/22/19 14:15 10/20/19 14:14 Insulin Aspart (NovoLOG) BEFORE MEALS AND HS SUBQ 07/22/19 06:30 10/20/19 06:29 08/03/19 06:21 Insulin Aspart (NovoLOG) 40 units NOVOTIAC SUBQ 07/27/19 11:50 08/16/19 06:29 08/03/19 06:23 Insulin Detemir (Levemir) 84 units BID SUBQ 08/02/19 09:00 08/16/19 08:59 08/02/19 17:35 Meclizine HCl (Antivert) 25 mg Q6H PRN ORAL for dizziness 07/22/19 14:12 08/21/19 14:11 07/24/19 04:04 Midodrine (Pro-Amatine) 10 mg THREE TIMES A DAY ORAL 07/10/19 09:00 08/09/19 08:59 08/02/19 17:28 Multivitamins (Multivitamins) 1 tab DAILY ORAL 07/12/19 09:00 08/11/19 08:59 08/02/19 08:46 Ondansetron HCl (Zofran) 4 mg Q6H PRN IVP Nausea & Vomiting 07/10/19 03:00 08/09/19 02:59 Pantoprazole (Protonix) 40 mg EVERY 12 HOURS ORAL 07/10/19 09:00 08/09/19 08:59 08/02/19 21:37 Polyethylene Glycol (Miralax) 17 gm DAILY PRN ORAL Constipation 07/26/19 09:30 08/25/19 09:29 Potassium Chloride (K-Dur) 20 meq DAILY ORAL 07/10/19 09:00 08/09/19 08:59 08/02/19 08:48 Zinc Sulfate (Zinc Sulfate) 220 mg DAILY ORAL 07/10/19 09:00 08/09/19 08:59 08/02/19 08:46 Gilson Solorio MD Aug 03, 2019 06:56
--- NOTE | 2019-08-03 07:20 | NUR ---
NURSE NOTES: Received Patient on the bed awake ,alert, oriented , and verbal. Patient is on room air no sob and no complain pain. Bed in lowest position, with call light in reach. Side rails up x3. Will continue with plan of care. Addendum: 08/03/19 at 2041 by RADHA REESE RN wrong time , discard the note above
--- NOTE | 2019-08-03 07:38 | NUR ---
P.T Progress Notes: late entry 08/02/19 Pt seen this past wk of skilled P.T services. Tx consisted of bed mobility training for pressure relief and thera ex's. Pt able to scoot , turn/roll and utilize bed rails w/o physical assist and MAX A x for supine t/from sitting. Pt is independent in performing thera ex's as instructed. Pt has already reached his maximum potential where skilled P.T service is no longer appropriate. Recommend long term care ph[facility]botom[facility] SN[facility] [place].
--- NOTE | 2019-08-03 07:42 | NUR ---
NURSE NOTES: Received report TOMAS Pavon. Patient A&Ox4. On room air, no signs of distress or labored breathing. No IV, MD aware. Bed in lowest position, with call light in reach. Side rails up x3. Will continue with plan of care.
--- NOTE | 2019-08-03 07:57 | NUR ---
HAND-OFF: Report given to Tawnya MARIN
[2019-08-03 08:00] VITALS: BP 102/67
[2019-08-03 09:14] LABS: ANION GAP 13 mmol/L (5-15); BLOOD UREA NITROGEN 33 mg/dL (7-18); CALCIUM 9.7 MG/DL (8.5-10.1); CARBON DIOXIDE 24 MMOL/L (21-32); CHLORIDE 102 MMOL/L (98-107); CREATININE 1.1 MG/DL (0.55-1.30); POTASSIUM 3.6 MMOL/L (3.5-5.1); SODIUM 139 MMOL/L (136-145)
[2019-08-03] MEDS: Levemir Flexpen SUBQ SCH ×2 (10:13→17:21)
[2019-08-03] MEDS: Ascorbic Acid 500mg tab ORAL SCH (10:15)
[2019-08-03] MEDS: Furosemide 40mg tab ORAL SCH ×2 (10:15→17:23)
[2019-08-03] MEDS: Zinc Sulfate 220mg cap ORAL SCH (10:16)
[2019-08-03] MEDS: Docusate 100mg cap ORAL SCH (10:16)
[2019-08-03] MEDS: Midodrine 10mg tab ORAL SCH ×3 (10:16→17:24)
--- NOTE | 2019-08-03 10:17 | NUR ---
*-* INSURANCE *-* ALL CLINICALS AND REVIEWS HAVE LJ FAXED TO: DILCIA FIGUEROA REF# [id number] PH: [phone] FAX: [phone]
--- NOTE | 2019-08-03 11:11 | NUR ---
SPRAY G[employer] NOTE CALL MADE TO [facility] AT [phone] IN ATTEMPT TO OBTAIN BED ASSIGNMENT. PER F[facility]OM, ADMISSIONS NOT AVAILABLE AT THIS TIME. WILL CALL BACK. Addendum: 08/03/19 at 1636 by FORREST ZARATE, RESERVES CLERK RESERVES CLERK LATE ENTRY FOLLOW UP [facility] S/W SAIGE WHO STATES THERE IS NO BED AVAILABLE FOR PATIENT TODAY. STATES TO CALL Tuesday08/06/2019 TO INQUIRE ON BED AVAILABILITY. THIS CM ASKED IF THEY WOULD POSSIBLY HAVE A BED FOR PATIENT OVER THE WEEKEND. SAIGE STATES SHE DOES NOT ANTICIPATE ANY AVAILABLE BED OVER THE WEEKEND AND STATES TO CALL ON TUESDAY. TOMAS MIR.
[2019-08-03 12:00] VITALS: BP 116/71
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
[2019-08-03] MEDS: HYDROmorphone 2mg tab ORAL PRN ×3 (12:24→21:34)
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
[2019-08-03 16:00] VITALS: BP 96/74
--- NOTE | 2019-08-03 17:17 | NUR ---
CASE MANAGEMENT:REVIEW SI; UNCONTROLLED DM. HYPOTENSION. 98.5 105 19 20 102/67 93% ON RA NO LABS AVAILABLE IS; INSULIN NOVOLOG INSULIN LEVEMIR DILAUDID PO Q4 HRS PRN ANTIVERT PO Q6 HRS PRN LASIX PO BID MIDODRINE PO TID PROTONIX PO Q2 HRS K-DUR PO QD MED SURG STATUS DCP; FROM [facility] PATIENT ACCEPTED TO RETURN UPON BED AVAILABILITY POSSIBLY ON 08/06/2019
--- NOTE | 2019-08-03 19:20 | NUR ---
NURSE NOTES: Received Patient on the bed awake ,alert, oriented , and verbal. Patient is on room air no sob and no complain pain. Bed in lowest position, Side rails up x3, and call light within reach. Will continue monitoring
--- NOTE | 2019-08-03 19:39 | Surgery Progress Note ---
Surgery Progress Note Subjective Symptoms: improved, tolerating diet, voiding well, passing flatus, BM Objective Last 24 Hour Vital Signs Date Time Temp Pulse Resp B/P (MAP) Pulse Ox O2 Delivery O2 Flow Rate FiO2 08/03/19 16:00 98.2 101 19 96/74 (81) 94 08/03/19 12:00 98.5 104 19 116/71 (86) 97 08/03/19 09:00 Room Air 08/03/19 08:00 97.8 68 18 102/67 (79) 97 08/03/19 04:00 97.9 98 20 122/73 (89) 96 08/03/19 00:00 98.4 98 20 121/66 (84) 96 08/02/19 21:00 98.2 69 20 121/78 (92) 93 08/02/19 21:00 Room Air I&O Intake and Output 08/02/19 08/03/19 19:00 07:00 Intake Total 1600 ml 4000 ml Output Total 1800 ml 3900 ml Balance -200 ml 100 ml Intake Oral 1600 ml 4000 ml Output Urine Total 1800 ml 3900 ml Dressing: saturated Cardiovascular: RSR Respiratory: clear, decreased breath sounds Abdomen: soft, tenderness, present bowel sounds Extremities: edema, no tenderness, no cyanosis, other Laboratory Tests Test 08/03/19 08:10 Sodium Level 139 MMOL/L (136-145) Potassium Level 3.6 MMOL/L (3.5-5.1) Chloride Level 102 MMOL/L (98-107) Carbon Dioxide Level 24 MMOL/L (21-32) Anion Gap 13 mmol/L (5-15) Blood Urea Nitrogen 33 mg/dL (7-18) H Creatinine 1.1 MG/DL (0.55-1.30) Estimat Glomerular Filtration Rate > 60 mL/min (>60) Glucose Level 221 MG/DL (74-106) H Calcium Level 9.7 MG/DL (8.5-10.1) Plan Problems: (1) Sacral decubitus ulcer Assessment & Plan: Pt presented on admission with multiple pressure injuries. Contractures bilat lower ext. DTPI noted sacrococcygeal area(L)2.5cm x (W)0.5cm. Base of wound is purple with maroon borders. Non-blanching erythema periwound. Scrotum is erythematous. Full thickness stage 3/4 pressure injury upper L buttocks. (L)1.3cm x (W)1 cm x (D)1.1cm. Base of wound is obscured secondary wound within crevice of skin fold. DTPI outer lower L buttocks(L)10.5cm x (W)8.5cm. Base of wound is fluctuant, maroon with scattered areas that are purple. Pt complained site has been painful last few days. No elevation in skin temp noted. Full thickness stage 4 pressure injury R ischium.(L)3.5cm x (W)2.5cmcm x (D) 3.6cm. Surrounding perimeter of wound is maroon.Base of wound is not appreciated due wound is within crevice of skin. Small amt serosanguineous exudate noted. No odor noted. Unstageable pressure injury posterior lower R thigh(L)0.8cm x (W)0.9cm. Base of wound has 100% slough. Borders are erythematous . No odor or exudate noted. DTPI upper/lateral R thigh Base of wound is indurated and maroon in colour. Small partial thickness stage 2 ulcer distal/lateral L lower extremity. Base of wound is moist and viable. borders are macerated. Small amt sanguineous exudate noted. Full thickness stage 4 ulcer Dorsal R foot.(L)2.5cm x (W)3cm Base of wound scattered fibrinous slough ,otherwise moist and pink. Borders are macerated. No odor or exudate noted. No erythema,induration or fluctuance periwound. Historical scars noted to both heels. Scattered white plaques with hyperkeratosis noted to both lower ext. Tx Plan: Cleanse Wounds R and L buttocks with Saline. Loosely pack with Therahoney infused packing strip. Apply Moisture Barrier periwound. Cover each wound with Optifoam drsg Daily and prn. Cleanse wound R Thigh with Saline. Cover with Optifoam drsg Daily and prn. Apply Moisture Barrier Paste to Sacrum and lower L buttocks. Cover each site with Optifoam drsg. Daily and prn. Apply Cavilon to upper R thigh DTPI. Cover with Optifoam drsg. Change every 3 days and prn. Apply Betadine to wound distal/lateral L lower ext and dorsal R foot. Cover each wound with Optifoam drsg. Change every 3 days and prn. Reposition at least every 2hours or as tolerated. Off load heels with pillow. APM/DEVONTE Mattress. (2) Chronic indwelling Alexandre catheter Assessment & Plan: abx as per ID UTI noted micro noted cont abx doing better improving plain films okay unfortunately given overall condition possible inevitable decline as he is overweight, not adherent to healthy diet and does not move much will monitor and follow with recs (3) History of osteomyelitis Assessment & Plan: DAILY ESTIMATED NEEDS: Needs based on Wound, paraplegia, obesity 78.9kg abw 20-25 kcals/kg 3041-8983 total kcals 1.25-2 g protein/kg 99-158 g total protein 25-30 mL/kg 1281-8705 total fluid mLs NUTRITION DIAGNOSIS: * Increased Protein and micronutrient needs r/t Wound healing as evidenced by pt w/ multiple wounds, including full thickness and unstageable, refer to wound care eval. * Altered nutrition related lab values R/T diabetes as evidenced by BGs in the 300's and 400's. CURRENT DIET:[facility] MED PO DIET RECOMMENDATIONS[facility] (3 Carbs/ meal) w/ DOUBLE PROTEIN PORTIONS ADDITIONAL RECOMMENDATIONS: 1) RE-calibrate bed scale w/ added P200 mattress 2) Obtain HgA1C for eval 3) Wound care: Continue MVI, Vit C, and ZnSO4 Add Skip BID 4) Monitor diet compliance and educate as able 5) Monitor lytes w/ Lasix, replete as needed 6) Monitor BGs closely, now on Levemir BID, TIAC NovoLog + SSI Richard Minaya Aug 03, 2019 19:39
--- NOTE | 2019-08-03 19:45 | NUR ---
HAND-OFF: Report given to TOMAS Dorantes. Rounds done.
[2019-08-03 20:00] VITALS: BP 102/69
--- NOTE | 2019-08-03 20:32 | NUR ---
NURSE NOTES: Received patien on bed PatientA&Ox4. On room air, no signs of distress or labored breathing. No IV, aware. Bed in lowest position, with call light in reach. Side rails up x3. Will continue with plan of care. Addendum: 08/03/19 at 2035 by RADHA REESE RN wrong patient ,wrong time, please discard the note above
--- NOTE | 2019-08-03 21:00 | NUR ---
NURSE NOTES: Pt is in bed, awake and verbal. No acute distress noted. Pt mcgarry multiple wound, pt is paraplegic. Pt will be cleaned and repositioned frequently, Alexandre cath draining yellow urine. Pt has discharge order, but no SNF bed is available at this time. Fall precaution in place.Bed alarm on. Bed locked low in position,side rails up and call Light within reach. Pt will be monitored. Trainee TOMAS Wynn will be assisting with the care of the patient.
--- NOTE | 2019-08-03 21:48 | NUR ---
NURSE NOTES: Patient refused x3 heparin and gabapentin. I explained risk ans benefit and he still refused.
[2019-08-04] VITALS: BP 120/76
--- NOTE | 2019-08-04 02:00 | NUR ---
NURSE NOTES: Patient is in then bed watching movie on his phone. No complain of pain, no sob and all demands are met. Bed in the lower position , call light within reach. we will keep monitoring
[2019-08-04 04:00] VITALS: BP 118/72
[2019-08-04] MEDS: Heparin 5000 units/ml inj SUBQ SCH ×3 (06:00→21:30)
--- NOTE | 2019-08-04 06:00 | NUR ---
NURSE NOTES: Patient refused heparin again; i explained the risk and benefit, still refused. No complain of pain, no sob, vitals are stable, and all needs are met. Bed is the lower position, call light within reach. we will keep monitoring.
[2019-08-04] MEDS: NovoLOG Insulin Flexpen SUBQ SCH ×7 (06:25→21:31)
[2019-08-04 06:52] LABS: ANION GAP 12 mmol/L (5-15); BLOOD UREA NITROGEN 33 mg/dL (7-18); CALCIUM 9.2 MG/DL (8.5-10.1); CARBON DIOXIDE 27 MMOL/L (21-32); CHLORIDE 100 MMOL/L (98-107); CREATININE 1.1 MG/DL (0.55-1.30); POTASSIUM 3.4 MMOL/L (3.5-5.1); SODIUM 138 MMOL/L (136-145)
--- NOTE | 2019-08-04 07:20 | NUR ---
HAND-OFF: Report given to TOMAS Bowling.
--- NOTE | 2019-08-04 07:21 | NUR ---
NURSE NOTES: Received report from Jose E RN and TOMAS Wynn. Patient A&Ox4. On room air, no signs of distress or labored breathing. No IV, MD aware. Bed in lowest position with call light in reach. Side rails up x3. Will continue with plan of care.
[2019-08-04 08:00] VITALS: BP 113/73
--- NOTE | 2019-08-04 08:12 | General Progress Note ---
Assessment/Plan Problem List: (1) Type 2 diabetes mellitus ICD Codes: E11.9 - Type 2 diabetes mellitus without complications SNOMED: 08112669 (2) Paraplegia ICD Codes: G82.20 - Paraplegia, unspecified SNOMED: 15756824 Status: doing well, stable Assessment/Plan: increase Levemir to 90 units bid continue Novolog 40 units ac tid + SSI Subjective Allergies: Coded Allergies: No Known Allergies (Unverified , 02/09/19) All Systems: reviewed and negative except above Subjective events noted fasting glucose on higher side Item Value Date Time Bedside Blood Glucose 270 mg/dl H 08/04/19 0626 Bedside Blood Glucose 137 mg/dl H 08/03/19 2100 Bedside Blood Glucose 243 mg/dl H 08/03/19 1722 Bedside Blood Glucose 205 mg/dl H 08/03/19 1222 Objective Last 24 Hour Vital Signs Date Time Temp Pulse Resp B/P (MAP) Pulse Ox O2 Delivery O2 Flow Rate FiO2 08/04/19 04:00 97.2 101 19 118/72 (87) 97 08/04/19 00:00 98.5 100 19 120/76 (91) 95 08/03/19 21:00 Room Air 08/03/19 20:00 98.1 111 18 102/69 (80) 97 08/03/19 16:00 98.2 101 19 96/74 (81) 94 08/03/19 12:00 98.5 104 19 116/71 (86) 97 08/03/19 09:00 Room Air Intake and Output 08/03/19 08/04/19 19:00 07:00 Intake Total 1320 ml Output Total 1800 ml 1200 ml Balance -480 ml -1200 ml Intake Oral 1320 ml Output Urine Total 1800 ml 1200 ml # Voids 2 # Bowel Movements 2 Laboratory Tests 08/04/19 05:40: Sodium Level 138, Potassium Level 3.4L, Chloride Level 100, Carbon Dioxide Level 27, Anion Gap 12, Blood Urea Nitrogen 33H, Creatinine 1.1, Estimat Glomerular Filtration Rate > 60, Glucose Level 301H, Calcium Level 9.2 Height (Feet): 5 Height (Inches): 6.00 Weight (Pounds): 293 General Appearance: no apparent distress Neck: normal alignment Cardiovascular: normal rate Respiratory/Chest: lungs clear Abdomen: normal bowel sounds Objective Current Medications Medications (Trade) Dose Ordered Sig/Miguel Route PRN Reason Start Time Stop Time Status Last Admin Dose Admin Ascorbic Acid (Vitamin C) 500 mg DAILY ORAL 07/12/19 09:00 08/11/19 08:59 08/03/19 10:15 Bisacodyl (Dulcolax) 10 mg HSPRN PRN RECTAL Constipation 07/10/19 03:00 08/09/19 02:59 Dextrose (Dextrose 50%) 25 ml Q30M PRN IV Hypoglycemia 07/21/19 22:00 10/19/19 21:59 Dextrose (Dextrose 50%) 50 ml Q30M PRN IV Hypoglycemia 07/21/19 22:00 10/19/19 21:59 Docusate Sodium (Colace) 100 mg DAILY ORAL 07/10/19 09:00 08/09/19 08:59 08/03/19 10:16 Folic Acid (Folate) 1 mg DAILY ORAL 07/10/19 09:00 08/09/19 08:59 08/03/19 10:16 Furosemide (Lasix) 40 mg TWICE A DAY ORAL 07/10/19 09:00 08/09/19 08:59 08/03/19 17:23 Gabapentin (Neurontin) 100 mg Q12HR ORAL 07/26/19 21:00 08/25/19 20:59 07/29/19 08:25 Heparin Sodium (Porcine) (Heparin 5000 units/ml) 5,000 units EVERY 8 HOURS SUBQ 07/10/19 06:00 08/24/19 05:59 08/03/19 06:19 Hydrocortisone (Hydrocortisone) 1 applic Q6H PRN TOPIC Itching 07/22/19 14:15 10/20/19 14:14 Hydromorphone HCl (Dilaudid) 2 mg Q4H PRN ORAL For Pain 08/03/19 11:30 08/10/19 11:29 08/03/19 21:34 Insulin Aspart (NovoLOG) BEFORE MEALS AND HS SUBQ 07/22/19 06:30 10/20/19 06:29 08/04/19 06:25 Insulin Aspart (NovoLOG) 40 units NOVOTIAC SUBQ 07/27/19 11:50 08/16/19 06:29 08/04/19 06:26 Insulin Detemir (Levemir) 84 units BID SUBQ 08/02/19 09:00 08/16/19 08:59 08/03/19 17:21 Meclizine HCl (Antivert) 25 mg Q6H PRN ORAL for dizziness 07/22/19 14:12 08/21/19 14:11 07/24/19 04:04 Midodrine (Pro-Amatine) 10 mg THREE TIMES A DAY ORAL 07/10/19 09:00 08/09/19 08:59 08/03/19 17:24 Multivitamins (Multivitamins) 1 tab DAILY ORAL 07/12/19 09:00 08/11/19 08:59 08/03/19 10:15 Ondansetron HCl (Zofran) 4 mg Q6H PRN IVP Nausea & Vomiting 07/10/19 03:00 08/09/19 02:59 Pantoprazole (Protonix) 40 mg EVERY 12 HOURS ORAL 07/10/19 09:00 08/09/19 08:59 08/03/19 21:33 Polyethylene Glycol (Miralax) 17 gm DAILY PRN ORAL Constipation 07/26/19 09:30 08/25/19 09:29 Potassium Chloride (K-Dur) 20 meq DAILY ORAL 07/10/19 09:00 08/09/19 08:59 08/03/19 10:15 Zinc Sulfate (Zinc Sulfate) 220 mg DAILY ORAL 07/10/19 09:00 08/09/19 08:59 08/03/19 10:16 Gilson Solorio MD Aug 04, 2019 08:12
[2019-08-04] MEDS: Furosemide 40mg tab ORAL SCH ×2 (09:00→17:10)
[2019-08-04] MEDS: Midodrine 10mg tab ORAL SCH ×3 (09:00→17:10)
[2019-08-04] MEDS: Zinc Sulfate 220mg cap ORAL SCH (09:00)
[2019-08-04] MEDS: Docusate 100mg cap ORAL SCH (09:00)
[2019-08-04] MEDS: Ascorbic Acid 500mg tab ORAL SCH (09:00)
[2019-08-04] MEDS: Levemir Flexpen SUBQ SCH ×2 (09:01→18:11)
[2019-08-04 10:02] LABS: BASOPHILS % (AUTO) 0.4 % (0.0-2.0); EOSINOPHILS % (AUTO) 1.8 % (0.0-3.0); HEMATOCRIT 40.2 % (42.0-52.0); HEMOGLOBIN 13.1 G/DL (14.2-18.0); LYMPHOCYTES % (AUTO) 28.5 % (20.0-45.0); MEAN CORPUSCULAR VOLUME 80 FL (80-99); MONOCYTES % (AUTO) 5.7 % (1.0-10.0); NEUTROPHILS % (AUTO) 63.6 % (45.0-75.0); PLATELET COUNT 239 K/UL (150-450); RED BLOOD COUNT 5.02 M/UL (4.70-6.10); WHITE BLOOD COUNT 7.1 K/UL (4.8-10.8)
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
[2019-08-04] MEDS: HYDROmorphone 2mg tab ORAL PRN ×2 (10:29→17:09)
[2019-08-04 12:00] VITALS: BP 105/71
--- NOTE | 2019-08-04 15:07 | Surgery Progress Note ---
Surgery Progress Note Subjective Symptoms: improved, tolerating diet, voiding well, passing flatus, BM Objective Last 24 Hour Vital Signs Date Time Temp Pulse Resp B/P (MAP) Pulse Ox O2 Delivery O2 Flow Rate FiO2 08/04/19 12:00 97.9 96 18 105/71 (82) 95 08/04/19 09:00 Room Air 08/04/19 08:00 97.8 98 20 113/73 (86) 93 08/04/19 04:00 97.2 101 19 118/72 (87) 97 08/04/19 00:00 98.5 100 19 120/76 (91) 95 08/03/19 21:00 Room Air 08/03/19 20:00 98.1 111 18 102/69 (80) 97 08/03/19 16:00 98.2 101 19 96/74 (81) 94 I&O Intake and Output 08/03/19 08/04/19 19:00 07:00 Intake Total 1320 ml Output Total 1800 ml 1200 ml Balance -480 ml -1200 ml Intake Oral 1320 ml Output Urine Total 1800 ml 1200 ml # Voids 2 # Bowel Movements 2 Dressing: saturated Wound: other Cardiovascular: RSR Respiratory: clear Abdomen: soft, non-tender, present bowel sounds Extremities: no tenderness, no cyanosis Laboratory Tests Test 08/04/19 05:40 White Blood Count 7.1 K/UL (4.8-10.8) Red Blood Count 5.02 M/UL (4.70-6.10) Hemoglobin 13.1 G/DL (14.2-18.0) L Hematocrit 40.2 % (42.0-52.0) L Mean Corpuscular Volume 80 FL (80-99) Mean Corpuscular Hemoglobin 26.1 PG (27.0-31.0) L Mean Corpuscular Hemoglobin Concent 32.6 G/DL (32.0-36.0) Red Cell Distribution Width 15.0 % (11.6-14.8) H Platelet Count 239 K/UL (150-450) Mean Platelet Volume 5.9 FL (6.5-10.1) L Neutrophils (%) (Auto) 63.6 % (45.0-75.0) Lymphocytes (%) (Auto) 28.5 % (20.0-45.0) Monocytes (%) (Auto) 5.7 % (1.0-10.0) Eosinophils (%) (Auto) 1.8 % (0.0-3.0) Basophils (%) (Auto) 0.4 % (0.0-2.0) Sodium Level 138 MMOL/L (136-145) Potassium Level 3.4 MMOL/L (3.5-5.1) L Chloride Level 100 MMOL/L (98-107) Carbon Dioxide Level 27 MMOL/L (21-32) Anion Gap 12 mmol/L (5-15) Blood Urea Nitrogen 33 mg/dL (7-18) H Creatinine 1.1 MG/DL (0.55-1.30) Estimat Glomerular Filtration Rate > 60 mL/min (>60) Glucose Level 301 MG/DL (74-106) H Calcium Level 9.2 MG/DL (8.5-10.1) Plan Problems: (1) Sacral decubitus ulcer Assessment & Plan: Pt presented on admission with multiple pressure injuries. Contractures bilat lower ext. DTPI noted sacrococcygeal area(L)2.5cm x (W)0.5cm. Base of wound is purple with maroon borders. Non-blanching erythema periwound. Scrotum is erythematous. Full thickness stage 3/4 pressure injury upper L buttocks. (L)1.3cm x (W)1 cm x (D)1.1cm. Base of wound is obscured secondary wound within crevice of skin fold. DTPI outer lower L buttocks(L)10.5cm x (W)8.5cm. Base of wound is fluctuant, maroon with scattered areas that are purple. Pt complained site has been painful last few days. No elevation in skin temp noted. Full thickness stage 4 pressure injury R ischium.(L)3.5cm x (W)2.5cmcm x (D) 3.6cm. Surrounding perimeter of wound is maroon.Base of wound is not appreciated due wound is within crevice of skin. Small amt serosanguineous exudate noted. No odor noted. Unstageable pressure injury posterior lower R thigh(L)0.8cm x (W)0.9cm. Base of wound has 100% slough. Borders are erythematous . No odor or exudate noted. DTPI upper/lateral R thigh Base of wound is indurated and maroon in colour. Small partial thickness stage 2 ulcer distal/lateral L lower extremity. Base of wound is moist and viable. borders are macerated. Small amt sanguineous exudate noted. Full thickness stage 4 ulcer Dorsal R foot.(L)2.5cm x (W)3cm Base of wound scattered fibrinous slough ,otherwise moist and pink. Borders are macerated. No odor or exudate noted. No erythema,induration or fluctuance periwound. Historical scars noted to both heels. Scattered white plaques with hyperkeratosis noted to both lower ext. Tx Plan: Cleanse Wounds R and L buttocks with Saline. Loosely pack with Therahoney infused packing strip. Apply Moisture Barrier periwound. Cover each wound with Optifoam drsg Daily and prn. Cleanse wound R Thigh with Saline. Cover with Optifoam drsg Daily and prn. Apply Moisture Barrier Paste to Sacrum and lower L buttocks. Cover each site with Optifoam drsg. Daily and prn. Apply Cavilon to upper R thigh DTPI. Cover with Optifoam drsg. Change every 3 days and prn. Apply Betadine to wound distal/lateral L lower ext and dorsal R foot. Cover each wound with Optifoam drsg. Change every 3 days and prn. Reposition at least every 2hours or as tolerated. Off load heels with pillow. APM/DEVONTE Mattress. (2) Chronic indwelling Alexandre catheter Assessment & Plan: abx as per ID UTI noted micro noted cont abx doing better improving plain films okay unfortunately given overall condition possible inevitable decline as he is overweight, not adherent to healthy diet and does not move much will monitor and follow with recs (3) History of osteomyelitis Assessment & Plan: DAILY ESTIMATED NEEDS: Needs based on Wound, paraplegia, obesity 78.9kg abw 20-25 kcals/kg 9644-0353 total kcals 1.25-2 g protein/kg 99-158 g total protein 25-30 mL/kg 8958-4486 total fluid mLs NUTRITION DIAGNOSIS: * Increased Protein and micronutrient needs r/t Wound healing as evidenced by pt w/ multiple wounds, including full thickness and unstageable, refer to wound care eval. * Altered nutrition related lab values R/T diabetes as evidenced by BGs in the 300's and 400's. CURRENT DIET:CCHO MED PO DIET RECOMMENDATIONS: CCHO LOW (3 Carbs/ meal) w/ DOUBLE PROTEIN PORTIONS ADDITIONAL RECOMMENDATIONS: 1) RE-calibrate bed scale w/ added P200 mattress 2) Obtain HgA1C for eval 3) Wound care: Continue MVI, Vit C, and ZnSO4 Add Skip BID 4) Monitor diet compliance and educate as able 5) Monitor lytes w/ Lasix, replete as needed 6) Monitor BGs closely, now on Levemir BID, TIAC NovoLog + SSI Richard Minaya Aug 04, 2019 15:07
[2019-08-04 16:00] VITALS: BP 119/67
--- NOTE | 2019-08-04 19:22 | NUR ---
HAND-OFF: Report given to TOMAS Dorantes and TOMAS Wynn. Rounds done.
--- NOTE | 2019-08-04 19:30 | NUR ---
NURSE NOTES: Received Patient in the bed awake ,alert, oriented , and verbal. Patient is on room air no sob and no complain pain. he asked for a sandwich when i did my round and i gave it to him. Bed in lowest position, Side rails up x3, and call light within reach. Will continue monitoring
[2019-08-04 20:00] VITALS: BP 100/51
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
[2019-08-05] VITALS: BP 108/66
[2019-08-05] MEDS: HYDROmorphone 2mg tab ORAL PRN ×3 (00:46→17:43)
--- NOTE | 2019-08-05 02:30 | NUR ---
NURSE NOTES: pt is in bed in a stable condition. no sob, no complain of pain and vital is stable . bed in a lower position, bed locked, call light within reach. we will keep monitoring
[2019-08-05 04:00] VITALS: BP 109/68
[2019-08-05] MEDS: Heparin 5000 units/ml inj SUBQ SCH ×3 (06:25→21:44)
[2019-08-05] MEDS: NovoLOG Insulin Flexpen SUBQ SCH ×8 (06:26→21:02)
[2019-08-05 07:02] LABS: BASOPHILS % (AUTO) 0.6 % (0.0-2.0); EOSINOPHILS % (AUTO) 2.2 % (0.0-3.0); HEMATOCRIT 40.3 % (42.0-52.0); HEMOGLOBIN 13.3 G/DL (14.2-18.0); MEAN CORPUSCULAR VOLUME 80 FL (80-99); MONOCYTES % (AUTO) 6.3 % (1.0-10.0); NEUTROPHILS % (AUTO) 59.9 % (45.0-75.0); PLATELET COUNT 245 K/UL (150-450); RED BLOOD COUNT 5.02 M/UL (4.70-6.10); RED CELL DISTRIBUTION WIDTH 15.3 % (11.6-14.8); WHITE BLOOD COUNT 6.3 K/UL (4.8-10.8)
--- NOTE | 2019-08-05 07:10 | NUR ---
NURSE NOTES: Received report from Tianna RN and Jose E RN. Patient A&Ox4. On room air, no signs of distress or labored breathing. No IV, MD aware. Bed in lowest position with call light reach. Side rails up x3. Will continue with plan of care.
--- NOTE | 2019-08-05 07:15 | NUR ---
HAND-OFF: Report given to TOMAS Bowling.
[2019-08-05 07:48] LABS: ANION GAP 13 mmol/L (5-15); BLOOD UREA NITROGEN 34 mg/dL (7-18); CALCIUM 9.5 MG/DL (8.5-10.1); CARBON DIOXIDE 25 MMOL/L (21-32); CHLORIDE 99 MMOL/L (98-107); CREATININE 1.1 MG/DL (0.55-1.30); POTASSIUM 3.5 MMOL/L (3.5-5.1); SODIUM 137 MMOL/L (136-145)
[2019-08-05 08:00] VITALS: BP 114/71
[2019-08-05] MEDS: Zinc Sulfate 220mg cap ORAL SCH (09:14)
[2019-08-05] MEDS: Docusate 100mg cap ORAL SCH (09:15)
[2019-08-05] MEDS: Ascorbic Acid 500mg tab ORAL SCH (09:15)
[2019-08-05] MEDS: Furosemide 40mg tab ORAL SCH ×2 (09:15→17:44)
[2019-08-05] MEDS: Midodrine 10mg tab ORAL SCH ×3 (09:15→17:44)
[2019-08-05] MEDS: Levemir Flexpen SUBQ SCH ×2 (09:17→17:47)
--- NOTE | 2019-08-05 09:24 | General Progress Note ---
Assessment/Plan Problem List: (1) Type 2 diabetes mellitus ICD Codes: E11.9 - Type 2 diabetes mellitus without complications SNOMED: 92161662 (2) Paraplegia ICD Codes: G82.20 - Paraplegia, unspecified SNOMED: 64689418 Status: doing well, stable Assessment/Plan: increase Levemir to 95 units bid continue Novolog 40 units ac tid + SSI Subjective Allergies: Coded Allergies: No Known Allergies (Unverified , 02/09/19) All Systems: reviewed and negative except above Subjective events noted fasting glucose on higher side Item Value Date Time Bedside Blood Glucose 361 mg/dl H 08/05/19 0917 Bedside Blood Glucose 361 mg/dl H 08/05/19 0626 Bedside Blood Glucose 209 mg/dl H 08/04/19 2131 Bedside Blood Glucose 135 mg/dl H 08/04/19 1811 Objective Last 24 Hour Vital Signs Date Time Temp Pulse Resp B/P (MAP) Pulse Ox O2 Delivery O2 Flow Rate FiO2 08/05/19 04:00 98.3 97 18 109/68 (82) 94 08/05/19 00:00 97.8 90 18 108/66 (80) 93 08/04/19 21:00 Room Air 08/04/19 20:00 97.5 71 18 100/51 (67) 100 08/04/19 16:00 97.4 87 18 119/67 (84) 95 08/04/19 12:00 97.9 96 18 105/71 (82) 95 Intake and Output 08/04/19 08/05/19 19:00 07:00 Intake Total 1200 ml 1800 ml Output Total 2300 ml 2400 ml Balance -1100 ml -600 ml Intake Oral 1200 ml 1800 ml Output Urine Total 2300 ml 2400 ml # Bowel Movements 1 1 Laboratory Tests 08/05/19 05:25: White Blood Count 6.3, Red Blood Count 5.02, Hemoglobin 13.3L, Hematocrit 40.3L , Mean Corpuscular Volume 80, Mean Corpuscular Hemoglobin 26.5L, Mean Corpuscular Hemoglobin Concent 32.9, Red Cell Distribution Width 15.3H, Platelet Count 245, Mean Platelet Volume 6.3L, Neutrophils (%) (Auto) 59.9, Lymphocytes (%) (Auto) 31.0, Monocytes (%) (Auto) 6.3, Eosinophils (%) (Auto) 2.2, Basophils (%) (Auto) 0.6, Sodium Level 137, Potassium Level 3.5, Chloride Level 99, Carbon Dioxide Level 25, Anion Gap 13, Blood Urea Nitrogen 34H, Creatinine 1.1, Estimat Glomerular Filtration Rate > 60, Glucose Level 355H, Calcium Level 9.5 Height (Feet): 5 Height (Inches): 6.00 Weight (Pounds): 293 General Appearance: no apparent distress EENT: PERRL/EOMI Neck: normal alignment Cardiovascular: normal peripheral pulses Respiratory/Chest: lungs clear Abdomen: normal bowel sounds Objective Current Medications Medications (Trade) Dose Ordered Sig/Miguel Route PRN Reason Start Time Stop Time Status Last Admin Dose Admin Ascorbic Acid (Vitamin C) 500 mg DAILY ORAL 07/12/19 09:00 08/11/19 08:59 08/04/19 09:00 Bisacodyl (Dulcolax) 10 mg HSPRN PRN RECTAL Constipation 07/10/19 03:00 08/09/19 02:59 Dextrose (Dextrose 50%) 25 ml Q30M PRN IV Hypoglycemia 07/21/19 22:00 10/19/19 21:59 Dextrose (Dextrose 50%) 50 ml Q30M PRN IV Hypoglycemia 07/21/19 22:00 10/19/19 21:59 Docusate Sodium (Colace) 100 mg DAILY ORAL 07/10/19 09:00 08/09/19 08:59 08/04/19 09:00 Folic Acid (Folate) 1 mg DAILY ORAL 07/10/19 09:00 08/09/19 08:59 08/04/19 09:00 Furosemide (Lasix) 40 mg TWICE A DAY ORAL 07/10/19 09:00 08/09/19 08:59 08/04/19 17:10 Gabapentin (Neurontin) 100 mg Q12HR ORAL 07/26/19 21:00 08/25/19 20:59 07/29/19 08:25 Heparin Sodium (Porcine) (Heparin 5000 units/ml) 5,000 units EVERY 8 HOURS SUBQ 07/10/19 06:00 08/24/19 05:59 08/05/19 06:25 Hydrocortisone (Hydrocortisone) 1 applic Q6H PRN TOPIC Itching 07/22/19 14:15 10/20/19 14:14 Hydromorphone HCl (Dilaudid) 2 mg Q4H PRN ORAL For Pain 08/03/19 11:30 08/10/19 11:29 08/05/19 00:46 Insulin Aspart (NovoLOG) BEFORE MEALS AND HS SUBQ 07/22/19 06:30 10/20/19 06:29 08/05/19 06:26 Insulin Aspart (NovoLOG) 40 units NOVOTIAC SUBQ 07/27/19 11:50 08/16/19 06:29 08/05/19 06:26 Insulin Detemir (Levemir) 90 units BID SUBQ 08/04/19 10:00 08/16/19 09:59 08/04/19 18:11 Meclizine HCl (Antivert) 25 mg Q6H PRN ORAL for dizziness 07/22/19 14:12 08/21/19 14:11 07/24/19 04:04 Midodrine (Pro-Amatine) 10 mg THREE TIMES A DAY ORAL 07/10/19 09:00 08/09/19 08:59 08/04/19 17:10 Multivitamins (Multivitamins) 1 tab DAILY ORAL 07/12/19 09:00 08/11/19 08:59 08/04/19 09:00 Ondansetron HCl (Zofran) 4 mg Q6H PRN IVP Nausea & Vomiting 07/10/19 03:00 08/09/19 02:59 Pantoprazole (Protonix) 40 mg EVERY 12 HOURS ORAL 07/10/19 09:00 08/09/19 08:59 08/04/19 21:29 Polyethylene Glycol (Miralax) 17 gm DAILY PRN ORAL Constipation 07/26/19 09:30 08/25/19 09:29 Potassium Chloride (K-Dur) 20 meq DAILY ORAL 07/10/19 09:00 08/09/19 08:59 08/04/19 09:00 Zinc Sulfate (Zinc Sulfate) 220 mg DAILY ORAL 07/10/19 09:00 08/09/19 08:59 08/04/19 09:00 Gilson Solorio MD Aug 05, 2019 09:24
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
[2019-08-05 16:00] VITALS: BP 129/73
--- NOTE | 2019-08-05 18:25 | Surgery Progress Note ---
Surgery Progress Note Subjective Symptoms: improved, tolerating diet, voiding well, passing flatus, pain decreased Objective Last 24 Hour Vital Signs Date Time Temp Pulse Resp B/P (MAP) Pulse Ox O2 Delivery O2 Flow Rate FiO2 08/05/19 16:00 98.3 85 20 129/73 (91) 95 08/05/19 09:53 98.3 08/05/19 09:00 Room Air 08/05/19 08:00 98.0 98 18 114/71 (85) 94 08/05/19 04:00 98.3 97 18 109/68 (82) 94 08/05/19 00:00 97.8 90 18 108/66 (80) 93 08/04/19 21:00 Room Air 08/04/19 20:00 97.5 71 18 100/51 (67) 100 I&O Intake and Output 08/04/19 08/05/19 19:00 07:00 Intake Total 1200 ml 1800 ml Output Total 2300 ml 2400 ml Balance -1100 ml -600 ml Intake Oral 1200 ml 1800 ml Output Urine Total 2300 ml 2400 ml # Bowel Movements 1 1 Dressing: saturated Wound: other Cardiovascular: RSR Respiratory: decreased breath sounds Abdomen: soft, non-tender, present bowel sounds Extremities: no cyanosis Laboratory Tests Test 08/05/19 05:25 White Blood Count 6.3 K/UL (4.8-10.8) Red Blood Count 5.02 M/UL (4.70-6.10) Hemoglobin 13.3 G/DL (14.2-18.0) L Hematocrit 40.3 % (42.0-52.0) L Mean Corpuscular Volume 80 FL (80-99) Mean Corpuscular Hemoglobin 26.5 PG (27.0-31.0) L Mean Corpuscular Hemoglobin Concent 32.9 G/DL (32.0-36.0) Red Cell Distribution Width 15.3 % (11.6-14.8) H Platelet Count 245 K/UL (150-450) Mean Platelet Volume 6.3 FL (6.5-10.1) L Neutrophils (%) (Auto) 59.9 % (45.0-75.0) Lymphocytes (%) (Auto) 31.0 % (20.0-45.0) Monocytes (%) (Auto) 6.3 % (1.0-10.0) Eosinophils (%) (Auto) 2.2 % (0.0-3.0) Basophils (%) (Auto) 0.6 % (0.0-2.0) Sodium Level 137 MMOL/L (136-145) Potassium Level 3.5 MMOL/L (3.5-5.1) Chloride Level 99 MMOL/L (98-107) Carbon Dioxide Level 25 MMOL/L (21-32) Anion Gap 13 mmol/L (5-15) Blood Urea Nitrogen 34 mg/dL (7-18) H Creatinine 1.1 MG/DL (0.55-1.30) Estimat Glomerular Filtration Rate > 60 mL/min (>60) Glucose Level 355 MG/DL (74-106) H Calcium Level 9.5 MG/DL (8.5-10.1) Plan Problems: (1) Sacral decubitus ulcer Assessment & Plan: Pt presented on admission with multiple pressure injuries. Contractures bilat lower ext. DTPI noted sacrococcygeal area(L)2.5cm x (W)0.5cm. Base of wound is purple with maroon borders. Non-blanching erythema periwound. Scrotum is erythematous. Full thickness stage 3/4 pressure injury upper L buttocks. (L)1.3cm x (W)1 cm x (D)1.1cm. Base of wound is obscured secondary wound within crevice of skin fold. DTPI outer lower L buttocks(L)10.5cm x (W)8.5cm. Base of wound is fluctuant, maroon with scattered areas that are purple. Pt complained site has been painful last few days. No elevation in skin temp noted. Full thickness stage 4 pressure injury R ischium.(L)3.5cm x (W)2.5cmcm x (D) 3.6cm. Surrounding perimeter of wound is maroon.Base of wound is not appreciated due wound is within crevice of skin. Small amt serosanguineous exudate noted. No odor noted. Unstageable pressure injury posterior lower R thigh(L)0.8cm x (W)0.9cm. Base of wound has 100% slough. Borders are erythematous . No odor or exudate noted. DTPI upper/lateral R thigh Base of wound is indurated and maroon in colour. Small partial thickness stage 2 ulcer distal/lateral L lower extremity. Base of wound is moist and viable. borders are macerated. Small amt sanguineous exudate noted. Full thickness stage 4 ulcer Dorsal R foot.(L)2.5cm x (W)3cm Base of wound scattered fibrinous slough ,otherwise moist and pink. Borders are macerated. No odor or exudate noted. No erythema,induration or fluctuance periwound. Historical scars noted to both heels. Scattered white plaques with hyperkeratosis noted to both lower ext. Tx Plan: Cleanse Wounds R and L buttocks with Saline. Loosely pack with Therahoney infused packing strip. Apply Moisture Barrier periwound. Cover each wound with Optifoam drsg Daily and prn. Cleanse wound R Thigh with Saline. Cover with Optifoam drsg Daily and prn. Apply Moisture Barrier Paste to Sacrum and lower L buttocks. Cover each site with Optifoam drsg. Daily and prn. Apply Cavilon to upper R thigh DTPI. Cover with Optifoam drsg. Change every 3 days and prn. Apply Betadine to wound distal/lateral L lower ext and dorsal R foot. Cover each wound with Optifoam drsg. Change every 3 days and prn. Reposition at least every 2hours or as tolerated. Off load heels with pillow. APM/DEVONTE Mattress. (2) Chronic indwelling Alexandre catheter Assessment & Plan: abx as per ID UTI noted micro noted cont abx doing better improving plain films okay unfortunately given overall condition possible inevitable decline as he is overweight, not adherent to healthy diet and does not move much will monitor and follow with recs (3) History of osteomyelitis Assessment & Plan: DAILY ESTIMATED NEEDS: Needs based on Wound, paraplegia, obesity 78.9kg abw 20-25 kcals/kg 6760-3703 total kcals 1.25-2 g protein/kg 99-158 g total protein 25-30 mL/kg 5745-1766 total fluid mLs NUTRITION DIAGNOSIS: * Increased Protein and micronutrient needs r/t Wound healing as evidenced by pt w/ multiple wounds, including full thickness and unstageable, refer to wound care eval. * Altered nutrition related lab values R/T diabetes as evidenced by BGs in the 300's and 400's. CURRENT DIET:CCHO MED PO DIET RECOMMENDATIONS: CCHO LOW (3 Carbs/ meal) w/ DOUBLE PROTEIN PORTIONS ADDITIONAL RECOMMENDATIONS: 1) RE-calibrate bed scale w/ added P200 mattress 2) Obtain HgA1C for eval 3) Wound care: Continue MVI, Vit C, and ZnSO4 Add Skip BID 4) Monitor diet compliance and educate as able 5) Monitor lytes w/ Lasix, replete as needed 6) Monitor BGs closely, now on Levemir BID, TIAC NovoLog + SSI Richard Minaya Aug 05, 2019 18:25
--- NOTE | 2019-08-05 19:10 | NUR ---
HAND-OFF: Report given to TOMAS Dorantes and TOMAS Wynn. Rounds done.
--- NOTE | 2019-08-05 19:15 | NUR ---
NURSE NOTES: Received patient in bed Alert,oriented,awake and verbal. Pt is On room air, no signs of distress or labored breathing. No IV and no complain on pain . Bed in lowest position, bed is locked, call light within reach. We will keep monitoring.
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
[2019-08-05 20:00] VITALS: BP 100/62
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
[2019-08-06] VITALS: BP 118/68
--- NOTE | 2019-08-06 02:10 | NUR ---
NURSE NOTES: Patient is in bed in a stable condition. No sob, no complain of pain and vitals tommy stable. He refused gabapentin and heparin, i explained the risk and benefit but still refused. All needs are met. Bed in a lower position and locked, call light within reach. we will keep monitoring
[2019-08-06 04:00] VITALS: BP 108/78
[2019-08-06] MEDS: Heparin 5000 units/ml inj SUBQ SCH ×2 (06:00→13:26)
[2019-08-06] MEDS: NovoLOG Insulin Flexpen SUBQ SCH ×4 (06:20→11:38)
--- NOTE | 2019-08-06 07:29 | NUR ---
HAND-OFF: Report given to TOMAS Zhu.
--- NOTE | 2019-08-06 07:38 | NUR ---
NURSE NOTES: Received patient in bed asleep. No SOB or acute distress. Alexandre catheter intact. Wound dressings intact. HOB elevated. Bed locked in lowest position. Call light within reach. Will continue plan of care.
--- NOTE | 2019-08-06 07:46 | General Progress Note ---
Assessment/Plan Problem List: (1) Type 2 diabetes mellitus ICD Codes: E11.9 - Type 2 diabetes mellitus without complications SNOMED: 94394648 (2) Paraplegia ICD Codes: G82.20 - Paraplegia, unspecified SNOMED: 15507913 Status: doing well, stable Assessment/Plan: continue Levemir 95 units bid continue Novolog 40 units ac tid + SSI Subjective Allergies: Coded Allergies: No Known Allergies (Unverified , 02/09/19) All Systems: reviewed and negative except above Subjective events noted fasting glucose improved Item Value Date Time Bedside Blood Glucose 225 mg/dl H 08/06/19 0630 Bedside Blood Glucose 193 mg/dl H 08/05/19 2100 Bedside Blood Glucose 216 mg/dl H 08/05/19 1747 Bedside Blood Glucose 155 mg/dl H 08/05/19 1241 Bedside Blood Glucose 361 mg/dl H 08/05/19 0917 Objective Last 24 Hour Vital Signs Date Time Temp Pulse Resp B/P (MAP) Pulse Ox O2 Delivery O2 Flow Rate FiO2 08/06/19 04:00 97.8 72 19 108/78 (88) 95 08/06/19 00:00 97.2 70 20 118/68 (85) 95 08/05/19 21:00 Room Air 08/05/19 20:00 98.0 96 19 100/62 (75) 95 08/05/19 16:00 98.3 85 20 129/73 (91) 95 08/05/19 09:53 98.3 08/05/19 09:00 Room Air 08/05/19 08:00 98.0 98 18 114/71 (85) 94 Intake and Output 08/05/19 08/06/19 19:00 07:00 Intake Total 1500 ml Output Total 3100 ml 2400 ml Balance -1600 ml -2400 ml Intake Oral 1500 ml Output Urine Total 3100 ml 2400 ml # Voids 2 Height (Feet): 5 Height (Inches): 6.00 Weight (Pounds): 293 General Appearance: no apparent distress Neck: normal alignment Cardiovascular: normal rate Respiratory/Chest: lungs clear Objective Current Medications Medications (Trade) Dose Ordered Sig/Miguel Route PRN Reason Start Time Stop Time Status Last Admin Dose Admin Ascorbic Acid (Vitamin C) 500 mg DAILY ORAL 07/12/19 09:00 08/11/19 08:59 08/05/19 09:15 Bisacodyl (Dulcolax) 10 mg HSPRN PRN RECTAL Constipation 07/10/19 03:00 08/09/19 02:59 Dextrose (Dextrose 50%) 25 ml Q30M PRN IV Hypoglycemia 07/21/19 22:00 10/19/19 21:59 Dextrose (Dextrose 50%) 50 ml Q30M PRN IV Hypoglycemia 07/21/19 22:00 10/19/19 21:59 Docusate Sodium (Colace) 100 mg DAILY ORAL 07/10/19 09:00 08/09/19 08:59 08/05/19 09:15 Folic Acid (Folate) 1 mg DAILY ORAL 07/10/19 09:00 08/09/19 08:59 08/05/19 09:15 Furosemide (Lasix) 40 mg TWICE A DAY ORAL 07/10/19 09:00 08/09/19 08:59 08/05/19 17:44 Gabapentin (Neurontin) 100 mg Q12HR ORAL 07/26/19 21:00 08/25/19 20:59 07/29/19 08:25 Heparin Sodium (Porcine) (Heparin 5000 units/ml) 5,000 units EVERY 8 HOURS SUBQ 07/10/19 06:00 08/24/19 05:59 08/05/19 06:25 Hydrocortisone (Hydrocortisone) 1 applic Q6H PRN TOPIC Itching 07/22/19 14:15 10/20/19 14:14 Hydromorphone HCl (Dilaudid) 2 mg Q4H PRN ORAL For Pain 08/03/19 11:30 08/10/19 11:29 08/05/19 17:43 Insulin Aspart (NovoLOG) BEFORE MEALS AND HS SUBQ 07/22/19 06:30 10/20/19 06:29 08/06/19 06:20 Insulin Aspart (NovoLOG) 40 units NOVOTIAC SUBQ 07/27/19 11:50 08/16/19 06:29 08/06/19 06:20 Insulin Detemir (Levemir) 95 units BID SUBQ 08/05/19 18:00 08/16/19 09:59 08/05/19 17:47 Meclizine HCl (Antivert) 25 mg Q6H PRN ORAL for dizziness 07/22/19 14:12 08/21/19 14:11 07/24/19 04:04 Midodrine (Pro-Amatine) 10 mg THREE TIMES A DAY ORAL 07/10/19 09:00 08/09/19 08:59 08/05/19 17:44 Multivitamins (Multivitamins) 1 tab DAILY ORAL 07/12/19 09:00 08/11/19 08:59 08/05/19 09:15 Ondansetron HCl (Zofran) 4 mg Q6H PRN IVP Nausea & Vomiting 07/10/19 03:00 08/09/19 02:59 Pantoprazole (Protonix) 40 mg EVERY 12 HOURS ORAL 07/10/19 09:00 08/09/19 08:59 08/05/19 21:01 Polyethylene Glycol (Miralax) 17 gm DAILY PRN ORAL Constipation 07/26/19 09:30 08/25/19 09:29 Potassium Chloride (K-Dur) 20 meq DAILY ORAL 07/10/19 09:00 08/09/19 08:59 08/05/19 09:15 Zinc Sulfate (Zinc Sulfate) 220 mg DAILY ORAL 07/10/19 09:00 08/09/19 08:59 08/05/19 09:14 Gilson Solorio MD Aug 06, 2019 07:46
[2019-08-06 08:00] VITALS: BP 110/79
[2019-08-06] MEDS: Midodrine 10mg tab ORAL SCH ×2 (08:44→13:25)
[2019-08-06] MEDS: Ascorbic Acid 500mg tab ORAL SCH (08:44)
[2019-08-06] MEDS: Docusate 100mg cap ORAL SCH (08:45)
[2019-08-06] MEDS: Zinc Sulfate 220mg cap ORAL SCH (08:45)
[2019-08-06] MEDS: Furosemide 40mg tab ORAL SCH (08:45)
[2019-08-06 08:46] LABS: BASOPHILS % (AUTO) 0.5 % (0.0-2.0); EOSINOPHILS % (AUTO) 1.6 % (0.0-3.0); HEMATOCRIT 41.7 % (42.0-52.0); HEMOGLOBIN 13.8 G/DL (14.2-18.0); LYMPHOCYTES % (AUTO) 28.5 % (20.0-45.0); MEAN CORPUSCULAR VOLUME 79 FL (80-99); MONOCYTES % (AUTO) 5.6 % (1.0-10.0); NEUTROPHILS % (AUTO) 63.8 % (45.0-75.0); PLATELET COUNT 250 K/UL (150-450); RED BLOOD COUNT 5.27 M/UL (4.70-6.10); RED CELL DISTRIBUTION WIDTH 14.7 % (11.6-14.8); WHITE BLOOD COUNT 7.1 K/UL (4.8-10.8)
[2019-08-06] MEDS: HYDROmorphone 2mg tab ORAL PRN (08:54)
[2019-08-06 09:06] LABS: ANION GAP 14 mmol/L (5-15); BLOOD UREA NITROGEN 28 mg/dL (7-18); CALCIUM 9.6 MG/DL (8.5-10.1); CARBON DIOXIDE 25 MMOL/L (21-32); CHLORIDE 101 MMOL/L (98-107); CREATININE 0.9 MG/DL (0.55-1.30); POTASSIUM 3.1 MMOL/L (3.5-5.1); SODIUM 140 MMOL/L (136-145)
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
[2019-08-06] MEDS: Levemir Flexpen SUBQ SCH (09:56)
--- NOTE | 2019-08-06 11:36 | NUR ---
DISCHARGE PLANNING CALL MADE TO [facility]. S/W SAIGE IN ADMISSIONS. STATES THERE ARE NO BEDS AVAILABLE AT THIS TIME. CALL MADE TO PHYSICS DEPARTMENT CHAIR ELLE AND INFORMED PATIENT HAS BEEN DISCHARGED OF 07/27/2019. INFORMED THAT [facility] PROVIDED LETTER OF AGREEMENT (WILLIAM) TO [facility]. INFORMED THIS CM INFORMED BY SAIGE ON 08/01/19 WILLIAM HAD BEEN ACCEPTED AND PATIENT ACCEPTED TO RETURN UPON BED AVAILABILITY. PER ELLE, PATIENT MAY RETURN TO [facility] TODAY, 08/06/2019 AFTER 5 PM TO ROOM 206-B, SKILLED CARE. [facility]SP[facility] SCHEDULED WITH [facility] @ 4926 W/ETA @ 1800 PM TOMAS BROWNLEE INFORMED Addendum: 08/06/19 at 1426 by [facility] AMBULANCE TRANSPORTATION MANUGRAPHER TIME CHANGED FROM 1800 PM TO 1630 PM. S/W CECILY.
[2019-08-06 12:00] VITALS: BP 123/68
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
[2019-08-06] MEDS ORDERED: LEVEMIR FL100 UNIT/1 SUBQ (12:16)
--- NOTE | 2019-08-06 15:56 | NUR ---
*-* INSURANCE *-* ALL CLINICALS AND REVIEWS HAVE LJ FAXED TO: DILCIA FIGUEROA REF# [id number] PH: [phone] FAX: [phone]
--- NOTE | 2019-08-06 17:00 | NUR ---
NURSE NOTES: Patient discharged to [facility], spoke to dave. ID band removed. Alexandre catheter intact. No new skin issues noted. Belongings accounted for. Transported by ambulance accompanied by ambulance personnel.
--- NOTE | 2019-08-06 17:46 | Surgery Progress Note ---
Surgery Progress Note Subjective Additional Comments no acute events improving looking forward to d/c today okay from surgical standpoint patient states he understands care plan will move and try to eat healthy Objective Last 24 Hour Vital Signs Date Time Temp Pulse Resp B/P (MAP) Pulse Ox O2 Delivery O2 Flow Rate FiO2 08/06/19 12:00 98.9 99 20 123/68 (86) 98 08/06/19 09:00 Room Air 08/06/19 08:00 98.0 78 19 110/79 (89) 97 08/06/19 04:00 97.8 72 19 108/78 (88) 95 08/06/19 00:00 97.2 70 20 118/68 (85) 95 08/05/19 21:00 Room Air 08/05/19 20:00 98.0 96 19 100/62 (75) 95 I&O Intake and Output 08/05/19 08/06/19 19:00 07:00 Intake Total 1500 ml Output Total 3100 ml 2400 ml Balance -1600 ml -2400 ml Intake Oral 1500 ml Output Urine Total 3100 ml 2400 ml # Voids 2 Dressing: saturated Wound: other Drains: other Cardiovascular: RSR Respiratory: decreased breath sounds Abdomen: soft, non-tender, present bowel sounds, non-distended Extremities: no edema, no tenderness, no cyanosis Laboratory Tests Test 08/06/19 08:00 White Blood Count 7.1 K/UL (4.8-10.8) Red Blood Count 5.27 M/UL (4.70-6.10) Hemoglobin 13.8 G/DL (14.2-18.0) L Hematocrit 41.7 % (42.0-52.0) L Mean Corpuscular Volume 79 FL (80-99) L Mean Corpuscular Hemoglobin 26.3 PG (27.0-31.0) L Mean Corpuscular Hemoglobin Concent 33.2 G/DL (32.0-36.0) Red Cell Distribution Width 14.7 % (11.6-14.8) Platelet Count 250 K/UL (150-450) Mean Platelet Volume 6.0 FL (6.5-10.1) L Neutrophils (%) (Auto) 63.8 % (45.0-75.0) Lymphocytes (%) (Auto) 28.5 % (20.0-45.0) Monocytes (%) (Auto) 5.6 % (1.0-10.0) Eosinophils (%) (Auto) 1.6 % (0.0-3.0) Basophils (%) (Auto) 0.5 % (0.0-2.0) Sodium Level 140 MMOL/L (136-145) Potassium Level 3.1 MMOL/L (3.5-5.1) L Chloride Level 101 MMOL/L (98-107) Carbon Dioxide Level 25 MMOL/L (21-32) Anion Gap 14 mmol/L (5-15) Blood Urea Nitrogen 28 mg/dL (7-18) H Creatinine 0.9 MG/DL (0.55-1.30) Estimat Glomerular Filtration Rate > 60 mL/min (>60) Glucose Level 140 MG/DL (74-106) #H Calcium Level 9.6 MG/DL (8.5-10.1) Plan Problems: (1) Sacral decubitus ulcer Assessment & Plan: Pt presented on admission with multiple pressure injuries. Contractures bilat lower ext. DTPI noted sacrococcygeal area(L)2.5cm x (W)0.5cm. Base of wound is purple with maroon borders. Non-blanching erythema periwound. Scrotum is erythematous. Full thickness stage 3/4 pressure injury upper L buttocks. (L)1.3cm x (W)1 cm x (D)1.1cm. Base of wound is obscured secondary wound within crevice of skin fold. DTPI outer lower L buttocks(L)10.5cm x (W)8.5cm. Base of wound is fluctuant, maroon with scattered areas that are purple. Pt complained site has been painful last few days. No elevation in skin temp noted. Full thickness stage 4 pressure injury R ischium.(L)3.5cm x (W)2.5cmcm x (D) 3.6cm. Surrounding perimeter of wound is maroon.Base of wound is not appreciated due wound is within crevice of skin. Small amt serosanguineous exudate noted. No odor noted. Unstageable pressure injury posterior lower R thigh(L)0.8cm x (W)0.9cm. Base of wound has 100% slough. Borders are erythematous . No odor or exudate noted. DTPI upper/lateral R thigh Base of wound is indurated and maroon in colour. Small partial thickness stage 2 ulcer distal/lateral L lower extremity. Base of wound is moist and viable. borders are macerated. Small amt sanguineous exudate noted. Full thickness stage 4 ulcer Dorsal R foot.(L)2.5cm x (W)3cm Base of wound scattered fibrinous slough ,otherwise moist and pink. Borders are macerated. No odor or exudate noted. No erythema,induration or fluctuance periwound. Historical scars noted to both heels. Scattered white plaques with hyperkeratosis noted to both lower ext. Tx Plan: Cleanse Wounds R and L buttocks with Saline. Loosely pack with Therahoney infused packing strip. Apply Moisture Barrier periwound. Cover each wound with Optifoam drsg Daily and prn. Cleanse wound R Thigh with Saline. Cover with Optifoam drsg Daily and prn. Apply Moisture Barrier Paste to Sacrum and lower L buttocks. Cover each site with Optifoam drsg. Daily and prn. Apply Cavilon to upper R thigh DTPI. Cover with Optifoam drsg. Change every 3 days and prn. Apply Betadine to wound distal/lateral L lower ext and dorsal R foot. Cover each wound with Optifoam drsg. Change every 3 days and prn. Reposition at least every 2hours or as tolerated. Off load heels with pillow. APM/DEVONTE Mattress. (2) Chronic indwelling Alexandre catheter Assessment & Plan: abx as per ID UTI noted micro noted cont abx doing better improving plain films okay unfortunately given overall condition possible inevitable decline as he is overweight, not adherent to healthy diet and does not move much will monitor and follow with recs (3) History of osteomyelitis Assessment & Plan: DAILY ESTIMATED NEEDS: Needs based on Wound, paraplegia, obesity 78.9kg abw 20-25 kcals/kg 8994-9828 total kcals 1.25-2 g protein/kg 99-158 g total protein 25-30 mL/kg 8390-2212 total fluid mLs NUTRITION DIAGNOSIS: * Increased Protein and micronutrient needs r/t Wound healing as evidenced by pt w/ multiple wounds, including full thickness and unstageable, refer to wound care eval. * Altered nutrition related lab values R/T diabetes as evidenced by BGs in the 300's and 400's. CURRENT DIET:CCHO MED PO DIET RECOMMENDATIONS: CCHO LOW (3 Carbs/ meal) w/ DOUBLE PROTEIN PORTIONS ADDITIONAL RECOMMENDATIONS: 1) RE-calibrate bed scale w/ added P200 mattress 2) Obtain HgA1C for eval 3) Wound care: Continue MVI, Vit C, and ZnSO4 Add Skip BID 4) Monitor diet compliance and educate as able 5) Monitor lytes w/ Lasix, replete as needed 6) Monitor BGs closely, now on Levemir BID, TIAC NovoLog + SSI Additional Comments cont above care plan for d/c Richard Minaya Aug 06, 2019 17:46
--- NOTE | 2019-08-07 10:46 | NUR ---
*-* INSURANCE *-* DISCHARGE INSTRUCTIONS HAVE BEEN FAXED NO DISCHARGE SUMMARY YET. [facility] REF# [id number] PH: [phone] FAX: [phone]
== END 2019-08-06 17:35 | DRG 466 ==
LOC: EDBD 22:32 → EDUNIT# 22:32 → EMR 23:49 → 4E 07-10 00:26 → EDBEDREQ 07-10 00:43 → 4E 07-10 06:21
DX: T83.511A Infection and inflammatory reaction due to indwelling urethral catheter, initial encounter (principal); G82.20 Paraplegia, unspecified; E11.65 Type 2 diabetes mellitus with hyperglycemia; L89.159 Pressure ulcer of sacral region, unspecified stage; N31.9 Neuromuscular dysfunction of bladder, unspecified; K74.60 Unspecified cirrhosis of liver; B18.2 Chronic viral hepatitis C; Z86.711 Personal history of pulmonary embolism; L89.214 Pressure ulcer of right hip, stage 4; L89.324 Pressure ulcer of left buttock, stage 4; L89.314 Pressure ulcer of right buttock, stage 4; L89.894 Pressure ulcer of other site, stage 4; I95.89 Other hypotension; G93.40 Encephalopathy, unspecified; D50.9 Iron deficiency anemia, unspecified; Z91.14 Patient's other noncompliance with medication regimen; R10.13 Epigastric pain; B95.61 Methicillin susceptible Staphylococcus aureus infection as the cause of diseases classified elsewhere; B95.2 Enterococcus as the cause of diseases classified elsewhere
CPT/HCPCS: 36415; 74018; 80048; 80053; 81001; 81003; 82962; 83036; 83735; 85025; 87040; 87081; 87086; 87181; 93306; 96365; 96368; 99285; J1815; J8499; S5561

== ENCOUNTER 2020-02-19 03:15 | Inpatient (IN) | payer OTHER ==
[2020-02-19] VITALS (8 sets, daily range): BP systolic 108–131; BP diastolic 60–87
[~2020-02-19] VITALS: Ht 172.7 cm; Wt 132.5 kg
[~2020-02-19 03:15] MED LIST changes: +ACETAMINOPHEN325 M1 ORAL; +ARTIFICIAL TEAR15 ML BOTH EYES; +ASPIRIN81 MG ORAL; +CALCIUM 500 +1 EAC6 PO; +CRANBERRY500 M3 PO; +DOCUSATE SODIU100 MG ORAL; +DULCOLAX10 MG RC; +FLORAJEN3 CAPS460 MG PO; +FOLIC ACID0.8 MG ORAL; +FUROSEMIDE40 MG ORAL; +HEPARIN SO5000 UNIT2 SUBQ; +HYDROCORTISONE 0.5% TOPIC; +HYDROmorphone ORAL; +JUVEN PACKET1 EAC1 PO; +LEVEMIR100 UNIT/1 SUBQ; +LIPITOR80 MG ORAL; +LORATADINE10 M1 PO; +MILK OF MA400 MG/51 ORAL; +MORPHINE SULFAT15 MG PO; +MULTIVITAMINS1 EA14 PO; +NEURONTIN100 MG ORAL; +NEXIUM40 MG ORAL; +POTASSIUM CHLO20 ME3 PO; +PRO-AMATINE10 MG ORAL; +RELISTOR12 MG/0.1 SUBQ; +TYLENOL EXTRA500 MG ORAL; +VICTOZA 2-0.6 MG/0.1 SUBQ; +VITAMIN B122500 MCG PO; +VITAMIN C 250250 MG PO; +ZINC SULFATE220 M1 ORAL; +ZOFRAN4 M3 ORAL; +ZOSYN 3.373.375 GM/1 IVPB
--- NOTE | 2020-02-19 03:37 | NUR ---
ED Nurse Note: brought in byl afd from [facility] c/o scrotal pain and blood in urine onset AM yesterday. per ems, pt was given morphine at 1830 for pain. ems also reports pt hx testicular cancer and tumor removal sx 3 months ago and had a repeat surgery 1 month ago for infection.
--- NOTE | 2020-02-19 03:38 | NUR ---
ED Nurse Note: pt on cover creaser ,ermd at bedside, vss, nad, aaox4, nonambulatory. urine collected and sent to lab.
[2020-02-19] MEDS ORDERED: HYDROmorphone 1mg/ml Carpuject IVP ONE (03:45)
[2020-02-19] MEDS ORDERED: Meropenem 1 GM in NS 55 ML IVPB ONE (03:45)
--- NOTE | 2020-02-19 03:45 | NUR ---
ED Nurse Note: blood collected and sent to lab. per ermd order, changed stoner. stoner patent and draining,.
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
[2020-02-19 04:10] LABS: BILIRUBIN, URINE NEGATIVE (NEGATIVE); COLOR,URINE PALE YELLOW; GLUCOSE, URINE (UA) 4+ (NEGATIVE); KETONES,URINE NEGATIVE (NEGATIVE); LEUKOCYTE ESTERASE ,URINE 3+ (NEGATIVE); NITRITE,URINE NEGATIVE (NEGATIVE); PH,URINE 6.5 (4.5-8.0); PROTEIN,URINE 2+ (NEGATIVE); UROBILINOGEN,URINE NORMAL MG/DL (0.0-1.0)
[2020-02-19 04:13] LABS: BASOPHILS % (AUTO) 0.6 % (0.0-2.0); EOSINOPHILS % (AUTO) 2.2 % (0.0-3.0); HEMATOCRIT 38.4 % (42.0-52.0); HEMOGLOBIN 12.1 G/DL (14.2-18.0); LYMPHOCYTES % (AUTO) 18.3 % (20.0-45.0); MEAN CORPUSCULAR VOLUME 76 FL (80-99); MONOCYTES % (AUTO) 5.5 % (1.0-10.0); NEUTROPHILS % (AUTO) 73.4 % (45.0-75.0); PLATELET COUNT 200 K/UL (150-450); RED BLOOD COUNT 5.03 M/UL (4.70-6.10); RED CELL DISTRIBUTION WIDTH 17.7 % (11.6-14.8); WHITE BLOOD COUNT 7.2 K/UL (4.8-10.8)
--- NOTE | 2020-02-19 04:18 | NUR ---
ED Nurse Note: spoke with Constance therapeutic case manager.
[2020-02-19 04:21] LABS: BLOOD UREA NITROGEN 20 mg/dL (7-18); CALCIUM 8.9 MG/DL (8.5-10.1); CARBON DIOXIDE 29 MMOL/L (21-32); CHLORIDE 97 MMOL/L (98-107); CREATININE 1.3 MG/DL (0.55-1.30); POTASSIUM 4.2 MMOL/L (3.5-5.1); SODIUM 132 MMOL/L (136-145)
[2020-02-19 04:22] LABS: APPEARANCE,URINE CLOUDY
[2020-02-19] MEDS ORDERED: Insulin Human Regular 100units/ml 3ml IV ONE (04:45)
[2020-02-19] MEDS ORDERED: Morphine Sulfate 4mg/ml Inj (IV USE ONLY) IVP PRN (05:00)
[2020-02-19] MEDS ORDERED: ARTIFICIAL TEAR15 ML BOTH EYES (05:06)
--- NOTE | 2020-02-19 05:17 | NUR ---
ED Nurse Note: gave report to Dora MARIN
--- NOTE | 2020-02-19 05:20 | NUR ---
TRANSFER TO FLOOR: Patient transferred to [id number] via gurney in stable condition as ordered, per dr. Baxter . Report given to Dora MARIN. Belongings sent with patient
--- NOTE | 2020-02-19 05:36 | NUR ---
NURSE NOTES: Pt brought in via gurney and transferred to [facility]/ Pt came from [facility] c/o scrotal pain and blood in urine onset AM yesterday. It was reported that pt has hx testicular cancer and tumor removal sx 3 months ago and had a repeat surgery 1 month ago for infection. Pt is alert and oriented x4 on room air, IV R hand 20 g patent, saline locked. Belongings checked at the bedside and accounted for. Oriented to room and unit. Pt is in an upbeat mood, pleasant disposition. Pt present with multiple wounds, wound care plan initiated and pictures uploaded.
--- NOTE | 2020-02-19 08:46 | NUR ---
NURSE HAND-OFF: Important Events on Shift: admitted for ESBL, uti and hematuria Patient Status: stable, new indwelling catheter placed at 0400, patent, draining, wound photos uploaded and wound care plan initiated Diet: low fat diet Latest Duke Fall Score: 35 Fall Risk: Medium Risk Safety Measures: Call light Within Reach, Bed Alarm Zone 1, Side Rails Side Rails x2, Bed position Low and Locked. Fall Precautions: Yellow Socks Patient Fall Education Report given to Vito MARIN
[2020-02-19] MEDS ORDERED: oxyCODONE HCL/Acetaminophen 5/325mg ORAL PRN (09:00)
[2020-02-19] MEDS ORDERED: Acetaminophen 650 MG SUPP RECTAL PRN (09:00)
[2020-02-19] MEDS ORDERED: Albuterol/Ipratropium 3ml neb HHN PRN (09:00)
[2020-02-19] MEDS ORDERED: Levemir Flexpen SUBQ SCH (09:00)
[2020-02-19 09:18] LABS: ALANINE AMINOTRANSFERASE 25 U/L (12-78); ALBUMIN 3.2 G/DL (3.4-5.0); ALKALINE PHOSPHATASE 135 U/L (46-116); ASPARTATE AMINO TRANSFERASE 21 U/L (15-37); BILIRUBIN,DIRECT < 0.1 MG/DL (0.0-0.3); BILIRUBIN,TOTAL 0.8 MG/DL (0.2-1.0); CHOLESTEROL 142 MG/DL (< 200); HDL CHOLESTEROL 42 MG/DL (40-60); PHOSPHORUS 2.7 MG/DL (2.5-4.9); TRIGLYCERIDES 143 MG/DL (30-150)
[2020-02-19] MEDS: Aspirin Baby 81mg ORAL SCH (09:30)
[2020-02-19] MEDS: Enoxaparin 40mg Inj SUBQ SCH (09:31)
--- NOTE | 2020-02-19 11:24 | NUR ---
NURSE NOTES: Received patient in bed resting comfortably. He is aOx4, no respiratory distress, patient is bed bound. multiple pressure ulcers in the bottocks area and upper thighs. IV on right hand that is patent and dressing is clean. Patient complains of abdominal pain. Morphine 4mg IV given. Patient will be monitored for safety. Bed at lowest position, call light within reach.
[2020-02-19] MEDS ORDERED: NovoLOG Insulin Flexpen SUBQ SCH (11:30)
[2020-02-19] MEDS: NovoLOG Insulin Flexpen SUBQ SCH ×5 (11:48→20:28)
--- NOTE | 2020-02-19 12:08 | Infectious Diseases Prog Note ---
Assessment/Plan Assessment/Plan Full consult to follow: A) 1) esbl uti - providencia and proteus 2) ? scrotal wound infection 3) PP 4) chronic catheter 5) nkda P) 1) meropenem and vancomycin 2) f/u on urine culture and wound culture 3) thank you Subjective Allergies: Coded Allergies: No Known Allergies (Unverified , 02/09/19) Objective Last 24 Hour Vital Signs Date Time Temp Pulse Resp B/P (MAP) Pulse Ox O2 Delivery O2 Flow Rate FiO2 02/19/20 09:00 Room Air 02/19/20 08:34 97.2 02/19/20 08:00 99.1 104 20 108/68 (81) 93 02/19/20 06:26 Room Air 02/19/20 06:00 97.2 103 18 122/60 (80) 93 02/19/20 05:20 98.6 96 18 131/83 98 Room Air 02/19/20 05:19 98.6 96 18 131/83 98 Room Air 02/19/20 04:30 98.1 02/19/20 03:35 98.1 98 18 116/87 98 Room Air 02/19/20 03:16 98.4 16 97 Room Air Height (Feet): 5 Height (Inches): 8.00 Weight (Pounds): 293 Laboratory Tests Test 02/19/20 04:04 02/19/20 10:06 02/19/20 11:42 White Blood Count 7.2 K/UL (4.8-10.8) Red Blood Count 5.03 M/UL (4.70-6.10) Hemoglobin 12.1 G/DL (14.2-18.0) L Hematocrit 38.4 % (42.0-52.0) L Mean Corpuscular Volume 76 FL (80-99) L Mean Corpuscular Hemoglobin 24.0 PG (27.0-31.0) L Mean Corpuscular Hemoglobin Concent 31.4 G/DL (32.0-36.0) L Red Cell Distribution Width 17.7 % (11.6-14.8) H Platelet Count 200 K/UL (150-450) Mean Platelet Volume 5.9 FL (6.5-10.1) L Neutrophils (%) (Auto) 73.4 % (45.0-75.0) Lymphocytes (%) (Auto) 18.3 % (20.0-45.0) L Monocytes (%) (Auto) 5.5 % (1.0-10.0) Eosinophils (%) (Auto) 2.2 % (0.0-3.0) Basophils (%) (Auto) 0.6 % (0.0-2.0) Urine Color Pale yellow Urine Appearance Cloudy Urine pH 6.5 (4.5-8.0) Urine Specific [place] 1.005 (1.005-1.035) Urine Protein 2+ (NEGATIVE) H Urine Glucose (UA) 4+ (NEGATIVE) H Urine Ketones Negative (NEGATIVE) Urine Blood 5+ (NEGATIVE) H Urine Nitrite Negative (NEGATIVE) Urine Bilirubin Negative (NEGATIVE) Urine Urobilinogen Normal MG/DL (0.0-1.0) Urine Leukocyte Esterase 3+ (NEGATIVE) H Urine RBC Tntc /HPF (0 - 0) H Urine WBC 40-60 /HPF (0 - 0) H Urine Squamous Epithelial Cells None /LPF (NONE/OCC) Urine Bacteria Moderate /HPF (NONE) H Sodium Level 132 MMOL/L (136-145) L Potassium Level 4.2 MMOL/L (3.5-5.1) Chloride Level 97 MMOL/L (98-107) L Carbon Dioxide Level 29 MMOL/L (21-32) Blood Urea Nitrogen 20 mg/dL (7-18) H Creatinine 1.3 MG/DL (0.55-1.30) Estimat Glomerular Filtration Rate 59.4 mL/min (>60) Glucose Level 440 MG/DL (74-106) H Hemoglobin A1c 9.7 % (4.3-6.0) H Calcium Level 8.9 MG/DL (8.5-10.1) Phosphorus Level 2.7 MG/DL (2.5-4.9) Magnesium Level 2.0 MG/DL (1.8-2.4) Total Bilirubin 0.8 MG/DL (0.2-1.0) Direct Bilirubin < 0.1 MG/DL (0.0-0.3) Aspartate Amino Transf (AST/SGOT) 21 U/L (15-37) Alanine Aminotransferase (ALT/SGPT) 25 U/L (12-78) Alkaline Phosphatase 135 U/L (46-116) H Total Protein 7.8 G/DL (6.4-8.2) Albumin 3.2 G/DL (3.4-5.0) L Triglycerides Level 143 MG/DL (30-150) Cholesterol Level 142 MG/DL (< 200) LDL Cholesterol 80 mg/dL (<100) HDL Cholesterol 42 MG/DL (40-60) Cholesterol/HDL Ratio 3.4 (3.3-4.4) POC Whole Blood Glucose 241 MG/DL (74-106) H 240 MG/DL (74-106) H Current Medications Medications (Trade) Dose Ordered Sig/Miguel Route PRN Reason Start Time Stop Time Status Last Admin Dose Admin Acetaminophen (Tylenol) 650 mg Q4H PRN ORAL Mild Pain (Pain Scale 1-3) 02/19/20 09:00 03/20/20 08:59 Acetaminophen (Tylenol) 650 mg Q4H PRN RECTAL Temp >100.5 02/19/20 09:00 03/20/20 08:59 Albuterol/ Ipratropium (Albuterol/ Ipratropium) 3 ml Q4H PRN HHN Shortness of Breath 02/19/20 09:00 02/24/20 08:59 Aspirin (ASA) 81 mg DAILY ORAL 02/19/20 09:30 04/04/20 09:29 02/19/20 09:30 Dextrose (Dextrose 50%) 25 ml Q30M PRN IV Hypoglycemia 02/19/20 09:00 05/19/20 08:59 Dextrose (Dextrose 50%) 50 ml Q30M PRN IV Hypoglycemia 02/19/20 09:00 05/19/20 08:59 Enoxaparin Sodium (Lovenox) 40 mg Q24H SUBQ 02/19/20 09:00 05/19/20 08:59 02/19/20 09:31 Gabapentin (Neurontin) 200 mg Q12HR ORAL 02/19/20 09:30 03/20/20 09:29 02/19/20 09:30 Insulin Aspart (NovoLOG Mix 70/ 30) 60 units EVERY 12 HOURS SUBQ 02/19/20 09:30 05/19/20 09:29 02/19/20 10:48 Insulin Aspart (NovoLOG) BEFORE MEALS AND HS SUBQ 02/19/20 11:30 05/19/20 11:29 02/19/20 11:48 Insulin Aspart (NovoLOG) 30 units NOVOTIAC SUBQ 02/19/20 11:50 05/19/20 11:49 02/19/20 12:01 Meropenem 1 gm/ Sodium Chloride 55 ml @ 110 mls/hr Q8HR IVPB 02/19/20 14:00 02/24/20 13:59 Ondansetron HCl (Zofran) 4 mg Q6H PRN IVP Nausea & Vomiting 02/19/20 09:00 03/20/20 08:59 Oxycodone/ Acetaminophen (Percocet 10/325) 1 tab Q4H PRN ORAL Severe Breakthru Pain (>7) 02/19/20 09:00 02/26/20 08:59 Oxycodone/ Acetaminophen (Percocet 5-325) 1 tab Q4H PRN ORAL Moderate Pain (Pain Scale 4-6) 02/19/20 09:00 02/26/20 08:59 Polyethylene Glycol (Miralax) 17 gm HSPRN PRN ORAL Constipation 02/19/20 21:00 03/20/20 20:59 Sodium Chloride 1,000 ml @ 125 mls/hr Q8H IVLG 02/19/20 09:00 03/20/20 08:59 02/19/20 09:09 Edinson Serna MD Feb 19, 2020 12:08
--- NOTE | 2020-02-19 12:33 | NUR ---
*-*DISCHARGE PLANNING*-* PATIENT HAS BEEN ACCEPTED BACK TO: [facility] P: [phone]
--- NOTE | 2020-02-19 12:34 | NUR ---
*-*DISCHARGE PLANNING*-* PATIENT HAS BEEN ACCEPTED BACK TO: [facility] P: [phone] ROOM# [id number]
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
--- NOTE | 2020-02-19 13:36 | Diagnostic Imaging Report ---
EXAM: US Testicular Scrotum CLINICAL HISTORY: Reason For Exam: Testicular PAIN. COMPARISON: CT abdomen pelvis dated 02/09/2019 TECHNIQUE: Ultrasound examination of the testicles includes grayscale images, and color and spectral doppler analysis. FINDINGS: The right testicle is absent. There is moderate right-sided scrotal subcutaneous edema and hyperemia. The left testis is homogenous and demonstrates normal flow. There is a large left hydrocele IMPRESSION: 1. Large left hydrocele. 2. Absent right testis. 3. Right sided scrotal wall edema.
[2020-02-19] MEDS: Furosemide 40mg tab ORAL SCH (13:46)
[2020-02-19] MEDS ORDERED: Meropenem 1 GM in NS 55 ML IVPB SCH (14:00)
[2020-02-19] MEDS: Morphine Sulfate 2mg/ml Inj(IV/IM USE ONLY) IVP PRN ×2 (14:22→20:26)
[2020-02-19] MEDS ORDERED: HYDROmorphone 1mg/ml Carpuject IVP PRN (14:45)
[2020-02-19] MEDS: Meropenem 1 GM in NS 55 ML IVPB SCH ×2 (15:33→20:26)
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
--- NOTE | 2020-02-19 19:13 | NUR ---
NURSE HAND-OFF: Important Events on Shift:n/a Patient Status: stable Diet: ccho Pending Orders: n/a Pending Results/Labs:n/a Pending MD notification:n/a Latest Vital Signs: Temperature 98.1 , Pulse 119 , B/P 114 /69 , Respiratory Rate 20 , O2 SAT 93 , Room Air, O2 Flow Rate . Vital Sign Comment: stable Latest Duke Fall Score: 35 Fall Risk: Medium Risk Safety Measures: Call light Within Reach, Bed Alarm Zone 1, Side Rails Side Rails x2, Bed position Low and Locked. Fall Precautions: Yellow Socks Report given to TOMAS Galvan.
--- NOTE | 2020-02-19 19:36 | NUR ---
NURSE NOTES: Received patient awake, alert, verbal, resting in bed, comfortable.
[2020-02-19] MEDS: Atorvastatin 20mg tab ORAL SCH (20:25)
[2020-02-19] MEDS ORDERED: Miralax 17gm pkt ORAL PRN (21:00)
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
[2020-02-20] VITALS (7 sets, daily range): BP systolic 113–135; BP diastolic 56–86
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
[2020-02-20] MEDS: Morphine Sulfate 2mg/ml Inj(IV/IM USE ONLY) IVP PRN ×5 (03:37→22:37)
[2020-02-20] MEDS: Meropenem 1 GM in NS 55 ML IVPB SCH ×2 (04:30→13:42)
[2020-02-20] MEDS: NovoLOG Insulin Flexpen SUBQ SCH ×7 (05:02→21:14)
--- NOTE | 2020-02-20 07:24 | NUR ---
HAND-OFF: Report given to Martin Vidal RN.
--- NOTE | 2020-02-20 07:30 | NUR ---
NURSE NOTES: Received report from TOMAS Galvan. Received patient in bed resting comfortably. He is aOx4, no respiratory distress, patient is bed bound. Multiple pressure ulcers in the buttocks area and upper thighs, will change dressings today PRN. IV on right hand that is patent and dressing is clean. Alexandre is draining and intact, draining yellow urine. Bed is locked and placed in lowest position with bed alarm on. Will continue to monitor
[2020-02-20 08:10] LABS: BASOPHILS % (AUTO) 0.8 % (0.0-2.0); EOSINOPHILS % (AUTO) 2.3 % (0.0-3.0); HEMATOCRIT 38.1 % (42.0-52.0); HEMOGLOBIN 11.6 G/DL (14.2-18.0); LYMPHOCYTES % (AUTO) 21.9 % (20.0-45.0); MEAN CORPUSCULAR VOLUME 81 FL (80-99); MONOCYTES % (AUTO) 6.3 % (1.0-10.0); NEUTROPHILS % (AUTO) 68.7 % (45.0-75.0); PLATELET COUNT 204 K/UL (150-450); RED BLOOD COUNT 4.73 M/UL (4.70-6.10); WHITE BLOOD COUNT 6.4 K/UL (4.8-10.8)
[2020-02-20] MEDS: Enoxaparin 40mg Inj SUBQ SCH (08:29)
[2020-02-20] MEDS: Furosemide 40mg tab ORAL SCH (08:30)
[2020-02-20] MEDS: Docusate 100mg cap ORAL SCH (08:30)
[2020-02-20] MEDS: Aspirin Baby 81mg ORAL SCH (08:30)
[2020-02-20 08:34] LABS: PHOSPHORUS 2.9 MG/DL (2.5-4.9)
[2020-02-20 08:37] LABS: ALANINE AMINOTRANSFERASE 40 U/L (12-78); ALBUMIN 3.2 G/DL (3.4-5.0); ALBUMIN/GLOBULIN RATIO 0.8 (1.0-2.7); ALKALINE PHOSPHATASE 120 U/L (46-116); ANION GAP 6 mmol/L (5-15); ASPARTATE AMINO TRANSFERASE 30 U/L (15-37); BILIRUBIN,TOTAL 0.3 MG/DL (0.2-1.0); BLOOD UREA NITROGEN 19 mg/dL (7-18); CALCIUM 8.6 MG/DL (8.5-10.1); CARBON DIOXIDE 30 MMOL/L (21-32); CHLORIDE 103 MMOL/L (98-107); CREATININE 1.1 MG/DL (0.55-1.30); POTASSIUM 4.2 MMOL/L (3.5-5.1); SODIUM 139 MMOL/L (136-145)
--- NOTE | 2020-02-20 09:22 | Urology Progress Note ---
Assessment/Plan Assessment/Plan: 1. Urinary retention with chronic Stoner. 2. Probable neurogenic bladder. 3. Hematuria. 4. Pyuria. 5. Proteinuria. 6. Hydrocele. 7. Scrotal edema. 8. Nephrolithiasis. 9. Inguinal hernia history. monitor clinically stoner indwelling hand irrigated and do PRN abx as ordered local wound care f/u on cx's Subjective Allergies: Coded Allergies: No Known Allergies (Unverified , 02/09/19) Subjective all noted, feels fair Objective Last 24 Hour Vital Signs Date Time Temp Pulse Resp B/P (MAP) Pulse Ox O2 Delivery O2 Flow Rate FiO2 02/20/20 09:00 Room Air 02/20/20 08:00 97.9 100 19 124/56 (78) 96 02/20/20 04:20 97.5 103 20 126/68 (87) 96 02/20/20 04:14 97.9 02/20/20 00:00 98.2 103 20 113/68 (83) 94 02/19/20 21:24 Room Air 02/19/20 20:57 97.5 02/19/20 20:00 98.2 108 20 121/67 (85) 97 02/19/20 16:00 98.1 119 20 114/69 (84) 02/19/20 14:52 98.1 02/19/20 12:00 98.1 71 20 126/69 (88) 93 Intake and Output 02/19/20 02/20/20 19:00 07:00 Intake Total 1989.014 ml 2770.000 ml Output Total 1100 ml 1900 ml Balance 889.014 ml 870.000 ml Intake Oral 780 ml 1600 ml IV Total 1209.014 ml 1170.000 ml Output Urine Total 1100 ml 1900 ml Microbiology Date/Time Source Procedure Growth Status 02/19/20 12:20 Scrotum Gram Stain - Final Resulted 02/19/20 12:20 Scrotum Wound Culture Pending Resulted 02/19/20 04:04 Urine,Clean Catch Urine Culture - Preliminary Yeast Species Resulted Current Medications Medications (Trade) Dose Ordered Sig/Miguel Route PRN Reason Start Time Stop Time Status Last Admin Dose Admin Acetaminophen (Tylenol) 650 mg Q4H PRN ORAL Mild Pain (Pain Scale 1-3) 02/19/20 09:00 03/20/20 08:59 Acetaminophen (Tylenol) 650 mg Q4H PRN RECTAL Temp >100.5 02/19/20 09:00 03/20/20 08:59 Albuterol/ Ipratropium (Albuterol/ Ipratropium) 3 ml Q4H PRN HHN Shortness of Breath 02/19/20 09:00 02/24/20 08:59 Aspirin (ASA) 81 mg DAILY ORAL 02/19/20 09:30 04/04/20 09:29 02/20/20 08:30 Atorvastatin Calcium (Lipitor) 20 mg BEDTIME ORAL 02/19/20 21:00 05/19/20 20:59 02/19/20 20:25 Dextrose (Dextrose 50%) 25 ml Q30M PRN IV Hypoglycemia 02/19/20 09:00 05/19/20 08:59 Dextrose (Dextrose 50%) 50 ml Q30M PRN IV Hypoglycemia 02/19/20 09:00 05/19/20 08:59 Docusate Sodium (Colace) 100 mg DAILY ORAL 02/20/20 09:00 03/21/20 08:59 02/20/20 08:30 Enoxaparin Sodium (Lovenox) 40 mg Q24H SUBQ 02/19/20 09:00 05/19/20 08:59 02/20/20 08:29 Folic Acid (Folate) 1 mg DAILY ORAL 02/20/20 09:00 03/21/20 08:59 02/20/20 08:30 Furosemide (Lasix) 40 mg DAILY ORAL 02/19/20 13:00 03/20/20 12:59 02/20/20 08:30 Gabapentin (Neurontin) 200 mg Q12HR ORAL 02/19/20 09:30 03/20/20 09:29 02/19/20 20:25 Hydromorphone HCl (Dilaudid) 1 mg Q6H PRN IVP Severe Breakthru Pain 02/19/20 14:45 02/26/20 14:44 Insulin Aspart (NovoLOG Mix 70/ 30) 60 units EVERY 12 HOURS SUBQ 02/19/20 09:30 05/19/20 09:29 02/20/20 08:31 Insulin Aspart (NovoLOG) BEFORE MEALS AND HS SUBQ 02/19/20 11:30 1/18/21 11:29 02/20/20 05:02 Insulin Aspart (NovoLOG) 30 units NOVOTIAC SUBQ 02/19/20 11:50 05/19/20 11:49 02/20/20 05:04 Meropenem 1 gm/ Sodium Chloride 55 ml @ 110 mls/hr Q8HR IVPB 02/19/20 14:00 02/24/20 13:59 02/20/20 04:30 Morphine Sulfate (Morphine Sulfate) 2 mg Q4H PRN IVP Severe Pain (Pain Scale 7-10) 02/19/20 14:18 02/26/20 14:17 02/20/20 08:31 Ondansetron HCl (Zofran) 4 mg Q6H PRN IVP Nausea & Vomiting 02/19/20 09:00 03/20/20 08:59 Oxycodone/ Acetaminophen (Percocet 5-325) 1 tab Q4H PRN ORAL Moderate Pain (Pain Scale 4-6) 02/19/20 09:00 02/26/20 08:59 Polyethylene Glycol (Miralax) 17 gm HSPRN PRN ORAL Constipation 02/19/20 21:00 03/20/20 20:59 Vancomycin HCl (Vanco pharmacy to dose) 1 ea DAILY PRN MISC Per rx protocol 02/19/20 12:15 03/20/20 12:14 Vancomycin HCl 1 gm/Sodium Chloride 250 ml @ 167.007 mls/hr Q8HR IVPB 02/19/20 14:00 02/24/20 13:59 02/20/20 05:00 Laboratory Tests 02/19/20 10:06: POC Whole Blood Glucose 241H 02/19/20 11:42: POC Whole Blood Glucose 240H 02/19/20 19:56: POC Whole Blood Glucose 195H 02/20/20 04:37: POC Whole Blood Glucose 333H 02/20/20 07:25: White Blood Count 6.4, Red Blood Count 4.73, Hemoglobin 11.6L, Hematocrit 38.1L, Mean Corpuscular Volume 81, Mean Corpuscular Hemoglobin 24.5L, Mean Corpuscular Hemoglobin Concent 30.4L, Red Cell Distribution Width 20.0H, Platelet Count 204, Mean Platelet Volume 6.2L, Neutrophils (%) (Auto) 68.7, Lymphocytes (%) (Auto) 21.9, Monocytes (%) (Auto) 6.3, Eosinophils (%) (Auto) 2.3, Basophils (%) (Auto) 0.8, Sodium Level 139, Potassium Level 4.2, Chloride Level 103, Carbon Dioxide Level 30, Anion Gap 6, Blood Urea Nitrogen 19H, Creatinine 1.1, Estimat Glomerular Filtration Rate > 60, Glucose Level 257#H, Calcium Level 8.6, Phosphorus Level 2.9, Magnesium Level 2.1, Total Bilirubin 0.3, Aspartate Amino Transf (AST/SGOT) 30, Alanine Aminotransferase (ALT/SGPT) 40, Alkaline Phosphatase 120H, Total Protein 7.0, Albumin 3.2L, Globulin 3.8, Albumin/ Globulin Ratio 0.8L 02/20/20 08:28: POC Whole Blood Glucose 264H Height (Feet): 5 Height (Inches): 8.00 Weight (Pounds): 293 Objective exam stable no scrotal fluctuance urine yellow with occasional debris Shiv Bradford MD Feb 20, 2020 09:22
[2020-02-20] MEDS ORDERED: Milk of Magnesia 30ml Ud ORAL PRN (11:00)
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
--- NOTE | 2020-02-20 11:05 | NUR ---
RD ASSESSMENT & RECOMMENDATIONS SEE CARE ACTIVITY FOR COMPLETE ASSESSMENT DAILY ESTIMATED NEEDS: Needs based on Wounds, paraplegia, obesity 81.36kg abw 20-25 kcals/kg 1038-1473 total kcals 1.25-2 g protein/kg 102-163 g total protein On lasix fluid per MD NUTRITION DIAGNOSIS: * Increased Protein and micronutrient needs r/t Wound healing as evidenced by pt w/ multiple wounds, h/o ful thickness wounds, eval pending * Altered nutrition related lab values R/T diabetes as evidenced by BGs in the 400's on adm, A1C 9.7, uglu 4+ CURRENT DIET: CCHO LOW PO DIET RECOMMENDATIONS: CCHO LOW (3 Carbs/ meal) w/ DOUBLE PROTEIN PORTIONS ADDITIONAL RECOMMENDATIONS: 1) RE-calibrate bed scale w/ added P200 mattress 2) Wound care: Continue MVI, Vit C, JULY BID F/up w/ WC eval 3) Monitor diet compliance and re-attempt to educate 4) Monitor lytes w/ Lasix, replete as needed . .
[2020-02-20] MEDS ORDERED: MULTIVITAMIN WI15 MG PO (12:41)
[2020-02-20] MEDS ORDERED: ACETAMINOPHEN500 M3 ORAL (12:41)
[2020-02-20] MEDS ORDERED: ASCORBIC ACID500 MG ORAL (12:41)
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
--- NOTE | 2020-02-20 14:47 | Infectious Diseases Prog Note ---
Assessment/Plan Assessment/Plan Full consult to follow: A) 1) hx esbl uti - providencia and proteus - urine culture now with yeast - likely colonizer 2) ? scrotal wound infection with cellulitis - testicular ultrasound noted 3) PP 4) chronic catheter 5) nkda P) 1) currently on meropenem and vancomycin 2) can discharge on augment and bactrim to treat ? scrotal wound infection/cellulitis 3) favor not to treat fungal urine culture 4) d/w Dr. Melendez 5) stable discharge ID standpoint Subjective Constitutional: Denies: fever Respiratory: Denies: shortness of breath Cardiovascular: Denies: chest pain Gastrointestinal/Abdominal: Denies: nausea Genitourinary: Denies: dysuria Neurologic: Denies: headache Skin: Denies: rash Hematologic: Denies: bleeding Musculoskeletal: Denies: pain Allergies: Coded Allergies: No Known Allergies (Unverified , 02/09/19) Objective Last 24 Hour Vital Signs Date Time Temp Pulse Resp B/P (MAP) Pulse Ox O2 Delivery O2 Flow Rate FiO2 02/20/20 12:00 96.9 105 20 135/79 (97) 96 02/20/20 09:00 Room Air 02/20/20 08:00 97.9 100 19 124/56 (78) 96 02/20/20 04:20 97.5 103 20 126/68 (87) 96 02/20/20 04:14 97.9 02/20/20 00:00 98.2 103 20 113/68 (83) 94 02/19/20 21:24 Room Air 02/19/20 20:57 97.5 02/19/20 20:00 98.2 108 20 121/67 (85) 97 02/19/20 16:00 98.1 119 20 114/69 (84) 02/19/20 14:52 98.1 Height (Feet): 5 Height (Inches): 8.00 Weight (Pounds): 293 General Appearance: no acute distress HEENT: normocephalic, atraumatic, anicteric Respiratory/Chest: lungs clear, normal breath sounds, no respiratory distress, no accessory muscle use Cardiovascular: normal rate, regular rhythm, no gallop/murmur Genitourinary: other - + stoner Extremities: no cyanosis Skin: no rash 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 normal, alert, responsive Lymphatic: no neck adenopathy Musculoskeletal: no effusion Microbiology Date/Time Source Procedure Growth Status 02/19/20 12:20 Scrotum Gram Stain - Final Resulted 02/19/20 12:20 Scrotum Wound Culture Pending Resulted 02/19/20 04:04 Urine,Clean Catch Urine Culture - Preliminary Yeast Species Resulted Laboratory Tests Test 02/19/20 19:56 02/20/20 04:37 02/20/20 07:25 02/20/20 08:28 POC Whole Blood Glucose 195 MG/DL (74-106) H 333 MG/DL (74-106) H 264 MG/DL (74-106) H White Blood Count 6.4 K/UL (4.8-10.8) Red Blood Count 4.73 M/UL (4.70-6.10) Hemoglobin 11.6 G/DL (14.2-18.0) L Hematocrit 38.1 % (42.0-52.0) L Mean Corpuscular Volume 81 FL (80-99) Mean Corpuscular Hemoglobin 24.5 PG (27.0-31.0) L Mean Corpuscular Hemoglobin Concent 30.4 G/DL (32.0-36.0) L Red Cell Distribution Width 20.0 % (11.6-14.8) H Platelet Count 204 K/UL (150-450) Mean Platelet Volume 6.2 FL (6.5-10.1) L Neutrophils (%) (Auto) 68.7 % (45.0-75.0) Lymphocytes (%) (Auto) 21.9 % (20.0-45.0) Monocytes (%) (Auto) 6.3 % (1.0-10.0) Eosinophils (%) (Auto) 2.3 % (0.0-3.0) Basophils (%) (Auto) 0.8 % (0.0-2.0) Sodium Level 139 MMOL/L (136-145) Potassium Level 4.2 MMOL/L (3.5-5.1) Chloride Level 103 MMOL/L (98-107) Carbon Dioxide Level 30 MMOL/L (21-32) Anion Gap 6 mmol/L (5-15) Blood Urea Nitrogen 19 mg/dL (7-18) H Creatinine 1.1 MG/DL (0.55-1.30) Estimat Glomerular Filtration Rate > 60 mL/min (>60) Glucose Level 257 MG/DL (74-106) #H Calcium Level 8.6 MG/DL (8.5-10.1) Phosphorus Level 2.9 MG/DL (2.5-4.9) Magnesium Level 2.1 MG/DL (1.8-2.4) Total Bilirubin 0.3 MG/DL (0.2-1.0) Aspartate Amino Transf (AST/SGOT) 30 U/L (15-37) Alanine Aminotransferase (ALT/SGPT) 40 U/L (12-78) Alkaline Phosphatase 120 U/L (46-116) H Total Protein 7.0 G/DL (6.4-8.2) Albumin 3.2 G/DL (3.4-5.0) L Globulin 3.8 g/dL Albumin/Globulin Ratio 0.8 (1.0-2.7) L Test 02/20/20 11:13 02/20/20 12:45 POC Whole Blood Glucose 245 MG/DL (74-106) H Vancomycin Level Trough 19.9 ug/mL (5.0-12.0) H Current Medications Medications (Trade) Dose Ordered Sig/Miguel Route PRN Reason Start Time Stop Time Status Last Admin Dose Admin Acetaminophen (Tylenol) 650 mg Q4H PRN ORAL Mild Pain (Pain Scale 1-3) 02/19/20 09:00 03/20/20 08:59 Acetaminophen (Tylenol) 650 mg Q4H PRN RECTAL Temp >100.5 02/19/20 09:00 03/20/20 08:59 Albuterol/ Ipratropium (Albuterol/ Ipratropium) 3 ml Q4H PRN HHN Shortness of Breath 02/19/20 09:00 02/24/20 08:59 Aspirin (ASA) 81 mg DAILY ORAL 02/19/20 09:30 04/04/20 09:29 02/20/20 08:30 Atorvastatin Calcium (Lipitor) 20 mg BEDTIME ORAL 02/19/20 21:00 05/19/20 20:59 02/19/20 20:25 Dextrose (Dextrose 50%) 25 ml Q30M PRN IV Hypoglycemia 02/19/20 09:00 05/19/20 08:59 Dextrose (Dextrose 50%) 50 ml Q30M PRN IV Hypoglycemia 02/19/20 09:00 05/19/20 08:59 Docusate Sodium (Colace) 100 mg DAILY ORAL 02/20/20 09:00 03/21/20 08:59 02/20/20 08:30 Enoxaparin Sodium (Lovenox) 40 mg Q24H SUBQ 02/19/20 09:00 05/19/20 08:59 02/20/20 08:29 Folic Acid (Folate) 1 mg DAILY ORAL 02/20/20 09:00 03/21/20 08:59 02/20/20 08:30 Furosemide (Lasix) 40 mg DAILY ORAL 02/19/20 13:00 03/20/20 12:59 02/20/20 08:30 Gabapentin (Neurontin) 200 mg Q12HR ORAL 02/19/20 09:30 03/20/20 09:29 02/19/20 20:25 Hydromorphone HCl (Dilaudid) 1 mg Q6H PRN IVP Severe Breakthru Pain 02/19/20 14:45 02/26/20 14:44 Insulin Aspart (NovoLOG Mix 70/ 30) 60 units EVERY 12 HOURS SUBQ 02/19/20 09:30 05/19/20 09:29 02/20/20 08:31 Insulin Aspart (NovoLOG) BEFORE MEALS AND HS SUBQ 02/19/20 11:30 05/19/20 11:29 02/20/20 11:15 Insulin Aspart (NovoLOG) 35 units NOVOTIAC SUBQ 02/20/20 11:50 05/19/20 11:49 02/20/20 11:16 Magnesium Hydroxide (Mom) 30 ml DAILYPRN PRN ORAL constipation 02/20/20 11:00 03/21/20 10:59 Meropenem 1 gm/ Sodium Chloride 55 ml @ 110 mls/hr Q8HR IVPB 02/19/20 14:00 02/24/20 13:59 02/20/20 13:42 Morphine Sulfate (Morphine Sulfate) 2 mg Q4H PRN IVP Severe Pain (Pain Scale 7-10) 02/19/20 14:18 02/26/20 14:17 02/20/20 13:40 Ondansetron HCl (Zofran) 4 mg Q6H PRN IVP Nausea & Vomiting 02/19/20 09:00 03/20/20 08:59 Oxycodone/ Acetaminophen (Percocet 5-325) 1 tab Q4H PRN ORAL Moderate Pain (Pain Scale 4-6) 02/19/20 09:00 02/26/20 08:59 Polyethylene Glycol (Miralax) 17 gm HSPRN PRN ORAL Constipation 02/19/20 21:00 03/20/20 20:59 Vancomycin HCl (Vanco pharmacy to dose) 1 ea DAILY PRN MISC Per rx protocol 02/19/20 12:15 03/20/20 12:14 Vancomycin HCl 750 mg/Sodium Chloride 250 ml @ 166.667 mls/hr Q8H IVPB 02/20/20 17:00 02/25/20 16:59 Edinson Serna MD Feb 20, 2020 14:47
--- NOTE | 2020-02-20 16:38 | NUR ---
CASE MANAGEMENT:REVIEW SI;CATHETER DYSFUNCTION. DM. 96.9 105 20 135/79 96% ON RA BUN 19 BG 344 ALK 120 IS;AUGMENTIN PO Q12 BACTRIM DS PO BID VANCOMYCIN IV Q8 MEROPENEM IV Q8 LASIX PO QD INSULIN ASPART SUBQ Q12 INSULIN NOVOLOG SUBQ QID ASA PO QD LOVENOX SUBQ Q24 MED SURG STATUS DCP;FROM [facility]
[2020-02-20] MEDS: Bactrim-DS 1 tab ORAL SCH (18:18)
--- NOTE | 2020-02-20 19:36 | NUR ---
NURSE HAND-OFF: Important Events on Shift:uncontrolled blood sugar, changed dressing in sacral area Patient Status: stable Diet: CCHO medium Pending Orders: n/a Pending Results/Labs:n/a Pending MD notification:n/a Latest Vital Signs: Temperature 98.2 , Pulse 100 , B/P 130 /68 , Respiratory Rate 20 , O2 SAT 96 , Room Air, O2 Flow Rate . Vital Sign Comment: stable Latest Duke Fall Score: 35 Fall Risk: Medium Risk Safety Measures: Call light Within Reach, Bed Alarm Zone 1, Side Rails Side Rails x2, Bed position Low and Locked. Fall Precautions: Yellow Socks Report given to TOMAS Cardenas.
--- NOTE | 2020-02-20 19:37 | NUR ---
NURSE NOTES: Patient in bed, awake and alert x4. On room air with no signs of distress or SOB. IV intact and patent. Alexandre in place and draining to gravity. Bed locked and in lowest position. Call light in reach. Will continue plan of care.
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
[2020-02-20] MEDS: Atorvastatin 20mg tab ORAL SCH (21:10)
[2020-02-20] MEDS: Augmentin 875mg Tab ORAL SCH (21:10)
[2020-02-21] VITALS: BP 119/54
[2020-02-21 04:00] VITALS: BP 122/74
[2020-02-21] MEDS: Morphine Sulfate 2mg/ml Inj(IV/IM USE ONLY) IVP PRN ×4 (04:08→19:48)
[2020-02-21] MEDS: NovoLOG Insulin Flexpen SUBQ SCH ×6 (05:38→17:44)
--- NOTE | 2020-02-21 06:24 | NUR ---
NURSE HAND-OFF: Important Events on Shift: No events Patient Status: Stable Diet: CCHO med Pending Orders: N/A Pending Results/Labs: Vanco trough @ 1600 Pending notification: N/A Latest Vital Signs: Temperature 97.7 , Pulse 102 , B/P 122 /74 , Respiratory Rate 22 , O2 SAT 93 , Room Air, O2 Flow Rate . Vital Sign Comment: N/A Latest Duke Fall Score: 35 Fall Risk: Medium Risk Safety Measures: Call light Within Reach, Bed Alarm Zone 1, Side Rails Side Rails x2, Bed position Low and Locked. Fall Precautions: Yellow Socks
[2020-02-21 08:00] VITALS: BP 114/74
--- NOTE | 2020-02-21 08:00 | NUR ---
NURSE NOTES: Patient awake and alert and oriented,respirations unlabored.Alexandre catheter is in place with yellow urine noted.[place] inplace.patientsitting up in bed and eating breakfast,bed alarm on ,call light within reach.
--- NOTE | 2020-02-21 09:10 | Urology Progress Note ---
Assessment/Plan Assessment/Plan: 1. Urinary retention with chronic Stoner. 2. Probable neurogenic bladder. 3. Hematuria. 4. Pyuria. 5. Proteinuria. 6. Hydrocele. 7. Scrotal edema. 8. Nephrolithiasis. 9. Inguinal hernia history. monitor clinically stoner indwelling hand irrigated and do PRN abx as ordered local wound care f/u on cx's Subjective Allergies: Coded Allergies: No Known Allergies (Unverified , 02/09/19) Subjective all noted, feels fair Objective Last 24 Hour Vital Signs Date Time Temp Pulse Resp B/P (MAP) Pulse Ox O2 Delivery O2 Flow Rate FiO2 02/21/20 08:00 98.1 101 22 114/74 (87) 93 02/21/20 04:00 97.7 102 22 122/74 (90) 93 02/21/20 00:00 98.6 110 22 119/54 (75) 96 02/20/20 21:25 104 20 93 Room Air 21 02/20/20 21:00 Room Air 02/20/20 20:00 98.4 110 22 127/75 (92) 92 02/20/20 16:00 98.2 100 20 130/68 (88) 96 02/20/20 12:00 96.9 105 20 135/79 (97) 96 Intake and Output 02/20/20 02/21/20 19:00 07:00 Intake Total 1560 ml 600 ml Output Total 2800 ml 1900 ml Balance -1240 ml -1300 ml Intake Oral 1560 ml 600 ml Output Urine Total 2800 ml 1900 ml Microbiology Date/Time Source Procedure Growth Status 02/19/20 12:20 Scrotum Gram Stain - Final Resulted 02/19/20 12:20 Scrotum Wound Culture Pending Resulted 02/19/20 04:04 Urine,Clean Catch Urine Culture - Preliminary Yeast Species Resulted Current Medications Medications (Trade) Dose Ordered Sig/Miguel Route PRN Reason Start Time Stop Time Status Last Admin Dose Admin Acetaminophen (Tylenol) 650 mg Q4H PRN ORAL Mild Pain (Pain Scale 1-3) 02/19/20 09:00 03/20/20 08:59 Acetaminophen (Tylenol) 650 mg Q4H PRN RECTAL Temp >100.5 02/19/20 09:00 03/20/20 08:59 Albuterol/ Ipratropium (Albuterol/ Ipratropium) 3 ml Q4H PRN HHN Shortness of Breath 02/19/20 09:00 02/24/20 08:59 Amoxicillin/ Clavulanate Potassium (Augmentin) 875 mg EVERY 12 HOURS ORAL 02/20/20 21:00 02/27/20 20:59 02/20/20 21:10 Aspirin (ASA) 81 mg DAILY ORAL 02/19/20 09:30 04/04/20 09:29 02/20/20 08:30 Atorvastatin Calcium (Lipitor) 20 mg BEDTIME ORAL 02/19/20 21:00 05/19/20 20:59 02/20/20 21:10 Dextrose (Dextrose 50%) 25 ml Q30M PRN IV Hypoglycemia 02/19/20 09:00 05/19/20 08:59 Dextrose (Dextrose 50%) 50 ml Q30M PRN IV Hypoglycemia 02/19/20 09:00 05/19/20 08:59 Docusate Sodium (Colace) 100 mg DAILY ORAL 02/20/20 09:00 03/21/20 08:59 02/20/20 08:30 Enoxaparin Sodium (Lovenox) 40 mg Q24H SUBQ 02/19/20 09:00 05/19/20 08:59 02/20/20 08:29 Folic Acid (Folate) 1 mg DAILY ORAL 02/20/20 09:00 03/21/20 08:59 02/20/20 08:30 Furosemide (Lasix) 40 mg DAILY ORAL 02/19/20 13:00 03/20/20 12:59 02/20/20 08:30 Gabapentin (Neurontin) 200 mg Q12HR ORAL 02/19/20 09:30 03/20/20 09:29 02/19/20 20:25 Hydromorphone HCl (Dilaudid) 1 mg Q6H PRN IVP Severe Breakthru Pain 02/19/20 14:45 02/26/20 14:44 Insulin Aspart (NovoLOG Mix 70/ 30) 65 units EVERY 12 HOURS SUBQ 02/20/20 21:00 05/19/20 09:29 02/20/20 21:16 Insulin Aspart (NovoLOG) BEFORE MEALS AND HS SUBQ 02/19/20 11:30 05/19/20 11:29 02/21/20 05:38 Insulin Aspart (NovoLOG) 35 units NOVOTIAC SUBQ 02/20/20 11:50 05/19/20 11:49 02/21/20 05:38 Magnesium Hydroxide (Mom) 30 ml DAILYPRN PRN ORAL constipation 02/20/20 11:00 03/21/20 10:59 Morphine Sulfate (Morphine Sulfate) 2 mg Q4H PRN IVP Severe Pain (Pain Scale 7-10) 02/19/20 14:18 02/26/20 14:17 02/21/20 04:08 Ondansetron HCl (Zofran) 4 mg Q6H PRN IVP Nausea & Vomiting 02/19/20 09:00 03/20/20 08:59 Oxycodone/ Acetaminophen (Percocet 5-325) 1 tab Q4H PRN ORAL Moderate Pain (Pain Scale 4-6) 02/19/20 09:00 02/26/20 08:59 Polyethylene Glycol (Miralax) 17 gm HSPRN PRN ORAL Constipation 02/19/20 21:00 03/20/20 20:59 Trimethoprim/ Sulfamethoxazole (Bactrim-DS) 1 tab TWICE A DAY ORAL 02/20/20 18:00 02/27/20 17:59 02/20/20 18:18 Laboratory Tests 02/20/20 11:13: POC Whole Blood Glucose 245H 02/20/20 12:45: Vancomycin Level Trough 19.9H 02/20/20 16:32: POC Whole Blood Glucose 344H 02/21/20 05:31: POC Whole Blood Glucose 278H Height (Feet): 5 Height (Inches): 8.00 Weight (Pounds): 293 Objective exam stable no scrotal fluctuance urine yellow with occasional debris Shiv Bradford MD Feb 21, 2020 09:10
[2020-02-21] MEDS: Bactrim-DS 1 tab ORAL SCH ×2 (09:15→17:47)
[2020-02-21] MEDS: Docusate 100mg cap ORAL SCH (09:15)
[2020-02-21] MEDS: Aspirin Baby 81mg ORAL SCH (09:15)
[2020-02-21] MEDS: Furosemide 40mg tab ORAL SCH (09:16)
[2020-02-21] MEDS: Enoxaparin 40mg Inj SUBQ SCH (09:18)
[2020-02-21] MEDS: Augmentin 875mg Tab ORAL SCH (09:57)
[2020-02-21] MEDS ORDERED: ASPIRIN81 MG ORAL (11:02)
[2020-02-21] MEDS ORDERED: AMOX TR-K CLV1 EAC2 ORAL (11:02)
[2020-02-21] MEDS ORDERED: LIPITOR20 MG ORAL (11:02)
[2020-02-21] MEDS ORDERED: NOVOLOG100 UNITS1 SUBQ (11:02)
[2020-02-21] MEDS ORDERED: NOVOLOG MI100 UNIT/3 SUBQ (11:02)
[2020-02-21] MEDS ORDERED: BACTRIM-DS1 EA ORAL (11:02)
--- NOTE | 2020-02-21 11:04 | Discharge Instructions ---
Discharge Instructions Discharge Instructions Diet: diabetic calorie control Resume Normal Activity?: Yes Activity: as tolerated, up to chair Follow Up Orders Finish 9 more days of augmentin and bactrim. Need to have better control of diet, decrease carbohydrate intake For Congestive Heart Failure Reminder Report to your physician any weight gain of 5 pounds or more in one week. Chaz Melendez D.O Feb 21, 2020 11:04
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
[2020-02-21 12:00] VITALS: BP 119/70
--- NOTE | 2020-02-21 15:36 | NUR ---
*-*DISCHARGE PLANNED*-* PATIENT HAS BEEN ACCEPTED AND WILL BE DISCHARGE BACK TO: [facility] P: [phone] ROOM# 316.c SKILLED [facility] PICKUP SET FOR 6PM/1800 S/W [place] [id number]. S/W PATIENT DAUGHTER MCKAY STEELE, WHO IS IN AGREEMENT WITH DISCHARGE PLAN.
[2020-02-21 16:00] VITALS: BP 127/82
--- NOTE | 2020-02-21 16:00 | NUR ---
INSURANCE DC SUMMARY/INSTRUCTIONS CLINICALS FAXED TO [facility] [phone]
--- NOTE | 2020-02-21 16:10 | NUR ---
NURSE NOTES: Wound care Team here to assess patient wounds Wound care done and pictures were taken of patient wounds.
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
--- NOTE | 2020-02-21 16:35 | NUR ---
NURSE NOTES:SKIN/WOUND ASSESSMENT Right side of Scrotum surgical wound 1.7x2.1x0.7 70% yellow slough 30% pink granulation tissue small amount serous drainage hydrogel and Optifoam applied periwound edematous. Patient states surgery approximately 3 months ago, no pain noted. Diffuse Skin rash bilateral lower legs,feet, buttocks and sacral area with some open areas pink tissue and small serous drainage and other areas dry and flaky . 

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
--- NOTE | 2020-02-21 20:06 | NUR ---
NURSE NOTES: Patient discharge back to [facility] ,report given to Irving VÁZQUEZ .IV removed By Charge Nurse KANCHAN,patient received Morphine 2mg IV given by KANCHAN RN ,Irving VÁZQUEZ aware.Patient family member daughter notified of patient discharge.Patient transport via ambulance personnel,[facility].Patient has personal belongings.
== END 2020-02-21 20:20 | DRG 501 ==
LOC: EDBD 03:15 → EMR 03:41 → 4E 04:18 → EDBEDREQ 04:59
DX: N49.2 Inflammatory disorders of scrotum (principal); E11.65 Type 2 diabetes mellitus with hyperglycemia; E66.01 Morbid (severe) obesity due to excess calories; Z68.41 Body mass index [BMI] 40.0-44.9, adult; G82.20 Paraplegia, unspecified; L89.522 Pressure ulcer of left ankle, stage 2; L89.324 Pressure ulcer of left buttock, stage 4; L89.314 Pressure ulcer of right buttock, stage 4; L89.214 Pressure ulcer of right hip, stage 4; L89.894 Pressure ulcer of other site, stage 4; L89.156 Pressure-induced deep tissue damage of sacral region; I95.89 Other hypotension; L89.896 Pressure-induced deep tissue damage of other site; S37.30XA Unspecified injury of urethra, initial encounter; N31.9 Neuromuscular dysfunction of bladder, unspecified; K74.60 Unspecified cirrhosis of liver; R31.0 Gross hematuria; Y84.6 Urinary catheterization as the cause of abnormal reaction of the patient, or of later complication, without mention of misadventure at the time of the procedure; Y92.122 Bedroom in nursing home as the place of occurrence of the external cause; Y99.8 Other external cause status; D50.9 Iron deficiency anemia, unspecified; N43.3 Hydrocele, unspecified; R33.9 Retention of urine, unspecified; I10 Essential (primary) hypertension; R60.0 Localized edema; I87.8 Other specified disorders of veins; L85.9 Epidermal thickening, unspecified; M85.80 Other specified disorders of bone density and structure, unspecified site; E78.5 Hyperlipidemia, unspecified; G89.29 Other chronic pain; T14.8XXS Other injury of unspecified body region, sequela; Z79.4 Long term (current) use of insulin; Z87.440 Personal history of urinary (tract) infections; Z86.711 Personal history of pulmonary embolism; Z86.718 Personal history of other venous thrombosis and embolism; Z86.19 Personal history of other infectious and parasitic diseases; Z96.0 Presence of urogenital implants; Z90.79 Acquired absence of other genital organ(s); Z98.890 Other specified postprocedural states; Z80.1 Family history of malignant neoplasm of trachea, bronchus and lung
CPT/HCPCS: 36415; 51702; 76870; 80048; 80053; 80061; 80076; 80202; 81001; 82962; 83036; 83735; 84100; 85025; 87070; 87086; 87181; 87205; 94664; 96360; 96361; 96365; 96366; 96367; 96368; 96374; 96375; 99285; J1815; J2405; J7030